=== PATIENT | female | born 1935 | race Caucasian/White ===

== ENCOUNTER → 2018-04-25 15:01 | Outpatient (CLI) | payer MEDICARE, OTHER, SELFPAY ==
[2018-04-25 16:54] LABS: Thyroid Stimulating Hormone 2.85 uIU/mL (0.47-4.68)
== END ==
PROVIDERS: Family Provider Internal Medicine; PCP Internal Medicine; Visit Provider Internal Medicine
DX: E03.9 Hypothyroidism, unspecified (principal)
CPT/HCPCS: 36415; 84443

== ENCOUNTER → 2018-10-17 08:34 | Outpatient (CLI) | payer MEDICARE, OTHER, SELFPAY ==
[2018-10-17 09:32] LABS: Add Manual Diff / Slide Review NO; Basophils Percent Auto 0.6 % (0-2); Eosinophils Percent Auto 0.9 % (2-4); Hematocrit 38.4 % (36-46); Hemoglobin 13.1 g/dL (12.0-16.0); Mean Corpuscular Volume 91.2 fL (80-100); Monocytes Percent Auto 21.1 % (3-14); Neutrophils Absolute Auto 2000 /uL (1500-7000); Neutrophils Percent Auto 44.4 % (50-75); Platelet Count 202 X10^3/uL (150-400); Red Blood Cell Count 4.21 X10^6/uL (4.0-5.2); Red Cell Distribution Width 13.9 % (11.6-14.8); White Blood Cell Count 4.6 X10^3/uL (4.5-11.0)
[2018-10-17 09:37] LABS: Alanine Aminotransferase 26 IU/L (9-52); Albumin Globulin Ratio 1.7 (1.0-2.8); Alkaline Phosphatase 43 U/L (38-126); Aspartate Aminotransferase 32 IU/L (14-36); Bilirubin Total 0.5 mg/dL (0.2-1.3); Blood Urea Nitrogen 30 mg/dL (7-17); Calcium 9.4 mg/dL (8.4-10.2); Carbon Dioxide 26 mmol/L (22-32); Chloride 103 mmol/L (98-107); Cholesterol 289 mg/dL (140-199); Estimated Glomerular Filt Rate 33.2 mL/min (>60); Globulin 2.9 g/dL (1.7-4.1); Glucose 103 mg/dL (80-110); HDL Cholesterol 76 mg/dL (40-60); HEMOLYSIS < 15 (0-50); LDL Cholesterol Calculated 188 mg/dL (<100); Potassium 4.6 mmol/L (3.4-5.1); Sodium 141 mmol/L (137-145); Total Protein 7.9 g/dL (6.3-8.2); Triglycerides 124 mg/dL (35-150)
[2018-10-17 10:46] LABS: TSH w/ Reflex to FT4 2.46 uIU/mL (0.47-4.68)
== END ==
PROVIDERS: PCP Internal Medicine; Visit Provider Internal Medicine
DX: F32.9 Major depressive disorder, single episode, unspecified (principal); N18.9 Chronic kidney disease, unspecified; E03.9 Hypothyroidism, unspecified; E78.00 Pure hypercholesterolemia, unspecified
CPT/HCPCS: 36415; 80053; 80061; 84443; 85025

== ENCOUNTER → 2019-07-02 08:33 | Outpatient (CLI) | payer MEDICARE, OTHER, SELFPAY ==
[2019-07-02 10:54] LABS: Alanine Aminotransferase 15 IU/L (9-52); Albumin 4.8 g/dL (3.5-5.0); Albumin Globulin Ratio 1.8 (1.0-2.8); Alkaline Phosphatase 35 U/L (38-126); Aspartate Aminotransferase 30 IU/L (14-36); BUN Creatinine Ratio 22.6 (6-22); Bilirubin Total 0.5 mg/dL (0.2-1.3); Blood Urea Nitrogen 43 mg/dL (7-17); Calcium 9.5 mg/dL (8.4-10.2); Carbon Dioxide 25 mmol/L (22-32); Chloride 103 mmol/L (98-107); Cholesterol 289 mg/dL (140-199); Estimated Glomerular Filt Rate 25.3 mL/min (>60); Globulin 2.6 g/dL (1.7-4.1); Glucose 98 mg/dL (80-110); HDL Cholesterol 66 mg/dL (40-60); HEMOLYSIS < 15 (0-50); LDL Cholesterol Calculated 197 mg/dL (<100); Potassium 4.4 mmol/L (3.4-5.1); Sodium 141 mmol/L (137-145); Total Protein 7.4 g/dL (6.3-8.2); Triglycerides 131 mg/dL (35-150)
[2019-07-02 11:14] LABS: TSH w/ Reflex to FT4 1.95 uIU/mL (0.47-4.68)
== END ==
PROVIDERS: PCP Internal Medicine; Visit Provider Internal Medicine
DX: I25.10 Atherosclerotic heart disease of native coronary artery without angina pectoris (principal); E03.9 Hypothyroidism, unspecified
CPT/HCPCS: 36415; 80053; 80061; 84443

== ENCOUNTER → 2019-07-04 10:52 | Outpatient (CLI) | payer MEDICARE, OTHER, SELFPAY ==
--- NOTE | 2019-07-04 | DI.US.S_ITS ---
PROCEDURE: US CAROTID DOPPLER BI INDICATIONS: TIA TECHNIQUE: Color and pulse Doppler interrogation was performed of both carotid systems, with image documentation and velocity measurements. COMPARISON: None. FINDINGS: Stenosis calculations are based on SRU (Society of Radiologists in Ultrasound) criteria. Right side: Brachial blood pressure: 160/72 mm Hg. Common carotid artery peak systolic velocity: 93 cm/sec. Internal carotid artery peak systolic velocity: 124 cm/sec. Internal carotid artery end diastolic velocity: 25 cm/sec. External carotid artery peak systolic velocity: 90 cm/sec. ICA/CCA peak systolic ratio: 1.4. Rousseau scale imaging description: Mild scattered plaque. Percent internal carotid artery stenosis: Less than 50% stenosis Vertebral artery: Flow direction is antegrade. Left side: Brachial blood pressure: 153/66 mm Hg. Common carotid artery peak systolic velocity: 77 cm/sec. Internal carotid artery peak systolic velocity: 96 cm/sec. Internal carotid artery end diastolic velocity: 24 cm/sec. External carotid artery peak systolic velocity: 112 cm/sec. ICA/CCA peak systolic ratio: 1.3. Rousseau scale imaging description: Moderate scattered plaque. Percent internal carotid artery stenosis: Less than 50% stenosis. Vertebral artery: Not visualized. IMPRESSION: Less than 50% bilateral internal carotid artery stenosis. Dictated by: Benjamin Crespo [facility] Interpreted: Bobbi Gil MD on 07/04/2019 at 11:45 Approved by: Bobbi Gil M.D. on 07/04/2019 at 16:22
== END ==
PROVIDERS: PCP Internal Medicine; Referring Provider Internal Medicine Cardiovascular Disease; Visit Provider Internal Medicine
DX: I65.23 Occlusion and stenosis of bilateral carotid arteries (principal)
CPT/HCPCS: 93880

== ENCOUNTER → 2019-07-30 15:58 | Outpatient (CLI) | payer MEDICARE, OTHER, SELFPAY ==
--- NOTE | 2019-07-30 | DI.ECHO.S_ITS ---
[facility] +---------+ : : [address] : : : : [id number] : : : : Phone: [phone]+ Echocardiogram Report + + :Name: KALE HANSON Study Date: 07/30/2019 Height: 60 in : :[facility] Exam Location: IS Weight: 120 lb : : Gender: Female BSA: 1.5 m2 : :: 1935 Age: 83 yrs BP: 140/70 mmHg: :Reason For Study: Murmur : :Ordering Physician: Dr. Kim : :Arnaud Performed By: Divina Page : + + Interpretation Summary The ejection fraction is estimated to be 60-65%. There is mild mitral regurgitation. There is mild to moderate aortic regurgitation. The right ventricular systolic pressure is estimated to be at least 32 mmHg based on an estimated right atrial pressure of 3 mm Hg. Procedure: A two-dimensional transthoracic echocardiogram with color flow and Doppler was performed. The study quality was technically adequate. There is no prior echocardiogram noted for this patient. The patient was in sinus bradycardia with heart rates between 50-54 bpm during the exam. Left Ventricle: The left ventricle is normal in size, wall thickness, and systolic function without any focal wall motion abnormalities. The ejection fraction is estimated to be 60-65%. Left ventricular wall motion is normal. Diastolic parameters suggest a pseudonormalization pattern, consistent with probable elevated filling pressures. Right Ventricle: The right ventricle is normal in size and function. Atria: The left atrium is severely dilated. Right atrial size is normal. There is no Doppler evidence for an interatrial shunt. The interatrial septum bows toward right atrium consistent with elevated left atrial pressure. Mitral Valve: The mitral valve leaflets appear mildly thickened, but open well. There is mild mitral annular calcification. There is mild mitral regurgitation. Aortic Valve: The aortic valve is trileaflet. The aortic valve opens well. There is mild to moderate aortic regurgitation. Tricuspid Valve: The tricuspid valve is normal in structure and function. There is trace tricuspid regurgitation. The right ventricular systolic pressure is estimated to be at least 32 mmHg based on an estimated right atrial pressure of 3 mm Hg. Pulmonic Valve: The pulmonic valve is not well visualized. There is trace pulmonic regurgitation. Great Vessels: The aortic root is normal size. The ascending aorta is normal in size. The pulmonary is not well visualized. The IVC is of normal diameter and collapses greater than 50% with a sniff. This suggests a low right atrial pressure of 3 mm Hg. Pericardium/ Pleura There is no pericardial effusion. There is no pleural effusion. MMode/2D Measurements & Calculations LVIDd: 4.6 cm LVOT diam: 1.9 cm LVIDs: 3.2 cm Ao root diam: 3.5 cm FS: 31.1 % asc Aorta Diam: 3.1 cm EPSS: 0.55 cm IVSd: 0.94 cm LVPWd: 0.76 cm LV bell. diameter/BSA (cm/m^2): 3.1 LV sys. diameter/BSA (cm/m^2): 2.1 LA A2 area: 23.4 cm2 RA long axis: 4.6 cm LA A4 area: 22.5 cm2 RA area: 13.5 cm2 LA length (vol): 5.2 cm RA vol: 33.5 ml LA vol: 85.9 ml RA : 22.3 ml/m2 LA vol index: 57.2 ml/m2 RVD1 (basal): 3.3 cm RVD2 (mid): 3.0 cm TAPSE: 2.6 cm Doppler Measurements & Calculations Ao V2 max: 113.0 cm/sec LVOT Max Colton: 82.8 cm/sec Ao V2 mean: 81.5 cm/sec LV V1 max P.7 mmHg Ao max P.1 mmHg LV V1 VTI: 20.7 cm Ao mean P.8 mmHg ALEJANDRO(I,D): 2.1 cm2 Ao V2 VTI: 28.0 cm ALEJANDRO(V,D): 2.0 cm2 sev ratio: 0.74 ALEJANDRO indexed to BSA (cm^2/m^2): 1.4 AI P1/2t: 582.3 msec AI dec slope: 210.6 cm/sec2 MV E max colton: 82.8 cm/sec TR max colton: 268.0 cm/sec MV A max colton: 98.1 cm/sec TR max P.7 mmHg MV E/A: 0.84 PA V2 max: 60.9 cm/sec Med Peak E' Colton: 4.4 cm/sec PA V2 mean: 46.8 cm/sec E/E' med: 18.7 PA mean P.94 mmHg Lat Peak E' Colton: 6.6 cm/sec PA Accel Time: 0.14 sec E/E' lat: 12.5 E/e' average: 15.6 MV dec time: 0.19 sec MV P1/2t: 55.0 msec MV P1/2t max colton: 83.2 cm/sec SV(LVOT): 57.8 ml MVA(2t): 4.0 cm2 Reading Physician:12:13 PM
== END ==
PROVIDERS: PCP Internal Medicine; Visit Provider Internal Medicine
DX: I08.0 Rheumatic disorders of both mitral and aortic valves (principal); R01.1 Cardiac murmur, unspecified
CPT/HCPCS: 93306

== ENCOUNTER → 2020-03-03 09:43 | Outpatient (CLI) | payer MEDICARE, OTHER, SELFPAY ==
[2020-03-03 10:43] LABS: Add Manual Diff / Slide Review NO; Basophils Absolute Auto 0 /uL (0-100); Basophils Percent Auto 0.7 % (0-2); Eosinophils Absolute Auto 0 /uL (0-450); Eosinophils Percent Auto 0.6 % (2-4); Hematocrit 34.6 % (36-46); Hemoglobin 11.7 g/dL (12.0-16.0); Lymphocytes Absolute Auto 1300 /uL (1100-4500); Lymphocytes Percent Auto 28.5 % (25-40); Mean Corpuscular HGB Conc 33.9 % (30-36); Mean Corpuscular Hemoglobin 31.4 PG (26-34); Mean Corpuscular Volume 92.7 fL (80-100); Monocytes Absolute Auto 1100 /uL (0-900); Monocytes Percent Auto 23.8 % (3-14); Neutrophils Absolute Auto 2200 /uL (1500-7000); Neutrophils Percent Auto 46.4 % (50-75); Platelet Count 168 X10^3/uL (150-400); Red Blood Cell Count 3.74 X10^6/uL (4.0-5.2); Red Cell Distribution Width 13.9 % (11.6-14.8); White Blood Cell Count 4.6 X10^3/uL (4.5-11.0)
[2020-03-03 11:06] LABS: Alanine Aminotransferase 17 IU/L (<35); Albumin 4.6 g/dL (3.5-5.0); Albumin Globulin Ratio 1.8 (1.0-2.8); Alkaline Phosphatase 38 U/L (38-126); Aspartate Aminotransferase 33 IU/L (14-36); BUN Creatinine Ratio 22.6 (6-22); Bilirubin Total 0.5 mg/dL (0.2-1.3); Blood Urea Nitrogen 38 mg/dL (7-17); Calcium 9.1 mg/dL (8.4-10.2); Carbon Dioxide 23 mmol/L (22-32); Chloride 107 mmol/L (98-107); Estimated Glomerular Filt Rate 29.1 mL/min (>60); Globulin 2.6 g/dL (1.7-4.1); Glucose 106 mg/dL (80-110); HEMOLYSIS < 15 (0-50); Potassium 5.2 mmol/L (3.4-5.1); Sodium 138 mmol/L (137-145); Total Protein 7.2 g/dL (6.3-8.2)
[2020-03-03 11:47] LABS: Vitamin B12 643 pg/mL (239-931)
== END ==
PROVIDERS: PCP Internal Medicine; Referring Provider Internal Medicine; Visit Provider Internal Medicine
DX: I10 Essential (primary) hypertension (principal); E03.9 Hypothyroidism, unspecified; G62.9 Polyneuropathy, unspecified
CPT/HCPCS: 36415; 80053; 82607; 85025

== ENCOUNTER → 2020-05-28 14:09 | Outpatient (CLI) | payer MEDICARE, OTHER, SELFPAY | PROVIDERS: PCP Internal Medicine; Referring Provider Internal Medicine; Visit Provider Internal Medicine | DX: M81.0 Age-related osteoporosis without current pathological fracture (principal); Z78.0 Asymptomatic menopausal state; E07.9 Disorder of thyroid, unspecified | CPT/HCPCS: 77080 ==

== ENCOUNTER → 2020-06-05 09:35 | Outpatient (CLI) | payer MEDICARE, OTHER, SELFPAY ==
--- NOTE | 2020-06-05 09:48 | DI.MG.S_ITS ---
Patient Name: KALE HANSON date: 1935 Sex: F Attending Physician: Arnaud Indications: Date: 06/05/2020 09:45 At the request of: LEONOR MARIE Procedure: MM screening mammo BI BILATERAL DIGITAL SCREENING MAMMOGRAM 3D/2D WITH CAD: 06/05/2020 CLINICAL: Routine screening. Comparison is made to exams dated: 01/24/2018 mammogram, 01/11/2016 mammogram, and 01/04/2015 mammogram - [facility]. There are scattered fibroglandular elements in both breasts. Current study was also evaluated with a Computer Aided Detection (CAD) system. No significant masses, calcifications, or other findings are seen in either breast. There has been no significant interval change. IMPRESSION: NEGATIVE There is no mammographic evidence of malignancy. A 1 year screening mammogram is recommended. This exam was interpreted at Station ID: [id number]. NOTE: For mammograms, a report in lay terms will be sent to the patient. Approximately 15% of breast malignancies will not be visualized mammographically. In the management of a palpable breast mass, a negative mammogram must not discourage biopsy of a clinically suspicious lesion. Electronically Signed By: Vinnie eckert/mikala:06/07/2020 08:57:51 letter sent: Normal Exam ACR BI-RADS Category 1: Negative [id number]
== END ==
PROVIDERS: PCP Internal Medicine; Referring Provider Internal Medicine; Visit Provider Internal Medicine
DX: Z12.31 Encounter for screening mammogram for malignant neoplasm of breast (principal)
CPT/HCPCS: 77063; 77067

== ENCOUNTER → 2020-06-16 08:09 | Outpatient (CLI) | payer MEDICARE, OTHER, SELFPAY ==
[2020-06-16 09:40] LABS: Cholesterol 230 mg/dL (140-199); HDL Cholesterol 72 mg/dL (40-60); LDL Cholesterol Calculated 138 mg/dL (<100); Triglycerides 98 mg/dL (35-150)
== END ==
PROVIDERS: PCP Internal Medicine; Referring Provider Internal Medicine Cardiovascular Disease; Visit Provider Internal Medicine Cardiovascular Disease
DX: I25.10 Atherosclerotic heart disease of native coronary artery without angina pectoris (principal)
CPT/HCPCS: 36415; 80061

== ENCOUNTER → 2020-12-30 14:59 | Outpatient (ROUT) | payer MEDICARE, SELFPAY ==
[2020-12-30 16:01] LABS: Add Manual Diff / Slide Review NO; Basophils Absolute Auto 0 /uL (0-100); Basophils Percent Auto 0.4 % (0-2); Eosinophils Absolute Auto 0 /uL (0-450); Eosinophils Percent Auto 0.6 % (2-4); Hematocrit 36.4 % (36-46); Hemoglobin 12.2 g/dL (12.0-16.0); Lymphocytes Absolute Auto 1300 /uL (1100-4500); Mean Corpuscular HGB Conc 33.5 % (30-36); Mean Corpuscular Hemoglobin 31.2 PG (26-34); Mean Corpuscular Volume 93.1 fL (80-100); Monocytes Absolute Auto 1100 /uL (0-900); Monocytes Percent Auto 22.5 % (3-14); Neutrophils Absolute Auto 2400 /uL (1500-7000); Neutrophils Percent Auto 49.5 % (50-75); Platelet Count 177 X10^3/uL (150-400); Red Blood Cell Count 3.92 X10^6/uL (4.0-5.2); Red Cell Distribution Width 13.7 % (11.6-14.8); White Blood Cell Count 4.8 X10^3/uL (4.5-11.0)
[2020-12-30 16:13] LABS: Alanine Aminotransferase 21 IU/L (<35); Albumin 4.3 g/dL (3.5-5.0); Alkaline Phosphatase 37 U/L (38-126); Aspartate Aminotransferase 30 IU/L (14-36); BUN Creatinine Ratio 23.3 (6-22); Bilirubin Total 0.3 mg/dL (0.2-1.3); Blood Urea Nitrogen 40 mg/dL (7-17); Calcium 9.2 mg/dL (8.4-10.2); Carbon Dioxide 24 mmol/L (22-32); Chloride 108 mmol/L (98-107); Estimated Glomerular Filt Rate 28.2 mL/min (>60); Globulin 2.1 g/dL (1.7-4.1); Glucose 101 mg/dL (80-110); HEMOLYSIS < 15 (0-50); Potassium 5.3 mmol/L (3.4-5.1); Sodium 142 mmol/L (137-145); Total Protein 6.4 g/dL (6.3-8.2)
[2020-12-30 16:43] LABS: TSH w/ Reflex to FT4 0.86 uIU/mL (0.47-4.68)
== END ==
PROVIDERS: PCP Internal Medicine; Visit Provider Internal Medicine
DX: M18.9 Osteoarthritis of first carpometacarpal joint, unspecified (principal); E03.9 Hypothyroidism, unspecified
CPT/HCPCS: 80053; 84443; 85025

== ENCOUNTER 2021-01-04 13:45 | Outpatient (RCR) | payer MEDICARE, OTHER, SELFPAY ==
--- NOTE | 2020-08-24 12:30 | PT.OIE ---
Current Diagnoses Polyneuropathy, unspecified (08/24/20) Visit Care Team Role Provider Type Julio Lares MD Attending Provider Physician Primary Care Provider Referring Provider Specialty: Internal Medicine Address: [address] [place] [address], [facility] Email: [email or web address] Physical Therapy Initial Evaluation PT-OP-A Visit Information Start: 08/24/20 12:07 Freq: Status: Active Protocol: Document 08/24/20 12:08 HH (Rec: 08/24/20 12:30 [email or web address]) Out-Patient Physical Therapy Visit Information Visit Information Visit Type Initial Evaluation Visit Start Time 09:47 Visit Stop Time 10:30 Total Visit Minutes 43 Visit Number 10/26 Number of MANAGER SHAREPOINT Visits 0 Evaluation Information Evaluation Date 08/24/20 Precautions Precautions bruise easily PT-OP-B Current Condition Start: 08/24/20 12:07 Freq: Status: Active Protocol: Document 08/24/20 12:08 HH (Rec: 08/24/20 12:30 [email or web address]) Current Condition History of Current Condition Onset Date from years ago Current Complaints decreased balance, B LE weakness R>L History of Current Condition pt is a 84yo female here for her decreased balance and B LE weakness R>L. She stated she has been a household walker because her poor endurance and poor balance. She could only sobeida walking approx half of a block but then need a rest break. She tends to use SPC for longer distance. She fell twice within the past year who tripped over a small step while carrying her groceries. 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 Treatment Goals Patient/Caregiver Goals 1. To improve her activity tolerance so she can walk more than half of a block without AD 2. to improve her overall balance so she does not limp during walking Personal Factors Other Personal Factors That May Effect see chart Therapy/Recovery PT-OP-D Balance Start: 08/24/20 12:07 Freq: Status: Active Protocol: Document 08/24/20 12:08 HH (Rec: 08/24/20 12:30 [email or web address]) Balance Tests Single Limb Standing Single Limb- Right 2 Single Limb- Left 10 Esteves Balance Assessment Evaluation Sitting to Standing Ability Independent w/out Hands Unsupported Stance Safely- 2 minutes Sitting Unsupported, Feet on Floor Safely- 2 minutes Standing to Sitting Ability Safely, Minimal Hand Use Transfer Ability Safely, Minimal Hand Use Unsupported Stance- Eyes Closed Safely, 10 seconds Unsupported Stance- Eyes Open Independent, 1 minute Reaching Forward Standing Safely, 2 inches Pick- Up Object From Floor Supervision Look Behind Shoulder - Standing Shifts Weight Well Turning 360 Degrees Turns slowly, but safely Unsupported Stance, Alternating Feet on (I)- 8 Steps in > 20 secs Stair Unsupported Tandem Stance Small Step- 30 seconds Unilateral Leg Stance Lifts Leg/Holds > 3 secs Total Score Esteves Total Score (out of 56 points) 46 PT-OP-E Functional Tests Start: 08/24/20 12:07 Freq: Status: Active Protocol: Document 08/24/20 12:08 (Rec: 08/24/20 12:30 [email or web address]) Functional Tests 6 Minute Walk Test Distance 845 Device Used no AD Comments +ve trendelenburg on RLE, breaks at 2:45 for 30 secs PT-OP-G Mobility & Gait Start: 08/24/20 12:07 Freq: Status: Active Protocol: Document 08/24/20 12:08 (Rec: 08/24/20 12:30 [email or web address]) OP Gait Assessment Factors Limiting Gait Function Factors Limiting Gait Function Decreased Activity Tolerance, Decreased Strength,Limited Range of Motion,Pain,Poor Balance Comments Gait Comments increased +ve trendelenburg on RLE noticed as distance increases. Decrease step length on R,. PT-OP-H Neuro Start: 08/24/20 12:07 Freq: Status: Active Protocol: Document 08/24/20 12:08 (Rec: 08/24/20 12:30 [email or web address]) Sensation Evaluation Gross Sensation Gross Sensation Right LE Impaired Sensation Description Numbness Comments Summary Comments decreased sensation to light touch and pressure on lateral aspect of lower legs and ankles R>L Deep Tendon Reflex & Clonus Assessment Deep Tendon Reflex Bilateral Achilles Deep Tendon Reflex 2+ Normal Bilateral Patellar Deep Tendon Reflex 2+ Normal PT-OP-M Strength Start: 08/24/20 12:07 Freq: Status: Active Protocol: Document 08/24/20 12:08 (Rec: 08/24/20 12:30 [email or web address]) Hip Strength Hip Manual Muscle Testing Left Flexion (L2) 4 Good Extension (S1) 4 Good Abduction 4 Good Adduction 4 Good Right Flexion (L2) 3+ Fair+ Extension (S1) 3+ Fair+ Abduction 3+ Fair+ Adduction 3+ Fair+ Knee Strength Knee Manual Muscle Testing Right Flexion (S2) 4 Good Extension (L3) 4 Good Left Flexion (S2) 4 Good Extension (L3) 4 Good Ankle/Foot Strength Ankle and Foot Manual Muscle Testing Right Dorsiflexion (L4) 4- Good- Plantarflexion (S1) 4- Good- Inversion 4- Good- Eversion (S1) 4- Good- Left Dorsiflexion (L4) 4+ Good+ Plantarflexion (S1) 4+ Good+ Inversion 4 Good Eversion (S1) 4 Good PT-OP-T Assessment and Plan Start: 08/24/20 12:07 Freq: Status: Active Protocol: Document 08/24/20 12:08 (Rec: 08/24/20 12:30 [email or web address]) Physical Therapy Assessment Rehab Potential Rehabilitation Potential Good Evaluation Complexity Number of Personal Factors/Comorbidities 3 or More Number of Body Systems Impaired 3 Clinical Presentation at Evaluation Stable Impairments Impairments Activity Tolerance,Balance, Functional Activities, Functional Mobility,Gait,Pain, Posture,ROM,Sensation,Soft Tissue Mobility,Strength Goals strength Impairment pt overall has decreased RLE strength Fishing Rod Marker Goal (LTG) pt will improve her R LE strength for 1MMT grade to improve her single leg stability and strength so she can climb step with alternate steps. LTG Duration 10 weeks gait Impairment pt completes 6MWT = 845 ft without AD Short Term Goal (STG) Pt will be able to complete 950 ft without AD and without rest break STG Duration 5 weeks Fishing Rod Marker Goal (LTG) pt will be able to complete 1000 ft without AD and minimal trendelenburg sign on RLE without rest break. LTG Duration 10 weeks fall recovery Impairment pt has difficulty recovery from the floor Fishing Rod Marker Goal (LTG) pt will be able to complete 3 fall recoveries with use of a chair and without asssitance. LTG Duration 8 weeks ESTEVES Impairment pt scores 46/56 on ESTEVES Jail Goal (LTG) pt will improve her ESTEVES score >50 /56 to reduce her fall risks LTG Duration 10 weeks Assessment Summary Assessment Pt is a 84 yo female here for decreased balance and decreased LE strength bilaterally. Upon assessment, pt presents weakness on LE R worse than L , especially her R hip stabilizers which causes her poor single leg balance on RLE (R=2s, L= 10s). She also demonstrates significant trendelenburg sign during stance phase on RLE. She completed 6MWT for 845ft without AD and needed a rest break at 2:45. She has relatively less activity tolerance than peers. Pt will benefit from skilled therapy to improve her oveall LE strength, balance , gait mechanics and activity tolerance. Physical Therapy Plan Frequency and Duration Frequency of Treatment 2x/Week Duration of Treatment 10 weeks Plan of Care Start Date 08/24/20 Plan of Care End Date 11/07/20 Therapeutic Interventions Therapeutic Interventions Aquatic Therapy,Balance Training,Gait Training,Home Exercise Program,Joint Mobilizations,Manual Therapy, Neuromuscular Re-education, Orthotic/Prosthetic Management ,Patient/Caregiver Education, Self-Care/Home Management,Soft Tissue Mobilization,Taping, Therapeutic Activities, Therapeutic Exercises Modalities Biofeedback,Cold Pack/Ice Massage,Electric Stimulation, Hot Packs,Infrared Therapy, Traction- Mechanical, Ultrasound Next Visit Focus/Plan Next Note Type Treatment Note Next Visit Plan DGI if possible R hip strengthening and R ankle leg press balance as sobeida
--- NOTE | 2020-08-24 12:30 | PT.OPPOC ---
Physical, Occupational & Speech Therapy At [facility] Current Diagnoses Polyneuropathy, unspecified (08/24/20) Visit Care Team Role Provider Type Julio Lares MD Attending Provider Physician Primary Care Provider Referring Provider Specialty: Internal Medicine Address: [address] [place] [address], [id number] Email: [email or web address] Plan Of Care PT-OP-T Assessment and Plan Start: 08/24/20 12:07 Freq: Status: Active Protocol: Document 08/24/20 12:08 (Rec: 08/24/20 12:30 HH [email or web address]) Physical Therapy Assessment Rehab Potential Rehabilitation Potential Good Evaluation Complexity Number of Personal Factors/Comorbidities 3 or More Number of Body Systems Impaired 3 Clinical Presentation at Evaluation Stable Impairments Impairments Activity Tolerance,Balance, Functional Activities, Functional Mobility,Gait,Pain, Posture,ROM,Sensation,Soft Tissue Mobility,Strength Goals strength Impairment pt overall has decreased RLE strength Maintenance Tech Goal (LTG) pt will improve her R LE strength for 1MMT grade to improve her single leg stability and strength so she can climb step with alternate steps. LTG Duration 10 weeks gait Impairment pt completes 6MWT = 845 ft without AD Short Term Goal (STG) Pt will be able to complete 950 ft without AD and without rest break STG Duration 5 weeks Long-Term Goal (LTG) pt will be able to complete 1000 ft without AD and minimal trendelenburg sign on RLE without rest break. LTG Duration 10 weeks fall recovery Impairment pt has difficulty recovery from the floor Maintenance Tech Goal (LTG) pt will be able to complete 3 fall recoveries with use of a chair and without asssitance. LTG Duration 8 weeks WILLIAMSON Impairment pt scores 46/56 on WILLIAMSON Maintenance Tech Goal (LTG) pt will improve her WILLIAMSON score >50 /56 to reduce her fall risks LTG Duration 10 weeks Assessment Summary Assessment Pt is a 84 yo female here for decreased balance and decreased LE strength bilaterally. Upon assessment, pt presents weakness on LE R worse than L , especially her R hip stabilizers which causes her poor single leg balance on RLE (R=2s, L= 10s). She also demonstrates significant trendelenburg sign during stance phase on RLE. She completed 6MWT for 845ft without AD and needed a rest break at 2:45. She has relatively less activity tolerance than peers. Pt will benefit from skilled therapy to improve her oveall LE strength, balance , gait mechanics and activity tolerance. Physical Therapy Plan Frequency and Duration Frequency of Treatment 2x/Week Duration of Treatment 10 weeks Plan of Care Start Date 08/24/20 Plan of Care End Date 11/07/20 Therapeutic Interventions Therapeutic Interventions Aquatic Therapy,Balance Training,Gait Training,Home Exercise Program,Joint Mobilizations,Manual Therapy, Neuromuscular Re-education, Orthotic/Prosthetic Management ,Patient/Caregiver Education, Self-Care/Home Management,Soft Tissue Mobilization,Taping, Therapeutic Activities, Therapeutic Exercises Modalities Biofeedback,Cold Pack/Ice Massage,Electric Stimulation, Hot Packs,Infrared Therapy, Traction- Mechanical, Ultrasound Next Visit Focus/Plan Next Note Type Treatment Note Next Visit Plan DGI if possible R hip strengthening and R ankle leg press balance as sobeida Plan of Care Dates Plan of Care Start Date 08/24/20 Plan of Care End Date 11/07/20 Electronically Signed by: Ciaran Sweeney, PT 08/24/20 1890 Please Sign and Return: I have reviewed this Plan of Care and certify that the skilled therapy services above are required to meet the patient?s needs. Physician Signature Date Printed Name and Credentials Clinical Instructor Signature Printed Name and Credentials
--- NOTE | 2020-08-26 16:26 | PT.OTN ---
Current Diagnoses Polyneuropathy, unspecified (08/26/20) Physical Therapy Treatment Note PT-OP-A Visit Information Start: 08/24/20 12:07 Freq: Status: Active Protocol: Document 08/26/20 15:26 HH (Rec: 08/26/20 16:26 [id number]) Out-Patient Physical Therapy Visit Information Visit Information Visit Type Treatment Note Visit Start Time 15:19 Visit Stop Time 16:00 Total Visit Minutes 41 Visit Number 11/26 Number of CLUTCH ASSEMBLER Visits 0 PT-OP-B Current Condition Start: 08/24/20 12:07 Freq: Status: Active Protocol: Document 08/24/20 12:08 HH (Rec: 08/24/20 12:30 [email or web address]) Current Condition History of Current Condition Onset Date from years ago Current Complaints decreased balance, B LE weakness R>L History of Current Condition pt is a 84yo female here for her decreased balance and B LE weakness R>L. She stated she has been a household walker because her poor endurance and poor balance. She could only sobeida walking approx half of a block but then need a rest break. She tends to use SPC for longer distance. She fell twice within the past year who tripped over a small step while carrying her groceries. 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 Treatment Goals Patient/Caregiver Goals 1. To improve her activity tolerance so she can walk more than half of a block without AD 2. to improve her overall balance so she does not limp during walking Personal Factors Other Personal Factors That May Effect see chart Therapy/Recovery PT-OP-C Subjective Start: 08/24/20 12:07 Freq: Status: Active Protocol: Document 08/26/20 15:26 HH (Rec: 08/26/20 16:26 [id number]) OP-PT Subjective Patient Comments Patient Comments I am ready for therapy! PT-OP-D Balance Start: 08/24/20 12:07 Freq: Status: Active Protocol: Document 08/24/20 12:08 HH (Rec: 08/24/20 12:30 [email or web address]) Balance Tests Single Limb Standing Single Limb- Right 2 Single Limb- Left 10 Williamson Balance Assessment Evaluation Sitting to Standing Ability Independent w/out Hands Unsupported Stance Safely- 2 minutes Sitting Unsupported, Feet on Floor Safely- 2 minutes Standing to Sitting Ability Safely, Minimal Hand Use Transfer Ability Safely, Minimal Hand Use Unsupported Stance- Eyes Closed Safely, 10 seconds Unsupported Stance- Eyes Open Independent, 1 minute Reaching Forward Standing Safely, 2 inches Pick- Up Object From Floor Supervision Look Behind Shoulder - Standing Shifts Weight Well Turning 360 Degrees Turns slowly, but safely Unsupported Stance, Alternating Feet on (I)- 8 Steps in > 20 secs Stair Unsupported Tandem Stance Small Step- 30 seconds Unilateral Leg Stance Lifts Leg/Holds > 3 secs Total Score Williamson Total Score (out of 56 points) 46 PT-OP-E Functional Tests Start: 08/24/20 12:07 Freq: Status: Active Protocol: Document 08/24/20 12:08 (Rec: 08/24/20 12:30 [email or web address]) Functional Tests 6 Minute Walk Test Distance 845 Device Used no AD Comments +ve trendelenburg on RLE, breaks at 2:45 for 30 secs PT-OP-G Mobility & Gait Start: 08/24/20 12:07 Freq: Status: Active Protocol: Document 08/24/20 12:08 (Rec: 08/24/20 12:30 [email or web address]) OP Gait Assessment Factors Limiting Gait Function Factors Limiting Gait Function Decreased Activity Tolerance, Decreased Strength,Limited Range of Motion,Pain,Poor Balance Comments Gait Comments increased +ve trendelenburg on RLE noticed as distance increases. Decrease step length on R,. PT-OP-H Neuro Start: 08/24/20 12:07 Freq: Status: Active Protocol: Document 08/24/20 12:08 (Rec: 08/24/20 12:30 [email or web address]) Sensation Evaluation Gross Sensation Gross Sensation Right LE Impaired Sensation Description Numbness Comments Summary Comments decreased sensation to light touch and pressure on lateral aspect of lower legs and ankles R>L Deep Tendon Reflex & Clonus Assessment Deep Tendon Reflex Bilateral Achilles Deep Tendon Reflex 2+ Normal Bilateral Patellar Deep Tendon Reflex 2+ Normal PT-OP-M Strength Start: 08/24/20 12:07 Freq: Status: Active Protocol: Document 08/24/20 12:08 (Rec: 08/24/20 12:30 [email or web address]) Hip Strength Hip Manual Muscle Testing Left Flexion (L2) 4 Good Extension (S1) 4 Good Abduction 4 Good Adduction 4 Good Right Flexion (L2) 3+ Fair+ Extension (S1) 3+ Fair+ Abduction 3+ Fair+ Adduction 3+ Fair+ Knee Strength Knee Manual Muscle Testing Right Flexion (S2) 4 Good Extension (L3) 4 Good Left Flexion (S2) 4 Good Extension (L3) 4 Good Ankle/Foot Strength Ankle and Foot Manual Muscle Testing Right Dorsiflexion (L4) 4- Good- Plantarflexion (S1) 4- Good- Inversion 4- Good- Eversion (S1) 4- Good- Left Dorsiflexion (L4) 4+ Good+ Plantarflexion (S1) 4+ Good+ Inversion 4 Good Eversion (S1) 4 Good PT-OP-Q Treatments Start: 08/24/20 12:07 Freq: Status: Active Protocol: Document 08/26/20 15:26 HH (Rec: 08/26/20 16:26 [id number]) Cardio Equipment Recumbent Stepper (Sci-Fit) Duration (Minutes) 5 Resistance 2 Gym Equipment Shuttle Recovery SL squat Resistance #25 Shuttle Recovery Platform Stable Reps/Time 8 x2 Therapeutic Exercises Supine Exercises ankle eversion Side bilateral Resistance yellow theraband held by therapist Reps/Minutes 6 x2 Comments R weaker than L ankle inversion Side bilateral Resistance yellow theraband held by therapist Reps/Minutes 6 x2 Comments R weaker than L ankle DF Side bilateral Resistance yellow theraband held by therapist Reps/Minutes 6 x2 Comments R weaker than L bridging Side bilateral Reps/Minutes 8 x2 Comments cues to slow down, HEP Sidelying Exercises clamshell Side bilateral Reps/Minutes 8 x2 Comments HEP Standing Exercises marching Side bilateral Reps/Minutes 2 sec holds 8 reps x1 Comments without UE support, cues to control descent, HEP calf raises Side bilateral Equipment Used grab bar Reps/Minutes 10 x2 Comments HEP Manual Therapy Treatment Soft Tissue Mobilization glute/piriformis Mobilization Type Cross-Friction,Sustained Pressure Intensity/Depth Moderate Body Position Sidelying Comments proximal insertion of R glute on R PT-OP-T Assessment and Plan Start: 08/24/20 12:07 Freq: Status: Active Protocol: Document 08/26/20 15:26 HH (Rec: 08/26/20 16:26 [id number]) Physical Therapy Assessment Goals strength Impairment pt overall has decreased RLE strength Model Engine Mechanic Goal (LTG) pt will improve her R LE strength for 1MMT grade to improve her single leg stability and strength so she can climb step with alternate steps. LTG Duration 10 weeks gait Impairment pt completes 6MWT = 845 ft without AD Short Term Goal (STG) Pt will be able to complete 950 ft without AD and without rest break STG Duration 5 weeks Model Engine Mechanic Goal (LTG) pt will be able to complete 1000 ft without AD and minimal trendelenburg sign on RLE without rest break. LTG Duration 10 weeks fall recovery Impairment pt has difficulty recovery from the floor Mcfp Goal (LTG) pt will be able to complete 3 fall recoveries with use of a chair and without asssitance. LTG Duration 8 weeks WILLIAMSON Impairment pt scores 46/56 on WILLIAMSON Model Engine Mechanic Goal (LTG) pt will improve her WILLIAMSON score >50 /56 to reduce her fall risks LTG Duration 10 weeks Assessment Summary Assessment Pt sobeida session well but there; s noticeable weakness at R LE overall. Pt also amb with a knee valgus gait with limited knee extension. Provided pt HEP with calf raises, clamshell, bridging and marching in place. Physical Therapy Plan Frequency and Duration Frequency of Treatment 2x/Week Duration of Treatment 10 weeks Plan of Care Start Date 08/24/20 Plan of Care End Date 11/07/20 Next Visit Focus/Plan Next Note Type Treatment Note Next Visit Plan DGI if possible check R knee extenison R hip strengthening and R ankle leg press balance as sobeida
--- NOTE | 2020-08-30 10:35 | PT.OTN ---
Current Diagnoses Polyneuropathy, unspecified (08/30/20) Physical Therapy Treatment Note PT-OP-A Visit Information Start: 08/24/20 12:07 Freq: Status: Active Protocol: Document 08/30/20 09:46 HH (Rec: 08/30/20 10:35 [id number]) Out-Patient Physical Therapy Visit Information Visit Information Visit Type Treatment Note Visit Start Time 09:46 Visit Stop Time 10:30 Total Visit Minutes 44 Visit Number 3/ Number of QUALITY MANAGEMENT COORDINATOR Visits 0 PT-OP-B Current Condition Start: 08/24/20 12:07 Freq: Status: Active Protocol: Document 08/24/20 12:08 HH (Rec: 08/24/20 12:30 [email or web address]) Current Condition History of Current Condition Onset Date from years ago Current Complaints decreased balance, B LE weakness R>L History of Current Condition pt is a 84yo female here for her decreased balance and B LE weakness R>L. She stated she has been a household walker because her poor endurance and poor balance. She could only sobeida walking approx half of a block but then need a rest break. She tends to use SPC for longer distance. She fell twice within the past year who tripped over a small step while carrying her groceries. 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 Treatment Goals Patient/Caregiver Goals 1. To improve her activity tolerance so she can walk more than half of a block without AD 2. to improve her overall balance so she does not limp during walking Personal Factors Other Personal Factors That May Effect see chart Therapy/Recovery PT-OP-C Subjective Start: 08/24/20 12:07 Freq: Status: Active Protocol: Document 08/30/20 09:46 HH (Rec: 08/30/20 10:35 [id number]) OP-PT Subjective Patient Comments Patient Comments I didnt get sore from last time and cristina been doing good. The marching is the hardest one since the balance is not good Patient Reported Progress Improving PT-OP-D Balance Start: 08/24/20 12:07 Freq: Status: Active Protocol: Document 08/24/20 12:08 HH (Rec: 08/24/20 12:30 [email or web address]) Balance Tests Single Limb Standing Single Limb- Right 2 Single Limb- Left 10 Williamson Balance Assessment Evaluation Sitting to Standing Ability Independent w/out Hands Unsupported Stance Safely- 2 minutes Sitting Unsupported, Feet on Floor Safely- 2 minutes Standing to Sitting Ability Safely, Minimal Hand Use Transfer Ability Safely, Minimal Hand Use Unsupported Stance- Eyes Closed Safely, 10 seconds Unsupported Stance- Eyes Open Independent, 1 minute Reaching Forward Standing Safely, 2 inches Pick- Up Object From Floor Supervision Look Behind Shoulder - Standing Shifts Weight Well Turning 360 Degrees Turns slowly, but safely Unsupported Stance, Alternating Feet on (I)- 8 Steps in > 20 secs Stair Unsupported Tandem Stance Small Step- 30 seconds Unilateral Leg Stance Lifts Leg/Holds > 3 secs Total Score Williamson Total Score (out of 56 points) 46 PT-OP-E Functional Tests Start: 08/24/20 12:07 Freq: Status: Active Protocol: Document 08/24/20 12:08 (Rec: 08/24/20 12:30 [email or web address]) Functional Tests 6 Minute Walk Test Distance 845 Device Used no AD Comments +ve trendelenburg on RLE, breaks at 2:45 for 30 secs PT-OP-G Mobility & Gait Start: 08/24/20 12:07 Freq: Status: Active Protocol: Document 08/24/20 12:08 (Rec: 08/24/20 12:30 [email or web address]) OP Gait Assessment Factors Limiting Gait Function Factors Limiting Gait Function Decreased Activity Tolerance, Decreased Strength,Limited Range of Motion,Pain,Poor Balance Comments Gait Comments increased +ve trendelenburg on RLE noticed as distance increases. Decrease step length on R,. PT-OP-H Neuro Start: 08/24/20 12:07 Freq: Status: Active Protocol: Document 08/24/20 12:08 (Rec: 08/24/20 12:30 [email or web address]) Sensation Evaluation Gross Sensation Gross Sensation Right LE Impaired Sensation Description Numbness Comments Summary Comments decreased sensation to light touch and pressure on lateral aspect of lower legs and ankles R>L Deep Tendon Reflex & Clonus Assessment Deep Tendon Reflex Bilateral Achilles Deep Tendon Reflex 2+ Normal Bilateral Patellar Deep Tendon Reflex 2+ Normal PT-OP-M Strength Start: 08/24/20 12:07 Freq: Status: Active Protocol: Document 08/24/20 12:08 (Rec: 08/24/20 12:30 [email or web address]) Hip Strength Hip Manual Muscle Testing Left Flexion (L2) 4 Good Extension (S1) 4 Good Abduction 4 Good Adduction 4 Good Right Flexion (L2) 3+ Fair+ Extension (S1) 3+ Fair+ Abduction 3+ Fair+ Adduction 3+ Fair+ Knee Strength Knee Manual Muscle Testing Right Flexion (S2) 4 Good Extension (L3) 4 Good Left Flexion (S2) 4 Good Extension (L3) 4 Good Ankle/Foot Strength Ankle and Foot Manual Muscle Testing Right Dorsiflexion (L4) 4- Good- Plantarflexion (S1) 4- Good- Inversion 4- Good- Eversion (S1) 4- Good- Left Dorsiflexion (L4) 4+ Good+ Plantarflexion (S1) 4+ Good+ Inversion 4 Good Eversion (S1) 4 Good PT-OP-Q Treatments Start: 08/24/20 12:07 Freq: Status: Active Protocol: Document 08/30/20 09:46 (Rec: 08/30/20 10:35 [id number]) Gym Equipment Shuttle Recovery SL squat Resistance #25 R, 37# L Shuttle Recovery Platform Stable Reps/Time 8 x2 Therapeutic Exercises Supine Exercises ankle eversion Side bilateral Resistance yellow theraband held by therapist Reps/Minutes 6 x2 Comments R weaker than L ankle inversion Side bilateral Resistance yellow theraband held by therapist Reps/Minutes 6 x2 Comments R weaker than L ankle DF Side bilateral Resistance yellow theraband held by therapist Reps/Minutes 6 x2 Comments R weaker than L bridging Side bilateral Reps/Minutes 10 x2 Comments cues to prevent knee valgus on R Sidelying Exercises clamshell Side bilateral Reps/Minutes 8 x2 Comments HEP Standing Exercises marching Side bilateral Reps/Minutes 2 sec holds 8 reps x1 Comments without UE support, cues to control descent, HEP calf raises Side bilateral Equipment Used grab bar Reps/Minutes 10 x2 Comments HEP Gait Training Gait Activity hurdles Level of Assistance SBA Surface ground level Distance/Duration in place Treatment Focus weight acceptance on RLE Comments lexie on L to facilitate R LE Manual Therapy Treatment Soft Tissue Mobilization glute/piriformis Mobilization Type Cross-Friction,Sustained Pressure Intensity/Depth Moderate Body Position Sidelying Comments proximal insertion of R glute on R PT-OP-T Assessment and Plan Start: 08/24/20 12:07 Freq: Status: Active Protocol: Document 08/30/20 09:46 HH (Rec: 08/30/20 10:35 HH [id number]) Physical Therapy Assessment Goals strength Impairment pt overall has decreased RLE strength Heating Operators Engineer Goal (LTG) pt will improve her R LE strength for 1MMT grade to improve her single leg stability and strength so she can climb step with alternate steps. LTG Duration 10 weeks gait Impairment pt completes 6MWT = 845 ft without AD Short Term Goal (STG) Pt will be able to complete 950 ft without AD and without rest break STG Duration 5 weeks Heating Operators Engineer Goal (LTG) pt will be able to complete 1000 ft without AD and minimal trendelenburg sign on RLE without rest break. LTG Duration 10 weeks fall recovery Impairment pt has difficulty recovery from the floor Heating Operators Engineer Goal (LTG) pt will be able to complete 3 fall recoveries with use of a chair and without asssitance. LTG Duration 8 weeks WILLIAMSON Impairment pt scores 46/56 on WILLIAMSON Heating Operators Engineer Goal (LTG) pt will improve her WILLIAMSON score >50 /56 to reduce her fall risks LTG Duration 10 weeks Assessment Summary Assessment Pt did not c/o soreness from last session and she sobeida this session very well. Focused on RLE strengthening and stability today , followed by improving weight acceptance on RLE during stance phase. Physical Therapy Plan Frequency and Duration Frequency of Treatment 2x/Week Duration of Treatment 10 weeks Plan of Care Start Date 08/24/20 Plan of Care End Date 11/07/20 Next Visit Focus/Plan Next Note Type Treatment Note Next Visit Plan DGI if possible check R knee extenison R hip strengthening and R ankle leg press balance as sobeida
--- NOTE | 2020-09-06 10:35 | PT.OTN ---
Current Diagnoses Polyneuropathy, unspecified (09/06/20) Physical Therapy Treatment Note PT-OP-A Visit Information Start: 08/24/20 12:07 Freq: Status: Active Protocol: Document 09/06/20 09:46 HH (Rec: 09/06/20 10:34 [id number]) Out-Patient Physical Therapy Visit Information Visit Information Visit Type Treatment Note Visit Start Time 09:47 Visit Stop Time 10:30 Total Visit Minutes 43 Visit Number 01/24 Number of PET FEEDER Visits 0 PT-OP-B Current Condition Start: 08/24/20 12:07 Freq: Status: Active Protocol: Document 08/24/20 12:08 HH (Rec: 08/24/20 12:30 [email or web address]) Current Condition History of Current Condition Onset Date from years ago Current Complaints decreased balance, B LE weakness R>L History of Current Condition pt is a 84yo female here for her decreased balance and B LE weakness R>L. She stated she has been a household walker because her poor endurance and poor balance. She could only sobeida walking approx half of a block but then need a rest break. She tends to use SPC for longer distance. She fell twice within the past year who tripped over a small step while carrying her groceries. 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 Treatment Goals Patient/Caregiver Goals 1. To improve her activity tolerance so she can walk more than half of a block without AD 2. to improve her overall balance so she does not limp during walking Personal Factors Other Personal Factors That May Effect see chart Therapy/Recovery PT-OP-C Subjective Start: 08/24/20 12:07 Freq: Status: Active Protocol: Document 09/06/20 09:46 HH (Rec: 09/06/20 10:34 [id number]) OP-PT Subjective Patient Comments Patient Comments I didnt get sore from last time but marching in place is discouraging because my balance is not good. Patient Reported Progress Improving PT-OP-D Balance Start: 08/24/20 12:07 Freq: Status: Active Protocol: Document 08/24/20 12:08 HH (Rec: 08/24/20 12:30 [email or web address]) Balance Tests Single Limb Standing Single Limb- Right 2 Single Limb- Left 10 Williamson Balance Assessment Evaluation Sitting to Standing Ability Independent w/out Hands Unsupported Stance Safely- 2 minutes Sitting Unsupported, Feet on Floor Safely- 2 minutes Standing to Sitting Ability Safely, Minimal Hand Use Transfer Ability Safely, Minimal Hand Use Unsupported Stance- Eyes Closed Safely, 10 seconds Unsupported Stance- Eyes Open Independent, 1 minute Reaching Forward Standing Safely, 2 inches Pick- Up Object From Floor Supervision Look Behind Shoulder - Standing Shifts Weight Well Turning 360 Degrees Turns slowly, but safely Unsupported Stance, Alternating Feet on (I)- 8 Steps in > 20 secs Stair Unsupported Tandem Stance Small Step- 30 seconds Unilateral Leg Stance Lifts Leg/Holds > 3 secs Total Score Williamson Total Score (out of 56 points) 46 PT-OP-E Functional Tests Start: 08/24/20 12:07 Freq: Status: Active Protocol: Document 08/24/20 12:08 (Rec: 08/24/20 12:30 [email or web address]) Functional Tests 6 Minute Walk Test Distance 845 Device Used no AD Comments +ve trendelenburg on RLE, breaks at 2:45 for 30 secs PT-OP-G Mobility & Gait Start: 08/24/20 12:07 Freq: Status: Active Protocol: Document 08/24/20 12:08 (Rec: 08/24/20 12:30 [email or web address]) OP Gait Assessment Factors Limiting Gait Function Factors Limiting Gait Function Decreased Activity Tolerance, Decreased Strength,Limited Range of Motion,Pain,Poor Balance Comments Gait Comments increased +ve trendelenburg on RLE noticed as distance increases. Decrease step length on R,. PT-OP-H Neuro Start: 08/24/20 12:07 Freq: Status: Active Protocol: Document 08/24/20 12:08 (Rec: 08/24/20 12:30 [email or web address]) Sensation Evaluation Gross Sensation Gross Sensation Right LE Impaired Sensation Description Numbness Comments Summary Comments decreased sensation to light touch and pressure on lateral aspect of lower legs and ankles R>L Deep Tendon Reflex & Clonus Assessment Deep Tendon Reflex Bilateral Achilles Deep Tendon Reflex 2+ Normal Bilateral Patellar Deep Tendon Reflex 2+ Normal PT-OP-M Strength Start: 08/24/20 12:07 Freq: Status: Active Protocol: Document 08/24/20 12:08 (Rec: 08/24/20 12:30 [email or web address]) Hip Strength Hip Manual Muscle Testing Left Flexion (L2) 4 Good Extension (S1) 4 Good Abduction 4 Good Adduction 4 Good Right Flexion (L2) 3+ Fair+ Extension (S1) 3+ Fair+ Abduction 3+ Fair+ Adduction 3+ Fair+ Knee Strength Knee Manual Muscle Testing Right Flexion (S2) 4 Good Extension (L3) 4 Good Left Flexion (S2) 4 Good Extension (L3) 4 Good Ankle/Foot Strength Ankle and Foot Manual Muscle Testing Right Dorsiflexion (L4) 4- Good- Plantarflexion (S1) 4- Good- Inversion 4- Good- Eversion (S1) 4- Good- Left Dorsiflexion (L4) 4+ Good+ Plantarflexion (S1) 4+ Good+ Inversion 4 Good Eversion (S1) 4 Good PT-OP-Q Treatments Start: 08/24/20 12:07 Freq: Status: Active Protocol: Document 09/06/20 09:46 (Rec: 09/06/20 10:34 [id number]) Gym Equipment Shuttle Recovery SL squat Resistance #25 R x1 #37 R x1, 37# L Shuttle Recovery Platform Stable Reps/Time 10 x3 Therapeutic Exercises Supine Exercises supine hip ER Supine Exercise Name unilateral Side bilateral Equipment Used yellow band Reps/Minutes 10 x 2 ankle eversion Side bilateral Resistance yellow theraband held by therapist Reps/Minutes 6 x2 Comments R weaker than L ankle inversion Side bilateral Resistance yellow theraband held by therapist Reps/Minutes 6 x2 Comments R weaker than L ankle DF Side bilateral Resistance yellow theraband held by therapist Reps/Minutes 6 x2 Comments R weaker than L bridging Side bilateral Equipment Used yellow band on kness for hip ER Reps/Minutes 10 x2 Comments cues to prevent knee valgus on R Prone Exercises prone hip ER Side right Reps/Minutes 10 sec hold x5 Sidelying Exercises clamshell Side bilateral Reps/Minutes 8 x2 Comments HEP Standing Exercises marching Standing Exercise Name cues on R knee extension Side bilateral Reps/Minutes 2 sec holds 8 reps x1 Comments with finger support. Manual Therapy Treatment Soft Tissue Mobilization glute/piriformis Mobilization Type Cross-Friction,Sustained Pressure Intensity/Depth Moderate Body Position Sidelying Comments proximal insertion of R glute on R and piriformis PT-OP-T Assessment and Plan Start: 08/24/20 12:07 Freq: Status: Active Protocol: Document 09/06/20 09:46 HH (Rec: 09/06/20 10:34 HH [id number]) Physical Therapy Assessment Goals strength Impairment pt overall has decreased RLE strength Financial Secretary Goal (LTG) pt will improve her R LE strength for 1MMT grade to improve her single leg stability and strength so she can climb step with alternate steps. LTG Duration 10 weeks gait Impairment pt completes 6MWT = 845 ft without AD Short Term Goal (STG) Pt will be able to complete 950 ft without AD and without rest break STG Duration 5 weeks Alf Goal (LTG) pt will be able to complete 1000 ft without AD and minimal trendelenburg sign on RLE without rest break. LTG Duration 10 weeks fall recovery Impairment pt has difficulty recovery from the floor Alf Goal (LTG) pt will be able to complete 3 fall recoveries with use of a chair and without asssitance. LTG Duration 8 weeks WILLIAMSON Impairment pt scores 46/56 on WILLIAMSON Alf Goal (LTG) pt will improve her WILLIAMSON score >50 /56 to reduce her fall risks LTG Duration 10 weeks Assessment Summary Assessment today session focusde on R hip ER and strengthening. Pt does report R medial knee pain in WB position when she kept her R hip neutral and aligned with foot. Will check on her R knee next time. Physical Therapy Plan Frequency and Duration Frequency of Treatment 2x/Week Duration of Treatment 10 weeks Plan of Care Start Date 08/24/20 Plan of Care End Date 11/07/20 Next Visit Focus/Plan Next Note Type Treatment Note Next Visit Plan DGI if possible check R knee extenison R hip strengthening and R ankle leg press balance as sobeida
--- NOTE | 2020-09-09 10:36 | PT.OTN ---
Current Diagnoses Polyneuropathy, unspecified (09/09/20) Physical Therapy Treatment Note PT-OP-A Visit Information Start: 08/24/20 12:07 Freq: Status: Active Protocol: Document 09/09/20 09:47 HH (Rec: 09/09/20 10:35 [id number]) Out-Patient Physical Therapy Visit Information Visit Information Visit Type Treatment Note Visit Start Time 09:48 Visit Stop Time 10:30 Total Visit Minutes 42 Visit Number 02/23 Number of INFORMATION TECHNOLOGY ASSOCIATE Visits 0 PT-OP-B Current Condition Start: 08/24/20 12:07 Freq: Status: Active Protocol: Document 08/24/20 12:08 HH (Rec: 08/24/20 12:30 [email or web address]) Current Condition History of Current Condition Onset Date from years ago Current Complaints decreased balance, B LE weakness R>L History of Current Condition pt is a 84yo female here for her decreased balance and B LE weakness R>L. She stated she has been a household walker because her poor endurance and poor balance. She could only sobeida walking approx half of a block but then need a rest break. She tends to use SPC for longer distance. She fell twice within the past year who tripped over a small step while carrying her groceries. 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 Treatment Goals Patient/Caregiver Goals 1. To improve her activity tolerance so she can walk more than half of a block without AD 2. to improve her overall balance so she does not limp during walking Personal Factors Other Personal Factors That May Effect see chart Therapy/Recovery PT-OP-C Subjective Start: 08/24/20 12:07 Freq: Status: Active Protocol: Document 09/09/20 09:47 HH (Rec: 09/09/20 10:35 [id number]) OP-PT Subjective Patient Comments Patient Comments Overall Im feeling pretty good but my knee did get sore for a little Patient Reported Progress Improving PT-OP-D Balance Start: 08/24/20 12:07 Freq: Status: Active Protocol: Document 08/24/20 12:08 HH (Rec: 08/24/20 12:30 [email or web address]) Balance Tests Single Limb Standing Single Limb- Right 2 Single Limb- Left 10 Williamson Balance Assessment Evaluation Sitting to Standing Ability Independent w/out Hands Unsupported Stance Safely- 2 minutes Sitting Unsupported, Feet on Floor Safely- 2 minutes Standing to Sitting Ability Safely, Minimal Hand Use Transfer Ability Safely, Minimal Hand Use Unsupported Stance- Eyes Closed Safely, 10 seconds Unsupported Stance- Eyes Open Independent, 1 minute Reaching Forward Standing Safely, 2 inches Pick- Up Object From Floor Supervision Look Behind Shoulder - Standing Shifts Weight Well Turning 360 Degrees Turns slowly, but safely Unsupported Stance, Alternating Feet on (I)- 8 Steps in > 20 secs Stair Unsupported Tandem Stance Small Step- 30 seconds Unilateral Leg Stance Lifts Leg/Holds > 3 secs Total Score Williamson Total Score (out of 56 points) 46 PT-OP-E Functional Tests Start: 08/24/20 12:07 Freq: Status: Active Protocol: Document 08/24/20 12:08 HH (Rec: 08/24/20 12:30 [email or web address]) Functional Tests 6 Minute Walk Test Distance 845 Device Used no AD Comments +ve trendelenburg on RLE, breaks at 2:45 for 30 secs PT-OP-G Mobility & Gait Start: 08/24/20 12:07 Freq: Status: Active Protocol: Document 08/24/20 12:08 HH (Rec: 08/24/20 12:30 [email or web address]) OP Gait Assessment Factors Limiting Gait Function Factors Limiting Gait Function Decreased Activity Tolerance, Decreased Strength,Limited Range of Motion,Pain,Poor Balance Comments Gait Comments increased +ve trendelenburg on RLE noticed as distance increases. Decrease step length on R,. PT-OP-H Neuro Start: 08/24/20 12:07 Freq: Status: Active Protocol: Document 08/24/20 12:08 HH (Rec: 08/24/20 12:30 HH [email or web address]) Sensation Evaluation Gross Sensation Gross Sensation Right LE Impaired Sensation Description Numbness Comments Summary Comments decreased sensation to light touch and pressure on lateral aspect of lower legs and ankles R>L Deep Tendon Reflex & Clonus Assessment Deep Tendon Reflex Bilateral Achilles Deep Tendon Reflex 2+ Normal Bilateral Patellar Deep Tendon Reflex 2+ Normal PT-OP-M Strength Start: 08/24/20 12:07 Freq: Status: Active Protocol: Document 08/24/20 12:08 HH (Rec: 08/24/20 12:30 [email or web address]) Hip Strength Hip Manual Muscle Testing Left Flexion (L2) 4 Good Extension (S1) 4 Good Abduction 4 Good Adduction 4 Good Right Flexion (L2) 3+ Fair+ Extension (S1) 3+ Fair+ Abduction 3+ Fair+ Adduction 3+ Fair+ Knee Strength Knee Manual Muscle Testing Right Flexion (S2) 4 Good Extension (L3) 4 Good Left Flexion (S2) 4 Good Extension (L3) 4 Good Ankle/Foot Strength Ankle and Foot Manual Muscle Testing Right Dorsiflexion (L4) 4- Good- Plantarflexion (S1) 4- Good- Inversion 4- Good- Eversion (S1) 4- Good- Left Dorsiflexion (L4) 4+ Good+ Plantarflexion (S1) 4+ Good+ Inversion 4 Good Eversion (S1) 4 Good PT-OP-Q Treatments Start: 08/24/20 12:07 Freq: Status: Active Protocol: Document 09/09/20 09:47 (Rec: 09/09/20 10:35 [id number]) Gym Equipment Shuttle Recovery B squat Details with yellow band on B knees to prevent knee valgus Resistance #37 Shuttle Recovery Platform Stable Reps/Time 10 x2 SL squat Resistance #25 R x1 #37 R x1, 37# L Shuttle Recovery Platform Stable Reps/Time 10 x3 Therapeutic Exercises Supine Exercises supine hip ER Supine Exercise Name unilateral Side bilateral Equipment Used yellow band Reps/Minutes 10 x 2 ankle eversion Side bilateral Resistance yellow theraband held by therapist Reps/Minutes 6 x2 Comments R weaker than L ankle inversion Side bilateral Resistance yellow theraband held by therapist Reps/Minutes 6 x2 Comments R weaker than L ankle DF Side bilateral Resistance yellow theraband held by therapist Reps/Minutes 6 x2 Comments R weaker than L Standing Exercises SLS Side bilateral Comments L= up to 8 s, R= 3-4 s marching Standing Exercise Name cues on R knee extension Side bilateral Reps/Minutes 2 sec holds 8 reps x1 Comments with finger support. PT-OP-T Assessment and Plan Start: 08/24/20 12:07 Freq: Status: Active Protocol: Document 09/09/20 09:47 (Rec: 09/09/20 10:35 [id number]) Physical Therapy Assessment Goals strength Impairment pt overall has decreased RLE strength Alf Goal (LTG) pt will improve her R LE strength for 1MMT grade to improve her single leg stability and strength so she can climb step with alternate steps. LTG Duration 10 weeks gait Impairment pt completes 6MWT = 845 ft without AD Short Term Goal (STG) Pt will be able to complete 950 ft without AD and without rest break STG Duration 5 weeks Executive Pilot Goal (LTG) pt will be able to complete 1000 ft without AD and minimal trendelenburg sign on RLE without rest break. LTG Duration 10 weeks fall recovery Impairment pt has difficulty recovery from the floor Alf Goal (LTG) pt will be able to complete 3 fall recoveries with use of a chair and without asssitance. LTG Duration 8 weeks WILLIAMSON Impairment pt scores 46/56 on WILLIAMSON Executive Pilot Goal (LTG) pt will improve her WILLIAMSON score >50 /56 to reduce her fall risks LTG Duration 10 weeks Assessment Summary Assessment Pt did very well today with improved hip ER actively and passively. Pt does have difficulty donning her socks on R side and needed UE assistance. Pt's L SLS up to 3 -4 seconds today and L SLS up to 8 s Physical Therapy Plan Frequency and Duration Frequency of Treatment 2x/Week Duration of Treatment 10 weeks Plan of Care Start Date 08/24/20 Plan of Care End Date 11/07/20 Next Visit Focus/Plan Next Note Type Treatment Note Next Visit Plan R hip ER R hip strengthening and R ankle leg press balance as sobeida
--- NOTE | 2020-09-13 13:49 | PT.OTN ---
Current Diagnoses Polyneuropathy, unspecified (09/13/20) Physical Therapy Treatment Note PT-OP-A Visit Information Start: 08/24/20 12:07 Freq: Status: Active Protocol: Document 09/13/20 13:01 SP (Rec: 09/13/20 15:59 SP [id number]) Out-Patient Physical Therapy Visit Information Visit Information Visit Type Treatment Note Visit Start Time 13:01 Visit Stop Time 13:49 Total Visit Minutes 48 Visit Number 03/26 Number of CLUB ROOM ATTENDANT Visits 1 PT-OP-B Current Condition Start: 08/24/20 12:07 Freq: Status: Active Protocol: Document 08/24/20 12:08 HH (Rec: 08/24/20 12:30 HH [email or web address]) Current Condition History of Current Condition Onset Date from years ago Current Complaints decreased balance, B LE weakness R>L History of Current Condition pt is a 84yo female here for her decreased balance and B LE weakness R>L. She stated she has been a household walker because her poor endurance and poor balance. She could only sobeida walking approx half of a block but then need a rest break. She tends to use SPC for longer distance. She fell twice within the past year who tripped over a small step while carrying her groceries. 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 Treatment Goals Patient/Caregiver Goals 1. To improve her activity tolerance so she can walk more than half of a block without AD 2. to improve her overall balance so she does not limp during walking Personal Factors Other Personal Factors That May Effect see chart Therapy/Recovery PT-OP-C Subjective Start: 08/24/20 12:07 Freq: Status: Active Protocol: Document 09/13/20 13:01 SP (Rec: 09/13/20 15:59 SP [id number]) OP-PT Subjective Patient Comments Patient Comments I am doing good today. Patient Reported Progress Improving PT-OP-D Balance Start: 08/24/20 12:07 Freq: Status: Active Protocol: Document 08/24/20 12:08 HH (Rec: 08/24/20 12:30 HH [email or web address]) Balance Tests Single Limb Standing Single Limb- Right 2 Single Limb- Left 10 Williamson Balance Assessment Evaluation Sitting to Standing Ability Independent w/out Hands Unsupported Stance Safely- 2 minutes Sitting Unsupported, Feet on Floor Safely- 2 minutes Standing to Sitting Ability Safely, Minimal Hand Use Transfer Ability Safely, Minimal Hand Use Unsupported Stance- Eyes Closed Safely, 10 seconds Unsupported Stance- Eyes Open Independent, 1 minute Reaching Forward Standing Safely, 2 inches Pick- Up Object From Floor Supervision Look Behind Shoulder - Standing Shifts Weight Well Turning 360 Degrees Turns slowly, but safely Unsupported Stance, Alternating Feet on (I)- 8 Steps in > 20 secs Stair Unsupported Tandem Stance Small Step- 30 seconds Unilateral Leg Stance Lifts Leg/Holds > 3 secs Total Score Williamson Total Score (out of 56 points) 46 PT-OP-E Functional Tests Start: 08/24/20 12:07 Freq: Status: Active Protocol: Document 08/24/20 12:08 (Rec: 08/24/20 12:30 [email or web address]) Functional Tests 6 Minute Walk Test Distance 845 Device Used no AD Comments +ve trendelenburg on RLE, breaks at 2:45 for 30 secs PT-OP-G Mobility & Gait Start: 08/24/20 12:07 Freq: Status: Active Protocol: Document 08/24/20 12:08 (Rec: 08/24/20 12:30 [email or web address]) OP Gait Assessment Factors Limiting Gait Function Factors Limiting Gait Function Decreased Activity Tolerance, Decreased Strength,Limited Range of Motion,Pain,Poor Balance Comments Gait Comments increased +ve trendelenburg on RLE noticed as distance increases. Decrease step length on R,. PT-OP-H Neuro Start: 08/24/20 12:07 Freq: Status: Active Protocol: Document 08/24/20 12:08 (Rec: 08/24/20 12:30 [email or web address]) Sensation Evaluation Gross Sensation Gross Sensation Right LE Impaired Sensation Description Numbness Comments Summary Comments decreased sensation to light touch and pressure on lateral aspect of lower legs and ankles R>L Deep Tendon Reflex & Clonus Assessment Deep Tendon Reflex Bilateral Achilles Deep Tendon Reflex 2+ Normal Bilateral Patellar Deep Tendon Reflex 2+ Normal PT-OP-M Strength Start: 08/24/20 12:07 Freq: Status: Active Protocol: Document 08/24/20 12:08 (Rec: 08/24/20 12:30 [email or web address]) Hip Strength Hip Manual Muscle Testing Left Flexion (L2) 4 Good Extension (S1) 4 Good Abduction 4 Good Adduction 4 Good Right Flexion (L2) 3+ Fair+ Extension (S1) 3+ Fair+ Abduction 3+ Fair+ Adduction 3+ Fair+ Knee Strength Knee Manual Muscle Testing Right Flexion (S2) 4 Good Extension (L3) 4 Good Left Flexion (S2) 4 Good Extension (L3) 4 Good Ankle/Foot Strength Ankle and Foot Manual Muscle Testing Right Dorsiflexion (L4) 4- Good- Plantarflexion (S1) 4- Good- Inversion 4- Good- Eversion (S1) 4- Good- Left Dorsiflexion (L4) 4+ Good+ Plantarflexion (S1) 4+ Good+ Inversion 4 Good Eversion (S1) 4 Good PT-OP-Q Treatments Start: 08/24/20 12:07 Freq: Status: Active Protocol: Document 09/13/20 13:01 SP (Rec: 09/13/20 15:59 SP [id number]) Gym Equipment Shuttle Recovery B squat Details with yellow band on B knees to prevent knee valgus Resistance #50 Shuttle Recovery Platform Stable Reps/Time 10 x2 SL squat Details cued lateral knee alignment to neutral Resistance #37 B Shuttle Recovery Platform Stable Reps/Time 10 x3 Therapeutic Exercises Supine Exercises supine hip ER Supine Exercise Name unilateral (long leg) Side bilateral Equipment Used yellow band Reps/Minutes 10 x 2 Comments cued ankle ER to neutral, knee ext, TA fac, hip ER bridging Side bilateral Equipment Used yellow band on kness for hip ER Reps/Minutes 10 x2 Comments cues to prevent knee valgus on R Standing Exercises SLS Side bilateral Equipment Used contact counter as needed Reps/Minutes L: 17, 20 ; R: 6, 7 Comments cued elevated ribcage, wt shift over stance leg, space b /t LE,glut/core fac marching Side bilateral Resistance 1 finger contact as needed Reps/Minutes 2 sec hold x 8 reps Comments cued elevated ribcage, wt shift over stance leg, space b /t LE,glut/core fac Gait Training Gait Activity gait f/b Description f/b/forward marching Device Used none Level of Assistance CGA- 5% A Surface stable Distance/Duration 20 ft x4 laps Treatment Focus increased stability and balance PT-OP-T Assessment and Plan Start: 08/24/20 12:07 Freq: Status: Active Protocol: Document 09/13/20 13:01 SP (Rec: 09/13/20 15:59 SP [id number]) Physical Therapy Assessment Goals strength Impairment pt overall has decreased RLE strength Lumber Material Handler Goal (LTG) pt will improve her R LE strength for 1MMT grade to improve her single leg stability and strength so she can climb step with alternate steps. LTG Duration 10 weeks gait Impairment pt completes 6MWT = 845 ft without AD Short Term Goal (STG) Pt will be able to complete 950 ft without AD and without rest break STG Duration 5 weeks Long-Term Goal (LTG) pt will be able to complete 1000 ft without AD and minimal trendelenburg sign on RLE without rest break. LTG Duration 10 weeks fall recovery Impairment pt has difficulty recovery from the floor Long-Term Goal (LTG) pt will be able to complete 3 fall recoveries with use of a chair and without asssitance. LTG Duration 8 weeks WILLIAMSON Impairment pt scores 46/56 on WILLIAMSON Lumber Material Handler Goal (LTG) pt will improve her WILLIAMSON score >50 /56 to reduce her fall risks LTG Duration 10 weeks Assessment Summary Assessment Pt improved in SLS time post gait corrections f/b with cuing for upright posture, glut facilitation and wt shift over stance LE with awareness of space between LEs. Intiated hip ER for home with TB loop, required cuing for TA and glut facilitation for decrease compensation strengthening with improved self corrections to send home. Physical Therapy Plan Frequency and Duration Frequency of Treatment 2x/Week Duration of Treatment 10 weeks Plan of Care Start Date 08/24/20 Plan of Care End Date 11/07/20 Therapeutic Interventions Therapeutic Interventions Aquatic Therapy,Balance Training,Gait Training,Home Exercise Program,Joint Mobilizations,Manual Therapy, Neuromuscular Re-education, Orthotic/Prosthetic Management ,Patient/Caregiver Education, Self-Care/Home Management,Soft Tissue Mobilization,Taping, Therapeutic Activities, Therapeutic Exercises Modalities Biofeedback,Cold Pack/Ice Massage,Electric Stimulation, Hot Packs,Infrared Therapy, Traction- Mechanical, Ultrasound Next Visit Focus/Plan Next Note Type Treatment Note Next Visit Plan Assess response to last tx: gait, SLS, supine hip ER TB. Continue per PT POC: R hip ER R hip strengthening and R ankle leg press balance as sobeida
--- NOTE | 2020-09-16 13:47 | PT.OTN ---
Current Diagnoses Polyneuropathy, unspecified (09/16/20) Physical Therapy Treatment Note PT-OP-A Visit Information Start: 08/24/20 12:07 Freq: Status: Active Protocol: Document 09/16/20 13:02 (Rec: 09/16/20 13:47 [id number]) Out-Patient Physical Therapy Visit Information Visit Information Visit Type Treatment Note Visit Start Time 13:02 Visit Stop Time 13:45 Total Visit Minutes 43 Visit Number 04/25 Number of VIRTUALIZATION ENGINEER Visits 0 PT-OP-B Current Condition Start: 08/24/20 12:07 Freq: Status: Active Protocol: Document 08/24/20 12:08 HH (Rec: 08/24/20 12:30 HH [email or web address]) Current Condition History of Current Condition Onset Date from years ago Current Complaints decreased balance, B LE weakness R>L History of Current Condition pt is a 84yo female here for her decreased balance and B LE weakness R>L. She stated she has been a household walker because her poor endurance and poor balance. She could only sobeida walking approx half of a block but then need a rest break. She tends to use SPC for longer distance. She fell twice within the past year who tripped over a small step while carrying her groceries. 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 Treatment Goals Patient/Caregiver Goals 1. To improve her activity tolerance so she can walk more than half of a block without AD 2. to improve her overall balance so she does not limp during walking Personal Factors Other Personal Factors That May Effect see chart Therapy/Recovery PT-OP-C Subjective Start: 08/24/20 12:07 Freq: Status: Active Protocol: Document 09/16/20 13:02 HH (Rec: 09/16/20 13:47 [id number]) OP-PT Subjective Patient Comments Patient Comments I feel pretty good so far. Patient Reported Progress Improving PT-OP-D Balance Start: 08/24/20 12:07 Freq: Status: Active Protocol: Document 08/24/20 12:08 HH (Rec: 08/24/20 12:30 HH [email or web address]) Balance Tests Single Limb Standing Single Limb- Right 2 Single Limb- Left 10 Williamson Balance Assessment Evaluation Sitting to Standing Ability Independent w/out Hands Unsupported Stance Safely- 2 minutes Sitting Unsupported, Feet on Floor Safely- 2 minutes Standing to Sitting Ability Safely, Minimal Hand Use Transfer Ability Safely, Minimal Hand Use Unsupported Stance- Eyes Closed Safely, 10 seconds Unsupported Stance- Eyes Open Independent, 1 minute Reaching Forward Standing Safely, 2 inches Pick- Up Object From Floor Supervision Look Behind Shoulder - Standing Shifts Weight Well Turning 360 Degrees Turns slowly, but safely Unsupported Stance, Alternating Feet on (I)- 8 Steps in > 20 secs Stair Unsupported Tandem Stance Small Step- 30 seconds Unilateral Leg Stance Lifts Leg/Holds > 3 secs Total Score Williamson Total Score (out of 56 points) 46 PT-OP-E Functional Tests Start: 08/24/20 12:07 Freq: Status: Active Protocol: Document 08/24/20 12:08 (Rec: 08/24/20 12:30 [email or web address]) Functional Tests 6 Minute Walk Test Distance 845 Device Used no AD Comments +ve trendelenburg on RLE, breaks at 2:45 for 30 secs PT-OP-G Mobility & Gait Start: 08/24/20 12:07 Freq: Status: Active Protocol: Document 08/24/20 12:08 HH (Rec: 08/24/20 12:30 [email or web address]) OP Gait Assessment Factors Limiting Gait Function Factors Limiting Gait Function Decreased Activity Tolerance, Decreased Strength,Limited Range of Motion,Pain,Poor Balance Comments Gait Comments increased +ve trendelenburg on RLE noticed as distance increases. Decrease step length on R,. PT-OP-H Neuro Start: 08/24/20 12:07 Freq: Status: Active Protocol: Document 08/24/20 12:08 HH (Rec: 08/24/20 12:30 [email or web address]) Sensation Evaluation Gross Sensation Gross Sensation Right LE Impaired Sensation Description Numbness Comments Summary Comments decreased sensation to light touch and pressure on lateral aspect of lower legs and ankles R>L Deep Tendon Reflex & Clonus Assessment Deep Tendon Reflex Bilateral Achilles Deep Tendon Reflex 2+ Normal Bilateral Patellar Deep Tendon Reflex 2+ Normal PT-OP-M Strength Start: 08/24/20 12:07 Freq: Status: Active Protocol: Document 08/24/20 12:08 HH (Rec: 08/24/20 12:30 [email or web address]) Hip Strength Hip Manual Muscle Testing Left Flexion (L2) 4 Good Extension (S1) 4 Good Abduction 4 Good Adduction 4 Good Right Flexion (L2) 3+ Fair+ Extension (S1) 3+ Fair+ Abduction 3+ Fair+ Adduction 3+ Fair+ Knee Strength Knee Manual Muscle Testing Right Flexion (S2) 4 Good Extension (L3) 4 Good Left Flexion (S2) 4 Good Extension (L3) 4 Good Ankle/Foot Strength Ankle and Foot Manual Muscle Testing Right Dorsiflexion (L4) 4- Good- Plantarflexion (S1) 4- Good- Inversion 4- Good- Eversion (S1) 4- Good- Left Dorsiflexion (L4) 4+ Good+ Plantarflexion (S1) 4+ Good+ Inversion 4 Good Eversion (S1) 4 Good PT-OP-Q Treatments Start: 08/24/20 12:07 Freq: Status: Active Protocol: Document 09/16/20 13:02 (Rec: 09/16/20 13:47 [id number]) Gym Equipment Shuttle Recovery B squat Details with yellow band on B knees to prevent knee valgus Resistance #50 Shuttle Recovery Platform Stable Reps/Time 10 x2 SL squat Details cued lateral knee alignment to neutral Resistance #37 B Shuttle Recovery Platform Stable Reps/Time 10 x2 Therapeutic Exercises Supine Exercises piriformis stretch Side bilateral Reps/Minutes 8 x2 Comments improved flexibility on R hip supine hip ER Supine Exercise Name unilateral (long leg) Side bilateral Equipment Used yellow band Reps/Minutes 10 x 2 Comments cued ankle ER to neutral, knee ext, TA fac, hip ER ankle DF Side bilateral Resistance yellow theraband held by therapist Reps/Minutes 6 x2 Comments R weaker than L Standing Exercises toe tap Side bilateral Equipment Used yellow band Reps/Minutes 20 x2 Comments cues on not making a sound side stepping Side bilateral Equipment Used yellow band Reps/Minutes 8x2 standing hip ER Side bilateral Equipment Used yellow band Reps/Minutes 8 x2 SLS Side bilateral Equipment Used contact counter as needed Reps/Minutes L: 17, 20 ; R: 6, 7 Comments cued elevated ribcage, wt shift over stance leg, space b /t LE,glut/core fac marching Side bilateral Resistance 1 finger contact as needed Reps/Minutes 2 sec hold x 8 reps Comments cued elevated ribcage, wt shift over stance leg, space b /t LE,glut/core fac Manual Therapy Treatment Soft Tissue Mobilization hip adductors Mobilization Type Rolling,Sustained Pressure, Trigger Point Release Intensity/Depth Moderate Body Position Supine Comments improved hip ER noted. PT-OP-T Assessment and Plan Start: 08/24/20 12:07 Freq: Status: Active Protocol: Document 09/16/20 13:02 (Rec: 09/16/20 13:47 [id number]) Physical Therapy Assessment Goals strength Impairment pt overall has decreased RLE strength [facility]dc Goal (LTG) pt will improve her R LE strength for 1MMT grade to improve her single leg stability and strength so she can climb step with alternate steps. LTG Duration 10 weeks gait Impairment pt completes 6MWT = 845 ft without AD Short Term Goal (STG) Pt will be able to complete 950 ft without AD and without rest break STG Duration 5 weeks [facility]dc Goal (LTG) pt will be able to complete 1000 ft without AD and minimal trendelenburg sign on RLE without rest break. LTG Duration 10 weeks fall recovery Impairment pt has difficulty recovery from the floor Fdc Goal (LTG) pt will be able to complete 3 fall recoveries with use of a chair and without asssitance. LTG Duration 8 weeks WILLIAMSON Impairment pt scores 46/56 on WILLIAMSON Fdc Goal (LTG) pt will improve her WILLIAMSON score >50 /56 to reduce her fall risks LTG Duration 10 weeks Assessment Summary Assessment Pt shows improved R hip IR and ER. She still has difficulty maintain SL balance with significant hip drop. Added toe tap on stairs today (4) Physical Therapy Plan Frequency and Duration Frequency of Treatment 2x/Week Duration of Treatment 10 weeks Plan of Care Start Date 08/24/20 Plan of Care End Date 11/07/20 Next Visit Focus/Plan Next Note Type Treatment Note Next Visit Plan Assess response to last tx: gait, SLS, supine hip ER TB. Continue per PT POC: R hip ER R hip strengthening and R ankle leg press balance as sobeida
--- NOTE | 2020-09-20 14:30 | PT.OTN ---
Current Diagnoses Polyneuropathy, unspecified (09/20/20) Physical Therapy Treatment Note PT-OP-A Visit Information Start: 08/24/20 12:07 Freq: Status: Active Protocol: Document 09/20/20 14:00 SP (Rec: 09/20/20 15:02 SP [id number]) Out-Patient Physical Therapy Visit Information Visit Information Visit Type Treatment Note Visit Note Decreased tx time due to patient 9 min late for appt. Visit Start Time 13:54 Visit Stop Time 14:30 Total Visit Minutes 36 Visit Number / Number of GRID CASTING MACHINE OPERATOR HELPER Visits 1 PT-OP-B Current Condition Start: 08/24/20 12:07 Freq: Status: Active Protocol: Document 08/24/20 12:08 HH (Rec: 08/24/20 12:30 HH [email or web address]) Current Condition History of Current Condition Onset Date from years ago Current Complaints decreased balance, B LE weakness R>L History of Current Condition pt is a 84yo female here for her decreased balance and B LE weakness R>L. She stated she has been a household walker because her poor endurance and poor balance. She could only sobeida walking approx half of a block but then need a rest break. She tends to use SPC for longer distance. She fell twice within the past year who tripped over a small step while carrying her groceries. 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 Treatment Goals Patient/Caregiver Goals 1. To improve her activity tolerance so she can walk more than half of a block without AD 2. to improve her overall balance so she does not limp during walking Personal Factors Other Personal Factors That May Effect see chart Therapy/Recovery PT-OP-C Subjective Start: 08/24/20 12:07 Freq: Status: Active Protocol: Document 09/20/20 14:00 SP (Rec: 09/20/20 15:02 SP [id number]) OP-PT Subjective Patient Comments Patient Comments Today is a good day, able to do what I want with not being to tired. Patient Reported Progress Improving PT-OP-D Balance Start: 08/24/20 12:07 Freq: Status: Active Protocol: Document 08/24/20 12:08 HH (Rec: 08/24/20 12:30 HH [email or web address]) Balance Tests Single Limb Standing Single Limb- Right 2 Single Limb- Left 10 Williamson Balance Assessment Evaluation Sitting to Standing Ability Independent w/out Hands Unsupported Stance Safely- 2 minutes Sitting Unsupported, Feet on Floor Safely- 2 minutes Standing to Sitting Ability Safely, Minimal Hand Use Transfer Ability Safely, Minimal Hand Use Unsupported Stance- Eyes Closed Safely, 10 seconds Unsupported Stance- Eyes Open Independent, 1 minute Reaching Forward Standing Safely, 2 inches Pick- Up Object From Floor Supervision Look Behind Shoulder - Standing Shifts Weight Well Turning 360 Degrees Turns slowly, but safely Unsupported Stance, Alternating Feet on (I)- 8 Steps in > 20 secs Stair Unsupported Tandem Stance Small Step- 30 seconds Unilateral Leg Stance Lifts Leg/Holds > 3 secs Total Score Williamson Total Score (out of 56 points) 46 PT-OP-E Functional Tests Start: 08/24/20 12:07 Freq: Status: Active Protocol: Document 08/24/20 12:08 (Rec: 08/24/20 12:30 [email or web address]) Functional Tests 6 Minute Walk Test Distance 845 Device Used no AD Comments +ve trendelenburg on RLE, breaks at 2:45 for 30 secs PT-OP-G Mobility & Gait Start: 08/24/20 12:07 Freq: Status: Active Protocol: Document 08/24/20 12:08 (Rec: 08/24/20 12:30 [email or web address]) OP Gait Assessment Factors Limiting Gait Function Factors Limiting Gait Function Decreased Activity Tolerance, Decreased Strength,Limited Range of Motion,Pain,Poor Balance Comments Gait Comments increased +ve trendelenburg on RLE noticed as distance increases. Decrease step length on R,. PT-OP-H Neuro Start: 08/24/20 12:07 Freq: Status: Active Protocol: Document 08/24/20 12:08 (Rec: 08/24/20 12:30 [email or web address]) Sensation Evaluation Gross Sensation Gross Sensation Right LE Impaired Sensation Description Numbness Comments Summary Comments decreased sensation to light touch and pressure on lateral aspect of lower legs and ankles R>L Deep Tendon Reflex & Clonus Assessment Deep Tendon Reflex Bilateral Achilles Deep Tendon Reflex 2+ Normal Bilateral Patellar Deep Tendon Reflex 2+ Normal PT-OP-M Strength Start: 08/24/20 12:07 Freq: Status: Active Protocol: Document 08/24/20 12:08 HH (Rec: 08/24/20 12:30 HH [email or web address]) Hip Strength Hip Manual Muscle Testing Left Flexion (L2) 4 Good Extension (S1) 4 Good Abduction 4 Good Adduction 4 Good Right Flexion (L2) 3+ Fair+ Extension (S1) 3+ Fair+ Abduction 3+ Fair+ Adduction 3+ Fair+ Knee Strength Knee Manual Muscle Testing Right Flexion (S2) 4 Good Extension (L3) 4 Good Left Flexion (S2) 4 Good Extension (L3) 4 Good Ankle/Foot Strength Ankle and Foot Manual Muscle Testing Right Dorsiflexion (L4) 4- Good- Plantarflexion (S1) 4- Good- Inversion 4- Good- Eversion (S1) 4- Good- Left Dorsiflexion (L4) 4+ Good+ Plantarflexion (S1) 4+ Good+ Inversion 4 Good Eversion (S1) 4 Good PT-OP-Q Treatments Start: 08/24/20 12:07 Freq: Status: Active Protocol: Document 09/20/20 14:00 SP (Rec: 09/20/20 15:02 SP [id number]) Gym Equipment Shuttle Recovery B squat Details with yellow band on B knees to prevent knee valgus Resistance #62 Shuttle Recovery Platform Stable Reps/Time 10 x2 SL squat Details cued lateral knee alignment to neutral Resistance #37 B Shuttle Recovery Platform Stable Reps/Time 10 x2 Sport Cord resisted gait f/b/side stepping Cord/Resistance green Reps/Duration 5 reps each direction Comments cued wt shift stance LE, glut facilitation and slow controlled eccentric stepping for safety balance COG over CINDY Therapeutic Exercises Supine Exercises supine hip ER Supine Exercise Name unilateral (long leg) Side bilateral Equipment Used yellow band Reps/Minutes 10 x 2 Comments cued ankle ER to neutral, knee ext, TA fac, hip ER bridging Side bilateral Equipment Used yellow band on kness for hip ER Reps/Minutes 10 x2 Comments Occasional cuing for parallel knee alignment, PPT alignment, glut facili Standing Exercises SLS Side bilateral Equipment Used contact counter as needed Reps/Minutes L: 11 x2; R: 3, 4 Comments cued elevated ribcage, wt shift over stance leg, space b /t LE,glut/core fac PT-OP-T Assessment and Plan Start: 08/24/20 12:07 Freq: Status: Active Protocol: Document 09/20/20 14:00 SP (Rec: 09/20/20 15:02 SP [id number]) Physical Therapy Assessment Goals strength Impairment pt overall has decreased RLE strength Nursing Home Goal (LTG) pt will improve her R LE strength for 1MMT grade to improve her single leg stability and strength so she can climb step with alternate steps. LTG Duration 10 weeks gait Impairment pt completes 6MWT = 845 ft without AD Short Term Goal (STG) Pt will be able to complete 950 ft without AD and without rest break STG Duration 5 weeks Nursing Home Goal (LTG) pt will be able to complete 1000 ft without AD and minimal trendelenburg sign on RLE without rest break. LTG Duration 10 weeks fall recovery Impairment pt has difficulty recovery from the floor Manager Lpn Goal (LTG) pt will be able to complete 3 fall recoveries with use of a chair and without asssitance. LTG Duration 8 weeks WILLIAMSON Impairment pt scores 46/56 on WILLIAMSON Manager Lpn Goal (LTG) pt will improve her WILLIAMSON score >50 /56 to reduce her fall risks LTG Duration 10 weeks Assessment Summary Assessment Pt had decreased B single stance time today requiring increased contact for balance. Pt responded well to resisted stepping with sport cored initiated for core and glut facilitation. Decreased cuing required for HEP hip ER and bridges today. Cuing mainly today for slow controlled pacing. Physical Therapy Plan Frequency and Duration Frequency of Treatment 2x/Week Duration of Treatment 10 weeks Plan of Care Start Date 08/24/20 Plan of Care End Date 11/07/20 Therapeutic Interventions Therapeutic Interventions Aquatic Therapy,Balance Training,Gait Training,Home Exercise Program,Joint Mobilizations,Manual Therapy, Neuromuscular Re-education, Orthotic/Prosthetic Management ,Patient/Caregiver Education, Self-Care/Home Management,Soft Tissue Mobilization,Taping, Therapeutic Activities, Therapeutic Exercises Modalities Biofeedback,Cold Pack/Ice Massage,Electric Stimulation, Hot Packs,Infrared Therapy, Traction- Mechanical, Ultrasound Next Visit Focus/Plan Next Note Type Treatment Note Next Visit Plan Assess response to last tx: resisted f/b/s stepping, SLS, supine hip ER TB. Next tx continue to glut and ankle strengthening via functional stationary and dynamic activities (sport cord, hurdles, uneven surface, shuttle rec and balance). Added corner balance if safe for HEP? Check baseline 6MWT and on/ off floor. Continue per PT POC: R hip ER R hip strengthening and R ankle leg press balance as sobeida
--- NOTE | 2020-09-23 14:44 | PT.OTN ---
Current Diagnoses Polyneuropathy, unspecified (09/23/20) Physical Therapy Treatment Note PT-OP-A Visit Information Start: 08/24/20 12:07 Freq: Status: Active Protocol: Document 09/23/20 13:43 HH (Rec: 09/23/20 14:42 [id number]) Out-Patient Physical Therapy Visit Information Visit Information Visit Type Treatment Note Visit Start Time 13:45 Visit Stop Time 14:30 Total Visit Minutes 45 Visit Number 06/26 Number of CAR ICER Visits 0 PT-OP-B Current Condition Start: 08/24/20 12:07 Freq: Status: Active Protocol: Document 08/24/20 12:08 HH (Rec: 08/24/20 12:30 [email or web address]) Current Condition History of Current Condition Onset Date from years ago Current Complaints decreased balance, B LE weakness R>L History of Current Condition pt is a 84yo female here for her decreased balance and B LE weakness R>L. She stated she has been a household walker because her poor endurance and poor balance. She could only sobeida walking approx half of a block but then need a rest break. She tends to use SPC for longer distance. She fell twice within the past year who tripped over a small step while carrying her groceries. 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 Treatment Goals Patient/Caregiver Goals 1. To improve her activity tolerance so she can walk more than half of a block without AD 2. to improve her overall balance so she does not limp during walking Personal Factors Other Personal Factors That May Effect see chart Therapy/Recovery PT-OP-C Subjective Start: 08/24/20 12:07 Freq: Status: Active Protocol: Document 09/23/20 13:43 HH (Rec: 09/23/20 14:42 [id number]) OP-PT Subjective Patient Comments Patient Comments I still have a hard time standing on my R leg. But it gives me motivation. Patient Reported Progress Improving PT-OP-D Balance Start: 08/24/20 12:07 Freq: Status: Active Protocol: Document 08/24/20 12:08 HH (Rec: 08/24/20 12:30 [email or web address]) Balance Tests Single Limb Standing Single Limb- Right 2 Single Limb- Left 10 Williamson Balance Assessment Evaluation Sitting to Standing Ability Independent w/out Hands Unsupported Stance Safely- 2 minutes Sitting Unsupported, Feet on Floor Safely- 2 minutes Standing to Sitting Ability Safely, Minimal Hand Use Transfer Ability Safely, Minimal Hand Use Unsupported Stance- Eyes Closed Safely, 10 seconds Unsupported Stance- Eyes Open Independent, 1 minute Reaching Forward Standing Safely, 2 inches Pick- Up Object From Floor Supervision Look Behind Shoulder - Standing Shifts Weight Well Turning 360 Degrees Turns slowly, but safely Unsupported Stance, Alternating Feet on (I)- 8 Steps in > 20 secs Stair Unsupported Tandem Stance Small Step- 30 seconds Unilateral Leg Stance Lifts Leg/Holds > 3 secs Total Score Williamson Total Score (out of 56 points) 46 PT-OP-E Functional Tests Start: 08/24/20 12:07 Freq: Status: Active Protocol: Document 08/24/20 12:08 HH (Rec: 08/24/20 12:30 [email or web address]) Functional Tests 6 Minute Walk Test Distance 845 Device Used no AD Comments +ve trendelenburg on RLE, breaks at 2:45 for 30 secs PT-OP-G Mobility & Gait Start: 08/24/20 12:07 Freq: Status: Active Protocol: Document 08/24/20 12:08 HH (Rec: 08/24/20 12:30 [email or web address]) OP Gait Assessment Factors Limiting Gait Function Factors Limiting Gait Function Decreased Activity Tolerance, Decreased Strength,Limited Range of Motion,Pain,Poor Balance Comments Gait Comments increased +ve trendelenburg on RLE noticed as distance increases. Decrease step length on R,. PT-OP-H Neuro Start: 08/24/20 12:07 Freq: Status: Active Protocol: Document 08/24/20 12:08 HH (Rec: 08/24/20 12:30 [email or web address]) Sensation Evaluation Gross Sensation Gross Sensation Right LE Impaired Sensation Description Numbness Comments Summary Comments decreased sensation to light touch and pressure on lateral aspect of lower legs and ankles R>L Deep Tendon Reflex & Clonus Assessment Deep Tendon Reflex Bilateral Achilles Deep Tendon Reflex 2+ Normal Bilateral Patellar Deep Tendon Reflex 2+ Normal PT-OP-M Strength Start: 08/24/20 12:07 Freq: Status: Active Protocol: Document 08/24/20 12:08 HH (Rec: 08/24/20 12:30 [email or web address]) Hip Strength Hip Manual Muscle Testing Left Flexion (L2) 4 Good Extension (S1) 4 Good Abduction 4 Good Adduction 4 Good Right Flexion (L2) 3+ Fair+ Extension (S1) 3+ Fair+ Abduction 3+ Fair+ Adduction 3+ Fair+ Knee Strength Knee Manual Muscle Testing Right Flexion (S2) 4 Good Extension (L3) 4 Good Left Flexion (S2) 4 Good Extension (L3) 4 Good Ankle/Foot Strength Ankle and Foot Manual Muscle Testing Right Dorsiflexion (L4) 4- Good- Plantarflexion (S1) 4- Good- Inversion 4- Good- Eversion (S1) 4- Good- Left Dorsiflexion (L4) 4+ Good+ Plantarflexion (S1) 4+ Good+ Inversion 4 Good Eversion (S1) 4 Good PT-OP-Q Treatments Start: 08/24/20 12:07 Freq: Status: Active Protocol: Document 09/23/20 13:43 (Rec: 09/23/20 14:42 [id number]) Therapeutic Exercises Supine Exercises supine hip ER Supine Exercise Name unilateral (long leg) Side bilateral Equipment Used green band Reps/Minutes 8x2 Comments cued ankle ER to neutral, knee ext, TA fac, hip ER bridging Side bilateral Equipment Used green band Reps/Minutes 10 x2 Comments Occasional cuing for parallel knee alignment, PPT alignment, glut facili Standing Exercises step up Side bilateral Equipment Used 4 step Reps/Minutes 10 x 2 Comments cues on full knee extension toe tap Side bilateral Equipment Used yellow band Reps/Minutes 20 x2 Comments cues on not making a sound side stepping Side bilateral Equipment Used yellow band Reps/Minutes 8x2 SLS Side bilateral Equipment Used contact counter as needed Reps/Minutes L: 15 x2; R: 5-8s Comments cues on weight shift to R during SLS on R marching Side bilateral Resistance 1 finger contact as needed Reps/Minutes 2 sec hold x 8 reps Comments cued elevated ribcage, wt shift over stance leg, space b /t LE,glut/core fac Manual Therapy Treatment Soft Tissue Mobilization hip adductors Mobilization Type Rolling,Sustained Pressure, Trigger Point Release Intensity/Depth Moderate Body Position Supine Comments improved hip ER noted. glute/piriformis Mobilization Type Sustained Pressure,Trigger Point Release Intensity/Depth Moderate Body Position Prone PT-OP-T Assessment and Plan Start: 08/24/20 12:07 Freq: Status: Active Protocol: Document 09/23/20 13:43 (Rec: 09/23/20 14:42 [id number]) Physical Therapy Assessment Goals strength Impairment pt overall has decreased RLE strength Correction Goal (LTG) pt will improve her R LE strength for 1MMT grade to improve her single leg stability and strength so she can climb step with alternate steps. LTG Duration 10 weeks gait Impairment pt completes 6MWT = 845 ft without AD Short Term Goal (STG) Pt will be able to complete 950 ft without AD and without rest break STG Duration 5 weeks Patch Worker Goal (LTG) pt will be able to complete 1000 ft without AD and minimal trendelenburg sign on RLE without rest break. LTG Duration 10 weeks fall recovery Impairment pt has difficulty recovery from the floor Correction Goal (LTG) pt will be able to complete 3 fall recoveries with use of a chair and without asssitance. LTG Duration 8 weeks WILLIAMSON Impairment pt scores 46/56 on WILLIAMSON Patch Worker Goal (LTG) pt will improve her WILLIAMSON score >50 /56 to reduce her fall risks LTG Duration 10 weeks Assessment Summary Assessment Pt did good today which focused mostly on SLS, hip strengthening. She was able to reach 5-8 s on R side. Physical Therapy Plan Frequency and Duration Frequency of Treatment 2x/Week Duration of Treatment 10 weeks Plan of Care Start Date 08/24/20 Plan of Care End Date 11/07/20 Next Visit Focus/Plan Next Note Type Treatment Note Next Visit Plan Assess response to last tx: resisted f/b/s stepping, SLS, supine hip ER TB. Next tx continue to glut and ankle strengthening via functional stationary and dynamic activities (sport cord, hurdles, uneven surface, shuttle rec and balance). Added corner balance if safe for HEP? Continue per PT POC: R hip ER R hip strengthening and R ankle leg press balance as sobeida
--- NOTE | 2020-09-28 16:34 | PT.OTN ---
Current Diagnoses Polyneuropathy, unspecified (09/28/20) Physical Therapy Treatment Note PT-OP-A Visit Information Start: 08/24/20 12:07 Freq: Status: Active Protocol: Document 09/28/20 13:45 HH (Rec: 09/28/20 16:33 [id number]) Out-Patient Physical Therapy Visit Information Visit Information Visit Type Progress Note Visit Start Time 13:49 Visit Stop Time 14:30 Total Visit Minutes 41 Visit Number 07/26 Number of REFRIGERATOR CABINETMAKER Visits 0 PT-OP-B Current Condition Start: 08/24/20 12:07 Freq: Status: Active Protocol: Document 08/24/20 12:08 HH (Rec: 08/24/20 12:30 [email or web address]) Current Condition History of Current Condition Onset Date from years ago Current Complaints decreased balance, B LE weakness R>L History of Current Condition pt is a 84yo female here for her decreased balance and B LE weakness R>L. She stated she has been a household walker because her poor endurance and poor balance. She could only sobeida walking approx half of a block but then need a rest break. She tends to use SPC for longer distance. She fell twice within the past year who tripped over a small step while carrying her groceries. 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 Treatment Goals Patient/Caregiver Goals 1. To improve her activity tolerance so she can walk more than half of a block without AD 2. to improve her overall balance so she does not limp during walking Personal Factors Other Personal Factors That May Effect see chart Therapy/Recovery PT-OP-C Subjective Start: 08/24/20 12:07 Freq: Status: Active Protocol: Document 09/28/20 13:45 HH (Rec: 09/28/20 16:33 [id number]) OP-PT Subjective Patient Comments Patient Comments My hip is totally getting stronger and I started walking around in the house during this weekend without limping for the very first time Patient Reported Progress Improving PT-OP-D Balance Start: 08/24/20 12:07 Freq: Status: Active Protocol: Document 08/24/20 12:08 HH (Rec: 08/24/20 12:30 [email or web address]) Balance Tests Single Limb Standing Single Limb- Right 2 Single Limb- Left 10 Williamson Balance Assessment Evaluation Sitting to Standing Ability Independent w/out Hands Unsupported Stance Safely- 2 minutes Sitting Unsupported, Feet on Floor Safely- 2 minutes Standing to Sitting Ability Safely, Minimal Hand Use Transfer Ability Safely, Minimal Hand Use Unsupported Stance- Eyes Closed Safely, 10 seconds Unsupported Stance- Eyes Open Independent, 1 minute Reaching Forward Standing Safely, 2 inches Pick- Up Object From Floor Supervision Look Behind Shoulder - Standing Shifts Weight Well Turning 360 Degrees Turns slowly, but safely Unsupported Stance, Alternating Feet on (I)- 8 Steps in > 20 secs Stair Unsupported Tandem Stance Small Step- 30 seconds Unilateral Leg Stance Lifts Leg/Holds > 3 secs Total Score Williamson Total Score (out of 56 points) 46 PT-OP-E Functional Tests Start: 08/24/20 12:07 Freq: Status: Active Protocol: Document 09/28/20 13:45 HH (Rec: 09/28/20 16:34 HH [id number]) Functional Tests 6 Minute Walk Test Distance 798ft Device Used no AD Comments 2 10 second standing breaks, SOB noted but improved SL stability on L PT-OP-G Mobility & Gait Start: 08/24/20 12:07 Freq: Status: Active Protocol: Document 08/24/20 12:08 HH (Rec: 08/24/20 12:30 HH [email or web address]) OP Gait Assessment Factors Limiting Gait Function Factors Limiting Gait Function Decreased Activity Tolerance, Decreased Strength,Limited Range of Motion,Pain,Poor Balance Comments Gait Comments increased +ve trendelenburg on RLE noticed as distance increases. Decrease step length on R,. PT-OP-H Neuro Start: 08/24/20 12:07 Freq: Status: Active Protocol: Document 08/24/20 12:08 HH (Rec: 08/24/20 12:30 HH [email or web address]) Sensation Evaluation Gross Sensation Gross Sensation Right LE Impaired Sensation Description Numbness Comments Summary Comments decreased sensation to light touch and pressure on lateral aspect of lower legs and ankles R>L Deep Tendon Reflex & Clonus Assessment Deep Tendon Reflex Bilateral Achilles Deep Tendon Reflex 2+ Normal Bilateral Patellar Deep Tendon Reflex 2+ Normal PT-OP-M Strength Start: 08/24/20 12:07 Freq: Status: Active Protocol: Document 08/24/20 12:08 HH (Rec: 08/24/20 12:30 [email or web address]) Hip Strength Hip Manual Muscle Testing Left Flexion (L2) 4 Good Extension (S1) 4 Good Abduction 4 Good Adduction 4 Good Right Flexion (L2) 3+ Fair+ Extension (S1) 3+ Fair+ Abduction 3+ Fair+ Adduction 3+ Fair+ Knee Strength Knee Manual Muscle Testing Right Flexion (S2) 4 Good Extension (L3) 4 Good Left Flexion (S2) 4 Good Extension (L3) 4 Good Ankle/Foot Strength Ankle and Foot Manual Muscle Testing Right Dorsiflexion (L4) 4- Good- Plantarflexion (S1) 4- Good- Inversion 4- Good- Eversion (S1) 4- Good- Left Dorsiflexion (L4) 4+ Good+ Plantarflexion (S1) 4+ Good+ Inversion 4 Good Eversion (S1) 4 Good PT-OP-Q Treatments Start: 08/24/20 12:07 Freq: Status: Active Protocol: Document 09/28/20 13:45 HH (Rec: 09/28/20 16:33 [id number]) Gym Equipment Shuttle Recovery SL squat Details cued lateral knee alignment to neutral Resistance #37 B Shuttle Recovery Platform Stable Reps/Time 10 x2 Therapeutic Exercises Supine Exercises supine hip ER Supine Exercise Name unilateral (long leg) Side bilateral Equipment Used green band Reps/Minutes 10 x2 Comments cued ankle ER to neutral, knee ext, TA fac, hip ER Sidelying Exercises hip abd Side bilateral Reps/Minutes 6 x 2 clamshell Side bilateral Reps/Minutes 10 x2 Comments pt reports L is 30% stronger Standing Exercises step up Side bilateral Equipment Used 4 step Reps/Minutes 10 x 2 Comments cues on full knee extension toe tap Side bilateral Reps/Minutes 20 x2 Comments cues on not making a sound Manual Therapy Treatment Soft Tissue Mobilization hip adductors Mobilization Type Rolling,Sustained Pressure, Trigger Point Release Intensity/Depth Moderate Body Position Supine Comments improved hip ER noted. PT-OP-T Assessment and Plan Start: 08/24/20 12:07 Freq: Status: Active Protocol: Document 09/28/20 13:45 HH (Rec: 09/28/20 16:33 [id number]) Physical Therapy Assessment Goals strength Impairment pt overall has decreased RLE strength Short Term Goal (STG) 09/28 improved hip strength noted. She is able to perform clam shell 10 x2 and SL hip abduction 6 x2 on R side. Shelter Goal (LTG) pt will improve her R LE strength for 1MMT grade to improve her single leg stability and strength so she can climb step with alternate steps. LTG Duration 10 weeks gait Impairment pt completes 6MWT = 845 ft without AD Short Term Goal (STG) 09/28 pt completed 798 ft without sitting break today and reduced antalgic sign noted. Pt will be able to complete 950 ft without AD and without rest break STG Duration 5 weeks Shelter Goal (LTG) pt will be able to complete 1000 ft without AD and minimal trendelenburg sign on RLE without rest break. LTG Duration 10 weeks fall recovery Impairment pt has difficulty recovery from the floor Shelter Goal (LTG) pt will be able to complete 3 fall recoveries with use of a chair and without asssitance. LTG Duration 8 weeks WILLIAMSON Impairment pt scores 46/56 on WILLIAMSON Disability Coordinator Goal (LTG) pt will improve her WILLIAMSON score >50 /56 to reduce her fall risks LTG Duration 10 weeks Assessment Summary Assessment Pt's figure 4 position ( lateral condyle reach 6 inches off table bilaterally). Her gait also improves with decreased lateral weight shift and improved SL stability noted. Physical Therapy Plan Frequency and Duration Frequency of Treatment 2x/Week Duration of Treatment 10 weeks Plan of Care Start Date 08/24/20 Plan of Care End Date 11/07/20 Next Visit Focus/Plan Next Note Type Treatment Note Next Visit Plan Assess response to last tx: resisted f/b/s stepping, SLS, supine hip ER TB. Next tx continue to glut and ankle strengthening via functional stationary and dynamic activities (sport cord, hurdles, uneven surface, shuttle rec and balance). Added corner balance if safe for HEP? Continue per PT POC: R hip ER R hip strengthening and R ankle leg press balance as sobeida
--- NOTE | 2020-09-28 16:36 | PT.OPPN ---
Current Diagnoses Polyneuropathy, unspecified (09/28/20) Physical Therapy Progress Note PT-OP-A Visit Information Start: 08/24/20 12:07 Freq: Status: Active Protocol: Document 09/28/20 13:45 HH (Rec: 09/28/20 16:33 [id number]) Out-Patient Physical Therapy Visit Information Visit Information Visit Type Progress Note Visit Start Time 13:49 Visit Stop Time 14:30 Total Visit Minutes 41 Visit Number 07/26 Number of CYBER ANALYST Visits 0 PT-OP-B Current Condition Start: 08/24/20 12:07 Freq: Status: Active Protocol: Document 08/24/20 12:08 HH (Rec: 08/24/20 12:30 HH [email or web address]) Current Condition History of Current Condition Onset Date from years ago Current Complaints decreased balance, B LE weakness R>L History of Current Condition pt is a 84yo female here for her decreased balance and B LE weakness R>L. She stated she has been a household walker because her poor endurance and poor balance. She could only sobeida walking approx half of a block but then need a rest break. She tends to use SPC for longer distance. She fell twice within the past year who tripped over a small step while carrying her groceries. 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 Treatment Goals Patient/Caregiver Goals 1. To improve her activity tolerance so she can walk more than half of a block without AD 2. to improve her overall balance so she does not limp during walking Personal Factors Other Personal Factors That May Effect see chart Therapy/Recovery PT-OP-C Subjective Start: 08/24/20 12:07 Freq: Status: Active Protocol: Document 09/28/20 13:45 HH (Rec: 09/28/20 16:33 [id number]) OP-PT Subjective Patient Comments Patient Comments My hip is totally getting stronger and I started walking around in the house during this weekend without limping for the very first time Patient Reported Progress Improving PT-OP-D Balance Start: 08/24/20 12:07 Freq: Status: Active Protocol: Document 08/24/20 12:08 HH (Rec: 08/24/20 12:30 [email or web address]) Balance Tests Single Limb Standing Single Limb- Right 2 Single Limb- Left 10 Williamson Balance Assessment Evaluation Sitting to Standing Ability Independent w/out Hands Unsupported Stance Safely- 2 minutes Sitting Unsupported, Feet on Floor Safely- 2 minutes Standing to Sitting Ability Safely, Minimal Hand Use Transfer Ability Safely, Minimal Hand Use Unsupported Stance- Eyes Closed Safely, 10 seconds Unsupported Stance- Eyes Open Independent, 1 minute Reaching Forward Standing Safely, 2 inches Pick- Up Object From Floor Supervision Look Behind Shoulder - Standing Shifts Weight Well Turning 360 Degrees Turns slowly, but safely Unsupported Stance, Alternating Feet on (I)- 8 Steps in > 20 secs Stair Unsupported Tandem Stance Small Step- 30 seconds Unilateral Leg Stance Lifts Leg/Holds > 3 secs Total Score Williamson Total Score (out of 56 points) 46 PT-OP-E Functional Tests Start: 08/24/20 12:07 Freq: Status: Active Protocol: Document 09/28/20 13:45 HH (Rec: 09/28/20 16:34 HH [id number]) Functional Tests 6 Minute Walk Test Distance 798ft Device Used no AD Comments 2 10 second standing breaks, SOB noted but improved SL stability on L PT-OP-G Mobility & Gait Start: 08/24/20 12:07 Freq: Status: Active Protocol: Document 08/24/20 12:08 HH (Rec: 08/24/20 12:30 HH [email or web address]) OP Gait Assessment Factors Limiting Gait Function Factors Limiting Gait Function Decreased Activity Tolerance, Decreased Strength,Limited Range of Motion,Pain,Poor Balance Comments Gait Comments increased +ve trendelenburg on RLE noticed as distance increases. Decrease step length on R,. PT-OP-H Neuro Start: 08/24/20 12:07 Freq: Status: Active Protocol: Document 08/24/20 12:08 HH (Rec: 08/24/20 12:30 HH [email or web address]) Sensation Evaluation Gross Sensation Gross Sensation Right LE Impaired Sensation Description Numbness Comments Summary Comments decreased sensation to light touch and pressure on lateral aspect of lower legs and ankles R>L Deep Tendon Reflex & Clonus Assessment Deep Tendon Reflex Bilateral Achilles Deep Tendon Reflex 2+ Normal Bilateral Patellar Deep Tendon Reflex 2+ Normal PT-OP-M Strength Start: 08/24/20 12:07 Freq: Status: Active Protocol: Document 08/24/20 12:08 HH (Rec: 08/24/20 12:30 HH [email or web address]) Hip Strength Hip Manual Muscle Testing Left Flexion (L2) 4 Good Extension (S1) 4 Good Abduction 4 Good Adduction 4 Good Right Flexion (L2) 3+ Fair+ Extension (S1) 3+ Fair+ Abduction 3+ Fair+ Adduction 3+ Fair+ Knee Strength Knee Manual Muscle Testing Right Flexion (S2) 4 Good Extension (L3) 4 Good Left Flexion (S2) 4 Good Extension (L3) 4 Good Ankle/Foot Strength Ankle and Foot Manual Muscle Testing Right Dorsiflexion (L4) 4- Good- Plantarflexion (S1) 4- Good- Inversion 4- Good- Eversion (S1) 4- Good- Left Dorsiflexion (L4) 4+ Good+ Plantarflexion (S1) 4+ Good+ Inversion 4 Good Eversion (S1) 4 Good PT-OP-T Assessment and Plan Start: 08/24/20 12:07 Freq: Status: Active Protocol: Document 09/28/20 13:45 (Rec: 09/28/20 16:33 [id number]) Physical Therapy Assessment Goals strength Impairment pt overall has decreased RLE strength Short Term Goal (STG) 09/28 improved hip strength noted. She is able to perform clam shell 10 x2 and SL hip abduction 6 x2 on R side. Retirement Goal (LTG) pt will improve her R LE strength for 1MMT grade to improve her single leg stability and strength so she can climb step with alternate steps. LTG Duration 10 weeks gait Impairment pt completes 6MWT = 845 ft without AD Short Term Goal (STG) 09/28 pt completed 798 ft without sitting break today and reduced antalgic sign noted. Pt will be able to complete 950 ft without AD and without rest break STG Duration 5 weeks Cement Mason Maintenance Goal (LTG) pt will be able to complete 1000 ft without AD and minimal trendelenburg sign on RLE without rest break. LTG Duration 10 weeks fall recovery Impairment pt has difficulty recovery from the floor Retirement Goal (LTG) pt will be able to complete 3 fall recoveries with use of a chair and without asssitance. LTG Duration 8 weeks WILLIAMSON Impairment pt scores 46/56 on WILLIAMSON Retirement Goal (LTG) pt will improve her WILLIAMSON score >50 /56 to reduce her fall risks LTG Duration 10 weeks Assessment Summary Assessment Pt's figure 4 position ( lateral condyle reach 6 inches off table bilaterally). Her gait also improves with decreased lateral weight shift and improved SL stability noted. Physical Therapy Plan Frequency and Duration Frequency of Treatment 2x/Week Duration of Treatment 10 weeks Plan of Care Start Date 08/24/20 Plan of Care End Date 11/07/20 Next Visit Focus/Plan Next Note Type Treatment Note Next Visit Plan Assess response to last tx: resisted f/b/s stepping, SLS, supine hip ER TB. Next tx continue to glut and ankle strengthening via functional stationary and dynamic activities (sport cord, hurdles, uneven surface, shuttle rec and balance). Added corner balance if safe for HEP? Continue per PT POC: R hip ER R hip strengthening and R ankle leg press balance as sobeida
--- NOTE | 2020-10-05 14:30 | PT.OTN ---
Current Diagnoses Polyneuropathy, unspecified (10/05/20) Physical Therapy Treatment Note PT-OP-A Visit Information Start: 08/24/20 12:07 Freq: Status: Active Protocol: Document 10/05/20 13:50 SP (Rec: 10/05/20 16:11 SP [id number]) Out-Patient Physical Therapy Visit Information Visit Information Visit Type Treatment Note Visit Start Time 13:50 Visit Stop Time 14:30 Total Visit Minutes 40 Visit Number 08/26 Number of IDEA MAN Visits 1 PT-OP-B Current Condition Start: 08/24/20 12:07 Freq: Status: Active Protocol: Document 08/24/20 12:08 HH (Rec: 08/24/20 12:30 HH [email or web address]) Current Condition History of Current Condition Onset Date from years ago Current Complaints decreased balance, B LE weakness R>L History of Current Condition pt is a 84yo female here for her decreased balance and B LE weakness R>L. She stated she has been a household walker because her poor endurance and poor balance. She could only sobeida walking approx half of a block but then need a rest break. She tends to use SPC for longer distance. She fell twice within the past year who tripped over a small step while carrying her groceries. 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 Treatment Goals Patient/Caregiver Goals 1. To improve her activity tolerance so she can walk more than half of a block without AD 2. to improve her overall balance so she does not limp during walking Personal Factors Other Personal Factors That May Effect see chart Therapy/Recovery PT-OP-C Subjective Start: 08/24/20 12:07 Freq: Status: Active Protocol: Document 10/05/20 13:50 SP (Rec: 10/05/20 16:11 SP [id number]) OP-PT Subjective Patient Comments Patient Comments Pt reported still seeing improvements, balance is still not great. Patient Reported Progress Improving PT-OP-D Balance Start: 08/24/20 12:07 Freq: Status: Active Protocol: Document 08/24/20 12:08 HH (Rec: 08/24/20 12:30 HH [email or web address]) Balance Tests Single Limb Standing Single Limb- Right 2 Single Limb- Left 10 Williamson Balance Assessment Evaluation Sitting to Standing Ability Independent w/out Hands Unsupported Stance Safely- 2 minutes Sitting Unsupported, Feet on Floor Safely- 2 minutes Standing to Sitting Ability Safely, Minimal Hand Use Transfer Ability Safely, Minimal Hand Use Unsupported Stance- Eyes Closed Safely, 10 seconds Unsupported Stance- Eyes Open Independent, 1 minute Reaching Forward Standing Safely, 2 inches Pick- Up Object From Floor Supervision Look Behind Shoulder - Standing Shifts Weight Well Turning 360 Degrees Turns slowly, but safely Unsupported Stance, Alternating Feet on (I)- 8 Steps in > 20 secs Stair Unsupported Tandem Stance Small Step- 30 seconds Unilateral Leg Stance Lifts Leg/Holds > 3 secs Total Score Williamson Total Score (out of 56 points) 46 PT-OP-E Functional Tests Start: 08/24/20 12:07 Freq: Status: Active Protocol: Document 09/28/20 13:45 HH (Rec: 09/28/20 16:34 HH [id number]) Functional Tests 6 Minute Walk Test Distance 798ft Device Used no AD Comments 2 10 second standing breaks, SOB noted but improved SL stability on L PT-OP-G Mobility & Gait Start: 08/24/20 12:07 Freq: Status: Active Protocol: Document 08/24/20 12:08 HH (Rec: 08/24/20 12:30 HH [email or web address]) OP Gait Assessment Factors Limiting Gait Function Factors Limiting Gait Function Decreased Activity Tolerance, Decreased Strength,Limited Range of Motion,Pain,Poor Balance Comments Gait Comments increased +ve trendelenburg on RLE noticed as distance increases. Decrease step length on R,. PT-OP-H Neuro Start: 08/24/20 12:07 Freq: Status: Active Protocol: Document 08/24/20 12:08 HH (Rec: 08/24/20 12:30 HH [email or web address]) Sensation Evaluation Gross Sensation Gross Sensation Right LE Impaired Sensation Description Numbness Comments Summary Comments decreased sensation to light touch and pressure on lateral aspect of lower legs and ankles R>L Deep Tendon Reflex & Clonus Assessment Deep Tendon Reflex Bilateral Achilles Deep Tendon Reflex 2+ Normal Bilateral Patellar Deep Tendon Reflex 2+ Normal PT-OP-M Strength Start: 08/24/20 12:07 Freq: Status: Active Protocol: Document 08/24/20 12:08 HH (Rec: 08/24/20 12:30 HH [email or web address]) Hip Strength Hip Manual Muscle Testing Left Flexion (L2) 4 Good Extension (S1) 4 Good Abduction 4 Good Adduction 4 Good Right Flexion (L2) 3+ Fair+ Extension (S1) 3+ Fair+ Abduction 3+ Fair+ Adduction 3+ Fair+ Knee Strength Knee Manual Muscle Testing Right Flexion (S2) 4 Good Extension (L3) 4 Good Left Flexion (S2) 4 Good Extension (L3) 4 Good Ankle/Foot Strength Ankle and Foot Manual Muscle Testing Right Dorsiflexion (L4) 4- Good- Plantarflexion (S1) 4- Good- Inversion 4- Good- Eversion (S1) 4- Good- Left Dorsiflexion (L4) 4+ Good+ Plantarflexion (S1) 4+ Good+ Inversion 4 Good Eversion (S1) 4 Good PT-OP-Q Treatments Start: 08/24/20 12:07 Freq: Status: Active Protocol: Document 10/05/20 13:50 SP (Rec: 10/05/20 16:11 SP [id number]) Gym Equipment Shuttle Recovery B squat Details w/ yellow band on B knees to prevent knee valgus Resistance #62 Shuttle Recovery Platform Stable Reps/Time 10 x2 SL squat Details cued lateral knee alignment to neutral Resistance #37 alternate Shuttle Recovery Platform Stable Reps/Time 10 x2 Therapeutic Exercises Standing Exercises sit to stands Equipment Used 18 chair Reps/Minutes hands at lap> progress to arms across chest Comments cued hip hinge, slow eccentric control with hip abd parallel side stepping Side bilateral Resistance add HEP #1 loop Equipment Used yellow band at thighs Reps/Minutes 20 ft x3 laps Cued glut facilitation w/ upright posture to decrease lateral trunk bend compensations. Neuro Re-Education Treatment Balance Activities lexie stepping Details SLS time, COG over CINDY Surface stable Equipment at rail PRN, Min>CG at GB Reps/Duration 20 ft x3 laps Comments f, side stepping PT-OP-T Assessment and Plan Start: 08/24/20 12:07 Freq: Status: Active Protocol: Document 10/05/20 13:50 SP (Rec: 10/05/20 16:11 SP [id number]) Physical Therapy Assessment Goals strength Impairment pt overall has decreased RLE strength Short Term Goal (STG) 09/28 improved hip strength noted. She is able to perform clam shell 10 x2 and SL hip abduction 6 x2 on R side. Price Lister Goal (LTG) pt will improve her R LE strength for 1MMT grade to improve her single leg stability and strength so she can climb step with alternate steps. LTG Duration 10 weeks gait Impairment pt completes 6MWT = 845 ft without AD Short Term Goal (STG) 09/28 pt completed 798 ft without sitting break today and reduced antalgic sign noted. Pt will be able to complete 950 ft without AD and without rest break STG Duration 5 weeks Price Lister Goal (LTG) pt will be able to complete 1000 ft without AD and minimal trendelenburg sign on RLE without rest break. LTG Duration 10 weeks fall recovery Impairment pt has difficulty recovery from the floor Price Lister Goal (LTG) pt will be able to complete 3 fall recoveries with use of a chair and without asssitance. LTG Duration 8 weeks WILLIAMSON Impairment pt scores 46/56 on WILLIAMSON Price Lister Goal (LTG) pt will improve her WILLIAMSON score >50 /56 to reduce her fall risks LTG Duration 10 weeks Assessment Summary Assessment Pt tolerated initiated lexie balance increase stance time forward and side stepping so added band walks to HEP ( stable at bar contact PRN). Cued upright posture COG over CINDY and quad/ glut facilitaiton with improvement Min A>CGA using gait belt during hurdles. Physical Therapy Plan Frequency and Duration Frequency of Treatment 2x/Week Duration of Treatment 10 weeks Plan of Care Start Date 08/24/20 Plan of Care End Date 11/07/20 Therapeutic Interventions Therapeutic Interventions Aquatic Therapy,Balance Training,Gait Training,Home Exercise Program,Joint Mobilizations,Manual Therapy, Neuromuscular Re-education, Orthotic/Prosthetic Management ,Patient/Caregiver Education, Self-Care/Home Management,Soft Tissue Mobilization,Taping, Therapeutic Activities, Therapeutic Exercises Modalities Biofeedback,Cold Pack/Ice Massage,Electric Stimulation, Hot Packs,Infrared Therapy, Traction- Mechanical, Ultrasound Next Visit Focus/Plan Next Note Type Treatment Note Next Visit Plan Assess response to last tx: resisted f/s stepping, hurdles . Continue to glut and ankle strengthening via functional stationary and dynamic activities (sport cord, hurdles, uneven surface, shuttle rec and balance). Added corner balance if safe for HEP? Continue per PT POC: R hip ER R hip strengthening and R ankle leg press balance as sobeida
--- NOTE | 2020-10-07 10:15 | PT.OTN ---
Current Diagnoses Polyneuropathy, unspecified (10/07/20) Physical Therapy Treatment Note PT-OP-A Visit Information Start: 08/24/20 12:07 Freq: Status: Active Protocol: Document 10/07/20 09:49 MA (Rec: 10/07/20 10:31 MA [id number]) Out-Patient Physical Therapy Visit Information Visit Information Visit Type Treatment Note Visit Start Time 09:45 Visit Stop Time 10:26 Total Visit Minutes 41 Visit Number 09/25 Number of [employer]ENEW[employer] SPECIALIST Visits 2 PT-OP-B Current Condition Start: 08/24/20 12:07 Freq: Status: Active Protocol: Document 08/24/20 12:08 HH (Rec: 08/24/20 12:30 HH [email or web address]) Current Condition History of Current Condition Onset Date from years ago Current Complaints decreased balance, B LE weakness R>L History of Current Condition pt is a 84yo female here for her decreased balance and B LE weakness R>L. She stated she has been a household walker because her poor endurance and poor balance. She could only sobeida walking approx half of a block but then need a rest break. She tends to use SPC for longer distance. She fell twice within the past year who tripped over a small step while carrying her groceries. 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 Treatment Goals Patient/Caregiver Goals 1. To improve her activity tolerance so she can walk more than half of a block without AD 2. to improve her overall balance so she does not limp during walking Personal Factors Other Personal Factors That May Effect see chart Therapy/Recovery PT-OP-C Subjective Start: 08/24/20 12:07 Freq: Status: Active Protocol: Document 10/07/20 09:49 MA (Rec: 10/07/20 10:31 MA [id number]) OP-PT Subjective Patient Comments Patient Comments My balance is still off. PT-OP-D Balance Start: 08/24/20 12:07 Freq: Status: Active Protocol: Document 08/24/20 12:08 HH (Rec: 08/24/20 12:30 HH [email or web address]) Balance Tests Single Limb Standing Single Limb- Right 2 Single Limb- Left 10 Williamson Balance Assessment Evaluation Sitting to Standing Ability Independent w/out Hands Unsupported Stance Safely- 2 minutes Sitting Unsupported, Feet on Floor Safely- 2 minutes Standing to Sitting Ability Safely, Minimal Hand Use Transfer Ability Safely, Minimal Hand Use Unsupported Stance- Eyes Closed Safely, 10 seconds Unsupported Stance- Eyes Open Independent, 1 minute Reaching Forward Standing Safely, 2 inches Pick- Up Object From Floor Supervision Look Behind Shoulder - Standing Shifts Weight Well Turning 360 Degrees Turns slowly, but safely Unsupported Stance, Alternating Feet on (I)- 8 Steps in > 20 secs Stair Unsupported Tandem Stance Small Step- 30 seconds Unilateral Leg Stance Lifts Leg/Holds > 3 secs Total Score Williamson Total Score (out of 56 points) 46 PT-OP-E Functional Tests Start: 08/24/20 12:07 Freq: Status: Active Protocol: Document 09/28/20 13:45 HH (Rec: 09/28/20 16:34 HH [id number]) Functional Tests 6 Minute Walk Test Distance 798ft Device Used no AD Comments 2 10 second standing breaks, SOB noted but improved SL stability on L PT-OP-G Mobility & Gait Start: 08/24/20 12:07 Freq: Status: Active Protocol: Document 08/24/20 12:08 HH (Rec: 08/24/20 12:30 [email or web address]) OP Gait Assessment Factors Limiting Gait Function Factors Limiting Gait Function Decreased Activity Tolerance, Decreased Strength,Limited Range of Motion,Pain,Poor Balance Comments Gait Comments increased +ve trendelenburg on RLE noticed as distance increases. Decrease step length on R,. PT-OP-H Neuro Start: 08/24/20 12:07 Freq: Status: Active Protocol: Document 08/24/20 12:08 HH (Rec: 08/24/20 12:30 HH [email or web address]) Sensation Evaluation Gross Sensation Gross Sensation Right LE Impaired Sensation Description Numbness Comments Summary Comments decreased sensation to light touch and pressure on lateral aspect of lower legs and ankles R>L Deep Tendon Reflex & Clonus Assessment Deep Tendon Reflex Bilateral Achilles Deep Tendon Reflex 2+ Normal Bilateral Patellar Deep Tendon Reflex 2+ Normal PT-OP-M Strength Start: 08/24/20 12:07 Freq: Status: Active Protocol: Document 08/24/20 12:08 HH (Rec: 08/24/20 12:30 [email or web address]) Hip Strength Hip Manual Muscle Testing Left Flexion (L2) 4 Good Extension (S1) 4 Good Abduction 4 Good Adduction 4 Good Right Flexion (L2) 3+ Fair+ Extension (S1) 3+ Fair+ Abduction 3+ Fair+ Adduction 3+ Fair+ Knee Strength Knee Manual Muscle Testing Right Flexion (S2) 4 Good Extension (L3) 4 Good Left Flexion (S2) 4 Good Extension (L3) 4 Good Ankle/Foot Strength Ankle and Foot Manual Muscle Testing Right Dorsiflexion (L4) 4- Good- Plantarflexion (S1) 4- Good- Inversion 4- Good- Eversion (S1) 4- Good- Left Dorsiflexion (L4) 4+ Good+ Plantarflexion (S1) 4+ Good+ Inversion 4 Good Eversion (S1) 4 Good PT-OP-Q Treatments Start: 08/24/20 12:07 Freq: Status: Active Protocol: Document 10/07/20 09:49 MA (Rec: 10/07/20 10:31 MA [id number]) Gym Equipment Shuttle Recovery B squat Details w/ green band on B knees to prevent knee valgus Resistance #62 Shuttle Recovery Platform Stable Reps/Time 10 x2 SL squat Details cued lateral knee alignment to neutral Resistance #37 B Shuttle Recovery Platform Stable Reps/Time 10 x2 Shuttle Balance blue clips Details fwd-WBOS/NBOS/modified tandem Reps/Duration 5 min Comments pt states she loves this and would like to use it again Therapeutic Exercises Standing Exercises hip hike Side bilateral Equipment Used 4 step & mirror Reps/Minutes 2x10 step up Standing Exercise Name fwd/lateral Side bilateral Equipment Used 4 step Reps/Minutes 10 x 2 Comments cues to avoid knee valgus on RLE side stepping Side bilateral Resistance add HEP #1 loop Equipment Used #1 TB Reps/Minutes 20 ft x2 laps SLS Side bilateral Equipment Used contact counter as needed Reps/Minutes L: 15 x2; R: 5-8s Gait Training Gait Activity hurdles Description fwd, lateral Level of Assistance parallel bars as needed Surface ground level Distance/Duration 6 gaits Treatment Focus weight acceptance on RLE PT-OP-T Assessment and Plan Start: 08/24/20 12:07 Freq: Status: Active Protocol: Document 10/07/20 09:49 MA (Rec: 10/07/20 10:31 MA [id number]) Physical Therapy Assessment Goals strength Impairment pt overall has decreased RLE strength Short Term Goal (STG) 09/28 improved hip strength noted. She is able to perform clam shell 10 x2 and SL hip abduction 6 x2 on R side. Senior Living Goal (LTG) pt will improve her R LE strength for 1MMT grade to improve her single leg stability and strength so she can climb step with alternate steps. LTG Duration 10 weeks gait Impairment pt completes 6MWT = 845 ft without AD Short Term Goal (STG) 09/28 pt completed 798 ft without sitting break today and reduced antalgic sign noted. Pt will be able to complete 950 ft without AD and without rest break STG Duration 5 weeks Senior Living Goal (LTG) pt will be able to complete 1000 ft without AD and minimal trendelenburg sign on RLE without rest break. LTG Duration 10 weeks fall recovery Impairment pt has difficulty recovery from the floor Senior Living Goal (LTG) pt will be able to complete 3 fall recoveries with use of a chair and without asssitance. LTG Duration 8 weeks WILLIAMSON Impairment pt scores 46/56 on WILLIAMSON Cosmetics Supervisor Goal (LTG) pt will improve her WILLIAMSON score >50 /56 to reduce her fall risks LTG Duration 10 weeks Assessment Summary Assessment Pt had some trouble with hurdles fwd and lateral during stance time on RLE. During fwd step-ups, pt needed cues to avoid R knee dropping into valgus position. Worked on balance using shuttle balance with blue clips today with the pt stating This is challenging but I like it and I think it would help to use it again. Physical Therapy Plan Frequency and Duration Frequency of Treatment 2x/Week Duration of Treatment 10 weeks Plan of Care Start Date 08/24/20 Plan of Care End Date 11/07/20 Therapeutic Interventions Therapeutic Interventions Aquatic Therapy,Balance Training,Gait Training,Home Exercise Program,Joint Mobilizations,Manual Therapy, Neuromuscular Re-education, Orthotic/Prosthetic Management ,Patient/Caregiver Education, Self-Care/Home Management,Soft Tissue Mobilization,Taping, Therapeutic Activities, Therapeutic Exercises Modalities Biofeedback,Cold Pack/Ice Massage,Electric Stimulation, Hot Packs,Infrared Therapy, Traction- Mechanical, Ultrasound Next Visit Focus/Plan Next Note Type Treatment Note Next Visit Plan Pt would like to continue using shuttle balance next session. Continue glute and ankle strengthening via functional stationary and dynamic activities (sport cord , hurdles, uneven surface, shuttle rec and balance). Added corner balance if safe for HEP? Continue per PT POC: R hip ER R hip strengthening and R ankle leg press balance as sobeida
--- NOTE | 2020-10-14 09:45 | PT.OTN ---
Current Diagnoses Polyneuropathy, unspecified (10/14/20) Physical Therapy Treatment Note PT-OP-A Visit Information Start: 08/24/20 12:07 Freq: Status: Active Protocol: Document 10/14/20 08:59 SP (Rec: 10/14/20 09:50 SP [id number]) Out-Patient Physical Therapy Visit Information Visit Information Visit Type Treatment Note Visit Start Time 09:02 Visit Stop Time 09:45 Total Visit Minutes 43 Visit Number 13/ Number of IT ARCHITECTURE CONSULTANT Visits 3 PT-OP-B Current Condition Start: 08/24/20 12:07 Freq: Status: Active Protocol: Document 08/24/20 12:08 HH (Rec: 08/24/20 12:30 HH [email or web address]) Current Condition History of Current Condition Onset Date from years ago Current Complaints decreased balance, B LE weakness R>L History of Current Condition pt is a 84yo female here for her decreased balance and B LE weakness R>L. She stated she has been a household walker because her poor endurance and poor balance. She could only sobeida walking approx half of a block but then need a rest break. She tends to use SPC for longer distance. She fell twice within the past year who tripped over a small step while carrying her groceries. 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 Treatment Goals Patient/Caregiver Goals 1. To improve her activity tolerance so she can walk more than half of a block without AD 2. to improve her overall balance so she does not limp during walking Personal Factors Other Personal Factors That May Effect see chart Therapy/Recovery PT-OP-C Subjective Start: 08/24/20 12:07 Freq: Status: Active Protocol: Document 10/14/20 08:59 SP (Rec: 10/14/20 09:50 SP [id number]) OP-PT Subjective Patient Comments Patient Comments Pt reported does have some pain in L plantar fascia and medial 1-2MTP when wakes up but goes away when walking around more. Patient Reported Progress Improving PT-OP-D Balance Start: 08/24/20 12:07 Freq: Status: Active Protocol: Document 08/24/20 12:08 HH (Rec: 08/24/20 12:30 HH [email or web address]) Balance Tests Single Limb Standing Single Limb- Right 2 Single Limb- Left 10 Williamson Balance Assessment Evaluation Sitting to Standing Ability Independent w/out Hands Unsupported Stance Safely- 2 minutes Sitting Unsupported, Feet on Floor Safely- 2 minutes Standing to Sitting Ability Safely, Minimal Hand Use Transfer Ability Safely, Minimal Hand Use Unsupported Stance- Eyes Closed Safely, 10 seconds Unsupported Stance- Eyes Open Independent, 1 minute Reaching Forward Standing Safely, 2 inches Pick- Up Object From Floor Supervision Look Behind Shoulder - Standing Shifts Weight Well Turning 360 Degrees Turns slowly, but safely Unsupported Stance, Alternating Feet on (I)- 8 Steps in > 20 secs Stair Unsupported Tandem Stance Small Step- 30 seconds Unilateral Leg Stance Lifts Leg/Holds > 3 secs Total Score Williamson Total Score (out of 56 points) 46 PT-OP-E Functional Tests Start: 08/24/20 12:07 Freq: Status: Active Protocol: Document 09/28/20 13:45 HH (Rec: 09/28/20 16:34 HH [id number]) Functional Tests 6 Minute Walk Test Distance 798ft Device Used no AD Comments 2 10 second standing breaks, SOB noted but improved SL stability on L PT-OP-G Mobility & Gait Start: 08/24/20 12:07 Freq: Status: Active Protocol: Document 08/24/20 12:08 HH (Rec: 08/24/20 12:30 [email or web address]) OP Gait Assessment Factors Limiting Gait Function Factors Limiting Gait Function Decreased Activity Tolerance, Decreased Strength,Limited Range of Motion,Pain,Poor Balance Comments Gait Comments increased +ve trendelenburg on RLE noticed as distance increases. Decrease step length on R,. PT-OP-H Neuro Start: 08/24/20 12:07 Freq: Status: Active Protocol: Document 08/24/20 12:08 HH (Rec: 08/24/20 12:30 HH [email or web address]) Sensation Evaluation Gross Sensation Gross Sensation Right LE Impaired Sensation Description Numbness Comments Summary Comments decreased sensation to light touch and pressure on lateral aspect of lower legs and ankles R>L Deep Tendon Reflex & Clonus Assessment Deep Tendon Reflex Bilateral Achilles Deep Tendon Reflex 2+ Normal Bilateral Patellar Deep Tendon Reflex 2+ Normal PT-OP-M Strength Start: 08/24/20 12:07 Freq: Status: Active Protocol: Document 08/24/20 12:08 HH (Rec: 08/24/20 12:30 HH [email or web address]) Hip Strength Hip Manual Muscle Testing Left Flexion (L2) 4 Good Extension (S1) 4 Good Abduction 4 Good Adduction 4 Good Right Flexion (L2) 3+ Fair+ Extension (S1) 3+ Fair+ Abduction 3+ Fair+ Adduction 3+ Fair+ Knee Strength Knee Manual Muscle Testing Right Flexion (S2) 4 Good Extension (L3) 4 Good Left Flexion (S2) 4 Good Extension (L3) 4 Good Ankle/Foot Strength Ankle and Foot Manual Muscle Testing Right Dorsiflexion (L4) 4- Good- Plantarflexion (S1) 4- Good- Inversion 4- Good- Eversion (S1) 4- Good- Left Dorsiflexion (L4) 4+ Good+ Plantarflexion (S1) 4+ Good+ Inversion 4 Good Eversion (S1) 4 Good PT-OP-Q Treatments Start: 08/24/20 12:07 Freq: Status: Active Protocol: Document 10/14/20 08:59 SP (Rec: 10/14/20 09:50 SP [id number]) Gym Equipment Shuttle Recovery B squat Details w/ green band on B knees to prevent knee valgus Resistance #62 Shuttle Recovery Platform Stable Reps/Time 10 x2 SL squat Details cued lateral knee alignment to neutral Resistance #37 B Shuttle Recovery Platform Stable Reps/Time 10 x2 Shuttle Balance blue clips Details WBOS, NBOS, stagger Reps/Duration 6 min Comments 1. stationary 2. head turns 3. EC (20 sec WBOS, 10 sec NBOS, 5 sec stagger each pos) Sport Cord resisted gait f/b/side stepping Cord/Resistance green Reps/Duration 3 reps each direction Comments cued wt shift stance LE, glut facilitation and slow controlled eccentric stepping for safety balance COG over CINDY Manual Therapy Treatment Soft Tissue Mobilization L plantarfascia Mobilization Type Myofascial Release,Strumming Intensity/Depth Moderate Body Position Hooklying Comments instruct self pre am mobility Joint Mobilizations 1-2nd MTP Joint PAs Grade I Body Position Hooklying Reps/Duration 30 sec Comments instruct self pre am mobility Neuro Re-Education Treatment Balance Activities lexie stepping Details SLS time, COG over CINDY Surface stable Equipment CG at GB Reps/Duration 10 ft x4 laps Comments forward step to and step over step Cued quad facilitation/knee ext w/ COG over CINDY to allow improved bal over stance LE with improvement. PT-OP-T Assessment and Plan Start: 08/24/20 12:07 Freq: Status: Active Protocol: Document 10/14/20 08:59 SP (Rec: 10/14/20 09:50 SP [id number]) Physical Therapy Assessment Goals strength Impairment pt overall has decreased RLE strength Short Term Goal (STG) 09/28 improved hip strength noted. She is able to perform clam shell 10 x2 and SL hip abduction 6 x2 on R side. Pressure Steamer Tender Goal (LTG) pt will improve her R LE strength for 1MMT grade to improve her single leg stability and strength so she can climb step with alternate steps. LTG Duration 10 weeks gait Impairment pt completes 6MWT = 845 ft without AD Short Term Goal (STG) 09/28 pt completed 798 ft without sitting break today and reduced antalgic sign noted. Pt will be able to complete 950 ft without AD and without rest break STG Duration 5 weeks Pressure Steamer Tender Goal (LTG) pt will be able to complete 1000 ft without AD and minimal trendelenburg sign on RLE without rest break. LTG Duration 10 weeks fall recovery Impairment pt has difficulty recovery from the floor Pressure Steamer Tender Goal (LTG) pt will be able to complete 3 fall recoveries with use of a chair and without asssitance. LTG Duration 8 weeks WILLIAMSON Impairment pt scores 46/56 on WILLIAMSON Pressure Steamer Tender Goal (LTG) pt will improve her WILLIAMSON score >50 /56 to reduce her fall risks LTG Duration 10 weeks Assessment Summary Assessment Pt difficulty with COG over CINDY balance today, bent/ rounded posture today, improved post sport cord upright posture cuing and Cued quad facilitation/knee ext w/ COG over CINDY to allow improved bal over stance LE with improvement. Instructed self ROM and manual STMs to L ankle/plantar fascia pre standing in am to assist pain gets in am with noted little improvement end of tx. Physical Therapy Plan Frequency and Duration Frequency of Treatment 2x/Week Duration of Treatment 10 weeks Plan of Care Start Date 08/24/20 Plan of Care End Date 11/07/20 Therapeutic Interventions Therapeutic Interventions Aquatic Therapy,Balance Training,Gait Training,Home Exercise Program,Joint Mobilizations,Manual Therapy, Neuromuscular Re-education, Orthotic/Prosthetic Management ,Patient/Caregiver Education, Self-Care/Home Management,Soft Tissue Mobilization,Taping, Therapeutic Activities, Therapeutic Exercises Modalities Biofeedback,Cold Pack/Ice Massage,Electric Stimulation, Hot Packs,Infrared Therapy, Traction- Mechanical, Ultrasound Next Visit Focus/Plan Next Note Type Treatment Note Next Visit Plan Pt would like to continue using shuttle balance next session. Continue glute and ankle strengthening via functional stationary and dynamic activities (sport cord , hurdles, uneven surface, shuttle rec and balance). Added corner balance if safe for HEP? Continue per PT POC: R hip ER R hip strengthening and R ankle leg press balance as sobeida
--- NOTE | 2020-10-21 09:47 | PT.OTN ---
Current Diagnoses Polyneuropathy, unspecified (10/21/20) Physical Therapy Treatment Note PT-OP-A Visit Information Start: 08/24/20 12:07 Freq: Status: Active Protocol: Document 10/21/20 09:06 SP (Rec: 10/21/20 10:25 SP [id number]) Out-Patient Physical Therapy Visit Information Visit Information Visit Type Treatment Note Visit Note PN by 11/07. Pt 6 min late for appt. Visit Start Time 09:06 Visit Stop Time 09:47 Total Visit Minutes 41 Visit Number Number of EMU FARM WORKER Visits 4 PT-OP-B Current Condition Start: 08/24/20 12:07 Freq: Status: Active Protocol: Document 08/24/20 12:08 HH (Rec: 08/24/20 12:30 HH [email or web address]) Current Condition History of Current Condition Onset Date from years ago Current Complaints decreased balance, B LE weakness R>L History of Current Condition pt is a 84yo female here for her decreased balance and B LE weakness R>L. She stated she has been a household walker because her poor endurance and poor balance. She could only sobeida walking approx half of a block but then need a rest break. She tends to use SPC for longer distance. She fell twice within the past year who tripped over a small step while carrying her groceries. 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 Treatment Goals Patient/Caregiver Goals 1. To improve her activity tolerance so she can walk more than half of a block without AD 2. to improve her overall balance so she does not limp during walking Personal Factors Other Personal Factors That May Effect see chart Therapy/Recovery PT-OP-C Subjective Start: 08/24/20 12:07 Freq: Status: Active Protocol: Document 10/21/20 09:06 SP (Rec: 10/21/20 10:25 SP [id number]) OP-PT Subjective Patient Comments Patient Comments Pt reported L foot pain more plantar surface of ball of foot today, slowly getting better but still there. I felt like got a good work out and started taking tylenol to help with the foot pain due to it screwing up my walking. Patient Reported Progress Improving PT-OP-D Balance Start: 08/24/20 12:07 Freq: Status: Active Protocol: Document 08/24/20 12:08 (Rec: 08/24/20 12:30 [email or web address]) Balance Tests Single Limb Standing Single Limb- Right 2 Single Limb- Left 10 Williamson Balance Assessment Evaluation Sitting to Standing Ability Independent w/out Hands Unsupported Stance Safely- 2 minutes Sitting Unsupported, Feet on Floor Safely- 2 minutes Standing to Sitting Ability Safely, Minimal Hand Use Transfer Ability Safely, Minimal Hand Use Unsupported Stance- Eyes Closed Safely, 10 seconds Unsupported Stance- Eyes Open Independent, 1 minute Reaching Forward Standing Safely, 2 inches Pick- Up Object From Floor Supervision Look Behind Shoulder - Standing Shifts Weight Well Turning 360 Degrees Turns slowly, but safely Unsupported Stance, Alternating Feet on (I)- 8 Steps in > 20 secs Stair Unsupported Tandem Stance Small Step- 30 seconds Unilateral Leg Stance Lifts Leg/Holds > 3 secs Total Score Williamson Total Score (out of 56 points) 46 PT-OP-E Functional Tests Start: 08/24/20 12:07 Freq: Status: Active Protocol: Document 09/28/20 13:45 (Rec: 09/28/20 16:34 [id number]) Functional Tests 6 Minute Walk Test Distance 798ft Device Used no AD Comments 2 10 second standing breaks, SOB noted but improved SL stability on L PT-OP-G Mobility & Gait Start: 08/24/20 12:07 Freq: Status: Active Protocol: Document 08/24/20 12:08 (Rec: 08/24/20 12:30 [email or web address]) OP Gait Assessment Factors Limiting Gait Function Factors Limiting Gait Function Decreased Activity Tolerance, Decreased Strength,Limited Range of Motion,Pain,Poor Balance Comments Gait Comments increased +ve trendelenburg on RLE noticed as distance increases. Decrease step length on R,. PT-OP-H Neuro Start: 08/24/20 12:07 Freq: Status: Active Protocol: Document 08/24/20 12:08 (Rec: 08/24/20 12:30 [email or web address]) Sensation Evaluation Gross Sensation Gross Sensation Right LE Impaired Sensation Description Numbness Comments Summary Comments decreased sensation to light touch and pressure on lateral aspect of lower legs and ankles R>L Deep Tendon Reflex & Clonus Assessment Deep Tendon Reflex Bilateral Achilles Deep Tendon Reflex 2+ Normal Bilateral Patellar Deep Tendon Reflex 2+ Normal PT-OP-M Strength Start: 08/24/20 12:07 Freq: Status: Active Protocol: Document 08/24/20 12:08 HH (Rec: 08/24/20 12:30 HH [email or web address]) Hip Strength Hip Manual Muscle Testing Left Flexion (L2) 4 Good Extension (S1) 4 Good Abduction 4 Good Adduction 4 Good Right Flexion (L2) 3+ Fair+ Extension (S1) 3+ Fair+ Abduction 3+ Fair+ Adduction 3+ Fair+ Knee Strength Knee Manual Muscle Testing Right Flexion (S2) 4 Good Extension (L3) 4 Good Left Flexion (S2) 4 Good Extension (L3) 4 Good Ankle/Foot Strength Ankle and Foot Manual Muscle Testing Right Dorsiflexion (L4) 4- Good- Plantarflexion (S1) 4- Good- Inversion 4- Good- Eversion (S1) 4- Good- Left Dorsiflexion (L4) 4+ Good+ Plantarflexion (S1) 4+ Good+ Inversion 4 Good Eversion (S1) 4 Good PT-OP-Q Treatments Start: 08/24/20 12:07 Freq: Status: Active Protocol: Document 10/21/20 09:06 SP (Rec: 10/21/20 10:25 SP [id number]) Gym Equipment Shuttle Recovery B squat Details w/ green band on B knees to prevent knee valgus Resistance #62 Shuttle Recovery Platform Stable Reps/Time 15 x2 SL squat Details cued lateral knee alignment to neutral Resistance #37 LLE, 25# RLE Shuttle Recovery Platform Stable Reps/Time 15 x2 Sport Cord resisted gait f/b/side stepping Exercise Details f/b/side stepping Cord/Resistance green Reps/Duration 5 reps each direction Comments cued tall posture more into mid foot, wt shift stance LE, glut facilitation and slow controlled eccentric stepping for safety balance COG over CINDY Therapeutic Exercises Standing Exercises toe tap Standing Exercise Name improve SLS Side bilateral Equipment Used 8 handled step (PRN contact) Reps/Minutes x20 Comments cued tall posture more into mid foot, wt shift stance LE, glut facilitation PT-OP-T Assessment and Plan Start: 08/24/20 12:07 Freq: Status: Active Protocol: Document 10/21/20 09:06 SP (Rec: 10/21/20 10:25 SP [id number]) Physical Therapy Assessment Goals strength Impairment pt overall has decreased RLE strength Short Term Goal (STG) 09/28 improved hip strength noted. She is able to perform clam shell 10 x2 and SL hip abduction 6 x2 on R side. [facility]ci Goal (LTG) pt will improve her R LE strength for 1MMT grade to improve her single leg stability and strength so she can climb step with alternate steps. LTG Duration 10 weeks gait Impairment pt completes 6MWT = 845 ft without AD Short Term Goal (STG) 09/28 pt completed 798 ft without sitting break today and reduced antalgic sign noted. Pt will be able to complete 950 ft without AD and without rest break STG Duration 5 weeks Front Office Specialist Goal (LTG) pt will be able to complete 1000 ft without AD and minimal trendelenburg sign on RLE without rest break. LTG Duration 10 weeks fall recovery Impairment pt has difficulty recovery from the floor Fci Goal (LTG) pt will be able to complete 3 fall recoveries with use of a chair and without asssitance. LTG Duration 8 weeks WILLIAMSON Impairment pt scores 46/56 on WILLIAMSON Front Office Specialist Goal (LTG) pt will improve her WILLIAMSON score >50 /56 to reduce her fall risks LTG Duration 10 weeks Assessment Summary Assessment Pt improved with glut facilitation on L and more awareness on R during neuro activities with Max cuing for tall posture, COG over mid foot and glut faciltation into end range hip ext today. Pt stated her marching at home is the hardest for her but by end of tx able to maintain better SLS during slow light step taps w/ PRN contact UE and carryover demonstration of cuing given. Physical Therapy Plan Frequency and Duration Frequency of Treatment 2x/Week Duration of Treatment 10 weeks Plan of Care Start Date 08/24/20 Plan of Care End Date 11/07/20 Therapeutic Interventions Therapeutic Interventions Aquatic Therapy,Balance Training,Gait Training,Home Exercise Program,Joint Mobilizations,Manual Therapy, Neuromuscular Re-education, Orthotic/Prosthetic Management ,Patient/Caregiver Education, Self-Care/Home Management,Soft Tissue Mobilization,Taping, Therapeutic Activities, Therapeutic Exercises Modalities Biofeedback,Cold Pack/Ice Massage,Electric Stimulation, Hot Packs,Infrared Therapy, Traction- Mechanical, Ultrasound Next Visit Focus/Plan Next Note Type Treatment Note Next Visit Plan Continue shuttle quad & glut facilitation then functional balance activitiy: sport cord, hurdles, etc. PT POC: glute and ankle strengthening via functional stationary and dynamic activities (sport cord, hurdles, uneven surface, shuttle rec and balance). Added corner balance if safe for HEP? Continue per PT POC: R hip ER R hip strengthening and R ankle leg press balance as sobeida
--- NOTE | 2020-10-28 11:25 | PT.OTN ---
Current Diagnoses Polyneuropathy, unspecified (10/28/20) Physical Therapy Treatment Note PT-OP-A Visit Information Start: 08/24/20 12:07 Freq: Status: Active Protocol: Document 10/28/20 10:31 HH (Rec: 10/28/20 11:25 [id number]) Out-Patient Physical Therapy Visit Information Visit Information Visit Type Progress Note Visit Start Time 10:34 Visit Stop Time 11:15 Total Visit Minutes 41 Visit Number 15 Number of TOUR DRIVER Visits 0 PT-OP-B Current Condition Start: 08/24/20 12:07 Freq: Status: Active Protocol: Document 08/24/20 12:08 HH (Rec: 08/24/20 12:30 [email or web address]) Current Condition History of Current Condition Onset Date from years ago Current Complaints decreased balance, B LE weakness R>L History of Current Condition pt is a 84yo female here for her decreased balance and B LE weakness R>L. She stated she has been a household walker because her poor endurance and poor balance. She could only sobeida walking approx half of a block but then need a rest break. She tends to use SPC for longer distance. She fell twice within the past year who tripped over a small step while carrying her groceries. 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 Treatment Goals Patient/Caregiver Goals 1. To improve her activity tolerance so she can walk more than half of a block without AD 2. to improve her overall balance so she does not limp during walking Personal Factors Other Personal Factors That May Effect see chart Therapy/Recovery PT-OP-C Subjective Start: 08/24/20 12:07 Freq: Status: Active Protocol: Document 10/28/20 10:31 HH (Rec: 10/28/20 11:25 [id number]) OP-PT Subjective Patient Comments Patient Comments I think my balance has gotten a little bit better. But standing on one leg is still very hard. The biggest difference i have noticed is my R hip range of motion. Patient Reported Progress Improving PT-OP-D Balance Start: 08/24/20 12:07 Freq: Status: Active Protocol: Document 08/24/20 12:08 HH (Rec: 08/24/20 12:30 [email or web address]) Balance Tests Single Limb Standing Single Limb- Right 2 Single Limb- Left 10 Williamson Balance Assessment Evaluation Sitting to Standing Ability Independent w/out Hands Unsupported Stance Safely- 2 minutes Sitting Unsupported, Feet on Floor Safely- 2 minutes Standing to Sitting Ability Safely, Minimal Hand Use Transfer Ability Safely, Minimal Hand Use Unsupported Stance- Eyes Closed Safely, 10 seconds Unsupported Stance- Eyes Open Independent, 1 minute Reaching Forward Standing Safely, 2 inches Pick- Up Object From Floor Supervision Look Behind Shoulder - Standing Shifts Weight Well Turning 360 Degrees Turns slowly, but safely Unsupported Stance, Alternating Feet on (I)- 8 Steps in > 20 secs Stair Unsupported Tandem Stance Small Step- 30 seconds Unilateral Leg Stance Lifts Leg/Holds > 3 secs Total Score Williamson Total Score (out of 56 points) 46 PT-OP-E Functional Tests Start: 08/24/20 12:07 Freq: Status: Active Protocol: Document 09/28/20 13:45 (Rec: 09/28/20 16:34 [id number]) Functional Tests 6 Minute Walk Test Distance 798ft Device Used no AD Comments 2 10 second standing breaks, SOB noted but improved SL stability on L PT-OP-G Mobility & Gait Start: 08/24/20 12:07 Freq: Status: Active Protocol: Document 08/24/20 12:08 (Rec: 08/24/20 12:30 [email or web address]) OP Gait Assessment Factors Limiting Gait Function Factors Limiting Gait Function Decreased Activity Tolerance, Decreased Strength,Limited Range of Motion,Pain,Poor Balance Comments Gait Comments increased +ve trendelenburg on RLE noticed as distance increases. Decrease step length on R,. PT-OP-H Neuro Start: 08/24/20 12:07 Freq: Status: Active Protocol: Document 08/24/20 12:08 (Rec: 08/24/20 12:30 [email or web address]) Sensation Evaluation Gross Sensation Gross Sensation Right LE Impaired Sensation Description Numbness Comments Summary Comments decreased sensation to light touch and pressure on lateral aspect of lower legs and ankles R>L Deep Tendon Reflex & Clonus Assessment Deep Tendon Reflex Bilateral Achilles Deep Tendon Reflex 2+ Normal Bilateral Patellar Deep Tendon Reflex 2+ Normal PT-OP-M Strength Start: 08/24/20 12:07 Freq: Status: Active Protocol: Document 08/24/20 12:08 HH (Rec: 08/24/20 12:30 HH [email or web address]) Hip Strength Hip Manual Muscle Testing Left Flexion (L2) 4 Good Extension (S1) 4 Good Abduction 4 Good Adduction 4 Good Right Flexion (L2) 3+ Fair+ Extension (S1) 3+ Fair+ Abduction 3+ Fair+ Adduction 3+ Fair+ Knee Strength Knee Manual Muscle Testing Right Flexion (S2) 4 Good Extension (L3) 4 Good Left Flexion (S2) 4 Good Extension (L3) 4 Good Ankle/Foot Strength Ankle and Foot Manual Muscle Testing Right Dorsiflexion (L4) 4- Good- Plantarflexion (S1) 4- Good- Inversion 4- Good- Eversion (S1) 4- Good- Left Dorsiflexion (L4) 4+ Good+ Plantarflexion (S1) 4+ Good+ Inversion 4 Good Eversion (S1) 4 Good PT-OP-Q Treatments Start: 08/24/20 12:07 Freq: Status: Active Protocol: Document 10/28/20 10:31 HH (Rec: 10/28/20 11:25 [id number]) Cardio Equipment Recumbent Stepper (Sci-Fit) Duration (Minutes) 8 Resistance 5 Gym Equipment Shuttle Recovery B squat Details w/ green band on B knees to prevent knee valgus Resistance #62 Shuttle Recovery Platform Stable Reps/Time 15 x2 SL squat Details cued lateral knee alignment to neutral Resistance #37 BLE. Shuttle Recovery Platform Stable Reps/Time 15 x2 Therapeutic Exercises Supine Exercises calf stretch Side left Comments for HEP Sidelying Exercises hip abd Side bilateral Reps/Minutes 8x2 clamshell Side bilateral Reps/Minutes 10 x2 Standing Exercises step up Standing Exercise Name 1 UE support Side bilateral Equipment Used 4 inch step Manual Therapy Treatment Soft Tissue Mobilization L plantarfascia Mobilization Type Myofascial Release,Strumming Intensity/Depth Moderate Body Position Hooklying Comments tenderness at distal plantar fascia PT-OP-T Assessment and Plan Start: 08/24/20 12:07 Freq: Status: Active Protocol: Document 10/28/20 10:31 HH (Rec: 10/28/20 11:25 [id number]) Physical Therapy Assessment Goals R hip ROM Impairment needs to use 2 UE to pull her RLE into figure 4 sitting position strength Impairment pt overall has decreased RLE strength Short Term Goal (STG) 09/28 improved hip strength noted. She is able to perform clam shell 10 x2 and SL hip abduction 6 x2 on R side. [facility] Goal (LTG) pt will improve her R LE strength for 1MMT grade to improve her single leg stability and strength so she can climb step with alternate steps. LTG Duration 10 weeks gait Impairment pt completes 6MWT = 845 ft without AD Short Term Goal (STG) 09/28 pt completed 798 ft without sitting break today and reduced antalgic sign noted. Pt will be able to complete 950 ft without AD and without rest break STG Duration 5 weeks [facility] Goal (LTG) pt will be able to complete 1000 ft without AD and minimal trendelenburg sign on RLE without rest break. LTG Duration 10 weeks fall recovery Impairment pt has difficulty recovery from the floor Appliance Repairer Goal (LTG) pt will be able to complete 3 fall recoveries with use of a chair and without asssitance. LTG Duration 8 weeks WILLIAMSON Impairment pt scores 46/56 on WILLIAMSON Appliance Repairer Goal (LTG) pt will improve her WILLIAMSON score >50 /56 to reduce her fall risks LTG Duration 10 weeks Assessment Summary Assessment Pt's L foot has been getting better. Added calf stretch for her HEP. Pt overall shows good progress with R hip ROM but still need 2 [place] [employer] to get into figure 4 position. Pt has good glute activation in open chain position but cont to have difficulty activating her R glute in standing position ( poor SL balance indicated). Will add gait training to improve her endurance. Physical Therapy Plan Frequency and Duration Frequency of Treatment 2x/Week Duration of Treatment 10 weeks Plan of Care Start Date 08/24/20 Plan of Care End Date 11/07/20 Next Visit Focus/Plan Next Note Type Treatment Note Next Visit Plan Continue shuttle quad & R glut facilitation then functional balance activitiy: sport cord, hurdles, etc. PT POC: glute and ankle strengthening via functional stationary and dynamic activities (sport cord, hurdles, uneven surface, shuttle rec and balance). Added corner balance if safe for HEP? Continue per PT POC: R hip ER R hip strengthening and R ankle leg press balance as sobeida
--- NOTE | 2020-11-04 12:12 | PT.OTN ---
Current Diagnoses Polyneuropathy, unspecified (11/04/20) Physical Therapy Treatment Note PT-OP-A Visit Information Start: 08/24/20 12:07 Freq: Status: Active Protocol: Document 11/04/20 11:18 HH (Rec: 11/04/20 12:12 [id number]) Out-Patient Physical Therapy Visit Information Visit Information Visit Type Treatment Note Visit Start Time 11:17 Visit Stop Time 12:00 Total Visit Minutes 43 Visit Number 16 Number of CARPENTER REPAIR Visits 0 PT-OP-B Current Condition Start: 08/24/20 12:07 Freq: Status: Active Protocol: Document 08/24/20 12:08 HH (Rec: 08/24/20 12:30 [email or web address]) Current Condition History of Current Condition Onset Date from years ago Current Complaints decreased balance, B LE weakness R>L History of Current Condition pt is a 84yo female here for her decreased balance and B LE weakness R>L. She stated she has been a household walker because her poor endurance and poor balance. She could only sobeida walking approx half of a block but then need a rest break. She tends to use SPC for longer distance. She fell twice within the past year who tripped over a small step while carrying her groceries. 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 Treatment Goals Patient/Caregiver Goals 1. To improve her activity tolerance so she can walk more than half of a block without AD 2. to improve her overall balance so she does not limp during walking Personal Factors Other Personal Factors That May Effect see chart Therapy/Recovery PT-OP-C Subjective Start: 08/24/20 12:07 Freq: Status: Active Protocol: Document 11/04/20 11:18 HH (Rec: 11/04/20 12:12 [id number]) OP-PT Subjective Patient Comments Patient Comments My foot is doing much better now. Brook been doing that calf stretches. I think my single leg balance is getting a little better. Patient Reported Progress Improving PT-OP-D Balance Start: 08/24/20 12:07 Freq: Status: Active Protocol: Document 08/24/20 12:08 HH (Rec: 08/24/20 12:30 [email or web address]) Balance Tests Single Limb Standing Single Limb- Right 2 Single Limb- Left 10 Williamson Balance Assessment Evaluation Sitting to Standing Ability Independent w/out Hands Unsupported Stance Safely- 2 minutes Sitting Unsupported, Feet on Floor Safely- 2 minutes Standing to Sitting Ability Safely, Minimal Hand Use Transfer Ability Safely, Minimal Hand Use Unsupported Stance- Eyes Closed Safely, 10 seconds Unsupported Stance- Eyes Open Independent, 1 minute Reaching Forward Standing Safely, 2 inches Pick- Up Object From Floor Supervision Look Behind Shoulder - Standing Shifts Weight Well Turning 360 Degrees Turns slowly, but safely Unsupported Stance, Alternating Feet on (I)- 8 Steps in > 20 secs Stair Unsupported Tandem Stance Small Step- 30 seconds Unilateral Leg Stance Lifts Leg/Holds > 3 secs Total Score Williamson Total Score (out of 56 points) 46 PT-OP-E Functional Tests Start: 08/24/20 12:07 Freq: Status: Active Protocol: Document 09/28/20 13:45 HH (Rec: 09/28/20 16:34 HH [id number]) Functional Tests 6 Minute Walk Test Distance 798ft Device Used no AD Comments 2 10 second standing breaks, SOB noted but improved SL stability on L PT-OP-G Mobility & Gait Start: 08/24/20 12:07 Freq: Status: Active Protocol: Document 08/24/20 12:08 HH (Rec: 08/24/20 12:30 [email or web address]) OP Gait Assessment Factors Limiting Gait Function Factors Limiting Gait Function Decreased Activity Tolerance, Decreased Strength,Limited Range of Motion,Pain,Poor Balance Comments Gait Comments increased +ve trendelenburg on RLE noticed as distance increases. Decrease step length on R,. PT-OP-H Neuro Start: 08/24/20 12:07 Freq: Status: Active Protocol: Document 08/24/20 12:08 HH (Rec: 08/24/20 12:30 HH [email or web address]) Sensation Evaluation Gross Sensation Gross Sensation Right LE Impaired Sensation Description Numbness Comments Summary Comments decreased sensation to light touch and pressure on lateral aspect of lower legs and ankles R>L Deep Tendon Reflex & Clonus Assessment Deep Tendon Reflex Bilateral Achilles Deep Tendon Reflex 2+ Normal Bilateral Patellar Deep Tendon Reflex 2+ Normal PT-OP-M Strength Start: 08/24/20 12:07 Freq: Status: Active Protocol: Document 08/24/20 12:08 HH (Rec: 08/24/20 12:30 [email or web address]) Hip Strength Hip Manual Muscle Testing Left Flexion (L2) 4 Good Extension (S1) 4 Good Abduction 4 Good Adduction 4 Good Right Flexion (L2) 3+ Fair+ Extension (S1) 3+ Fair+ Abduction 3+ Fair+ Adduction 3+ Fair+ Knee Strength Knee Manual Muscle Testing Right Flexion (S2) 4 Good Extension (L3) 4 Good Left Flexion (S2) 4 Good Extension (L3) 4 Good Ankle/Foot Strength Ankle and Foot Manual Muscle Testing Right Dorsiflexion (L4) 4- Good- Plantarflexion (S1) 4- Good- Inversion 4- Good- Eversion (S1) 4- Good- Left Dorsiflexion (L4) 4+ Good+ Plantarflexion (S1) 4+ Good+ Inversion 4 Good Eversion (S1) 4 Good PT-OP-Q Treatments Start: 08/24/20 12:07 Freq: Status: Active Protocol: Document 11/04/20 11:18 (Rec: 11/04/20 12:12 [id number]) Therapeutic Exercises Supine Exercises calf stretch Side left Comments for HEP Standing Exercises standing hip abd Side bilateral Reps/Minutes 8x3 Comments cues on exteneded knee on standing leg slider Standing Exercise Name laterally, hinge hinge position Side bilateral Reps/Minutes 8 x3 Comments cues on weight focused on standing leg toe tap Standing Exercise Name improve SLS Side bilateral Equipment Used 8 handled step (PRN contact) Reps/Minutes x20 Comments cued tall posture more into mid foot, wt shift stance LE, glut facilitation marching Side bilateral Reps/Minutes 8 x3 Comments finger support on chair, cues on extended knee Gait Training Gait Activity ground level Surface ground level Distance/Duration 200ft x 2 Treatment Focus stance phase Comments cues on extended R knee during stance phase PT-OP-T Assessment and Plan Start: 08/24/20 12:07 Freq: Status: Active Protocol: Document 11/04/20 11:18 (Rec: 11/04/20 12:12 [id number]) Physical Therapy Assessment Goals R hip ROM Impairment needs to use 2 UE to pull her RLE into figure 4 sitting position strength Impairment pt overall has decreased RLE strength Short Term Goal (STG) 09/28 improved hip strength noted. She is able to perform clam shell 10 x2 and SL hip abduction 6 x2 on R side. Contact Officer Goal (LTG) pt will improve her R LE strength for 1MMT grade to improve her single leg stability and strength so she can climb step with alternate steps. LTG Duration 10 weeks gait Impairment pt completes 6MWT = 845 ft without AD Short Term Goal (STG) 09/28 pt completed 798 ft without sitting break today and reduced antalgic sign noted. Pt will be able to complete 950 ft without AD and without rest break STG Duration 5 weeks [facility] Goal (LTG) pt will be able to complete 1000 ft without AD and minimal trendelenburg sign on RLE without rest break. LTG Duration 10 weeks fall recovery Impairment pt has difficulty recovery from the floor Contact Officer Goal (LTG) pt will be able to complete 3 fall recoveries with use of a chair and without asssitance. LTG Duration 8 weeks WILLIAMSON Impairment pt scores 46/56 on WILLIAMSON [facility] Goal (LTG) pt will improve her WILLIAMSON score >50 /56 to reduce her fall risks LTG Duration 10 weeks Assessment Summary Assessment pt has no c/o of L foot now. Cont to focus on her R hip stabilizer strengthening and activation in standing position. Spent time cueing keeping her R knee extended during balance training and she did better. Will reassess all goals next visit. Plan to see pt 1/wk x 2 months. Physical Therapy Plan Frequency and Duration Frequency of Treatment 2x/Week Duration of Treatment 10 weeks Plan of Care Start Date 08/24/20 Plan of Care End Date 11/07/20 Next Visit Focus/Plan Next Note Type Treatment Note Next Visit Plan Continue shuttle quad & R glut facilitation then functional balance activitiy: sport cord, hurdles, etc. PT POC: glute and ankle strengthening via functional stationary and dynamic activities (sport cord, hurdles, uneven surface, shuttle rec and balance). Added corner balance if safe for HEP? Continue per PT POC: R hip ER R hip strengthening and R ankle leg press balance as sobeida
--- NOTE | 2020-11-09 12:16 | PT.OPPOC ---
Physical, Occupational & Speech Therapy At [facility] Current Diagnoses Polyneuropathy, unspecified (11/09/20) Visit Care Team Role Provider Type Julio Lares MD Attending Provider Physician Primary Care Provider Referring Provider Specialty: Internal Medicine Address: [address] [place] [address], [id number] Email: [email or web address] Plan Of Care PT-OP-T Assessment and Plan Start: 08/24/20 12:07 Freq: Status: Active Protocol: Document 11/09/20 11:16 HH (Rec: 11/09/20 12:16 HH [id number]) Physical Therapy Assessment Goals single leg balance Impairment RLE =3-5 second, L =10 second Half-Way Goal (LTG) pt will strength R hip stability to be able to stand on RLE >5 second in order for her to amb without trendelenburg sign LTG Duration 8 weeks R hip ROM Impairment needs to use 2 UE to pull her RLE into figure 4 sitting position Half-Way Goal (LTG) 11/09/20 pt is able to bring R LE over to LLE with 1 UE assistance. strength Impairment pt overall has decreased RLE strength Short Term Goal (STG) 09/28 improved hip strength noted. She is able to perform clam shell 10 x2 and SL hip abduction 6 x2 on R side. Service Dismantler Goal (LTG) pt will improve her R LE strength for 1MMT grade to improve her single leg stability and strength so she can climb step with alternate steps. LTG Duration 10 weeks gait Impairment pt completes 6MWT = 845 ft without AD Short Term Goal (STG) 09/28 pt completed 798 ft without sitting break today and reduced antalgic sign noted. Pt will be able to complete 950 ft without AD and without rest break STG Duration 5 weeks Service Dismantler Goal (LTG) 11/09/20 Pt completed 930ft with 1 10sec standing break. pt will be able to complete 1000 ft without AD and minimal trendelenburg sign on RLE without rest break. LTG Duration 10 weeks fall recovery Impairment pt has difficulty recovery from the floor Short Term Goal (STG) 11/09/20 pt is able to use chair / table to get off from the floor 3 times (pt pushes off with R LE) Half-Way Goal (LTG) pt will be able to complete 3 fall recoveries without using chair/ table for assistance LTG Duration 8 weeks WILLIAMSON Impairment pt scores 46/56 on WILLIAMSON Half-Way Goal (LTG) 11/09/20 goal met pt scored 52/56 on WILLIAMSON balance pt will improve her WILLIAMSON score >50 /56 to reduce her fall risks LTG Duration 10 weeks Progress Towards Goals Progress Towards Goals Progressing Toward Goals Assessment Summary Assessment Reasesssment today. WILLIAMSON = 52/ 56, 6MWT = 930 ft with 1 10 sec standing break and able to bring RLE over to LLE with 1UE assistance. Pt overall progress well but still have difficulty engaging R hip stabilizers for balance and gait. Will cont therapy to improve her R hip strength and engagement to reduce her trendelenburg sign. POC 1x/wk x 10 weeks Physical Therapy Plan Frequency and Duration Frequency of Treatment 1x/Week Duration of Treatment 10 weeks Plan of Care Start Date 11/09/20 Plan of Care End Date 01/23/21 Therapeutic Interventions Therapeutic Interventions Aquatic Therapy,Balance Training,Coordination Training ,Gait Training,Home Exercise Program,Joint Mobilizations, Manual Therapy,Neuromuscular Re-education,Patient/Caregiver Education,Self-Care/Home Management,Soft Tissue Mobilization,Taping, Therapeutic Activities, Therapeutic Exercises Modalities Cold Pack/Ice Massage,Electric Stimulation,Hot Packs, Infrared Therapy Next Visit Focus/Plan Next Note Type Treatment Note Next Visit Plan cont R hip stabilizers activation and strnegthening, gait training on RLE stance phase R hip ER Plan of Care Dates Plan of Care Start Date 11/09/20 Plan of Care End Date 01/23/21 Electronically Signed by: Ciaran Sweeney, PT 11/09/20 2139 Please Sign and Return: I have reviewed this Plan of Care and certify that the skilled therapy services above are required to meet the patient?s needs. Physician Signature Date Printed Name and Credentials Clinical Instructor Signature Printed Name and Credentials
--- NOTE | 2020-11-09 12:16 | PT.OPPN ---
Current Diagnoses Polyneuropathy, unspecified (11/09/20) Physical Therapy Progress Note PT-OP-A Visit Information Start: 08/24/20 12:07 Freq: Status: Active Protocol: Document 11/09/20 11:16 HH (Rec: 11/09/20 12:16 HH [id number]) Out-Patient Physical Therapy Visit Information Visit Information Visit Type Progress Note Visit Start Time 11:16 Visit Stop Time 12:00 Total Visit Minutes 44 Visit Number 4 Number of POULTRY FARMER EGG Visits 0 PT-OP-B Current Condition Start: 08/24/20 12:07 Freq: Status: Active Protocol: Document 08/24/20 12:08 HH (Rec: 08/24/20 12:30 HH [email or web address]) Current Condition History of Current Condition Onset Date from years ago Current Complaints decreased balance, B LE weakness R>L History of Current Condition pt is a 84yo female here for her decreased balance and B LE weakness R>L. She stated she has been a household walker because her poor endurance and poor balance. She could only sobeida walking approx half of a block but then need a rest break. She tends to use SPC for longer distance. She fell twice within the past year who tripped over a small step while carrying her groceries. 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 Treatment Goals Patient/Caregiver Goals 1. To improve her activity tolerance so she can walk more than half of a block without AD 2. to improve her overall balance so she does not limp during walking Personal Factors Other Personal Factors That May Effect see chart Therapy/Recovery PT-OP-C Subjective Start: 08/24/20 12:07 Freq: Status: Active Protocol: Document 11/09/20 11:16 HH (Rec: 11/09/20 12:16 HH [id number]) OP-PT Subjective Patient Comments Patient Comments My foot is doing good now! Patient Reported Progress Improving PT-OP-D Balance Start: 08/24/20 12:07 Freq: Status: Active Protocol: Document 08/24/20 12:08 HH (Rec: 08/24/20 12:30 [email or web address]) Balance Tests Single Limb Standing Single Limb- Right 2 Single Limb- Left 10 Williamson Balance Assessment Evaluation Sitting to Standing Ability Independent w/out Hands Unsupported Stance Safely- 2 minutes Sitting Unsupported, Feet on Floor Safely- 2 minutes Standing to Sitting Ability Safely, Minimal Hand Use Transfer Ability Safely, Minimal Hand Use Unsupported Stance- Eyes Closed Safely, 10 seconds Unsupported Stance- Eyes Open Independent, 1 minute Reaching Forward Standing Safely, 2 inches Pick- Up Object From Floor Supervision Look Behind Shoulder - Standing Shifts Weight Well Turning 360 Degrees Turns slowly, but safely Unsupported Stance, Alternating Feet on (I)- 8 Steps in > 20 secs Stair Unsupported Tandem Stance Small Step- 30 seconds Unilateral Leg Stance Lifts Leg/Holds > 3 secs Total Score Williamson Total Score (out of 56 points) 46 PT-OP-E Functional Tests Start: 08/24/20 12:07 Freq: Status: Active Protocol: Document 09/28/20 13:45 HH (Rec: 09/28/20 16:34 HH [id number]) Functional Tests 6 Minute Walk Test Distance 798ft Device Used no AD Comments 2 10 second standing breaks, SOB noted but improved SL stability on L PT-OP-G Mobility & Gait Start: 08/24/20 12:07 Freq: Status: Active Protocol: Document 08/24/20 12:08 HH (Rec: 08/24/20 12:30 [email or web address]) OP Gait Assessment Factors Limiting Gait Function Factors Limiting Gait Function Decreased Activity Tolerance, Decreased Strength,Limited Range of Motion,Pain,Poor Balance Comments Gait Comments increased +ve trendelenburg on RLE noticed as distance increases. Decrease step length on R,. PT-OP-H Neuro Start: 08/24/20 12:07 Freq: Status: Active Protocol: Document 08/24/20 12:08 HH (Rec: 08/24/20 12:30 HH [email or web address]) Sensation Evaluation Gross Sensation Gross Sensation Right LE Impaired Sensation Description Numbness Comments Summary Comments decreased sensation to light touch and pressure on lateral aspect of lower legs and ankles R>L Deep Tendon Reflex & Clonus Assessment Deep Tendon Reflex Bilateral Achilles Deep Tendon Reflex 2+ Normal Bilateral Patellar Deep Tendon Reflex 2+ Normal PT-OP-M Strength Start: 08/24/20 12:07 Freq: Status: Active Protocol: Document 08/24/20 12:08 HH (Rec: 08/24/20 12:30 [email or web address]) Hip Strength Hip Manual Muscle Testing Left Flexion (L2) 4 Good Extension (S1) 4 Good Abduction 4 Good Adduction 4 Good Right Flexion (L2) 3+ Fair+ Extension (S1) 3+ Fair+ Abduction 3+ Fair+ Adduction 3+ Fair+ Knee Strength Knee Manual Muscle Testing Right Flexion (S2) 4 Good Extension (L3) 4 Good Left Flexion (S2) 4 Good Extension (L3) 4 Good Ankle/Foot Strength Ankle and Foot Manual Muscle Testing Right Dorsiflexion (L4) 4- Good- Plantarflexion (S1) 4- Good- Inversion 4- Good- Eversion (S1) 4- Good- Left Dorsiflexion (L4) 4+ Good+ Plantarflexion (S1) 4+ Good+ Inversion 4 Good Eversion (S1) 4 Good PT-OP-T Assessment and Plan Start: 08/24/20 12:07 Freq: Status: Active Protocol: Document 11/09/20 11:16 (Rec: 11/09/20 12:16 [id number]) Physical Therapy Assessment Goals single leg balance Impairment RLE =3-5 second, L =10 second Snf Goal (LTG) pt will strength R hip stability to be able to stand on RLE >5 second in order for her to amb without trendelenburg sign LTG Duration 8 weeks R hip ROM Impairment needs to use 2 UE to pull her RLE into figure 4 sitting position Edge Finisher Goal (LTG) 11/09/20 pt is able to bring R LE over to LLE with 1 UE assistance. strength Impairment pt overall has decreased RLE strength Short Term Goal (STG) 09/28 improved hip strength noted. She is able to perform clam shell 10 x2 and SL hip abduction 6 x2 on R side. Edge Finisher Goal (LTG) pt will improve her R LE strength for 1MMT grade to improve her single leg stability and strength so she can climb step with alternate steps. LTG Duration 10 weeks gait Impairment pt completes 6MWT = 845 ft without AD Short Term Goal (STG) 09/28 pt completed 798 ft without sitting break today and reduced antalgic sign noted. Pt will be able to complete 950 ft without AD and without rest break STG Duration 5 weeks Edge Finisher Goal (LTG) 11/09/20 Pt completed 930ft with 1 10sec standing break. pt will be able to complete 1000 ft without AD and minimal trendelenburg sign on RLE without rest break. LTG Duration 10 weeks fall recovery Impairment pt has difficulty recovery from the floor Short Term Goal (STG) 11/09/20 pt is able to use chair / table to get off from the floor 3 times (pt pushes off with R LE) Snf Goal (LTG) pt will be able to complete 3 fall recoveries without using chair/ table for assistance LTG Duration 8 weeks WILLIAMSON Impairment pt scores 46/56 on WILLIAMSON Snf Goal (LTG) 11/09/20 goal met pt scored 52/56 on WILLIAMSON balance pt will improve her WILLIAMSON score >50 /56 to reduce her fall risks LTG Duration 10 weeks Progress Towards Goals Progress Towards Goals Progressing Toward Goals Assessment Summary Assessment Reasesssment today. WILLIAMSON = 52/ 56, 6MWT = 930 ft with 1 10 sec standing break and able to bring RLE over to LLE with 1UE assistance. Pt overall progress well but still have difficulty engaging R hip stabilizers for balance and gait. Will cont therapy to improve her R hip strength and engagement to reduce her trendelenburg sign. POC 1x/wk x 10 weeks Physical Therapy Plan Frequency and Duration Frequency of Treatment 1x/Week Duration of Treatment 10 weeks Plan of Care Start Date 11/09/20 Plan of Care End Date 01/23/21 Therapeutic Interventions Therapeutic Interventions Aquatic Therapy,Balance Training,Coordination Training ,Gait Training,Home Exercise Program,Joint Mobilizations, Manual Therapy,Neuromuscular Re-education,Patient/Caregiver Education,Self-Care/Home Management,Soft Tissue Mobilization,Taping, Therapeutic Activities, Therapeutic Exercises Modalities Cold Pack/Ice Massage,Electric Stimulation,Hot Packs, Infrared Therapy Next Visit Focus/Plan Next Note Type Treatment Note Next Visit Plan cont R hip stabilizers activation and strnegthening, gait training on RLE stance phase R hip ER
--- NOTE | 2020-11-16 13:47 | PT.OTN ---
Current Diagnoses Polyneuropathy, unspecified (11/16/20) Physical Therapy Treatment Note PT-OP-A Visit Information Start: 08/24/20 12:07 Freq: Status: Active Protocol: Document 11/16/20 13:00 SP (Rec: 11/16/20 14:24 SP [id number]) Out-Patient Physical Therapy Visit Information Visit Information Visit Type Treatment Note Visit Start Time 13:00 Visit Stop Time 13:47 Total Visit Minutes 47 Visit Number 02/23 Number of COMPUTER TRAINING SPECIALIST Visits 1 PT-OP-B Current Condition Start: 08/24/20 12:07 Freq: Status: Active Protocol: Document 08/24/20 12:08 HH (Rec: 08/24/20 12:30 HH [email or web address]) Current Condition History of Current Condition Onset Date from years ago Current Complaints decreased balance, B LE weakness R>L History of Current Condition pt is a 84yo female here for her decreased balance and B LE weakness R>L. She stated she has been a household walker because her poor endurance and poor balance. She could only sobeida walking approx half of a block but then need a rest break. She tends to use SPC for longer distance. She fell twice within the past year who tripped over a small step while carrying her groceries. 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 Treatment Goals Patient/Caregiver Goals 1. To improve her activity tolerance so she can walk more than half of a block without AD 2. to improve her overall balance so she does not limp during walking Personal Factors Other Personal Factors That May Effect see chart Therapy/Recovery PT-OP-C Subjective Start: 08/24/20 12:07 Freq: Status: Active Protocol: Document 11/16/20 13:00 SP (Rec: 11/16/20 14:24 SP [id number]) OP-PT Subjective Patient Comments Patient Comments I am trying hard to keep my right knee out and not letting it come in, was doing really good for a while. PT-OP-D Balance Start: 08/24/20 12:07 Freq: Status: Active Protocol: Document 08/24/20 12:08 HH (Rec: 08/24/20 12:30 HH [email or web address]) Balance Tests Single Limb Standing Single Limb- Right 2 Single Limb- Left 10 Williamson Balance Assessment Evaluation Sitting to Standing Ability Independent w/out Hands Unsupported Stance Safely- 2 minutes Sitting Unsupported, Feet on Floor Safely- 2 minutes Standing to Sitting Ability Safely, Minimal Hand Use Transfer Ability Safely, Minimal Hand Use Unsupported Stance- Eyes Closed Safely, 10 seconds Unsupported Stance- Eyes Open Independent, 1 minute Reaching Forward Standing Safely, 2 inches Pick- Up Object From Floor Supervision Look Behind Shoulder - Standing Shifts Weight Well Turning 360 Degrees Turns slowly, but safely Unsupported Stance, Alternating Feet on (I)- 8 Steps in > 20 secs Stair Unsupported Tandem Stance Small Step- 30 seconds Unilateral Leg Stance Lifts Leg/Holds > 3 secs Total Score Williamson Total Score (out of 56 points) 46 PT-OP-E Functional Tests Start: 08/24/20 12:07 Freq: Status: Active Protocol: Document 09/28/20 13:45 HH (Rec: 09/28/20 16:34 HH [id number]) Functional Tests 6 Minute Walk Test Distance 798ft Device Used no AD Comments 2 10 second standing breaks, SOB noted but improved SL stability on L PT-OP-G Mobility & Gait Start: 08/24/20 12:07 Freq: Status: Active Protocol: Document 08/24/20 12:08 HH (Rec: 08/24/20 12:30 HH [email or web address]) OP Gait Assessment Factors Limiting Gait Function Factors Limiting Gait Function Decreased Activity Tolerance, Decreased Strength,Limited Range of Motion,Pain,Poor Balance Comments Gait Comments increased +ve trendelenburg on RLE noticed as distance increases. Decrease step length on R,. PT-OP-H Neuro Start: 08/24/20 12:07 Freq: Status: Active Protocol: Document 08/24/20 12:08 HH (Rec: 08/24/20 12:30 HH [email or web address]) Sensation Evaluation Gross Sensation Gross Sensation Right LE Impaired Sensation Description Numbness Comments Summary Comments decreased sensation to light touch and pressure on lateral aspect of lower legs and ankles R>L Deep Tendon Reflex & Clonus Assessment Deep Tendon Reflex Bilateral Achilles Deep Tendon Reflex 2+ Normal Bilateral Patellar Deep Tendon Reflex 2+ Normal PT-OP-M Strength Start: 08/24/20 12:07 Freq: Status: Active Protocol: Document 08/24/20 12:08 HH (Rec: 08/24/20 12:30 HH [email or web address]) Hip Strength Hip Manual Muscle Testing Left Flexion (L2) 4 Good Extension (S1) 4 Good Abduction 4 Good Adduction 4 Good Right Flexion (L2) 3+ Fair+ Extension (S1) 3+ Fair+ Abduction 3+ Fair+ Adduction 3+ Fair+ Knee Strength Knee Manual Muscle Testing Right Flexion (S2) 4 Good Extension (L3) 4 Good Left Flexion (S2) 4 Good Extension (L3) 4 Good Ankle/Foot Strength Ankle and Foot Manual Muscle Testing Right Dorsiflexion (L4) 4- Good- Plantarflexion (S1) 4- Good- Inversion 4- Good- Eversion (S1) 4- Good- Left Dorsiflexion (L4) 4+ Good+ Plantarflexion (S1) 4+ Good+ Inversion 4 Good Eversion (S1) 4 Good PT-OP-Q Treatments Start: 08/24/20 12:07 Freq: Status: Active Protocol: Document 11/16/20 13:00 SP (Rec: 11/16/20 14:24 SP [id number]) Gym Equipment Shuttle Recovery B squat Details w/ green band on B knees to prevent knee valgus Resistance #62 Shuttle Recovery Platform Stable Reps/Time x30 SL squat Details cued lateral knee alignment to neutral Resistance #37 BLE. Shuttle Recovery Platform Stable Reps/Time 20 x2 Therapeutic Exercises Standing Exercises slider Standing Exercise Name laterally, hinge hinge position Side bilateral Equipment Used cued stance LE knee ext Reps/Minutes 8 x3 Comments hip abd/glut facilitation focused on standing leg toe tap Standing Exercise Name improve SLS Side bilateral Equipment Used 8 handled step (PRN contact) Reps/Minutes x20 Comments cued tall posture more into mid foot, wt shift stance LE, glut facilitation side stepping Side bilateral Equipment Used #1 TB Reps/Minutes 20 ft x2 laps Comments cued wt shift over stance LE, hip ext & elevated trunk- good stab onL SLS Side bilateral Equipment Used contact counter as needed Reps/Minutes L: 10 x2; R: 5-8 Comments cued tall posture more into mid foot, wt shift stance LE, glut facilitation Gait Training Gait Activity ground level Surface ground level Distance/Duration 200ft Treatment Focus stance phases Comments cues on extended R knee during stance phase and hip extension w/ PF ROM during terminal stance and preswing with awareness of COG front tibia. PT-OP-T Assessment and Plan Start: 08/24/20 12:07 Freq: Status: Active Protocol: Document 11/16/20 13:00 SP (Rec: 11/16/20 14:24 SP [id number]) Physical Therapy Assessment Goals single leg balance Impairment RLE =3-5 second, L =10 second Senior Care Goal (LTG) pt will strength R hip stability to be able to stand on RLE >5 second in order for her to amb without trendelenburg sign LTG Duration 8 weeks R hip ROM Impairment needs to use 2 UE to pull her RLE into figure 4 sitting position Senior Care Goal (LTG) 11/09/20 pt is able to bring R LE over to LLE with 1 UE assistance. strength Impairment pt overall has decreased RLE strength Short Term Goal (STG) 09/28 improved hip strength noted. She is able to perform clam shell 10 x2 and SL hip abduction 6 x2 on R side. Artist Mannequin Coloring Goal (LTG) pt will improve her R LE strength for 1MMT grade to improve her single leg stability and strength so she can climb step with alternate steps. LTG Duration 10 weeks gait Impairment pt completes 6MWT = 845 ft without AD Short Term Goal (STG) 09/28 pt completed 798 ft without sitting break today and reduced antalgic sign noted. Pt will be able to complete 950 ft without AD and without rest break STG Duration 5 weeks Senior Care Goal (LTG) 11/09/20 Pt completed 930ft with 1 10sec standing break. pt will be able to complete 1000 ft without AD and minimal trendelenburg sign on RLE without rest break. LTG Duration 10 weeks fall recovery Impairment pt has difficulty recovery from the floor Short Term Goal (STG) 11/09/20 pt is able to use chair / table to get off from the floor 3 times (pt pushes off with R LE) Senior Care Goal (LTG) pt will be able to complete 3 fall recoveries without using chair/ table for assistance LTG Duration 8 weeks WILLIAMSON Impairment pt scores 46/56 on WILLIAMSON Senior Care Goal (LTG) 11/09/20 goal met pt scored 52/56 on WILLIAMSON balance pt will improve her WILLIAMSON score >50 /56 to reduce her fall risks LTG Duration 10 weeks Assessment Summary Assessment Pt improved in glut/ hip abd facilitation and elevated posture during progression of there ex today with noted able to complete step taps and SLS better balance. L glut tires quicker than R. Physical Therapy Plan Frequency and Duration Frequency of Treatment 1x/Week Duration of Treatment 10 weeks Plan of Care Start Date 11/09/20 Plan of Care End Date 01/23/21 Therapeutic Interventions Therapeutic Interventions Aquatic Therapy,Balance Training,Coordination Training ,Gait Training,Home Exercise Program,Joint Mobilizations, Manual Therapy,Neuromuscular Re-education,Patient/Caregiver Education,Self-Care/Home Management,Soft Tissue Mobilization,Taping, Therapeutic Activities, Therapeutic Exercises Modalities Cold Pack/Ice Massage,Electric Stimulation,Hot Packs, Infrared Therapy Next Visit Focus/Plan Next Note Type Treatment Note Next Visit Plan cont R hip stabilizers/abd's activation and strengthening, gait training on RLE stance phase R hip ER
--- NOTE | 2020-11-23 11:20 | PT.OTN ---
Current Diagnoses Polyneuropathy, unspecified (11/23/20) Physical Therapy Treatment Note PT-OP-A Visit Information Start: 08/24/20 12:07 Freq: Status: Active Protocol: Document 11/23/20 10:30 LD (Rec: 11/23/20 12:03 LD [id number]) Out-Patient Physical Therapy Visit Information Visit Information Visit Type Treatment Note Visit Note CAREY Johnson co-led tx w/ PROFESSOR OF BIOLOGY Clarita. Visit Start Time 10:30 Visit Stop Time 11:20 Total Visit Minutes 50 Visit Number 03/26 Number of PROFESSOR OF BIOLOGY Visits 2 PT-OP-B Current Condition Start: 08/24/20 12:07 Freq: Status: Active Protocol: Document 08/24/20 12:08 HH (Rec: 08/24/20 12:30 HH [email or web address]) Current Condition History of Current Condition Onset Date from years ago Current Complaints decreased balance, B LE weakness R>L History of Current Condition pt is a 84yo female here for her decreased balance and B LE weakness R>L. She stated she has been a household walker because her poor endurance and poor balance. She could only sobeida walking approx half of a block but then need a rest break. She tends to use SPC for longer distance. She fell twice within the past year who tripped over a small step while carrying her groceries. 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 Treatment Goals Patient/Caregiver Goals 1. To improve her activity tolerance so she can walk more than half of a block without AD 2. to improve her overall balance so she does not limp during walking Personal Factors Other Personal Factors That May Effect see chart Therapy/Recovery PT-OP-C Subjective Start: 08/24/20 12:07 Freq: Status: Active Protocol: Document 11/23/20 10:30 LD (Rec: 11/23/20 12:03 LD [id number]) OP-PT Subjective Patient Comments Patient Comments I enjoyed the snow this weekend with my , went outside on walks. PT-OP-D Balance Start: 08/24/20 12:07 Freq: Status: Active Protocol: Document 08/24/20 12:08 HH (Rec: 08/24/20 12:30 HH [email or web address]) Balance Tests Single Limb Standing Single Limb- Right 2 Single Limb- Left 10 Williamson Balance Assessment Evaluation Sitting to Standing Ability Independent w/out Hands Unsupported Stance Safely- 2 minutes Sitting Unsupported, Feet on Floor Safely- 2 minutes Standing to Sitting Ability Safely, Minimal Hand Use Transfer Ability Safely, Minimal Hand Use Unsupported Stance- Eyes Closed Safely, 10 seconds Unsupported Stance- Eyes Open Independent, 1 minute Reaching Forward Standing Safely, 2 inches Pick- Up Object From Floor Supervision Look Behind Shoulder - Standing Shifts Weight Well Turning 360 Degrees Turns slowly, but safely Unsupported Stance, Alternating Feet on (I)- 8 Steps in > 20 secs Stair Unsupported Tandem Stance Small Step- 30 seconds Unilateral Leg Stance Lifts Leg/Holds > 3 secs Total Score Williamson Total Score (out of 56 points) 46 PT-OP-E Functional Tests Start: 08/24/20 12:07 Freq: Status: Active Protocol: Document 09/28/20 13:45 HH (Rec: 09/28/20 16:34 HH [id number]) Functional Tests 6 Minute Walk Test Distance 798ft Device Used no AD Comments 2 10 second standing breaks, SOB noted but improved SL stability on L PT-OP-G Mobility & Gait Start: 08/24/20 12:07 Freq: Status: Active Protocol: Document 08/24/20 12:08 HH (Rec: 08/24/20 12:30 HH [email or web address]) OP Gait Assessment Factors Limiting Gait Function Factors Limiting Gait Function Decreased Activity Tolerance, Decreased Strength,Limited Range of Motion,Pain,Poor Balance Comments Gait Comments increased +ve trendelenburg on RLE noticed as distance increases. Decrease step length on R,. PT-OP-H Neuro Start: 08/24/20 12:07 Freq: Status: Active Protocol: Document 08/24/20 12:08 HH (Rec: 08/24/20 12:30 HH [email or web address]) Sensation Evaluation Gross Sensation Gross Sensation Right LE Impaired Sensation Description Numbness Comments Summary Comments decreased sensation to light touch and pressure on lateral aspect of lower legs and ankles R>L Deep Tendon Reflex & Clonus Assessment Deep Tendon Reflex Bilateral Achilles Deep Tendon Reflex 2+ Normal Bilateral Patellar Deep Tendon Reflex 2+ Normal PT-OP-M Strength Start: 08/24/20 12:07 Freq: Status: Active Protocol: Document 08/24/20 12:08 HH (Rec: 08/24/20 12:30 HH [email or web address]) Hip Strength Hip Manual Muscle Testing Left Flexion (L2) 4 Good Extension (S1) 4 Good Abduction 4 Good Adduction 4 Good Right Flexion (L2) 3+ Fair+ Extension (S1) 3+ Fair+ Abduction 3+ Fair+ Adduction 3+ Fair+ Knee Strength Knee Manual Muscle Testing Right Flexion (S2) 4 Good Extension (L3) 4 Good Left Flexion (S2) 4 Good Extension (L3) 4 Good Ankle/Foot Strength Ankle and Foot Manual Muscle Testing Right Dorsiflexion (L4) 4- Good- Plantarflexion (S1) 4- Good- Inversion 4- Good- Eversion (S1) 4- Good- Left Dorsiflexion (L4) 4+ Good+ Plantarflexion (S1) 4+ Good+ Inversion 4 Good Eversion (S1) 4 Good PT-OP-Q Treatments Start: 08/24/20 12:07 Freq: Status: Active Protocol: Document 11/23/20 10:30 LD (Rec: 11/23/20 12:03 LD [id number]) Gym Equipment Shuttle Recovery B squat Details w/ green band on B knees to prevent knee valgus Resistance #62 Shuttle Recovery Platform Stable Reps/Time x30 SL squat Details cued lateral knee alignment to neutral Resistance #37 BLE. Shuttle Recovery Platform Stable Reps/Time 20 x2 Sport Cord resisted step ups Exercise Details f/ side, step to, 4'' box Cord/Resistance yellow Reps/Duration 10x each Comments cued tall posture, wt shift stance LE, glute facilitation and slow eccentric step down for safety COG over CINDY. Therapeutic Exercises Standing Exercises Ankle board Standing Exercise Name PF and DF Side bilateral Equipment Used ankle board Comments ROM availability and trunk movement. side stepping Side bilateral Equipment Used #1 TB Reps/Minutes 20 ft x2 laps Comments cued wt shift over stance LE, hip ext & elevated trunk- good stab onL Gait Training Gait Activity ground level Description Poles assisting for arm swing w/ therapist initially Surface ground level Distance/Duration 40 ft x 4, mirror for self feedback. Treatment Focus stance phases Comments cues reciprocal arm swing during gait w/ upright posture and extending R knee during stance phase and hip ext w/ PF ROM during terminal stance and preswing awareness of COG over front of tibia. PT-OP-T Assessment and Plan Start: 08/24/20 12:07 Freq: Status: Active Protocol: Document 11/23/20 10:30 LD (Rec: 11/23/20 12:03 LD [id number]) Physical Therapy Assessment Goals single leg balance Impairment RLE =3-5 second, L =10 second Penitentiary Goal (LTG) pt will strength R hip stability to be able to stand on RLE >5 second in order for her to amb without trendelenburg sign LTG Duration 8 weeks R hip ROM Impairment needs to use 2 UE to pull her RLE into figure 4 sitting position Penitentiary Goal (LTG) 11/09/20 pt is able to bring R LE over to LLE with 1 UE assistance. strength Impairment pt overall has decreased RLE strength Short Term Goal (STG) 09/28 improved hip strength noted. She is able to perform clam shell 10 x2 and SL hip abduction 6 x2 on R side. Penitentiary Goal (LTG) pt will improve her R LE strength for 1MMT grade to improve her single leg stability and strength so she can climb step with alternate steps. LTG Duration 10 weeks gait Impairment pt completes 6MWT = 845 ft without AD Short Term Goal (STG) 09/28 pt completed 798 ft without sitting break today and reduced antalgic sign noted. Pt will be able to complete 950 ft without AD and without rest break STG Duration 5 weeks Penit[facility]iary Goal (LTG) 11/09/20 Pt completed 930ft with 1 10sec standing break. pt will be able to complete 1000 ft without AD and minimal trendelenburg sign on RLE without rest break. LTG Duration 10 weeks fall recovery Impairment pt has difficulty recovery from the floor Short Term Goal (STG) 11/09/20 pt is able to use chair / table to get off from the floor 3 times (pt pushes off with R LE) Senior Mechanical Design Engineer Goal (LTG) pt will be able to complete 3 fall recoveries without using chair/ table for assistance LTG Duration 8 weeks WILLIAMSON Impairment pt scores 46/56 on WILLIAMSON Senior Mechanical Design Engineer Goal (LTG) 11/09/20 goal met pt scored 52/56 on WILLIAMSON balance pt will improve her WILLIAMSON score >50 /56 to reduce her fall risks LTG Duration 10 weeks Assessment Summary Assessment Tx focus on gait today. Pt improved in glute facilitation and eccentric control during resisted step ups w/ sport cord. Pt improved reciprocal arm swing, w/ assistance of poles and therapist initially, cueing for upright posture, wide CINDY and extending R knee during stance phase. Pt still challenged by toe off during preswing phase, however improved trunk mobility and reciprocal arm swing during gait at end of tx. Physical Therapy Plan Frequency and Duration Frequency of Treatment 1x/Week Duration of Treatment 10 weeks Plan of Care Start Date 11/09/20 Plan of Care End Date 01/23/21 Therapeutic Interventions Therapeutic Interventions Aquatic Therapy,Balance Training,Coordination Training ,Gait Training,Home Exercise Program,Joint Mobilizations, Manual Therapy,Neuromuscular Re-education,Patient/Caregiver Education,Self-Care/Home Management,Soft Tissue Mobilization,Taping, Therapeutic Activities, Therapeutic Exercises Modalities Cold Pack/Ice Massage,Electric Stimulation,Hot Packs, Infrared Therapy Next Visit Focus/Plan Next Note Type Treatment Note Next Visit Plan Assess response to sport cord. Next tx: gait training with terminal stance phase and COG over CINDY. cont R hip stabilizers/abd's activation and strengthening, gait training on RLE stance phase R hip ER
--- NOTE | 2020-11-30 14:35 | PT.OTN ---
Current Diagnoses Polyneuropathy, unspecified (11/30/20) Physical Therapy Treatment Note PT-OP-A Visit Information Start: 08/24/20 12:07 Freq: Status: Active Protocol: Document 11/30/20 13:46 SP (Rec: 11/30/20 15:00 SP [id number]) Out-Patient Physical Therapy Visit Information Visit Information Visit Type Treatment Note Visit Start Time 13:46 Visit Stop Time 14:35 Total Visit Minutes 49 Visit Number 04/25 Number of SOLAR SALES REP Visits 3 PT-OP-B Current Condition Start: 08/24/20 12:07 Freq: Status: Active Protocol: Document 08/24/20 12:08 HH (Rec: 08/24/20 12:30 HH [email or web address]) Current Condition History of Current Condition Onset Date from years ago Current Complaints decreased balance, B LE weakness R>L History of Current Condition pt is a 84yo female here for her decreased balance and B LE weakness R>L. She stated she has been a household walker because her poor endurance and poor balance. She could only sobeida walking approx half of a block but then need a rest break. She tends to use SPC for longer distance. She fell twice within the past year who tripped over a small step while carrying her groceries. 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 Treatment Goals Patient/Caregiver Goals 1. To improve her activity tolerance so she can walk more than half of a block without AD 2. to improve her overall balance so she does not limp during walking Personal Factors Other Personal Factors That May Effect see chart Therapy/Recovery PT-OP-C Subjective Start: 08/24/20 12:07 Freq: Status: Active Protocol: Document 11/30/20 13:46 SP (Rec: 11/30/20 15:00 SP [id number]) OP-PT Subjective Patient Comments Patient Comments Pt PT-OP-D Balance Start: 08/24/20 12:07 Freq: Status: Active Protocol: Document 08/24/20 12:08 HH (Rec: 08/24/20 12:30 HH [email or web address]) Balance Tests Single Limb Standing Single Limb- Right 2 Single Limb- Left 10 Williamson Balance Assessment Evaluation Sitting to Standing Ability Independent w/out Hands Unsupported Stance Safely- 2 minutes Sitting Unsupported, Feet on Floor Safely- 2 minutes Standing to Sitting Ability Safely, Minimal Hand Use Transfer Ability Safely, Minimal Hand Use Unsupported Stance- Eyes Closed Safely, 10 seconds Unsupported Stance- Eyes Open Independent, 1 minute Reaching Forward Standing Safely, 2 inches Pick- Up Object From Floor Supervision Look Behind Shoulder - Standing Shifts Weight Well Turning 360 Degrees Turns slowly, but safely Unsupported Stance, Alternating Feet on (I)- 8 Steps in > 20 secs Stair Unsupported Tandem Stance Small Step- 30 seconds Unilateral Leg Stance Lifts Leg/Holds > 3 secs Total Score Williamson Total Score (out of 56 points) 46 PT-OP-E Functional Tests Start: 08/24/20 12:07 Freq: Status: Active Protocol: Document 09/28/20 13:45 HH (Rec: 09/28/20 16:34 HH [id number]) Functional Tests 6 Minute Walk Test Distance 798ft Device Used no AD Comments 2 10 second standing breaks, SOB noted but improved SL stability on L PT-OP-G Mobility & Gait Start: 08/24/20 12:07 Freq: Status: Active Protocol: Document 08/24/20 12:08 HH (Rec: 08/24/20 12:30 [email or web address]) OP Gait Assessment Factors Limiting Gait Function Factors Limiting Gait Function Decreased Activity Tolerance, Decreased Strength,Limited Range of Motion,Pain,Poor Balance Comments Gait Comments increased +ve trendelenburg on RLE noticed as distance increases. Decrease step length on R,. PT-OP-H Neuro Start: 08/24/20 12:07 Freq: Status: Active Protocol: Document 08/24/20 12:08 HH (Rec: 08/24/20 12:30 [email or web address]) Sensation Evaluation Gross Sensation Gross Sensation Right LE Impaired Sensation Description Numbness Comments Summary Comments decreased sensation to light touch and pressure on lateral aspect of lower legs and ankles R>L Deep Tendon Reflex & Clonus Assessment Deep Tendon Reflex Bilateral Achilles Deep Tendon Reflex 2+ Normal Bilateral Patellar Deep Tendon Reflex 2+ Normal PT-OP-M Strength Start: 08/24/20 12:07 Freq: Status: Active Protocol: Document 08/24/20 12:08 HH (Rec: 08/24/20 12:30 [email or web address]) Hip Strength Hip Manual Muscle Testing Left Flexion (L2) 4 Good Extension (S1) 4 Good Abduction 4 Good Adduction 4 Good Right Flexion (L2) 3+ Fair+ Extension (S1) 3+ Fair+ Abduction 3+ Fair+ Adduction 3+ Fair+ Knee Strength Knee Manual Muscle Testing Right Flexion (S2) 4 Good Extension (L3) 4 Good Left Flexion (S2) 4 Good Extension (L3) 4 Good Ankle/Foot Strength Ankle and Foot Manual Muscle Testing Right Dorsiflexion (L4) 4- Good- Plantarflexion (S1) 4- Good- Inversion 4- Good- Eversion (S1) 4- Good- Left Dorsiflexion (L4) 4+ Good+ Plantarflexion (S1) 4+ Good+ Inversion 4 Good Eversion (S1) 4 Good PT-OP-Q Treatments Start: 08/24/20 12:07 Freq: Status: Active Protocol: Document 11/30/20 13:46 SP (Rec: 11/30/20 15:00 SP [id number]) Cardio Equipment Recumbent Bicycle Duration (Minutes) 6 Resistance 8 Seat Position 1 Other 36 RMP, MET 3,1.56 miles, 13 BES Therapeutic Exercises Supine Exercises piriformis stretch Supine Exercise Name hip ER ( HEP review) Side bilateral Reps/Minutes 8 x2 Comments improved flexibility on R hip supine hip ER Supine Exercise Name adductor stretch (HEP review) Side bilateral Reps/Minutes 30 Comments cued PPT awareness bridging Supine Exercise Name HEP review Side bilateral Equipment Used green band Reps/Minutes 10 x2 Comments Cued slow pacing muscular control, core and glut facilitation Sidelying Exercises hip abd Sidelying Exercise Name HEP review Side right Reps/Minutes 2x5 Comments cued forward roll and good hip abd with ext awareness clamshell Side right Comments patient unable to stabilize trunk so stopped Standing Exercises sit to stands Standing Exercise Name eccentric squat tap w/ arms across chest (HEP review) Resistance YTB around knees Equipment Used 18 chair Reps/Minutes 10 reps in 20 sec Comments cued hip hinge, slow eccentric control and knee apart with toes side stepping Standing Exercise Name HEP review Side bilateral Equipment Used #1 TB at thighs Reps/Minutes 20 ft x2 laps Comments cued feet/ hips forward, wt shift over stance LE then hip abd facilitation SLS Standing Exercise Name perform next tx (didn't today) Side bilateral Equipment Used contact counter as needed Reps/Minutes L: 10 x2; R: 5-8 Comments cued tall posture more into mid foot, wt shift stance LE, glut facilitation marching Standing Exercise Name cone tap (HEP review) Side bilateral Reps/Minutes 8 x3 Comments finger support on chair PRN, cues on R extended knee calf raises Standing Exercise Name w/ mini squat while maintaining HR ( HEP review) Side bilateral Equipment Used grab bar Reps/Minutes x10 Comments good knees behind toes, no cues needed. PT-OP-T Assessment and Plan Start: 08/24/20 12:07 Freq: Status: Active Protocol: Document 11/30/20 13:46 SP (Rec: 11/30/20 15:00 SP [id number]) Physical Therapy Assessment Goals single leg balance Impairment RLE =3-5 second, L =10 second Tallier Goal (LTG) pt will strength R hip stability to be able to stand on RLE >5 second in order for her to amb without trendelenburg sign LTG Duration 8 weeks R hip ROM Impairment needs to use 2 UE to pull her RLE into figure 4 sitting position Halfway Goal (LTG) 11/09/20 pt is able to bring R LE over to LLE with 1 UE assistance. strength Impairment pt overall has decreased RLE strength Short Term Goal (STG) 09/28 improved hip strength noted. She is able to perform clam shell 10 x2 and SL hip abduction 6 x2 on R side. Halfway Goal (LTG) pt will improve her R LE strength for 1MMT grade to improve her single leg stability and strength so she can climb step with alternate steps. LTG Duration 10 weeks gait Impairment pt completes 6MWT = 845 ft without AD Short Term Goal (STG) 09/28 pt completed 798 ft without sitting break today and reduced antalgic sign noted. Pt will be able to complete 950 ft without AD and without rest break STG Duration 5 weeks Tallier Goal (LTG) 11/09/20 Pt completed 930ft with 1 10sec standing break. pt will be able to complete 1000 ft without AD and minimal trendelenburg sign on RLE without rest break. LTG Duration 10 weeks fall recovery Impairment pt has difficulty recovery from the floor Short Term Goal (STG) 11/09/20 pt is able to use chair / table to get off from the floor 3 times (pt pushes off with R LE) Halfway Goal (LTG) pt will be able to complete 3 fall recoveries without using chair/ table for assistance LTG Duration 8 weeks WILLIAMSON Impairment pt scores 46/56 on WILLIAMSON Tallier Goal (LTG) 11/09/20 goal met pt scored 52/56 on WILLIAMSON balance pt will improve her WILLIAMSON score >50 /56 to reduce her fall risks LTG Duration 10 weeks Assessment Summary Assessment Pt demonstrated COG retro into heels upon arrival. Tx focused on ankle ROM and hip ER awareness during cardio then HEP review w/ cuing for R >L hip and knee extension for glut/ hip abd facilitation during standing and side exercises. Initiated adductor and sylwia stretches to decreased hip flexor and adduction tightness. Provided updated hand outs of HEP performing at home to date. Pt demonstrated little more forward COG and preswing improvements. Physical Therapy Plan Frequency and Duration Frequency of Treatment 1x/Week Duration of Treatment 10 weeks Plan of Care Start Date 11/09/20 Plan of Care End Date 01/23/21 Therapeutic Interventions Therapeutic Interventions Aquatic Therapy,Balance Training,Coordination Training ,Gait Training,Home Exercise Program,Joint Mobilizations, Manual Therapy,Neuromuscular Re-education,Patient/Caregiver Education,Self-Care/Home Management,Soft Tissue Mobilization,Taping, Therapeutic Activities, Therapeutic Exercises Modalities Cold Pack/Ice Massage,Electric Stimulation,Hot Packs, Infrared Therapy Next Visit Focus/Plan Next Note Type Treatment Note Next Visit Plan Assess response to recumbent bike and HEP review. Cont per PT POC: R hip stabilizers/abd's activation and strengthening, gait training on RLE stance phase R hip ER
--- NOTE | 2020-12-07 14:33 | PT.OTN ---
Current Diagnoses Polyneuropathy, unspecified (12/07/20) Physical Therapy Treatment Note PT-OP-A Visit Information Start: 08/24/20 12:07 Freq: Status: Active Protocol: Document 12/07/20 13:49 HH (Rec: 12/07/20 14:32 [id number]) Out-Patient Physical Therapy Visit Information Visit Information Visit Type Treatment Note Visit Start Time 13:47 Visit Stop Time 14:30 Total Visit Minutes 43 Visit Number 05/26 Number of VISUAL MERCHANDISING COORDINATOR Visits 0 PT-OP-B Current Condition Start: 08/24/20 12:07 Freq: Status: Active Protocol: Document 08/24/20 12:08 HH (Rec: 08/24/20 12:30 [email or web address]) Current Condition History of Current Condition Onset Date from years ago Current Complaints decreased balance, B LE weakness R>L History of Current Condition pt is a 84yo female here for her decreased balance and B LE weakness R>L. She stated she has been a household walker because her poor endurance and poor balance. She could only sobeida walking approx half of a block but then need a rest break. She tends to use SPC for longer distance. She fell twice within the past year who tripped over a small step while carrying her groceries. 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 Treatment Goals Patient/Caregiver Goals 1. To improve her activity tolerance so she can walk more than half of a block without AD 2. to improve her overall balance so she does not limp during walking Personal Factors Other Personal Factors That May Effect see chart Therapy/Recovery PT-OP-C Subjective Start: 08/24/20 12:07 Freq: Status: Active Protocol: Document 12/07/20 13:49 HH (Rec: 12/07/20 14:32 [id number]) OP-PT Subjective Patient Comments Patient Comments Im overall getting better at balance and more confident for mobility. But i think my cardio endurance is that major limiting factor for my activity tolerance. Patient Reported Progress Improving PT-OP-D Balance Start: 08/24/20 12:07 Freq: Status: Active Protocol: Document 08/24/20 12:08 HH (Rec: 08/24/20 12:30 HH [email or web address]) Balance Tests Single Limb Standing Single Limb- Right 2 Single Limb- Left 10 Williamson Balance Assessment Evaluation Sitting to Standing Ability Independent w/out Hands Unsupported Stance Safely- 2 minutes Sitting Unsupported, Feet on Floor Safely- 2 minutes Standing to Sitting Ability Safely, Minimal Hand Use Transfer Ability Safely, Minimal Hand Use Unsupported Stance- Eyes Closed Safely, 10 seconds Unsupported Stance- Eyes Open Independent, 1 minute Reaching Forward Standing Safely, 2 inches Pick- Up Object From Floor Supervision Look Behind Shoulder - Standing Shifts Weight Well Turning 360 Degrees Turns slowly, but safely Unsupported Stance, Alternating Feet on (I)- 8 Steps in > 20 secs Stair Unsupported Tandem Stance Small Step- 30 seconds Unilateral Leg Stance Lifts Leg/Holds > 3 secs Total Score Williamson Total Score (out of 56 points) 46 PT-OP-E Functional Tests Start: 08/24/20 12:07 Freq: Status: Active Protocol: Document 09/28/20 13:45 HH (Rec: 09/28/20 16:34 HH [id number]) Functional Tests 6 Minute Walk Test Distance 798ft Device Used no AD Comments 2 10 second standing breaks, SOB noted but improved SL stability on L PT-OP-G Mobility & Gait Start: 08/24/20 12:07 Freq: Status: Active Protocol: Document 08/24/20 12:08 HH (Rec: 08/24/20 12:30 [email or web address]) OP Gait Assessment Factors Limiting Gait Function Factors Limiting Gait Function Decreased Activity Tolerance, Decreased Strength,Limited Range of Motion,Pain,Poor Balance Comments Gait Comments increased +ve trendelenburg on RLE noticed as distance increases. Decrease step length on R,. PT-OP-H Neuro Start: 08/24/20 12:07 Freq: Status: Active Protocol: Document 08/24/20 12:08 HH (Rec: 08/24/20 12:30 HH [email or web address]) Sensation Evaluation Gross Sensation Gross Sensation Right LE Impaired Sensation Description Numbness Comments Summary Comments decreased sensation to light touch and pressure on lateral aspect of lower legs and ankles R>L Deep Tendon Reflex & Clonus Assessment Deep Tendon Reflex Bilateral Achilles Deep Tendon Reflex 2+ Normal Bilateral Patellar Deep Tendon Reflex 2+ Normal PT-OP-M Strength Start: 08/24/20 12:07 Freq: Status: Active Protocol: Document 08/24/20 12:08 HH (Rec: 08/24/20 12:30 HH [email or web address]) Hip Strength Hip Manual Muscle Testing Left Flexion (L2) 4 Good Extension (S1) 4 Good Abduction 4 Good Adduction 4 Good Right Flexion (L2) 3+ Fair+ Extension (S1) 3+ Fair+ Abduction 3+ Fair+ Adduction 3+ Fair+ Knee Strength Knee Manual Muscle Testing Right Flexion (S2) 4 Good Extension (L3) 4 Good Left Flexion (S2) 4 Good Extension (L3) 4 Good Ankle/Foot Strength Ankle and Foot Manual Muscle Testing Right Dorsiflexion (L4) 4- Good- Plantarflexion (S1) 4- Good- Inversion 4- Good- Eversion (S1) 4- Good- Left Dorsiflexion (L4) 4+ Good+ Plantarflexion (S1) 4+ Good+ Inversion 4 Good Eversion (S1) 4 Good PT-OP-Q Treatments Start: 08/24/20 12:07 Freq: Status: Active Protocol: Document 12/07/20 13:49 (Rec: 12/07/20 14:32 [id number]) Cardio Equipment Recumbent Bicycle Duration (Minutes) 6 Resistance 6 Seat Position 1 Gym Equipment Shuttle Recovery SL squat Details cued lateral knee alignment to neutral Resistance #37 BLE. Shuttle Recovery Platform Stable Reps/Time 10 x2 Therapeutic Exercises Sidelying Exercises hip abd Side right Reps/Minutes 2x5 Comments cued forward roll and good hip abd with ext awareness Standing Exercises standing hip abd Standing Exercise Name abd and extension Side bilateral Reps/Minutes 8 x2 step up Side bilateral Reps/Minutes 6 step 12 x 2 each side side stepping Side bilateral Equipment Used no band x 3 laps then #1 TB at thighs Reps/Minutes 20 ft x3 laps Comments cued feet/ hips forward, wt shift over stance LE then hip abd facilitation SLS Standing Exercise Name perform next tx (didn't today) Side bilateral Equipment Used contact counter as needed Reps/Minutes L: 10 x2; R: 5-8 Comments cued tall posture more into mid foot, wt shift stance LE, glut facilitation PT-OP-T Assessment and Plan Start: 08/24/20 12:07 Freq: Status: Active Protocol: Document 12/07/20 13:49 (Rec: 12/07/20 14:32 [id number]) Physical Therapy Assessment Goals single leg balance Impairment RLE =3-5 second, L =10 second [employer] Technical Assistant Goal (LTG) pt will strength R hip stability to be able to stand on RLE >5 second in order for her to amb without trendelenburg sign LTG Duration 8 weeks R hip ROM Impairment needs to use 2 UE to pull her RLE into figure 4 sitting position Detention Goal (LTG) 11/09/20 pt is able to bring R LE over to LLE with 1 UE assistance. strength Impairment pt overall has decreased RLE strength Short Term Goal (STG) 09/28 improved hip strength noted. She is able to perform clam shell 10 x2 and SL hip abduction 6 x2 on R side. Detention Goal (LTG) pt will improve her R LE strength for 1MMT grade to improve her single leg stability and strength so she can climb step with alternate steps. LTG Duration 10 weeks gait Impairment pt completes 6MWT = 845 ft without AD Short Term Goal (STG) 09/28 pt completed 798 ft without sitting break today and reduced antalgic sign noted. Pt will be able to complete 950 ft without AD and without rest break STG Duration 5 weeks [employer] Technical Assistant Goal (LTG) 11/09/20 Pt completed 930ft with 1 10sec standing break. pt will be able to complete 1000 ft without AD and minimal trendelenburg sign on RLE without rest break. LTG Duration 10 weeks fall recovery Impairment pt has difficulty recovery from the floor Short Term Goal (STG) 11/09/20 pt is able to use chair / table to get off from the floor 3 times (pt pushes off with R LE) [employer] Technical Assistant Goal (LTG) pt will be able to complete 3 fall recoveries without using chair/ table for assistance LTG Duration 8 weeks WILLIAMSON Impairment pt scores 46/56 on WILLIAMSON Detention Goal (LTG) 11/09/20 goal met pt scored 52/56 on WILLIAMSON balance pt will improve her WILLIAMSON score >50 /56 to reduce her fall risks LTG Duration 10 weeks Assessment Summary Assessment Pt overall shows good activity tolerance and improved hip strength since last time I saw her. Pt still has difficulty maintaining knee extended and hip stability during SLS Physical Therapy Plan Frequency and Duration Frequency of Treatment 1x/Week Duration of Treatment 10 weeks Plan of Care Start Date 11/09/20 Plan of Care End Date 01/23/21 Next Visit Focus/Plan Next Note Type Treatment Note Next Visit Plan Assess response to recumbent bike and HEP review. Cont per PT POC: R hip stabilizers/abd's activation and strengthening, gait training on RLE stance phase R hip ER
--- NOTE | 2020-12-14 14:31 | PT.OTN ---
Current Diagnoses Polyneuropathy, unspecified (12/14/20) Physical Therapy Treatment Note PT-OP-A Visit Information Start: 08/24/20 12:07 Freq: Status: Active Protocol: Document 12/14/20 13:52 HH (Rec: 12/14/20 14:31 [id number]) Out-Patient Physical Therapy Visit Information Visit Information Visit Type Treatment Note Visit Start Time 13:48 Visit Stop Time 14:30 Total Visit Minutes 42 Visit Number 06/26 Number of AUTOMOTIVE WINDOW TINTER Visits 0 PT-OP-B Current Condition Start: 08/24/20 12:07 Freq: Status: Active Protocol: Document 08/24/20 12:08 HH (Rec: 08/24/20 12:30 HH [email or web address]) Current Condition History of Current Condition Onset Date from years ago Current Complaints decreased balance, B LE weakness R>L History of Current Condition pt is a 84yo female here for her decreased balance and B LE weakness R>L. She stated she has been a household walker because her poor endurance and poor balance. She could only sobeida walking approx half of a block but then need a rest break. She tends to use SPC for longer distance. She fell twice within the past year who tripped over a small step while carrying her groceries. 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 Treatment Goals Patient/Caregiver Goals 1. To improve her activity tolerance so she can walk more than half of a block without AD 2. to improve her overall balance so she does not limp during walking Personal Factors Other Personal Factors That May Effect see chart Therapy/Recovery PT-OP-C Subjective Start: 08/24/20 12:07 Freq: Status: Active Protocol: Document 12/14/20 13:52 HH (Rec: 12/14/20 14:31 [id number]) OP-PT Subjective Patient Comments Patient Comments Im doing pretty good. My food doesnt bother me PT-OP-D Balance Start: 08/24/20 12:07 Freq: Status: Active Protocol: Document 08/24/20 12:08 HH (Rec: 08/24/20 12:30 HH [email or web address]) Balance Tests Single Limb Standing Single Limb- Right 2 Single Limb- Left 10 Williamson Balance Assessment Evaluation Sitting to Standing Ability Independent w/out Hands Unsupported Stance Safely- 2 minutes Sitting Unsupported, Feet on Floor Safely- 2 minutes Standing to Sitting Ability Safely, Minimal Hand Use Transfer Ability Safely, Minimal Hand Use Unsupported Stance- Eyes Closed Safely, 10 seconds Unsupported Stance- Eyes Open Independent, 1 minute Reaching Forward Standing Safely, 2 inches Pick- Up Object From Floor Supervision Look Behind Shoulder - Standing Shifts Weight Well Turning 360 Degrees Turns slowly, but safely Unsupported Stance, Alternating Feet on (I)- 8 Steps in > 20 secs Stair Unsupported Tandem Stance Small Step- 30 seconds Unilateral Leg Stance Lifts Leg/Holds > 3 secs Total Score Williamson Total Score (out of 56 points) 46 PT-OP-E Functional Tests Start: 08/24/20 12:07 Freq: Status: Active Protocol: Document 09/28/20 13:45 HH (Rec: 09/28/20 16:34 HH [id number]) Functional Tests 6 Minute Walk Test Distance 798ft Device Used no AD Comments 2 10 second standing breaks, SOB noted but improved SL stability on L PT-OP-G Mobility & Gait Start: 08/24/20 12:07 Freq: Status: Active Protocol: Document 08/24/20 12:08 HH (Rec: 08/24/20 12:30 [email or web address]) OP Gait Assessment Factors Limiting Gait Function Factors Limiting Gait Function Decreased Activity Tolerance, Decreased Strength,Limited Range of Motion,Pain,Poor Balance Comments Gait Comments increased +ve trendelenburg on RLE noticed as distance increases. Decrease step length on R,. PT-OP-H Neuro Start: 08/24/20 12:07 Freq: Status: Active Protocol: Document 08/24/20 12:08 HH (Rec: 08/24/20 12:30 HH [email or web address]) Sensation Evaluation Gross Sensation Gross Sensation Right LE Impaired Sensation Description Numbness Comments Summary Comments decreased sensation to light touch and pressure on lateral aspect of lower legs and ankles R>L Deep Tendon Reflex & Clonus Assessment Deep Tendon Reflex Bilateral Achilles Deep Tendon Reflex 2+ Normal Bilateral Patellar Deep Tendon Reflex 2+ Normal PT-OP-M Strength Start: 08/24/20 12:07 Freq: Status: Active Protocol: Document 08/24/20 12:08 HH (Rec: 08/24/20 12:30 [email or web address]) Hip Strength Hip Manual Muscle Testing Left Flexion (L2) 4 Good Extension (S1) 4 Good Abduction 4 Good Adduction 4 Good Right Flexion (L2) 3+ Fair+ Extension (S1) 3+ Fair+ Abduction 3+ Fair+ Adduction 3+ Fair+ Knee Strength Knee Manual Muscle Testing Right Flexion (S2) 4 Good Extension (L3) 4 Good Left Flexion (S2) 4 Good Extension (L3) 4 Good Ankle/Foot Strength Ankle and Foot Manual Muscle Testing Right Dorsiflexion (L4) 4- Good- Plantarflexion (S1) 4- Good- Inversion 4- Good- Eversion (S1) 4- Good- Left Dorsiflexion (L4) 4+ Good+ Plantarflexion (S1) 4+ Good+ Inversion 4 Good Eversion (S1) 4 Good PT-OP-Q Treatments Start: 08/24/20 12:07 Freq: Status: Active Protocol: Document 12/14/20 13:52 HH (Rec: 12/14/20 14:31 HH [id number]) Cardio Equipment Recumbent Stepper (Sci-Fit) Duration (Minutes) 6 Resistance 5 Seat Position 5 Gym Equipment Shuttle Recovery SL squat Details cued lateral knee alignment to neutral Resistance #37 BLE. Shuttle Recovery Platform Stable Reps/Time 12x2 Therapeutic Exercises Standing Exercises standing TKE Side right Equipment Used level 1 Reps/Minutes 10 x 2 sit to stands Standing Exercise Name eccentric squat tap w/ arms across chest (HEP review) Resistance YTB around knees Equipment Used 18 chair Reps/Minutes 8reps x 2 Comments cued hip hinge, slow eccentric control and knee apart with toes step up Side bilateral Reps/Minutes 6 step 12 x 2 each side side stepping Side bilateral Equipment Used no band x 3 laps then #1 TB at thighs Reps/Minutes 20 ft x6 laps Comments cued feet/ hips forward, wt shift over stance LE then hip abd facilitation SLS Side bilateral Reps/Minutes L: 10 x2; R: 5-8 Comments improved SLS on R side today. less hip drop noted. PT-OP-T Assessment and Plan Start: 08/24/20 12:07 Freq: Status: Active Protocol: Document 12/14/20 13:52 HH (Rec: 12/14/20 14:31 [id number]) Physical Therapy Assessment Goals single leg balance Impairment RLE =3-5 second, L =10 second Alf Goal (LTG) pt will strength R hip stability to be able to stand on RLE >5 second in order for her to amb without trendelenburg sign LTG Duration 8 weeks R hip ROM Impairment needs to use 2 UE to pull her RLE into figure 4 sitting position Program Arranger Goal (LTG) 11/09/20 pt is able to bring R LE over to LLE with 1 UE assistance. strength Impairment pt overall has decreased RLE strength Short Term Goal (STG) 09/28 improved hip strength noted. She is able to perform clam shell 10 x2 and SL hip abduction 6 x2 on R side. Program Arranger Goal (LTG) pt will improve her R LE strength for 1MMT grade to improve her single leg stability and strength so she can climb step with alternate steps. LTG Duration 10 weeks gait Impairment pt completes 6MWT = 845 ft without AD Short Term Goal (STG) 09/28 pt completed 798 ft without sitting break today and reduced antalgic sign noted. Pt will be able to complete 950 ft without AD and without rest break STG Duration 5 weeks Program Arranger Goal (LTG) 11/09/20 Pt completed 930ft with 1 10sec standing break. pt will be able to complete 1000 ft without AD and minimal trendelenburg sign on RLE without rest break. LTG Duration 10 weeks fall recovery Impairment pt has difficulty recovery from the floor Short Term Goal (STG) 11/09/20 pt is able to use chair / table to get off from the floor 3 times (pt pushes off with R LE) Program Arranger Goal (LTG) pt will be able to complete 3 fall recoveries without using chair/ table for assistance LTG Duration 8 weeks WILLIAMSON Impairment pt scores 46/56 on WILLIAMSON Alf Goal (LTG) 11/09/20 goal met pt scored 52/56 on WILLIAMSON balance pt will improve her WILLIAMSON score >50 /56 to reduce her fall risks LTG Duration 10 weeks Assessment Summary Assessment Pt shows good progress with her single leg balance and hip stability today. Added squat with theraband and R TKE. Will assess her progress next visit. Physical Therapy Plan Frequency and Duration Frequency of Treatment 1x/Week Duration of Treatment 10 weeks Plan of Care Start Date 11/09/20 Plan of Care End Date 01/23/21 Next Visit Focus/Plan Next Note Type Treatment Note Next Visit Plan Assess response to recumbent bike and HEP review. Cont per PT POC: R hip stabilizers/abd's activation and strengthening, gait training on RLE stance phase R hip ER
--- NOTE | 2020-12-21 14:35 | PT.OTN ---
Current Diagnoses Polyneuropathy, unspecified (12/21/20) Physical Therapy Treatment Note PT-OP-A Visit Information Start: 08/24/20 12:07 Freq: Status: Active Protocol: Document 12/21/20 13:43 HH (Rec: 12/21/20 14:34 [id number]) Out-Patient Physical Therapy Visit Information Visit Information Visit Type Progress Note Visit Start Time 13:47 Visit Stop Time 14:30 Total Visit Minutes 43 Visit Number 07/26 Number of TEMPORARY DATA ENTRY CLERK Visits 0 PT-OP-B Current Condition Start: 08/24/20 12:07 Freq: Status: Active Protocol: Document 08/24/20 12:08 HH (Rec: 08/24/20 12:30 [email or web address]) Current Condition History of Current Condition Onset Date from years ago Current Complaints decreased balance, B LE weakness R>L History of Current Condition pt is a 84yo female here for her decreased balance and B LE weakness R>L. She stated she has been a household walker because her poor endurance and poor balance. She could only sobeida walking approx half of a block but then need a rest break. She tends to use SPC for longer distance. She fell twice within the past year who tripped over a small step while carrying her groceries. 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 Treatment Goals Patient/Caregiver Goals 1. To improve her activity tolerance so she can walk more than half of a block without AD 2. to improve her overall balance so she does not limp during walking Personal Factors Other Personal Factors That May Effect see chart Therapy/Recovery PT-OP-C Subjective Start: 08/24/20 12:07 Freq: Status: Active Protocol: Document 12/21/20 13:43 HH (Rec: 12/21/20 14:34 [id number]) OP-PT Subjective Patient Comments Patient Comments I went to the grocery store this morning and it was my first time without using the cane and it went very well Patient Reported Progress Improving PT-OP-D Balance Start: 08/24/20 12:07 Freq: Status: Active Protocol: Document 08/24/20 12:08 HH (Rec: 08/24/20 12:30 [email or web address]) Balance Tests Single Limb Standing Single Limb- Right 2 Single Limb- Left 10 Williamson Balance Assessment Evaluation Sitting to Standing Ability Independent w/out Hands Unsupported Stance Safely- 2 minutes Sitting Unsupported, Feet on Floor Safely- 2 minutes Standing to Sitting Ability Safely, Minimal Hand Use Transfer Ability Safely, Minimal Hand Use Unsupported Stance- Eyes Closed Safely, 10 seconds Unsupported Stance- Eyes Open Independent, 1 minute Reaching Forward Standing Safely, 2 inches Pick- Up Object From Floor Supervision Look Behind Shoulder - Standing Shifts Weight Well Turning 360 Degrees Turns slowly, but safely Unsupported Stance, Alternating Feet on (I)- 8 Steps in > 20 secs Stair Unsupported Tandem Stance Small Step- 30 seconds Unilateral Leg Stance Lifts Leg/Holds > 3 secs Total Score Williamson Total Score (out of 56 points) 46 PT-OP-E Functional Tests Start: 08/24/20 12:07 Freq: Status: Active Protocol: Document 09/28/20 13:45 HH (Rec: 09/28/20 16:34 HH [id number]) Functional Tests 6 Minute Walk Test Distance 798ft Device Used no AD Comments 2 10 second standing breaks, SOB noted but improved SL stability on L PT-OP-G Mobility & Gait Start: 08/24/20 12:07 Freq: Status: Active Protocol: Document 08/24/20 12:08 HH (Rec: 08/24/20 12:30 HH [email or web address]) OP Gait Assessment Factors Limiting Gait Function Factors Limiting Gait Function Decreased Activity Tolerance, Decreased Strength,Limited Range of Motion,Pain,Poor Balance Comments Gait Comments increased +ve trendelenburg on RLE noticed as distance increases. Decrease step length on R,. PT-OP-H Neuro Start: 08/24/20 12:07 Freq: Status: Active Protocol: Document 08/24/20 12:08 HH (Rec: 08/24/20 12:30 HH [email or web address]) Sensation Evaluation Gross Sensation Gross Sensation Right LE Impaired Sensation Description Numbness Comments Summary Comments decreased sensation to light touch and pressure on lateral aspect of lower legs and ankles R>L Deep Tendon Reflex & Clonus Assessment Deep Tendon Reflex Bilateral Achilles Deep Tendon Reflex 2+ Normal Bilateral Patellar Deep Tendon Reflex 2+ Normal PT-OP-M Strength Start: 08/24/20 12:07 Freq: Status: Active Protocol: Document 08/24/20 12:08 HH (Rec: 08/24/20 12:30 [email or web address]) Hip Strength Hip Manual Muscle Testing Left Flexion (L2) 4 Good Extension (S1) 4 Good Abduction 4 Good Adduction 4 Good Right Flexion (L2) 3+ Fair+ Extension (S1) 3+ Fair+ Abduction 3+ Fair+ Adduction 3+ Fair+ Knee Strength Knee Manual Muscle Testing Right Flexion (S2) 4 Good Extension (L3) 4 Good Left Flexion (S2) 4 Good Extension (L3) 4 Good Ankle/Foot Strength Ankle and Foot Manual Muscle Testing Right Dorsiflexion (L4) 4- Good- Plantarflexion (S1) 4- Good- Inversion 4- Good- Eversion (S1) 4- Good- Left Dorsiflexion (L4) 4+ Good+ Plantarflexion (S1) 4+ Good+ Inversion 4 Good Eversion (S1) 4 Good PT-OP-Q Treatments Start: 08/24/20 12:07 Freq: Status: Active Protocol: Document 12/21/20 13:43 HH (Rec: 12/21/20 14:34 [id number]) Cardio Equipment Recumbent Stepper (Sci-Fit) Duration (Minutes) 6 Resistance 5 Seat Position 5 Gym Equipment Shuttle Recovery SL squat Details cued lateral knee alignment to neutral Resistance #37 BLE. Shuttle Recovery Platform Stable Reps/Time 12x2 Therapeutic Exercises Standing Exercises staggered stance Standing Exercise Name 2 blue pads Side bilateral Comments 8 mins standing TKE Side right Equipment Used level 1 Reps/Minutes 10 x 2 sit to stands Standing Exercise Name eccentric squat tap w/ arms across chest (HEP review) Resistance YTB around knees Equipment Used 18 chair Reps/Minutes 8reps x 2 Comments cued hip hinge, slow eccentric control and knee apart with toes side stepping Side bilateral Equipment Used no band x 3 laps then #1 TB at thighs Reps/Minutes 20 ft x6 laps Comments cued feet/ hips forward, wt shift over stance LE then hip abd facilitation PT-OP-T Assessment and Plan Start: 08/24/20 12:07 Freq: Status: Active Protocol: Document 12/21/20 13:43 HH (Rec: 12/21/20 14:34 [id number]) Physical Therapy Assessment Goals single leg balance Impairment RLE =3-5 second, L =10 second Conveyor Belt Operator Goal (LTG) pt will strength R hip stability to be able to stand on RLE >5 second in order for her to amb without trendelenburg sign LTG Duration 8 weeks R hip ROM Impairment needs to use 2 UE to pull her RLE into figure 4 sitting position Conveyor Belt Operator Goal (LTG) 11/09/20 pt is able to bring R LE over to LLE with 1 UE assistance. strength Impairment pt overall has decreased RLE strength Short Term Goal (STG) 09/28 improved hip strength noted. She is able to perform clam shell 10 x2 and SL hip abduction 6 x2 on R side. Conveyor Belt Operator Goal (LTG) pt will improve her R LE strength for 1MMT grade to improve her single leg stability and strength so she can climb step with alternate steps. LTG Duration 10 weeks gait Impairment pt completes 6MWT = 845 ft without AD Short Term Goal (STG) 09/28 pt completed 798 ft without sitting break today and reduced antalgic sign noted. Pt will be able to complete 950 ft without AD and without rest break STG Duration 5 weeks Conveyor Belt Operator Goal (LTG) 11/09/20 Pt completed 930ft with 1 10sec standing break. pt will be able to complete 1000 ft without AD and minimal trendelenburg sign on RLE without rest break. LTG Duration 10 weeks fall recovery Impairment pt has difficulty recovery from the floor Short Term Goal (STG) 11/09/20 pt is able to use chair / table to get off from the floor 3 times (pt pushes off with R LE) Snf Goal (LTG) pt will be able to complete 3 fall recoveries without using chair/ table for assistance LTG Duration 8 weeks WILLIAMSON Impairment pt scores 46/56 on WILLIAMSON Snf Goal (LTG) 11/09/20 goal met pt scored 52/56 on WILLIAMSON balance pt will improve her WILLIAMSON score >50 /56 to reduce her fall risks LTG Duration 10 weeks Progress Towards Goals Progress Towards Goals Progressing Toward Goals Assessment Summary Assessment Pt stated she has improved balance and gait since she can walk in the grocery store without her cane for the first time. Pt is pleased with her progress. She also shows good SL balance on RLE (up to 8-10 seconds consistently) Expect to DC pt in 2 visists. Physical Therapy Plan Frequency and Duration Frequency of Treatment 1x/Week Duration of Treatment 10 weeks Plan of Care Start Date 11/09/20 Plan of Care End Date 01/23/21 Next Visit Focus/Plan Next Note Type Treatment Note Next Visit Plan Assess response to recumbent bike and HEP review. Cont per PT POC: R hip stabilizers/abd's activation and strengthening, gait training on RLE stance phase R hip ER
--- NOTE | 2020-12-28 13:51 | PT.OTN ---
Current Diagnoses Polyneuropathy, unspecified (12/28/20) Physical Therapy Treatment Note PT-OP-A Visit Information Start: 08/24/20 12:07 Freq: Status: Active Protocol: Document 12/28/20 13:00 HH (Rec: 12/28/20 13:51 [id number]) Out-Patient Physical Therapy Visit Information Visit Information Visit Type Treatment Note Visit Start Time 13:00 Visit Stop Time 13:45 Total Visit Minutes 45 Visit Number 08/26 Number of PASTORAL ASSISTANT Visits 0 PT-OP-B Current Condition Start: 08/24/20 12:07 Freq: Status: Active Protocol: Document 08/24/20 12:08 HH (Rec: 08/24/20 12:30 [email or web address]) Current Condition History of Current Condition Onset Date from years ago Current Complaints decreased balance, B LE weakness R>L History of Current Condition pt is a 84yo female here for her decreased balance and B LE weakness R>L. She stated she has been a household walker because her poor endurance and poor balance. She could only sobeida walking approx half of a block but then need a rest break. She tends to use SPC for longer distance. She fell twice within the past year who tripped over a small step while carrying her groceries. 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 Treatment Goals Patient/Caregiver Goals 1. To improve her activity tolerance so she can walk more than half of a block without AD 2. to improve her overall balance so she does not limp during walking Personal Factors Other Personal Factors That May Effect see chart Therapy/Recovery PT-OP-C Subjective Start: 08/24/20 12:07 Freq: Status: Active Protocol: Document 12/28/20 13:00 HH (Rec: 12/28/20 13:51 [id number]) OP-PT Subjective Patient Comments Patient Comments Brook been doing pretty good. I havent used the cane for the past few weeks. Patient Reported Progress Improving PT-OP-D Balance Start: 08/24/20 12:07 Freq: Status: Active Protocol: Document 08/24/20 12:08 HH (Rec: 08/24/20 12:30 [email or web address]) Balance Tests Single Limb Standing Single Limb- Right 2 Single Limb- Left 10 Williamson Balance Assessment Evaluation Sitting to Standing Ability Independent w/out Hands Unsupported Stance Safely- 2 minutes Sitting Unsupported, Feet on Floor Safely- 2 minutes Standing to Sitting Ability Safely, Minimal Hand Use Transfer Ability Safely, Minimal Hand Use Unsupported Stance- Eyes Closed Safely, 10 seconds Unsupported Stance- Eyes Open Independent, 1 minute Reaching Forward Standing Safely, 2 inches Pick- Up Object From Floor Supervision Look Behind Shoulder - Standing Shifts Weight Well Turning 360 Degrees Turns slowly, but safely Unsupported Stance, Alternating Feet on (I)- 8 Steps in > 20 secs Stair Unsupported Tandem Stance Small Step- 30 seconds Unilateral Leg Stance Lifts Leg/Holds > 3 secs Total Score Williamson Total Score (out of 56 points) 46 PT-OP-E Functional Tests Start: 08/24/20 12:07 Freq: Status: Active Protocol: Document 09/28/20 13:45 HH (Rec: 09/28/20 16:34 HH [id number]) Functional Tests 6 Minute Walk Test Distance 798ft Device Used no AD Comments 2 10 second standing breaks, SOB noted but improved SL stability on L PT-OP-G Mobility & Gait Start: 08/24/20 12:07 Freq: Status: Active Protocol: Document 08/24/20 12:08 HH (Rec: 08/24/20 12:30 HH [email or web address]) OP Gait Assessment Factors Limiting Gait Function Factors Limiting Gait Function Decreased Activity Tolerance, Decreased Strength,Limited Range of Motion,Pain,Poor Balance Comments Gait Comments increased +ve trendelenburg on RLE noticed as distance increases. Decrease step length on R,. PT-OP-H Neuro Start: 08/24/20 12:07 Freq: Status: Active Protocol: Document 08/24/20 12:08 HH (Rec: 08/24/20 12:30 HH [email or web address]) Sensation Evaluation Gross Sensation Gross Sensation Right LE Impaired Sensation Description Numbness Comments Summary Comments decreased sensation to light touch and pressure on lateral aspect of lower legs and ankles R>L Deep Tendon Reflex & Clonus Assessment Deep Tendon Reflex Bilateral Achilles Deep Tendon Reflex 2+ Normal Bilateral Patellar Deep Tendon Reflex 2+ Normal PT-OP-M Strength Start: 08/24/20 12:07 Freq: Status: Active Protocol: Document 08/24/20 12:08 HH (Rec: 08/24/20 12:30 HH [email or web address]) Hip Strength Hip Manual Muscle Testing Left Flexion (L2) 4 Good Extension (S1) 4 Good Abduction 4 Good Adduction 4 Good Right Flexion (L2) 3+ Fair+ Extension (S1) 3+ Fair+ Abduction 3+ Fair+ Adduction 3+ Fair+ Knee Strength Knee Manual Muscle Testing Right Flexion (S2) 4 Good Extension (L3) 4 Good Left Flexion (S2) 4 Good Extension (L3) 4 Good Ankle/Foot Strength Ankle and Foot Manual Muscle Testing Right Dorsiflexion (L4) 4- Good- Plantarflexion (S1) 4- Good- Inversion 4- Good- Eversion (S1) 4- Good- Left Dorsiflexion (L4) 4+ Good+ Plantarflexion (S1) 4+ Good+ Inversion 4 Good Eversion (S1) 4 Good PT-OP-Q Treatments Start: 08/24/20 12:07 Freq: Status: Active Protocol: Document 12/28/20 13:00 HH (Rec: 12/28/20 13:51 [id number]) Cardio Equipment Recumbent Bicycle Duration (Minutes) 8 Resistance 5 Seat Position 2 Gym Equipment Shuttle Recovery SL squat Details cued lateral knee alignment to neutral Resistance #37 BLE. Shuttle Recovery Platform Stable Reps/Time 12x2 Therapeutic Exercises Standing Exercises step down Equipment Used 4 inches step Reps/Minutes 5 x Comments for HEP, slight disocmfort noted at R medial knee standing TKE Side right Equipment Used level 1 Reps/Minutes 10 x 2 sit to stands Standing Exercise Name eccentric squat tap w/ arms across chest (HEP review) Resistance YTB around knees Equipment Used 18 chair Reps/Minutes 8reps x 2 Comments cued hip hinge, slow eccentric control and knee apart with toes step up Side bilateral Reps/Minutes 6 step 12 x 2 each side side stepping Side bilateral Equipment Used no band x 3 laps then #1 TB at thighs Reps/Minutes 20 ft x6 laps Comments cued feet/ hips forward, wt shift over stance LE then hip abd facilitation SLS Side bilateral Reps/Minutes L: 10 x2; R: 5-8 Comments improved SLS on R side today. less hip drop noted. Gait Training Gait Activity hurdles Device Used hurdles Level of Assistance SBA Surface ground level Distance/Duration 10 ft x 6 Comments pt was able to complete it without support. Improved SL balance on R side PT-OP-T Assessment and Plan Start: 08/24/20 12:07 Freq: Status: Active Protocol: Document 12/28/20 13:00 (Rec: 12/28/20 13:51 [id number]) Physical Therapy Assessment Goals single leg balance Impairment RLE =3-5 second, L =10 second Bootmaker Goal (LTG) pt will strength R hip stability to be able to stand on RLE >5 second in order for her to amb without trendelenburg sign LTG Duration 8 weeks R hip ROM Impairment needs to use 2 UE to pull her RLE into figure 4 sitting position Bootmaker Goal (LTG) 11/09/20 pt is able to bring R LE over to LLE with 1 UE assistance. strength Impairment pt overall has decreased RLE strength Short Term Goal (STG) 09/28 improved hip strength noted. She is able to perform clam shell 10 x2 and SL hip abduction 6 x2 on R side. Fci Goal (LTG) pt will improve her R LE strength for 1MMT grade to improve her single leg stability and strength so she can climb step with alternate steps. LTG Duration 10 weeks gait Impairment pt completes 6MWT = 845 ft without AD Short Term Goal (STG) 09/28 pt completed 798 ft without sitting break today and reduced antalgic sign noted. Pt will be able to complete 950 ft without AD and without rest break STG Duration 5 weeks Bootmaker Goal (LTG) 11/09/20 Pt completed 930ft with 1 10sec standing break. pt will be able to complete 1000 ft without AD and minimal trendelenburg sign on RLE without rest break. LTG Duration 10 weeks fall recovery Impairment pt has difficulty recovery from the floor Short Term Goal (STG) 11/09/20 pt is able to use chair / table to get off from the floor 3 times (pt pushes off with R LE) [facility]ci Goal (LTG) pt will be able to complete 3 fall recoveries without using chair/ table for assistance LTG Duration 8 weeks WILLIAMSON Impairment pt scores 46/56 on WILLIAMSON Bootmaker Goal (LTG) 11/09/20 goal met pt scored 52/56 on WILLIAMSON balance pt will improve her WILLIAMSON score >50 /56 to reduce her fall risks LTG Duration 10 weeks Assessment Summary Assessment Pt cont to improve with activity tolerance and SL balance. She was able to complete hurdles walking for the first time without use of grab bars. added step down HEP for her today. Expect to DC pt next visit. Physical Therapy Plan Frequency and Duration Frequency of Treatment 1x/Week Duration of Treatment 10 weeks Plan of Care Start Date 11/09/20 Plan of Care End Date 01/23/21 Next Visit Focus/Plan Next Note Type Treatment Note Next Visit Plan Assess response to recumbent bike and HEP review. Cont per PT POC: R hip stabilizers/abd's activation and strengthening, gait training on RLE stance phase R hip ER
--- NOTE | 2021-01-04 14:24 | PT.OTN ---
Current Diagnoses Polyneuropathy, unspecified (01/04/21) Physical Therapy Treatment Note PT-OP-A Visit Information Start: 08/24/20 12:07 Freq: Status: Active Protocol: Document 01/04/21 13:36 HH (Rec: 01/04/21 14:23 [id number]) Out-Patient Physical Therapy Visit Information Visit Information Visit Type Discharge Summary Visit Start Time 13:45 Visit Stop Time 14:19 Total Visit Minutes 39 Visit Number 09/25 Number of CRUTCHER HELPER Visits 0 PT-OP-B Current Condition Start: 08/24/20 12:07 Freq: Status: Active Protocol: Document 08/24/20 12:08 HH (Rec: 08/24/20 12:30 HH [email or web address]) Current Condition History of Current Condition Onset Date from years ago Current Complaints decreased balance, B LE weakness R>L History of Current Condition pt is a 84yo female here for her decreased balance and B LE weakness R>L. She stated she has been a household walker because her poor endurance and poor balance. She could only sobeida walking approx half of a block but then need a rest break. She tends to use SPC for longer distance. She fell twice within the past year who tripped over a small step while carrying her groceries. 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 Treatment Goals Patient/Caregiver Goals 1. To improve her activity tolerance so she can walk more than half of a block without AD 2. to improve her overall balance so she does not limp during walking Personal Factors Other Personal Factors That May Effect see chart Therapy/Recovery PT-OP-C Subjective Start: 08/24/20 12:07 Freq: Status: Active Protocol: Document 01/04/21 13:36 HH (Rec: 01/04/21 14:23 [id number]) OP-PT Subjective Patient Comments Patient Comments Brook been walking more and i think im ready to be DC. PT-OP-D Balance Start: 08/24/20 12:07 Freq: Status: Active Protocol: Document 08/24/20 12:08 HH (Rec: 08/24/20 12:30 HH [email or web address]) Balance Tests Single Limb Standing Single Limb- Right 2 Single Limb- Left 10 Esteves Balance Assessment Evaluation Sitting to Standing Ability Independent w/out Hands Unsupported Stance Safely- 2 minutes Sitting Unsupported, Feet on Floor Safely- 2 minutes Standing to Sitting Ability Safely, Minimal Hand Use Transfer Ability Safely, Minimal Hand Use Unsupported Stance- Eyes Closed Safely, 10 seconds Unsupported Stance- Eyes Open Independent, 1 minute Reaching Forward Standing Safely, 2 inches Pick- Up Object From Floor Supervision Look Behind Shoulder - Standing Shifts Weight Well Turning 360 Degrees Turns slowly, but safely Unsupported Stance, Alternating Feet on (I)- 8 Steps in > 20 secs Stair Unsupported Tandem Stance Small Step- 30 seconds Unilateral Leg Stance Lifts Leg/Holds > 3 secs Total Score Esteves Total Score (out of 56 points) 46 PT-OP-E Functional Tests Start: 08/24/20 12:07 Freq: Status: Active Protocol: Document 09/28/20 13:45 HH (Rec: 09/28/20 16:34 HH [id number]) Functional Tests 6 Minute Walk Test Distance 798ft Device Used no AD Comments 2 10 second standing breaks, SOB noted but improved SL stability on L PT-OP-G Mobility & Gait Start: 08/24/20 12:07 Freq: Status: Active Protocol: Document 08/24/20 12:08 HH (Rec: 08/24/20 12:30 [email or web address]) OP Gait Assessment Factors Limiting Gait Function Factors Limiting Gait Function Decreased Activity Tolerance, Decreased Strength,Limited Range of Motion,Pain,Poor Balance Comments Gait Comments increased +ve trendelenburg on RLE noticed as distance increases. Decrease step length on R,. PT-OP-H Neuro Start: 08/24/20 12:07 Freq: Status: Active Protocol: Document 08/24/20 12:08 HH (Rec: 08/24/20 12:30 HH [email or web address]) Sensation Evaluation Gross Sensation Gross Sensation Right LE Impaired Sensation Description Numbness Comments Summary Comments decreased sensation to light touch and pressure on lateral aspect of lower legs and ankles R>L Deep Tendon Reflex & Clonus Assessment Deep Tendon Reflex Bilateral Achilles Deep Tendon Reflex 2+ Normal Bilateral Patellar Deep Tendon Reflex 2+ Normal PT-OP-M Strength Start: 08/24/20 12:07 Freq: Status: Active Protocol: Document 08/24/20 12:08 HH (Rec: 08/24/20 12:30 HH [email or web address]) Hip Strength Hip Manual Muscle Testing Left Flexion (L2) 4 Good Extension (S1) 4 Good Abduction 4 Good Adduction 4 Good Right Flexion (L2) 3+ Fair+ Extension (S1) 3+ Fair+ Abduction 3+ Fair+ Adduction 3+ Fair+ Knee Strength Knee Manual Muscle Testing Right Flexion (S2) 4 Good Extension (L3) 4 Good Left Flexion (S2) 4 Good Extension (L3) 4 Good Ankle/Foot Strength Ankle and Foot Manual Muscle Testing Right Dorsiflexion (L4) 4- Good- Plantarflexion (S1) 4- Good- Inversion 4- Good- Eversion (S1) 4- Good- Left Dorsiflexion (L4) 4+ Good+ Plantarflexion (S1) 4+ Good+ Inversion 4 Good Eversion (S1) 4 Good PT-OP-Q Treatments Start: 08/24/20 12:07 Freq: Status: Active Protocol: Document 01/04/21 13:36 (Rec: 01/04/21 14:23 [id number]) Therapeutic Exercises Standing Exercises step down Equipment Used 4 inches step Reps/Minutes 5 x Comments for HEP, slight disocmfort noted at R medial knee step up Side bilateral Reps/Minutes 6 step 12 x 2 each side SLS Side bilateral Reps/Minutes L: 12-29 x2; R: 5-8 Comments improved SLS on R side today. less hip drop noted. Gait Training Gait Activity ground level Comments 6MWT = 1060 ft without AD. no rest break taken PT-OP-T Assessment and Plan Start: 08/24/20 12:07 Freq: Status: Active Protocol: Document 01/04/21 13:36 (Rec: 01/04/21 14:23 [id number]) Physical Therapy Assessment Goals single leg balance Impairment RLE =3-5 second, L =10 second Nursing Home Goal (LTG) 01/04 pt is able to stand on RLE >5 second in order for her to amb without trendelenburg sign LTG Duration 8 weeks R hip ROM Impairment needs to use 2 UE to pull her RLE into figure 4 sitting position Optometric Coordinator Goal (LTG) 11/09/20 pt is able to bring R LE over to LLE with 1 UE assistance. strength Impairment pt overall has decreased RLE strength Short Term Goal (STG) 09/28 improved hip strength noted. She is able to perform clam shell 10 x2 and SL hip abduction 6 x2 on R side. Nursing Home Goal (LTG) 01/04 goal met pt can climb step with alternate steps with one handrail LTG Duration 10 weeks gait Impairment pt completes 6MWT = 845 ft without AD Short Term Goal (STG) 09/28 pt completed 798 ft without sitting break today and reduced antalgic sign noted. Pt will be able to complete 950 ft without AD and without rest break STG Duration 5 weeks Optometric Coordinator Goal (LTG) 11/09/20 Pt completed 930ft with 1 10sec standing break. 01/04 goal met pt completed 1000 ft without AD and no rest break LTG Duration 10 weeks fall recovery Impairment pt has difficulty recovery from the floor Short Term Goal (STG) 11/09/20 pt is able to use chair / table to get off from the floor 3 times (pt pushes off with R LE) Optometric Coordinator Goal (LTG) pt will be able to complete 3 fall recoveries without using chair/ table for assistance LTG Duration 8 weeks Progress Towards Goals Progress Towards Goals Goals Met Assessment Summary Assessment Pt overall shows improvements with her R hip mobility, strength, SL balance and overall walking endurance. Pt has good understanding of her HEP and recommended her to participate strnegth and balance class at [facility] . Physical Therapy Plan Frequency and Duration Frequency of Treatment 1x/Week Duration of Treatment 10 weeks Plan of Care Start Date 11/09/20 Plan of Care End Date 01/23/21 Discharge Physical Therapy Discharge Reasons Goals Met
== END 2021-02-11 10:31 | disposition home or self-care (01) ==
LOC: PHYS 13:45
PROVIDERS: PCP Internal Medicine; Referring Provider Internal Medicine; Visit Provider Internal Medicine
DX: G62.9 Polyneuropathy, unspecified (principal)
CPT/HCPCS: 97110; 97112; 97116; 97140; 97161; 97530

== ENCOUNTER → 2021-01-25 14:35 | Outpatient (ROUT) | payer MEDICARE, SELFPAY ==
[2021-01-25 14:47] LABS: Blood Urea Nitrogen 31 mg/dL (7-17); Calcium 9.2 mg/dL (8.4-10.2); Carbon Dioxide 25 mmol/L (22-32); Chloride 107 mmol/L (98-107); Estimated Glomerular Filt Rate 35.5 mL/min (>60); Glucose 90 mg/dL (80-110); HEMOLYSIS < 15 (0-50); Potassium 5.1 mmol/L (3.4-5.1); Sodium 140 mmol/L (137-145)
== END ==
PROVIDERS: PCP Internal Medicine; Visit Provider Internal Medicine
DX: I10 Essential (primary) hypertension (principal); N18.9 Chronic kidney disease, unspecified
CPT/HCPCS: 80048

== ENCOUNTER → 2021-08-18 08:18 | Outpatient (CLI) | payer MEDICARE, SELFPAY ==
[2021-08-18 09:13] LABS: Add Manual Diff / Slide Review NO; Basophils Absolute Auto 0 /uL (0-100); Basophils Percent Auto 0.6 % (0-2); Eosinophils Absolute Auto 0 /uL (0-450); Eosinophils Percent Auto 0.6 % (2-4); Hematocrit 35.9 % (36-46); Lymphocytes Absolute Auto 1900 /uL (1100-4500); Lymphocytes Percent Auto 37.5 % (25-40); Mean Corpuscular HGB Conc 33.5 % (30-36); Mean Corpuscular Hemoglobin 30.2 PG (26-34); Mean Corpuscular Volume 90.1 fL (80-100); Monocytes Absolute Auto 1100 /uL (0-900); Monocytes Percent Auto 21.2 % (3-14); Neutrophils Absolute Auto 2000 /uL (1500-7000); Neutrophils Percent Auto 40.1 % (50-75); Platelet Count 167 X10^3/uL (150-400); Red Blood Cell Count 3.98 X10^6/uL (4.0-5.2); White Blood Cell Count 5.1 X10^3/uL (4.5-11.0)
[2021-08-18 10:10] LABS: Alanine Aminotransferase 22 IU/L (<35); Albumin 4.7 g/dL (3.5-5.0); Albumin Globulin Ratio 1.9 (1.0-2.8); Alkaline Phosphatase 37 U/L (38-126); Aspartate Aminotransferase 35 IU/L (14-36); Bilirubin Total 0.3 mg/dL (0.2-1.3); Blood Urea Nitrogen 33 mg/dL (7-17); Calcium 9.6 mg/dL (8.4-10.2); Carbon Dioxide 27 mmol/L (22-32); Chloride 104 mmol/L (98-107); Cholesterol 265 mg/dL (140-199); Estimated Glomerular Filt Rate 33.1 mL/min (>60); Globulin 2.5 g/dL (1.7-4.1); Glucose 105 mg/dL (80-110); HDL Cholesterol 69 mg/dL (40-60); HEMOLYSIS < 15 (0-50); LDL Cholesterol Calculated 181 mg/dL (<100); Sodium 140 mmol/L (137-145); Total Protein 7.2 g/dL (6.3-8.2); Triglycerides 75 mg/dL (35-150)
[2021-08-18 10:45] LABS: TSH w/ Reflex to FT4 3.49 uIU/mL (0.47-4.68)
[2021-08-18 10:46] LABS: Potassium 5.8 mmol/L (3.4-5.1)
== END ==
PROVIDERS: PCP Internal Medicine; Referring Provider Internal Medicine; Visit Provider Internal Medicine
DX: I10 Essential (primary) hypertension (principal); N18.9 Chronic kidney disease, unspecified; E78.2 Mixed hyperlipidemia
CPT/HCPCS: 36415; 80053; 80061; 84443; 85025

== ENCOUNTER → 2021-10-20 10:32 | Outpatient (CLI) | payer MEDICARE, SELFPAY ==
--- NOTE | 2021-10-20 10:34 | DI.US.S_ITS ---
PROCEDURE: US RENAL COMPLETE INDICATIONS: STAGE 3b CKD TECHNIQUE: Real-time scanning was performed of the kidneys and bladder, with image documentation. COMPARISON: None. FINDINGS: Kidneys: Kidneys are normal in size. Right kidney measures 6.5 cm long; left kidney measures 9.6 cm long. Right renal cortical thickness is 0.8 cm; left renal cortical thickness is 1.3 cm. Right renal echotexture is slightly increased. No hydronephrosis or nephrolithiasis. No suspicious solid mass lesions. Bladder: Pre-void bladder volume is 141 mL. Post-void residual is 0 mL. Pre-void images demonstrate no intraluminal masses or stones. On pre-void images, left ureteral jet is noted with color Doppler interrogation. (Of note, ureteral jets may not be detectable in up to 25% of cases due to insufficient differences in specific gravity between ureteral and bladder urine). Miscellaneous: No free pelvic fluid. IMPRESSION: 1. No hydronephrosis. 2. Mild right renal atrophy with cortical thinning and increased echogenicity compatible with medical renal disease. Dictated by: Caitlyn Duffy MD, PhD on 10/20/2021 at 15:50 Approved by: Caitlyn Duffy MD, PhD on 10/20/2021 at 15:52
--- NOTE | 2021-10-20 10:34 | DI.MG.S_ITS ---
BILATERAL DIGITAL SCREENING MAMMOGRAM 3D/2D WITH CAD: 10/20/2021 CLINICAL: Routine screening. Comparison is made to exams dated: 06/05/2020 mammogram, 01/24/2018 mammogram, and 01/11/2016 mammogram - [facility]. There are scattered fibroglandular elements in both breasts. Current study was also evaluated with a Computer Aided Detection (CAD) system. No significant masses, calcifications, or other findings are seen in either breast. There has been no significant interval change. IMPRESSION: NEGATIVE There is no mammographic evidence of malignancy. A 1 year screening mammogram is recommended. This exam was interpreted at Station ID: [id number]. NOTE: For mammograms, a report in lay terms will be sent to the patient. Approximately 15% of breast malignancies will not be visualized mammographically. In the management of a palpable breast mass, a negative mammogram must not discourage biopsy of a clinically suspicious lesion. Electronically Signed By: Vinnie eckert/mikala:10/20/2021 15:56:06 letter sent: Normal Exam ACR BI-RADS Category 1: Negative [id number]
== END ==
PROVIDERS: PCP Internal Medicine; Referring Provider Internal Medicine; Visit Provider Internal Medicine
DX: N18.32 Chronic kidney disease, stage 3b (principal); Z12.31 Encounter for screening mammogram for malignant neoplasm of breast
CPT/HCPCS: 76770; 77063; 77067

== ENCOUNTER → 2021-11-04 10:08 | Outpatient (CLI) | payer MEDICARE, SELFPAY ==
[2021-11-04 11:00] LABS: Hematocrit 32.9 % (36-46); Hemoglobin 11.2 g/dL (12.0-16.0)
[2021-11-04 11:25] LABS: Creatinine Urine Random 124.3 mg/dL; Protein (Total) Urine Random 22 mg/dL (0-12); Protein Creatinine Ratio Urine 0.17 GRAM/24H
[2021-11-04 11:56] LABS: NT-proBNP (BNP-Adult 18+) 1530 pg/mL (<450)
== END ==
PROVIDERS: PCP Internal Medicine; Referring Provider Student in an Organized Health Care Education/Training Program; Visit Provider Student in an Organized Health Care Education/Training Program
DX: R80.9 Proteinuria, unspecified (principal); N05.9 Unspecified nephritic syndrome with unspecified morphologic changes; D64.9 Anemia, unspecified
CPT/HCPCS: 36415; 82570; 83880; 84156; 85014; 85018

== ENCOUNTER → 2021-11-17 14:21 | Outpatient (CLI) | payer MEDICARE, SELFPAY ==
--- NOTE | 2021-11-17 14:21 | DI.US.S_ITS ---
PROCEDURE: US PELVIC COMPLETE INDICATIONS: POSTMENOPAUSAL BLEEDING TECHNIQUE: Real-time scanning was performed of the pelvic organs, with image documentation. Additional endovaginal scanning was necessary due to incomplete visualization of the adnexal and endometrial structures by transabdominal scanning. COMPARISON: None. FINDINGS: Uterus: Uterus is anteverted and atrophic in size at 3.7 x 3.1 x 2.2 cm. The myometrium is heterogeneous with areas of calcification. The endometrium is not well visualized. Nabothian cyst is present. Ovaries: Ovaries are not visualized. Adnexal regions are grossly unremarkable. Other: No pathologic free abdominal or pelvic fluid. IMPRESSION: Endometrium is poorly visualized in part secondary to artifact from uterine calcifications. Given lack of visualization, enlargement is felt to be less likely, however cannot be definitively excluded. If concern persists, MRI is recommended We strive to produce accurate, complete, and clear reports of imaging services. To assist us in improving patient care, this report was composed using standard report templates and voice recognition software. Therefore, it may contain abnormal punctuation, insertions and/or omissions. Occasional wrong-word or sound-alike substitutions may occur. Though we review the report and make efforts to correct it, we do recommend that the report be read carefully in proper context to recognize any text inaccuracies. Dictated by: Bobbi Gil M.D. on 11/17/2021 at 17:15 Approved by: Bobbi Gil M.D. on 11/17/2021 at 17:17
== END ==
PROVIDERS: PCP Internal Medicine; Referring Provider Obstetrics & Gynecology; Visit Provider Obstetrics & Gynecology
DX: N95.0 Postmenopausal bleeding (principal)
CPT/HCPCS: 76830; 76856

== ENCOUNTER → 2021-12-17 12:18 | Outpatient (CLI) | payer MEDICARE, SELFPAY ==
[2021-12-17 13:28] LABS: Hematocrit 38.5 % (36-46); Hemoglobin 13.1 g/dL (12.0-16.0)
[2021-12-17 14:08] LABS: Appearance Urine UA CLEAR; Bilirubin Urine UA NEGATIVE (NEGATIVE); Color Urine UA YELLOW; Glucose Urine UA NEGATIVE (Negative); Ketones Urine UA NEGATIVE (NEGATIVE); Leukocyte Esterase Urine UA TRACE (NEGATIVE); Nitrite Urine UA NEGATIVE (Negative); Occult Blood Urine UA NEGATIVE (Negative); Protein Urine UA 1+ (Negative); Urobilinogen Urine UA 0.2 E.U./dL (0.2); pH Urine UA 5.5 (4.5-8.0)
[2021-12-17 14:12] LABS: Bacteria Urine Many (>30); Culture Indicated Urine Specimen Cultured; RBC Urine None Seen (0-5/HPF); WBC Urine 5-10/HPF (0-5/HPF)
[2021-12-17 14:14] LABS: Blood Urea Nitrogen 29 mg/dL (7-17); Calcium 9.6 mg/dL (8.4-10.2); Carbon Dioxide 28 mmol/L (22-32); Chloride 105 mmol/L (98-107); Estimated Glomerular Filt Rate 34.3 mL/min (>60); Glucose 96 mg/dL (80-110); HEMOLYSIS < 15 (0-50); Phosphorous 4.7 mg/dL (2.8-4.1); Sodium 140 mmol/L (137-145)
[2021-12-17 14:42] LABS: Potassium 5.4 mmol/L (3.4-5.1)
[2021-12-19 19:46] LABS: Creatinine Urine Random 130.6 mg/dL; Protein (Total) Urine Random 23 mg/dL (0-12); Protein Creatinine Ratio Urine 0.17 GRAM/24H
[2021-12-20 07:33] LABS: Parathyroid Hormone Int 68 pg/mL (15-65)
== END ==
PROVIDERS: PCP Internal Medicine; Referring Provider Student in an Organized Health Care Education/Training Program; Visit Provider Student in an Organized Health Care Education/Training Program
DX: N05.9 Unspecified nephritic syndrome with unspecified morphologic changes (principal); D64.9 Anemia, unspecified; E83.30 Disorder of phosphorus metabolism, unspecified; N25.81 Secondary hyperparathyroidism of renal origin; N30.00 Acute cystitis without hematuria; R80.9 Proteinuria, unspecified
CPT/HCPCS: 36415; 80048; 81001; 82570; 83970; 84100; 84156; 85014; 85018; 87077; 87086; 87186

== ENCOUNTER → 2021-12-30 08:36 | Outpatient (CLI) | payer MEDICARE, SELFPAY ==
[2021-12-30 10:23] LABS: BUN Creatinine Ratio 22.9 (6-22); Blood Urea Nitrogen 30 mg/dL (7-17); Calcium 8.6 mg/dL (8.4-10.2); Carbon Dioxide 22 mmol/L (22-32); Chloride 104 mmol/L (98-107); Estimated Glomerular Filt Rate 38.6 mL/min (>60); Glucose 85 mg/dL (80-110); HEMOLYSIS < 15 (0-50); Potassium 5.3 mmol/L (3.4-5.1); Sodium 137 mmol/L (137-145)
== END ==
PROVIDERS: PCP Internal Medicine; Referring Provider Student in an Organized Health Care Education/Training Program; Visit Provider Student in an Organized Health Care Education/Training Program
DX: N05.9 Unspecified nephritic syndrome with unspecified morphologic changes (principal)
CPT/HCPCS: 36415; 80048

== ENCOUNTER → 2022-03-03 10:11 | Outpatient (CLI) | payer MEDICARE, SELFPAY ==
[2022-03-03 11:40] LABS: BUN Creatinine Ratio 19.9 (6-22); Blood Urea Nitrogen 28 mg/dL (7-17); Calcium 9.2 mg/dL (8.4-10.2); Carbon Dioxide 25 mmol/L (22-32); Chloride 104 mmol/L (98-107); Estimated Glomerular Filt Rate 37 mL/min (>60); Glucose 96 mg/dL (80-110); HEMOLYSIS < 15 (0-50); Potassium 5.5 mmol/L (3.4-5.1); Sodium 138 mmol/L (137-145)
== END ==
PROVIDERS: PCP Internal Medicine; Referring Provider Student in an Organized Health Care Education/Training Program; Visit Provider Student in an Organized Health Care Education/Training Program
DX: N05.9 Unspecified nephritic syndrome with unspecified morphologic changes (principal)
CPT/HCPCS: 36415; 80048

== ENCOUNTER → 2022-03-10 15:22 | Outpatient (CLI) | payer MEDICARE, SELFPAY ==
[2022-03-10 16:41] LABS: HEMOLYSIS < 15 (0-50); Potassium 3.8 mmol/L (3.4-5.1)
== END ==
PROVIDERS: PCP Internal Medicine; Referring Provider Student in an Organized Health Care Education/Training Program; Visit Provider Student in an Organized Health Care Education/Training Program
DX: E87.5 Hyperkalemia (principal)
CPT/HCPCS: 36415; 84132

== ENCOUNTER 2022-03-12 15:12 | Emergency (ER) | payer MEDICARE, SELFPAY ==
[2022-03-12 15:27] VITALS: BP 151/100; PULSE 81; RESP 14; TEMP 36.1; O2SAT 96; BMI 21.1
--- NOTE | 2022-03-12 15:34 | PC.NURSE ---
Pt states she is unable to supply a urine sample at this time, educated on indications for test.
--- NOTE | 2022-03-12 15:42 | DI.CT.S_ITS ---
PROCEDURE: CT KIDNEY URETER BLADDER (KUB) INDICATIONS: left flank pain onset last pm, hx ckd 3b TECHNIQUE: Axial sections were acquired from the lung bases to the pubic symphysis. Coronal and sagittal reformats were performed. For radiation dose reduction, the following was used: automated exposure control, adjustment of mA and/or kV according to patient size. COMPARISON: None. FINDINGS: Image quality: Excellent. Lung bases: Mild interstitial prominence which is nonspecific. There is a 7 x 6 millimeter nodule in the left lung base (6; 9). No focal consolidation or pneumothorax. Small hiatal hernia.. Heart: Heart size is normal. Multi-vessel coronary vascular calcifications. URINARY: Right Kidney: Findings favoring vascular calcifications. No definite urinary tract calcifications. No hydronephrosis. Right Ureter: Normal in caliber. The distal aspects are difficult to the follow given adjacent artifact from hip prosthesis. There is adjacent vascular calcifications. No definite obstructing stone. Left Kidney: Findings favoring vascular calcifications. No definite urinary tract calcifications. No hydronephrosis. Left Ureter: Normal in course and caliber. Bladder: Limited evaluation given hardware artifact. Calcifications within the pelvis are likely vascular/gynecologic. No definite urinary tract calcifications. ABDOMEN: Liver: Unremarkable. Gallbladder: Multiple layering gallstones. No wall thickening or surrounding inflammation. Biliary ducts: Unremarkable. Pancreas: Unremarkable. Spleen: Unremarkable. Adrenal Glands: 1.1 centimeter left adrenal nodule measuring 22 Hounsfield units. Stomach and Bowel: Stomach, small bowel loops, and colon are unremarkable. Moderate stool burden noted throughout the colon. No wall thickening or evidence of inflammation. Distal sigmoid colon/rectum is limited in evaluation given hardware artifact from right hip prosthesis. Peritoneum: No abnormal intraperitoneal fluid. No free air. Ventral Wall: No hernia. Abdominal Nodes: No enlarged retroperitoneal or mesenteric lymph nodes. Vessels: Aorta and inferior vena cava are normal in size. Diffuse vascular calcifications. PELVIS: Pelvic Organs: No suspicious abnormality. Pelvic Nodes: Unremarkable. Miscellaneous: No inguinal hernias are seen. Bones: Marked degenerative changes noted throughout the lumbar spine. Right hip prosthesis incompletely evaluated. Moderate left hip osteoarthritis. Postsurgical changes of posterior fusion of L4-L5. No acute osseous abnormality or aggressive appearing osseous lesion. IMPRESSION: No urinary tract calcifications or obstructive uropathy. Cholelithiasis. Indeterminate left adrenal nodule measuring 1.1 centimeters. Consider further evaluation with dedicated adrenal protocol CT versus MRI. 7 millimeter left lower lobe solid nodule. Recommend chest CT in approximately 6-12 months. Coronary vascular calcifications. Moderate stool burden. Dictated by: Angel Levy D.O. on 03/12/2022 at 15:26 Approved by: Angel Levy D.O. on 03/12/2022 at 15:37
--- NOTE | 2022-03-12 15:46 | ED.FEMALEGU ---
HPI - Female Genitourinary <Tara Romero [facility] - Last Filed: 03/12/22 20:04> General Chief complaint: Urogenital-Female Stated complaint: pain left lower back X 20 hours Time Seen by Provider: 03/12/22 15:35 Source: patient Mode of arrival: Ambulatory History of Present Illness HPI Narrative: This is a pleasant 86-year-old female with history of CKD 3B, with recent hyperkalemia but most recently within normal range two days ago who presents to the emergency department with slightly gradual onset of left-sided flank pain 20 hours ago. She states that over the course of 2 hours her pain became severe in her left flank area, she denies any dysuria, chills, nausea, vomiting, or diarrhea. She states the medication that she was started on for hyperkalemia is a suspension, and it causes flatulence, she states that this is her only side effect. She denies any changes to her urine or bowels. She sees Dr. Gold from nephrology, and two days ago her labs were drawn to check her potassium level and it was, down from 5.5 on 03/03/2022. Patient's creatinine baseline is approximately 1.4. Patient denies any abdominal pain, she endorses a history of back pain but states that this is different, denies any pelvic pain, vaginal bleeding, shortness of breath, or chest pain. Patient states that she tried Aspercreme on her left flank area and it did not improve much pain, initially she thought it was a muscle strain, she does endorse having flatulence from her hyperkalemia medication. Related Data Home Medications Medication Instructions Recorded Confirmed ACETAMINOPHEN (#TYLENOL) 500 mg PO PRN #0 10/30/11 01/17/22 amlodipine 10 mg tablet 10 mg PO DAILY 12/21/21 01/17/22 aspirin 81 mg tablet,delayed 81 mg PO DAILY 12/21/21 01/17/22 release (Adult Aspirin Regimen) evolocumab 140 mg/mL subcutaneous 140 mg SUBCUT Q2W 12/21/21 01/17/22 pen injector (Og Ricardo) levothyroxine 88 mcg tablet 88 mcg PO DAILY 12/21/21 01/17/22 (Synthroid) metoprolol succinate 50 mg 50 mg PO DAILY 12/21/21 01/17/22 tablet,extended release 24 hr sertraline 50 mg tablet (Zoloft) 50 mg PO DAILY 12/21/21 01/17/22 Previous Rx's Medication Instructions Recorded lidocaine 5 % topical patch 1 patch TOPICAL DAILY PRN #15 ea 03/12/22 (Lidoderm) polyethylene glycol 3350 17 17 g PO DAILY PRN #119 g 03/12/22 gram/dose oral powder (Miralax) simethicone 250 mg capsule 250 mg PO DAILY PRN #14 cap 03/12/22 Allergies Allergy/AdvReac Type Severity Reaction Status Date / Time simvastatin [SIMVASTATIN] Allergy Severe WEAKNESS, Verified 03/12/22 15:29 HAIR LOSS, RASH atorvastatin [ATORVASTATIN] AdvReac Mild MUSCLE Verified 03/12/22 15:29 WEAKNESS Review of Systems <GINA Hernandez - Last Filed: 03/12/22 20:04> Review of Systems Narrative: General: denies fever, chills, fatigue Head/Neck: denies headache, neck pain Eyes: denies visual changes, eye pain Cardio: denies chest pain, palpitations Respiratory: denies shortness of breath, cough GI: denies abdominal pain, nausea, vomiting, or diarrhea, endorses left flank pain which caused her to not sleep well : denies dysuria, hematuria or flank pain MSK: denies new joint pain, muscle weakness or swelling Skin: denies rash, itching or wound Neuro: denies numbness, tingling, dizziness Patient History <GINA Hernandez - Last Filed: 03/12/22 20:04> Substance Use Type: does not use Exam <GINA Hernandez Last Filed: 03/12/22 20:04> Narrative Exam Narrative: Independently reviewed vitals signs and nursing notes. General: cooperative, uncomfortable, in mild acute distress related to left flank pain well groomed Head: atraumatic, symmetrical facial expressions Neck: supple Eyes: equal round and reactive, EOMI, conjunctiva normal Nose: nares patent, no rhinorrhea Mouth/Throat: moist mucus membranes Cardiovascular: regular rate and rhythm, no peripheral edema, warm extremities Respiratory: normal effort, able to speak in complete sentences, no audible wheezing, stridor, or rales. No retractions or tachypnea. GI: abdomen soft, nontender to palpation, nondistended, no masses, no exquisite tenderness with exam, without guarding or rebound. Left CVA tenderness to palpation MSK: moves all extremities, neurovascularly intact, no weakness, normal tone Skin: brisk capillary refill, no rash, no erythema, no pallor or diaphoresis Neuro: normal speech and cognition, A&O x3 Psych: mental status is grossly normal, congruent mood, normal affect, pleasant and cooperative Initial Vital Signs Initial Vital Signs: Vital Signs Temperature 97.0 F L 03/12/22 15:27 Pulse Rate 81 03/12/22 15:27 Respiratory Rate 14 03/12/22 15:27 Blood Pressure 151/100 H 03/12/22 15:27 Pulse Oximetry 96 03/12/22 15:27 <Felipe Lopez DO - Last Filed: 03/14/22 00:18> Initial Vital Signs Initial Vital Signs: Vital Signs Temperature 97.0 F L 03/12/22 15:27 Pulse Rate 81 03/12/22 15:27 Respiratory Rate 14 03/12/22 15:27 Blood Pressure 151/100 H 03/12/22 15:27 Pulse Oximetry 96 03/12/22 15:27 Course <GINA Hernandez - Last Filed: 03/12/22 20:04> Orders Ordered: Discontinued Medications Acetaminophen (Acetaminophen 325 Mg Tablet) 650 mg PO NOW ONE Stop: 03/12/22 15:43 Last Admin: 03/12/22 16:15 Dose: 650 mg Documented by: AMOR Bisacodyl (Bisacodyl 5 Mg Tablet) 10 mg PO NOW ONE Stop: 03/12/22 18:00 Last Admin: 03/12/22 18:19 Dose: 10 mg Documented by: AMOR Ketorolac Tromethamine (Ketorolac 30 Mg/Ml Vial) 10 mg IV NOW ONE Stop: 03/12/22 15:43 Last Admin: 03/12/22 17:03 Dose: Not Given Documented by: AMOR Lidocaine (Lidocaine Patch 1 Each Adh..Patch) 1 each TOP NOW ONE Stop: 03/12/22 18:00 Last Admin: 03/12/22 18:18 Dose: 1 each Documented by: AMOR Metoprolol Tartrate (Metoprolol Ir 25 Mg Tablet) 25 mg PO NOW ONE Stop: 03/12/22 17:03 Last Admin: 03/12/22 17:16 Dose: Not Given Documented by: AMOR Ondansetron HCl (Ondansetron 4 Mg/2 Ml Inj) 4 mg IV NOW ONE Stop: 03/12/22 16:57 Last Admin: 03/12/22 17:35 Dose: 4 mg Documented by: SANDRA Simethicone (Simethicone 80 Mg Tablet) 80 mg PO QID PRN PRN Reason: Flatulence Tamsulosin HCl (Tamsulosin 0.4 Mg Capsule) 0.4 mg PO NOW ONE Stop: 03/12/22 15:43 Last Admin: 03/12/22 17:03 Dose: Not Given Documented by: AMOR Vital Signs Vital signs: Vital Signs - 8 hr 03/12/22 15:27 03/12/22 16:55 03/12/22 17:05 Temperature 97.0 F L Pulse Rate 81 66 73 Respiratory Rate 14 18 16 Blood Pressure 151/100 H 200/86 H 182/81 H Pulse Oximetry 96 98 99 <Felipe Lopez DO - Last Filed: 03/14/22 00:18> Orders Ordered: Discontinued Medications Acetaminophen (Acetaminophen 325 Mg Tablet) 650 mg PO NOW ONE Stop: 03/12/22 15:43 Last Admin: 03/12/22 16:15 Dose: 650 mg Documented by: AMOR Bisacodyl (Bisacodyl 5 Mg Tablet) 10 mg PO NOW ONE Stop: 03/12/22 18:00 Last Admin: 03/12/22 18:19 Dose: 10 mg Documented by: AMOR Ketorolac Tromethamine (Ketorolac 30 Mg/Ml Vial) 10 mg IV NOW ONE Stop: 03/12/22 15:43 Last Admin: 03/12/22 17:03 Dose: Not Given Documented by: AMOR Lidocaine (Lidocaine Patch 1 Each Adh..Patch) 1 each TOP NOW ONE Stop: 03/12/22 18:00 Last Admin: 03/12/22 18:18 Dose: 1 each Documented by: AMOR Metoprolol Tartrate (Metoprolol Ir 25 Mg Tablet) 25 mg PO NOW ONE Stop: 03/12/22 17:03 Last Admin: 03/12/22 17:16 Dose: Not Given Documented by: AMOR Ondansetron HCl (Ondansetron 4 Mg/2 Ml Inj) 4 mg IV NOW ONE Stop: 03/12/22 16:57 Last Admin: 03/12/22 17:35 Dose: 4 mg Documented by: SANDRA Simethicone (Simethicone 80 Mg Tablet) 80 mg PO QID PRN PRN Reason: Flatulence Tamsulosin HCl (Tamsulosin 0.4 Mg Capsule) 0.4 mg PO NOW ONE Stop: 03/12/22 15:43 Last Admin: 03/12/22 17:03 Dose: Not Given Documented by: AMOR Vital Signs Vital signs: Vital Signs - 8 hr 03/12/22 15:27 03/12/22 16:55 03/12/22 17:05 Temperature 97.0 F L Pulse Rate 81 66 73 Respiratory Rate 14 18 16 Blood Pressure 151/100 H 200/86 H 182/81 H Pulse Oximetry 96 98 99 MDM - Female Genitourinary <GINA Hernandez - Last Filed: 03/12/22 20:04> Lab Data Result diagrams: 03/12/22 15:55 03/12/22 15:55 Labs: Lab Results 03/12/22 03/12/22 03/12/22 Range/Units 15:55 15:55 15:55 WBC 9.0 (4.5-11.0) X10^3/uL RBC 3.90 L (4.0-5.2) X10^6/uL Hgb 12.1 (12.0-16.0) g/dL Hct 34.6 L (36-46) % MCV 88.8 (80-100) fL MCH 31.0 (26-34) PG MCHC 34.9 (30-36) % RDW 14.8 (11.6-14.8) % Plt Count 155 (150-400) X10^3/uL Neut % (Auto) 58.5 (50-75) % Lymph % (Auto) 15.3 L (25-40) % [place] % (Auto) 25.1 H (3-14) % Eos % (Auto) 0.3 L (2-4) % Baso % (Auto) 0.8 (0-2) % Neut # (Auto) 5300 (9314-3736) /uL Lymph # (Auto) 1400 (1460-9554) /uL [place] # (Auto) 2300 H (0-900) /uL Eos # (Auto) 0 (0-450) /uL Baso # (Auto) 100 (0-100) /uL D-Dimer < 200 (<230) ng/mL Sodium 137 (137-145) mmol/L Potassium 3.8 (3.4-5.1) mmol/L Chloride 104 (98-107) mmol/L Carbon Dioxide 20 L (22-32) mmol/L BUN 18 H (7-17) mg/dL Creatinine 1.11 H (0.52-1.04) mg/dL Estimated GFR 49 L (>60) mL/min BUN/Creatinine Ratio 16.2 (6-22) Glucose 115 H (80-110) mg/dL Calcium 8.7 (8.4-10.2) mg/dL Phosphorus 3.4 (2.8-4.1) mg/dL Magnesium 1.6 (1.6-2.3) mg/dL Total Bilirubin 0.6 (0.2-1.3) mg/dL AST 31 (14-36) IU/L ALT 18 (<35) IU/L Alkaline Phosphatase 34 L (38-126) U/L C-Reactive Protein (<1.0) mg/dL Total Protein 7.7 (6.3-8.2) g/dL Albumin 4.8 (3.5-5.0) g/dL Globulin 2.9 (1.7-4.1) g/dL Albumin/Globulin Ratio 1.7 (1.0-2.8) Procalcitonin (<0.5) ng/mL Urine Color Urine Appearance Urine pH (4.5-8.0) Ur Specific [place] (1.000-1.035) Urine Protein (Negative) Urine Glucose (UA) (Negative) g/dL Urine Ketones (NEGATIVE) Urine Occult Blood (Negative) Urine Nitrate (Negative) Urine Bilirubin (NEGATIVE) Urine Urobilinogen (0.2) E.U./dL Ur Leukocyte Esterase (NEGATIVE) Urine RBC (0-5/HPF) Urine WBC (0-5/HPF) Urine Bacteria (None) Ur Culture Indicated? Monoscreen (Negative) 03/12/22 03/12/22 03/12/22 Range/Units 15:55 15:55 15:55 WBC (4.5-11.0) X10^3/uL RBC (4.0-5.2) X10^6/uL Hgb (12.0-16.0) g/dL Hct (36-46) % MCV (80-100) fL MCH (26-34) PG MCHC (30-36) % RDW (11.6-14.8) % Plt Count (150-400) X10^3/uL Neut % (Auto) (50-75) % Lymph % (Auto) (25-40) % [place] % (Auto) (3-14) % Eos % (Auto) (2-4) % Baso % (Auto) (0-2) % Neut # (Auto) (0214-7161) /uL Lymph # (Auto) (4213-0498) /uL [place] # (Auto) (0-900) /uL Eos # (Auto) (0-450) /uL Baso # (Auto) (0-100) /uL D-Dimer (<230) ng/mL Sodium (137-145) mmol/L Potassium (3.4-5.1) mmol/L Chloride (98-107) mmol/L Carbon Dioxide (22-32) mmol/L BUN (7-17) mg/dL Creatinine (0.52-1.04) mg/dL Estimated GFR (>60) mL/min BUN/Creatinine Ratio (6-22) Glucose (80-110) mg/dL Calcium (8.4-10.2) mg/dL Phosphorus (2.8-4.1) mg/dL Magnesium (1.6-2.3) mg/dL Total Bilirubin (0.2-1.3) mg/dL AST (14-36) IU/L ALT (<35) IU/L Alkaline Phosphatase (38-126) U/L C-Reactive Protein 1.8 H (<1.0) mg/dL Total Protein (6.3-8.2) g/dL Albumin (3.5-5.0) g/dL Globulin (1.7-4.1) g/dL Albumin/Globulin Ratio (1.0-2.8) Procalcitonin 0.05 (<0.5) ng/mL Urine Color Urine Appearance Urine pH (4.5-8.0) Ur Specific [place] (1.000-1.035) Urine Protein (Negative) Urine Glucose (UA) (Negative) g/dL Urine Ketones (NEGATIVE) Urine Occult Blood (Negative) Urine Nitrate (Negative) Urine Bilirubin (NEGATIVE) Urine Urobilinogen (0.2) E.U./dL Ur Leukocyte Esterase (NEGATIVE) Urine RBC (0-5/HPF) Urine WBC (0-5/HPF) Urine Bacteria (None) Ur Culture Indicated? Monoscreen Negative (Negative) 03/12/22 Range/Units 16:45 WBC (4.5-11.0) X10^3/uL RBC (4.0-5.2) X10^6/uL Hgb (12.0-16.0) g/dL Hct (36-46) % MCV (80-100) fL MCH (26-34) PG MCHC (30-36) % RDW (11.6-14.8) % Plt Count (150-400) X10^3/uL Neut % (Auto) (50-75) % Lymph % (Auto) (25-40) % [place] % (Auto) (3-14) % Eos % (Auto) (2-4) % Baso % (Auto) (0-2) % Neut # (Auto) (7716-3286) /uL Lymph # (Auto) (0384-8623) /uL [place] # (Auto) (0-900) /uL Eos # (Auto) (0-450) /uL Baso # (Auto) (0-100) /uL D-Dimer (<230) ng/mL Sodium (137-145) mmol/L Potassium (3.4-5.1) mmol/L Chloride (98-107) mmol/L Carbon Dioxide (22-32) mmol/L BUN (7-17) mg/dL Creatinine (0.52-1.04) mg/dL Estimated GFR (>60) mL/min BUN/Creatinine Ratio (6-22) Glucose (80-110) mg/dL Calcium (8.4-10.2) mg/dL Phosphorus (2.8-4.1) mg/dL Magnesium (1.6-2.3) mg/dL Total Bilirubin (0.2-1.3) mg/dL AST (14-36) IU/L ALT (<35) IU/L Alkaline Phosphatase (38-126) U/L C-Reactive Protein (<1.0) mg/dL Total Protein (6.3-8.2) g/dL Albumin (3.5-5.0) g/dL Globulin (1.7-4.1) g/dL Albumin/Globulin Ratio (1.0-2.8) Procalcitonin (<0.5) ng/mL Urine Color Yellow Urine Appearance Clear Urine pH 6.5 (4.5-8.0) Ur Specific [place] 1.015 (1.000-1.035) Urine Protein 3+ H (Negative) Urine Glucose (UA) Negative (Negative) g/dL Urine Ketones Negative (NEGATIVE) Urine Occult Blood 1+ H (Negative) Urine Nitrate Negative (Negative) Urine Bilirubin Negative (NEGATIVE) Urine Urobilinogen 0.2 (0.2) E.U./dL Ur Leukocyte Esterase Negative (NEGATIVE) Urine RBC 1-5/hpf (0-5/HPF) Urine WBC None seen (0-5/HPF) Urine Bacteria None seen (None) Ur Culture Indicated? Cult not indicated Monoscreen (Negative) Imaging Data CT scan - abdomen/pelvis: Radiologist's Impression: PROCEDURE:? CT KIDNEY URETER BLADDER (KUB) ? INDICATIONS:? left flank pain onset last pm, hx ckd 3b ? TECHNIQUE:? Axial sections were acquired from the lung bases to the pubic symphysis.? Coronal and sagittal reformats were performed.? For radiation dose reduction, the following was used: ?automated exposure control, adjustment of mA and/or kV according to patient size.? ? COMPARISON:? None. ? FINDINGS:? Image quality:? Excellent.? ? Lung bases:? Mild interstitial prominence which is nonspecific.? There is a 7 x 6 millimeter nodule in the left lung base (6; 9).? No focal consolidation or pneumothorax.? Small hiatal hernia..? ? Heart:? Heart size is normal.? Multi-vessel coronary vascular calcifications. ? URINARY: Right Kidney:? Findings favoring vascular calcifications.? No definite urinary tract calcifications.? No hydronephrosis.? Right Ureter:? Normal in caliber.? The distal aspects are difficult to the follow given adjacent artifact from hip prosthesis.? There is adjacent vascular calcifications.? No definite obstructing stone. ? Left Kidney:? Findings favoring vascular calcifications.? No definite urinary tract calcifications.? No hydronephrosis.? Left Ureter:? Normal in course and caliber. ? Bladder:? Limited evaluation given hardware artifact.? Calcifications within the pelvis are likely vascular/gynecologic.? No definite urinary tract calcifications. ? ABDOMEN: Liver:? Unremarkable.? ? Gallbladder:? Multiple layering gallstones.? No wall thickening or surrounding inflammation.? Biliary ducts:? Unremarkable.? ? Pancreas:? Unremarkable.? ? Spleen:? Unremarkable.? ? Adrenal Glands:? 1.1 centimeter left adrenal nodule measuring 22 Hounsfield units.? ? ? Stomach and Bowel:? Stomach, small bowel loops, and colon are unremarkable.? Moderate stool burden noted throughout the colon.? No wall thickening or evidence of inflammation. ?Distal sigmoid colon/rectum is limited in evaluation given hardware artifact from right hip prosthesis. Peritoneum:? No abnormal intraperitoneal fluid.? No free air.? ? Ventral Wall: ? No hernia.? Abdominal Nodes:? No enlarged retroperitoneal or mesenteric lymph nodes.? Vessels:? Aorta and inferior vena cava are normal in size.? Diffuse vascular calcifications. ? PELVIS: Pelvic Organs:? No suspicious abnormality.? Pelvic Nodes: Unremarkable. Miscellaneous: No inguinal hernias are seen. ? ? ? Bones:? Marked degenerative changes noted throughout the lumbar spine.? Right hip prosthesis incompletely evaluated.? Moderate left hip osteoarthritis.? Postsurgical changes of posterior fusion of L4-L5.? No acute osseous abnormality or aggressive appearing osseous lesion. ? IMPRESSION:? ? No urinary tract calcifications or obstructive uropathy. ? Cholelithiasis. ? Indeterminate left adrenal nodule measuring 1.1 centimeters.? Consider further evaluation with dedicated adrenal protocol CT versus MRI. ? 7 millimeter left lower lobe solid nodule.? Recommend chest CT in approximately 6-12 months. ? Coronary vascular calcifications. ? Moderate stool burden.? ? ? Dictated by: Angel Levy D.O. on 03/12/2022 at 15:26 ? ? Approved by: Angel Levy D.O. on 03/12/2022 at 15:37 ? ECG Data Interpretation: EKG independently reviewed by myself and reveals normal sinus rhythm at [] bpm with regular axis and intervals. No STEMI, ST segment changes, arrhythmia, or acute ischemic changes. MDM Narrative Medical decision making narrative: This is an 86-year-old female with history of hypertension with CKD stage 3b and currently under the care of Dr. Gresham for recent hyperkalemia and has been taking medication to bring her potassium down to therapeutic level which it has been since 03/10/2022. Patient takes amlodipine and 50 mg extended release metoprolol for her blood pressure, she was hypertensive today and came into the emergency department for left-sided flank pain which she says started 20 hours prior to her arrival and has not improved or gone away. She reports that the medication for hyperkalemia usually causes her to have have a bowel movement but she has not had a bowel movement today, she endorses having flatulence related to the medication and this has caused some discomfort. She denies any fever, nausea vomiting, chills, any other abdominal symptom. Lab work was fairly unremarkable, patient does not have any leukocytosis or a left shift, no gross electrolyte abnormality, her potassium is stable at 3.8 since 03/10/2022 when it was the same, prior to this on 03/03/2022 it was 5.5 and she had a creatinine and then of 1.41, today her creatinine is 1.11, her GS our is improved from 37-49, no elevation in any liver enzymes, CRP is slightly elevated at 1.8, procalcitonin is 0.05, urine shows protein and microscopy does not show any RBCs, WBCs, bacteria, mono screen was negative. That was checked because on CT scan, her spleen looked enlarged on my view and this is right where her pain was and she is tender to palpation in the left posterior flank region. Abdomen pelvis KUB CT was obtained for concern about nephrolith, no urinary tract calcifications or obstructive uropathy was notable, she does have cholelithiasis without cholecystitis, indeterminate left adrenal nodule measuring 1.1 cm as well as a 7 mm left lower lobe solid nodule, there were coronary vascular calcifications and a moderate stool burden with air in bowel loops no wall thickening or evidence of inflammation. Patient has a right hip arthrosis and this limited the view on CT of the distal sigmoid colon rectum. These findings were discussed with the patient. No significant cause of her pain was identified today, discussed that this may be a muscle strain as she is tender over the left flank area and along the musculature without abdominal tenderness, or any other symptom. She states that she thought it felt like a pulled muscle initially as well but denies any recent trauma or increased exertion. Discussed patient's findings with patient and her hypertension today. She was ordered metoprolol to help bring her blood pressure down but she declined and states it will go down when her pain is a little more improved. She was given simethicone, Tylenol, lidocaine patch which he states helped a bit but she still has pain. This may also be gas pains and constipation, prescribe patient some MiraLax, she was given Dulcolax and encouraged to increase her hydration to help hydrate her stool. Patient states she has stool softeners at home and will return if she has any worsening of her pain, nausea vomiting. Patient states understanding to her discharge instructions, she understands to follow-up with her primary care provider about the incidental findings, and if her pain has any worsening to return to the emergency department for another evaluation. No peritoneal signs on abdominal exam. Patient remains p.o. tolerant. Serial abdominal exam without increase in abdominal pain. Given history and exam, low suspicion for acute abdominal process, such as acute cholecystitis, pancreatitis, perforated viscus, atypical appendicitis, colitis, diverticulitis or torsion. Extensive conversation about ER return precautions and need for close follow-up. Patient is appropriate and amenable to discharge home. Vital signs are stable on repeat examination is unremarkable. Patient has been informed of results. Patient has been given strict return to ER precautions for any new or worsening symptoms. Patient understands to follow up closely with outpatient providers as instructed. Patient understands plan and agrees to discharge home. All questions and concerns answered at this time. <Felipe Lopez, - Last Filed: 03/14/22 00:18> Lab Data Labs: Lab Results 03/12/22 03/12/22 03/12/22 Range/Units 15:55 15:55 15:55 WBC 9.0 (4.5-11.0) X10^3/uL RBC 3.90 L (4.0-5.2) X10^6/uL Hgb 12.1 (12.0-16.0) g/dL Hct 34.6 L (36-46) % MCV 88.8 (80-100) fL MCH 31.0 (26-34) PG MCHC 34.9 (30-36) % RDW 14.8 (11.6-14.8) % Plt Count 155 (150-400) X10^3/uL Neut % (Auto) 58.5 (50-75) % Lymph % (Auto) 15.3 L (25-40) % [place] % (Auto) 25.1 H (3-14) % Eos % (Auto) 0.3 L (2-4) % Baso % (Auto) 0.8 (0-2) % Neut # (Auto) 5300 (8145-7938) /uL Lymph # (Auto) 1400 (2871-6095) /uL [place] # (Auto) 2300 H (0-900) /uL Eos # (Auto) 0 (0-450) /uL Baso # (Auto) 100 (0-100) /uL D-Dimer < 200 (<230) ng/mL Sodium 137 (137-145) mmol/L Potassium 3.8 (3.4-5.1) mmol/L Chloride 104 (98-107) mmol/L Carbon Dioxide 20 L (22-32) mmol/L BUN 18 H (7-17) mg/dL Creatinine 1.11 H (0.52-1.04) mg/dL Estimated GFR 49 L (>60) mL/min BUN/Creatinine Ratio 16.2 (6-22) Glucose 115 H (80-110) mg/dL Calcium 8.7 (8.4-10.2) mg/dL Phosphorus 3.4 (2.8-4.1) mg/dL Magnesium 1.6 (1.6-2.3) mg/dL Total Bilirubin 0.6 (0.2-1.3) mg/dL AST 31 (14-36) IU/L ALT 18 (<35) IU/L Alkaline Phosphatase 34 L (38-126) U/L C-Reactive Protein (<1.0) mg/dL Total Protein 7.7 (6.3-8.2) g/dL Albumin 4.8 (3.5-5.0) g/dL Globulin 2.9 (1.7-4.1) g/dL Albumin/Globulin Ratio 1.7 (1.0-2.8) Procalcitonin (<0.5) ng/mL Urine Color Urine Appearance Urine pH (4.5-8.0) Ur Specific [place] (1.000-1.035) Urine Protein (Negative) Urine Glucose (UA) (Negative) g/dL Urine Ketones (NEGATIVE) Urine Occult Blood (Negative) Urine Nitrate (Negative) Urine Bilirubin (NEGATIVE) Urine Urobilinogen (0.2) E.U./dL Ur Leukocyte Esterase (NEGATIVE) Urine RBC (0-5/HPF) Urine WBC (0-5/HPF) Urine Bacteria (None) Ur Culture Indicated? Monoscreen (Negative) 03/12/22 03/12/22 03/12/22 Range/Units 15:55 15:55 15:55 WBC (4.5-11.0) X10^3/uL RBC (4.0-5.2) X10^6/uL Hgb (12.0-16.0) g/dL Hct (36-46) % MCV (80-100) fL MCH (26-34) PG MCHC (30-36) % RDW (11.6-14.8) % Plt Count (150-400) X10^3/uL Neut % (Auto) (50-75) % Lymph % (Auto) (25-40) % [place] % (Auto) (3-14) % Eos % (Auto) (2-4) % Baso % (Auto) (0-2) % Neut # (Auto) (5006-9551) /uL Lymph # (Auto) (6752-4366) /uL [place] # (Auto) (0-900) /uL Eos # (Auto) (0-450) /uL Baso # (Auto) (0-100) /uL D-Dimer (<230) ng/mL Sodium (137-145) mmol/L Potassium (3.4-5.1) mmol/L Chloride (98-107) mmol/L Carbon Dioxide (22-32) mmol/L BUN (7-17) mg/dL Creatinine (0.52-1.04) mg/dL Estimated GFR (>60) mL/min BUN/Creatinine Ratio (6-22) Glucose (80-110) mg/dL Calcium (8.4-10.2) mg/dL Phosphorus (2.8-4.1) mg/dL Magnesium (1.6-2.3) mg/dL Total Bilirubin (0.2-1.3) mg/dL AST (14-36) IU/L ALT (<35) IU/L Alkaline Phosphatase (38-126) U/L C-Reactive Protein 1.8 H (<1.0) mg/dL Total Protein (6.3-8.2) g/dL Albumin (3.5-5.0) g/dL Globulin (1.7-4.1) g/dL Albumin/Globulin Ratio (1.0-2.8) Procalcitonin 0.05 (<0.5) ng/mL Urine Color Urine Appearance Urine pH (4.5-8.0) Ur Specific [place] (1.000-1.035) Urine Protein (Negative) Urine Glucose (UA) (Negative) g/dL Urine Ketones (NEGATIVE) Urine Occult Blood (Negative) Urine Nitrate (Negative) Urine Bilirubin (NEGATIVE) Urine Urobilinogen (0.2) E.U./dL Ur Leukocyte Esterase (NEGATIVE) Urine RBC (0-5/HPF) Urine WBC (0-5/HPF) Urine Bacteria (None) Ur Culture Indicated? Monoscreen Negative (Negative) 03/12/22 Range/Units 16:45 WBC (4.5-11.0) X10^3/uL RBC (4.0-5.2) X10^6/uL Hgb (12.0-16.0) g/dL Hct (36-46) % MCV (80-100) fL MCH (26-34) PG MCHC (30-36) % RDW (11.6-14.8) % Plt Count (150-400) X10^3/uL Neut % (Auto) (50-75) % Lymph % (Auto) (25-40) % [place] % (Auto) (3-14) % Eos % (Auto) (2-4) % Baso % (Auto) (0-2) % Neut # (Auto) (6437-2377) /uL Lymph # (Auto) (9675-8911) /uL [place] # (Auto) (0-900) /uL Eos # (Auto) (0-450) /uL Baso # (Auto) (0-100) /uL D-Dimer (<230) ng/mL Sodium (137-145) mmol/L Potassium (3.4-5.1) mmol/L Chloride (98-107) mmol/L Carbon Dioxide (22-32) mmol/L BUN (7-17) mg/dL Creatinine (0.52-1.04) mg/dL Estimated GFR (>60) mL/min BUN/Creatinine Ratio (6-22) Glucose (80-110) mg/dL Calcium (8.4-10.2) mg/dL Phosphorus (2.8-4.1) mg/dL Magnesium (1.6-2.3) mg/dL Total Bilirubin (0.2-1.3) mg/dL AST (14-36) IU/L ALT (<35) IU/L Alkaline Phosphatase (38-126) U/L C-Reactive Protein (<1.0) mg/dL Total Protein (6.3-8.2) g/dL Albumin (3.5-5.0) g/dL Globulin (1.7-4.1) g/dL Albumin/Globulin Ratio (1.0-2.8) Procalcitonin (<0.5) ng/mL Urine Color Yellow Urine Appearance Clear Urine pH 6.5 (4.5-8.0) Ur Specific [place] 1.015 (1.000-1.035) Urine Protein 3+ H (Negative) Urine Glucose (UA) Negative (Negative) g/dL Urine Ketones Negative (NEGATIVE) Urine Occult Blood 1+ H (Negative) Urine Nitrate Negative (Negative) Urine Bilirubin Negative (NEGATIVE) Urine Urobilinogen 0.2 (0.2) E.U./dL Ur Leukocyte Esterase Negative (NEGATIVE) Urine RBC 1-5/hpf (0-5/HPF) Urine WBC None seen (0-5/HPF) Urine Bacteria None seen (None) Ur Culture Indicated? Cult not indicated Monoscreen (Negative) Discharge Plan Departure Patient Disposition: Home Clinical Impression: Adrenal nodule, Incidental lung nodule Cholelithiasis Qualifiers: Cholelithiasis location: gallbladder Cholecystitis presence: without cholecystitis Biliary obstruction: without biliary obstruction Qualified Code(s): K80.20 - Calculus of gallbladder without cholecystitis without obstruction Instructions: Gallstones, DI for Muscle Strain, DI for Adrenal Incidentaloma Activity Restrictions/Additional Instructions: *You have been diagnosed with left-sided flank pain which could be a muscle strain, gas pain, constipation, or you may have had a kidney stone that you have passed. Your workup today does not show any infectious process, your blood cell counts were within normal ranges, you do not have any evidence of a blood clot, your potassium is 3.8 today which is the same as it was two days ago. Your creatinine/kidney function is improved with a creatinine level of 1.1, this is down from 1.4 your previous visit. No elevation in your liver enzymes. Your CT abdomen does not show any kidney stone or bladder stones, it does show that you have gallstones without any evidence of gallbladder infection, obstruction or cholecystitis. Incidentally there is a left adrenal nodule which measures 1.1 cm and a 7 mm left lower lung lobe nodule. These may be chronic for you, and may not have any significance but I would like you to follow-up with your primary care provider about this. You do have a moderate amount of stool in her colon, and since you have not had a bowel movement today, I recommend that you focus on hydration, take a stool softener until you have a soft bowel movement. Please use Tylenol, lidocaine patches, simethicone for gas pain, and Voltaren gel and see if this helps improve your pain. You may also try heat packs, and gentle activity to help determine whether this is musculoskeletal or a deeper pain. Care, sorry we cannot find a clear answer to the cause of your pain however this may sort itself out over the next 1-2 days when you start moving her bowels, and trying topical medications with an oral medication for your pain. This may improve by tonight or if ongoing, it might be more considerable to be a muscle strain. I hope you start feeling better soon. Please return for any new or worsening conditions, shortness of breath, chest pain, worse pain, we would be happy to reconsider and evaluate everything. Your labs are reassuring that this is not a major or dangerous cause of your symptom however if this does get worse please return to the ER. *What to do: *Please continue to take your regular medications as directed. [ x] New medication prescriptions sent to your pharmacy: [ [facility]] [ ] New medication written as a paper prescription [ ] No new medications given *Please follow up with your primary care provider in 2-3 days, call for an appointment. Let them know you were seen in the Emergency Department and that we asked that you be seen for follow-up. We will electronically transmit a record of today's note if your PCP is in our system *If you do not have a primary care provider please contact [phone] to establish care with one of the [facility] primary care providers. *Return to Emergency Department if you should have any new, worsening or concerning symptoms, such as [fever greater than 101F, chills, worsening pain, persistent vomiting or other bothersome symptoms] Prescriptions: New simethicone 250 mg capsule 250 mg PO DAILY PRN (Reason: abdominal distention/gas) Qty: 14 0RF polyethylene glycol 3350 [Miralax] 17 gram/dose powder 17 g PO DAILY PRN (Reason: constipation) Qty: 119 0RF lidocaine [Lidoderm] 5 % adhesive patch,medicated 1 patch topical DAILY PRN (Reason: pain) Qty: 15 0RF Rx Instructions: leave on most painful area for up to 12 hrs No Action ACETAMINOPHEN (#TYLENOL) 500 mg PO PRN Qty: 0 0RF levothyroxine [Synthroid] 88 mcg tablet 88 mcg PO DAILY 0RF sertraline [Zoloft] 50 mg tablet 50 mg PO DAILY 0RF metoprolol succinate 50 mg tablet extended release 24 hr 50 mg PO DAILY 0RF amlodipine 10 mg tablet 10 mg PO DAILY 0RF aspirin [Adult Aspirin Regimen] 81 mg tablet,delayed release (DR/EC) 81 mg PO DAILY 0RF Repatha SureClick 140 mg/mL pen injector 140 mg SUBCUT Q2W 0RF Referrals: Dao Ordaz MD [Primary Care Provider] - Visit Report Forms: Patient Portal/API <Felipe Lopez DO - Last Filed: 03/14/22 00:18> [facility]: I was immediately available in the department for consultation. This documentation has been reviewed and I agree with assessment and plan. Supervised by Felipe Lopez DO
[2022-03-12 16:05] LABS: Add Manual Diff / Slide Review NO; Basophils Absolute Auto 100 /uL (0-100); Basophils Percent Auto 0.8 % (0-2); Eosinophils Absolute Auto 0 /uL (0-450); Eosinophils Percent Auto 0.3 % (2-4); Hematocrit 34.6 % (36-46); Hemoglobin 12.1 g/dL (12.0-16.0); Lymphocytes Absolute Auto 1400 /uL (1100-4500); Lymphocytes Percent Auto 15.3 % (25-40); Mean Corpuscular HGB Conc 34.9 % (30-36); Mean Corpuscular Volume 88.8 fL (80-100); Monocytes Absolute Auto 2300 /uL (0-900); Monocytes Percent Auto 25.1 % (3-14); Neutrophils Absolute Auto 5300 /uL (1500-7000); Neutrophils Percent Auto 58.5 % (50-75); Platelet Count 155 X10^3/uL (150-400); Red Cell Distribution Width 14.8 % (11.6-14.8)
[2022-03-12] MEDS: ACETAMINOPHEN 325 MG TABLET 650 MG PO (16:15)
[2022-03-12 16:18] LABS: Alanine Aminotransferase 18 IU/L (<35); Albumin 4.8 g/dL (3.5-5.0); Albumin Globulin Ratio 1.7 (1.0-2.8); Alkaline Phosphatase 34 U/L (38-126); Aspartate Aminotransferase 31 IU/L (14-36); BUN Creatinine Ratio 16.2 (6-22); Bilirubin Total 0.6 mg/dL (0.2-1.3); Blood Urea Nitrogen 18 mg/dL (7-17); Calcium 8.7 mg/dL (8.4-10.2); Carbon Dioxide 20 mmol/L (22-32); Chloride 104 mmol/L (98-107); Estimated Glomerular Filt Rate 49 mL/min (>60); Globulin 2.9 g/dL (1.7-4.1); Glucose 115 mg/dL (80-110); HEMOLYSIS < 15 (0-50); Magnesium 1.6 mg/dL (1.6-2.3); Phosphorous 3.4 mg/dL (2.8-4.1); Potassium 3.8 mmol/L (3.4-5.1); Sodium 137 mmol/L (137-145); Total Protein 7.7 g/dL (6.3-8.2)
--- NOTE | 2022-03-12 16:42 | PC.NURSE ---
Rounded on pt, she reports shortly after taking medication she vomited, states it has passed and does not feel nauseas, this is the first time she has vomited. Educated pt on importance of notifying staff is she feels nauseas or vomits.
[2022-03-12 16:55] VITALS: BP 200/86; PULSE 66; RESP 18; O2SAT 98
[2022-03-12 16:56] LABS: Appearance Urine UA CLEAR; Bilirubin Urine UA NEGATIVE (NEGATIVE); Color Urine UA YELLOW; Glucose Urine UA NEGATIVE (Negative); Ketones Urine UA NEGATIVE (NEGATIVE); Leukocyte Esterase Urine UA NEGATIVE (NEGATIVE); Nitrite Urine UA NEGATIVE (Negative); Occult Blood Urine UA 1+ (Negative); Protein Urine UA 3+ (Negative); Specific Gravity Urine UA 1.015 (1.000-1.035); Urobilinogen Urine UA 0.2 E.U./dL (0.2)
[2022-03-12 17:05] VITALS: BP 182/81; PULSE 73; RESP 16; O2SAT 99
[2022-03-12 17:05] LABS: pH Urine UA 6.5 (4.5-8.0)
[2022-03-12 17:06] LABS: Bacteria Urine None Seen; Culture Indicated Urine Cult Not Indicated; RBC Urine 1-5/HPF (0-5/HPF); WBC Urine None Seen (0-5/HPF)
[2022-03-12] MEDS: ONDANSETRON 4 MG/2 ML INJ IV (17:35)
[2022-03-12 17:52] LABS: Monotest Negative (Negative)
[2022-03-12 17:54] LABS: C-Reactive Protein Quant 1.8 mg/dL (<1.0)
[2022-03-12 17:57] LABS: D Dimer < 200 ng/mL (<230)
[2022-03-12 18:11] LABS: Procalcitonin 0.05 ng/mL (<0.5)
[2022-03-12] MEDS: LIDOCAINE PATCH 1 EACH ADH..PATCH TOP (18:18)
[2022-03-12] MEDS: BISACODYL 5 MG TABLET 10 MG PO (18:19)
== END 2022-03-12 18:30 | disposition home or self-care (01) ==
PROVIDERS: Emergency Provider Nurse Practitioner Critical Care Medicine; PCP Internal Medicine
DX: K80.20 Calculus of gallbladder without cholecystitis without obstruction (principal); E27.8 Other specified disorders of adrenal gland; R91.1 Solitary pulmonary nodule; I10 Essential (primary) hypertension
CPT/HCPCS: 36415; 74176; 80053; 81001; 83735; 84100; 84145; 85025; 85379; 86140; 86318; 87086; 96374; 99284; J2405

== ENCOUNTER → 2022-04-06 15:00 | Outpatient (CLI) | payer MEDICARE, SELFPAY ==
--- NOTE | 2022-04-06 15:03 | DIET.CONS ---
Dietary Consultation Note Assessment: 86y F attending RD visit for help with hyperkalemia related to her CKD3. Pt c CKD3 multifactoral including NSAID use, CAD, and hypertension. Pt doing well overall with renal diet but having difficulty keeping K+ levels WNL even taking kionex. side effects of kionex for pt: extreme diarrhea and gas Pts last August. She states he didn't eat vegetables, now that he is gone, she enjoys fixing vegetables for herself. Pt especially loves spinach and avocado but not eating either due to potassium levels, loves dark chocolate but avoiding. Pt feeling confused because research she has found on potassium content of foods is conflicting. Some lists state a food is high, and some low. She doesn't know how much to consume in a day. Pt states she is also having difficulty drinking fluids and staying hydrated. Nutrition Diagnosis: nutrition related knowledge deficit r/t diet to support healthy potassium levels aeb pt c CKD3 and chronically high K+ >5 despite pt avoiding potatoes and someother high potassium foods, pt is avoiding several low potassium foods in err. Interventions: 1. Provided National Kidney Diet placemat highlighting high and low potassium fruits and vegetables. 2. Provided [employer]END handout on potassium content of foods with serving size and mg amounts for a wide variety of foods organized form high to low potassium. 3. Collaborated c pt on how to track K+ until she becomes more familiar in balancing K+ intake. 4. Encouraged pt to find a stevia sweetened drink she can consume once daily to support her HTN as katie A steviosides support low BP when in system. Pt will drink 1c Simply Lemonade Light daily. EER: 2g K+ daily max Monitoring/Evaluations: f/u prn Electronically Signed by: Carolina Carvajal 04/06/22 15:03 Clinical Dietitian [id number] [place] [address]
== END ==
PROVIDERS: PCP Internal Medicine; Referring Provider Student in an Organized Health Care Education/Training Program; Visit Provider Student in an Organized Health Care Education/Training Program
DX: E87.5 Hyperkalemia (principal); I12.9 Hypertensive chronic kidney disease with stage 1 through stage 4 chronic kidney disease, or unspecified chronic kidney disease; N18.30 Chronic kidney disease, stage 3 unspecified; Z71.3 Dietary counseling and surveillance
CPT/HCPCS: 97802

== ENCOUNTER → 2022-04-18 13:37 | Outpatient (CLI) | payer MEDICARE, SELFPAY ==
[2022-04-18 14:57] LABS: Blood Urea Nitrogen 30 mg/dL (7-17); Carbon Dioxide 26 mmol/L (22-32); Chloride 103 mmol/L (98-107); Estimated Glomerular Filt Rate 42 mL/min (>60); Glucose 95 mg/dL (80-110); HEMOLYSIS < 15 (0-50); Potassium 4.4 mmol/L (3.4-5.1); Sodium 138 mmol/L (137-145)
== END ==
PROVIDERS: PCP Internal Medicine; Referring Provider Student in an Organized Health Care Education/Training Program; Visit Provider Student in an Organized Health Care Education/Training Program
DX: N05.9 Unspecified nephritic syndrome with unspecified morphologic changes (principal)
CPT/HCPCS: 36415; 80048

== ENCOUNTER → 2022-08-21 13:11 | Outpatient (CLI) | payer MEDICARE, SELFPAY ==
[2022-08-21 14:08] LABS: Hematocrit 34.8 % (36-46); Hemoglobin 11.8 g/dL (12.0-16.0)
[2022-08-21 14:28] LABS: BUN Creatinine Ratio 18.9 (6-22); Blood Urea Nitrogen 23 mg/dL (7-17); Calcium 9.1 mg/dL (8.4-10.2); Carbon Dioxide 26 mmol/L (22-32); Chloride 102 mmol/L (98-107); Estimated Glomerular Filt Rate 43 mL/min (>60); Glucose 90 mg/dL (80-110); HEMOLYSIS < 15 (0-50); Potassium 4.1 mmol/L (3.4-5.1); Sodium 137 mmol/L (137-145)
[2022-08-21 14:54] LABS: Creatinine Urine Random 63.4 mg/dL; Protein (Total) Urine Random 40 mg/dL (0-12); Protein Creatinine Ratio Urine 0.63 GRAM/24H
[2022-08-23 09:08] LABS: Parathyroid Hormone Int 46 pg/mL (15-65)
== END ==
PROVIDERS: PCP Internal Medicine; Referring Provider Student in an Organized Health Care Education/Training Program; Visit Provider Student in an Organized Health Care Education/Training Program
DX: N05.9 Unspecified nephritic syndrome with unspecified morphologic changes (principal); D64.9 Anemia, unspecified; N25.81 Secondary hyperparathyroidism of renal origin; R80.9 Proteinuria, unspecified
CPT/HCPCS: 80048; 82570; 83970; 84156; 85014; 85018

== ENCOUNTER → 2022-11-01 07:53 | Outpatient (CLI) | payer MEDICARE, SELFPAY ==
--- NOTE | 2022-11-01 | DI.US.S_ITS ---
PROCEDURE: US ARTERIAL DUPLEX LE BI INDICATIONS: PERIPHERAL VASCULAR DISEASE TECHNIQUE: Color and pulse Doppler interrogation was performed of both lower extremity arterial systems, with image documentation. COMPARISON: None. FINDINGS: Right lower extremity: Common femoral artery: 128 cm/sec, with triphasic flow. Deep femoral artery: 62 cm/sec, with biphasic flow. Proximal superficial femoral artery: 72 cm/sec, with biphasic flow. Mid superficial femoral artery: 285 cm/sec, with monophasic flow. Distal superficial femoral artery: 292 cm/sec, with monophasic flow. Popliteal artery: 93 cm/sec, with monophasic flow. Posterior tibial artery: 17 cm/sec, with monophasic flow. Anterior tibial artery/dorsalis pedis: 12 cm/sec, with monophasic flow. Rousseau-scale imaging description: Bilateral moderate to heavy plaque is identified. Left lower extremity: Common femoral artery: 187 cm/sec, with biphasic flow. Deep femoral artery: 73 cm/sec, with triphasic flow. Proximal superficial femoral artery: 128 cm/sec, with biphasic flow. Mid superficial femoral artery: 558 cm/sec, with biphasic flow. Distal superficial femoral artery: 90 cm/sec, with biphasic flow. Popliteal artery: 68 cm/sec, with biphasic flow. Posterior tibial artery: Not well seen. Anterior tibial artery/dorsalis pedis: 30 cm/sec, with biphasic flow. Rousseau-scale imaging description: Bilateral moderate to heavy plaque is identified. IMPRESSION: 1. Bilateral moderate to heavy plaque. 2. Greater than 50 percent stenosis in the mid right SFA. 3. Greater than 50 percent stenosis in the mid left SFA. Dictated by: Jim Carcamo M.D. on 11/01/2022 at 11:52 Approved by: Jim Carcamo M.D. on 11/01/2022 at 11:55
== END ==
PROVIDERS: PCP Internal Medicine; Referring Provider Internal Medicine Cardiovascular Disease; Visit Provider Internal Medicine Cardiovascular Disease
DX: I70.203 Unspecified atherosclerosis of native arteries of extremities, bilateral legs (principal); I25.10 Atherosclerotic heart disease of native coronary artery without angina pectoris
CPT/HCPCS: 93925

== ENCOUNTER 2022-12-11 10:25 | Emergency (ER) | payer MEDICARE, SELFPAY ==
[2022-12-11] VITALS (29 sets, daily range): BP systolic 146–240; BP diastolic 63–105; PULSE 50–80; RESP 13–35; TEMP 36.4; O2SAT 95–100; BMI 20.5
--- NOTE | 2022-12-11 10:35 | DI.RAD.S_ITS ---
PROCEDURE: XR CHEST 1V INDICATIONS: chest pain TECHNIQUE: One view of the chest was acquired. COMPARISON: None. FINDINGS: Surgical changes and devices: Cervical fixation plate. Lungs and pleura: Lungs are clear. No pleural effusions or pneumothorax. Mediastinum: Mediastinal contours appear normal. Heart size is normal. Bones and chest wall: No suspicious bony lesions. Overlying soft tissues appear unremarkable. IMPRESSION: No acute pulmonary process. Dictated by: Bobbi Gil M.D. on 12/11/2022 at 11:18 Approved by: Bobbi Gil M.D. on 12/11/2022 at 11:19
[2022-12-11 10:49] LABS: Add Manual Diff / Slide Review NO; Basophils Absolute Auto 0 /uL (0-100); Basophils Percent Auto 0.5 % (0-2); Eosinophils Absolute Auto 0 /uL (0-450); Eosinophils Percent Auto 0.2 % (2-4); Hemoglobin 12.7 g/dL (12.0-16.0); Lymphocytes Absolute Auto 1400 /uL (1100-4500); Lymphocytes Percent Auto 18.7 % (25-40); Mean Corpuscular HGB Conc 34.4 % (30-36); Mean Corpuscular Hemoglobin 30.3 PG (26-34); Mean Corpuscular Volume 88.3 fL (80-100); Monocytes Absolute Auto 400 /uL (0-900); Monocytes Percent Auto 4.9 % (3-14); Neutrophils Absolute Auto 5700 /uL (1500-7000); Neutrophils Percent Auto 75.7 % (50-75); Platelet Count 162 X10^3/uL (150-400); Red Blood Cell Count 4.19 X10^6/uL (4.0-5.2); Red Cell Distribution Width 16.2 % (11.6-14.8); White Blood Cell Count 7.5 X10^3/uL (4.5-11.0)
[2022-12-11 10:57] LABS: Prothrombin Time 10.9 SECONDS (10.1-12.7)
[2022-12-11 10:59] LABS: PTT Partial Thromboplastin Tim 27 SECONDS (26-36)
[2022-12-11] MEDS: ASPIRIN 81 MG CHEW TAB 324 MG PO (11:02)
[2022-12-11 11:03] LABS: Alanine Aminotransferase 30 IU/L (<35); Albumin Globulin Ratio 1.7 (1.0-2.8); Alkaline Phosphatase 40 U/L (38-126); Aspartate Aminotransferase 35 IU/L (14-36); BUN Creatinine Ratio 33.3 (6-22); Bilirubin Total 0.5 mg/dL (0.2-1.3); Blood Urea Nitrogen 38 mg/dL (7-17); Calcium 9.4 mg/dL (8.4-10.2); Carbon Dioxide 23 mmol/L (22-32); Chloride 103 mmol/L (98-107); Creatine Kinase 107 U/L (30-135); Estimated Glomerular Filt Rate 47 mL/min (>60); Glucose 118 mg/dL (80-110); Lipase 383 U/L (23-300); Magnesium 1.8 mg/dL (1.6-2.3); Potassium 4.5 mmol/L (3.4-5.1); Sodium 137 mmol/L (137-145)
--- NOTE | 2022-12-11 11:10 | ED_ITS ---
HPI - Chest Pain General Chief Complaint: Chest Pain Stated Complaint: chest pain/pain down LT arm/ BP 204 something Time Seen by Provider: 12/11/22 11:09 Source: patient and RN notes reviewed Mode of arrival: Family Vehicle Limitations: no limitations History of Present Illness HPI narrative: 87-year-old female with history of hypertension, dyslipidemia, cardiac stents placed VIII years ago, CKD stage 3, hypothyroidism with complaint of left arm pain that has been radiating from her neck down left arm but also sometimes to her left chest and back. Patient states she does get neuropathy, this has been longstanding in that left arm. She states she has not had any diaphoresis. Denies any shortness of breath, nausea or vomiting. Patient states she took her morning blood pressure medication she is noted to have a systolic in the 200s here. She was prescribed prednisone several days ago at the walk-in clinic who saw her and was treating her for potential cervical radiculopathy. Patient states the chest pain at that time was a little bit up into the clavicle area but not as much centralized. She states it is present currently. Nothing seems to make it better or worse. She does take medication for hypertension, injectable cholesterol medication every 2 weeks, no known diabetes she states cardiac stents [address] Souza at [facility] and she does carry her own EKG which she provided and is similar to today's EKG. She takes an aspirin 81 mg daily, chronic kidney disease stage 3. She is had hip, knee, back surgery multiple times as well as a cervical surgery for C2 through 4. She states she is allergic to statins had a reaction. No tobacco, wine twice weekly, no illicit. Her primary care was Dr. Ordaz and he has recently left she is at the [facility] here in [facility]. Related Data Home Medications Medication Instructions Recorded Confirmed ACETAMINOPHEN (#TYLENOL) 500 mg PO PRN ##0 10/30/11 01/17/22 amlodipine 10 mg tablet 10 mg PO DAILY 12/21/21 01/17/22 aspirin 81 mg tablet,delayed 81 mg PO DAILY 12/21/21 01/17/22 release (Adult Aspirin Regimen) evolocumab 140 mg/mL subcutaneous 140 mg SUBCUT Q2W 12/21/21 01/17/22 pen injector (Og Ricardo) levothyroxine 88 mcg tablet 88 mcg PO DAILY 12/21/21 01/17/22 (Synthroid) metoprolol succinate 50 mg 50 mg PO DAILY 12/21/21 01/17/22 tablet,extended release 24 hr sertraline 50 mg tablet (Zoloft) 50 mg PO DAILY 12/21/21 01/17/22 Previous Rx's Medication Instructions Recorded lidocaine 5 % topical patch 1 patch topical DAILY PRN pain #15 03/12/22 (Lidoderm) ea polyethylene glycol 3350 17 17 g PO DAILY PRN constipation 03/12/22 gram/dose oral powder (Miralax) #119 grams simethicone 250 mg capsule 250 mg PO DAILY PRN abdominal 03/12/22 distention/gas #14 caps prednisone 20 mg tablet 20 mg PO DAILY 4 days #4 tabs 12/08/22 gabapentin 300 mg capsule 300 mg PO TID #30 caps 12/11/22 oxycodone 5 mg tablet 5 mg PO QID PRN pain #14 tabs 12/11/22 Allergies Allergy/AdvReac Type Severity Reaction Status Date / Time simvastatin [SIMVASTATIN] Allergy Severe WEAKNESS, Verified 12/11/22 10:38 HAIR LOSS, RASH atorvastatin [ATORVASTATIN] AdvReac Mild MUSCLE Verified 12/11/22 10:38 WEAKNESS Review of Systems Review of Systems ROS Unobtainable: All systems reviewed & are unremarkable except as noted in HPI and below Patient History Social History Smoking Status: Never smoker Smoking Status: Never smoker alcohol intake frequency: a few times a week Alcohol type: wine Substance Use Type: does not use Exam Narrative Exam Narrative: GEN: well nourished, well appearing female, alert and oriented x 3, patient appears to be in mild distress. HEENT: Atraumatic, pupils are equal round reactive to light, extraocular movements are intact, nares are clear, TMs are clear with no fluid, there is no conjunctival pallor. Throat is clear without any exudates, erythema, tonsillar enlargement or uvular deviation, positive for pain with Spurling's with rotation to the left and extension. HEART: Regular rate and rhythm without murmur, clicks, rubs. Pulses are equal in upper and lower extremities LUNGS:Lungs clear to auscultation, no wheezes, rales, crackles, chest moves symmetrically ABD:bowel sounds normal, soft, non-tender, no guarding, rebound, rigidity, no masses noted, no hepatosplenomegaly :No CVA tenderness MSCL: Non-tender, no swelling, bilateral upper extremities. No muscle atrophy, muscles strength 5/5 upper and lower extremities, full range of motion NEURO:CN 2-12 intact, sensation normal, clinical technologist equal bilaterally. SKIN: Rash, erythema or other skin changes noted. Initial Vital Signs Initial Vital Signs: Vital Signs Temperature 97.6 F 12/11/22 10:35 Pulse Rate 80 12/11/22 10:35 Respiratory Rate 20 12/11/22 10:35 Blood Pressure 240/105 H 12/11/22 10:35 Pulse Oximetry 98 12/11/22 10:35 Oxygen Delivery Method Room Air 12/11/22 10:35 Course Orders Ordered: ED Orders 12/11/22 10:35 XR chest 1V Stat 12/11/22 10:39 Complete Blood Count AUTO DIFF Stat Comprehensive Metabolic Panel Stat Lipase Stat Magnesium Stat PTT Partial Thromboplastin Rocco Stat Prothrombin Time INR Stat Troponin & CK Cardiac Panel Stat 12/11/22 10:52 EKG-12 Lead Stat 12/11/22 10:58 COVID19 -Nasal RAPID Stat 12/11/22 11:25 D Dimer Stat 12/11/22 12:30 Trop I [Troponin I] Stat Discontinued Medications Aspirin (Aspirin 81 Mg Chew Tab) 324 mg PO NOW ONE Stop: 12/11/22 10:36 Last Admin: 12/11/22 11:02 Dose: 324 mg Documented By: RB Morphine Sulfate (Morphine 4 Mg/Ml Inj) 4 mg IV NOW ONE Stop: 12/11/22 13:52 Last Admin: 12/11/22 14:23 Dose: 4 mg Documented By: SB Nitroglycerin (Nitroglycerin 0.4 Mg Sl Tab) 0.4 mg SL [id number] PRN PRN Reason: Chest Pain Last Admin: 12/11/22 11:33 Dose: 0.4 mg Documented By: BS Ondansetron HCl (Ondansetron 4 Mg/2 Ml Inj) 4 mg IV Q6HR PRN PRN Reason: Nausea And Vomiting Last Admin: 12/11/22 14:10 Dose: 4 mg Documented By: SB Vital Signs Vital signs: Vital Signs - 8 hr 12/11/22 10:35 12/11/22 11:01 12/11/22 11:02 Temperature 97.6 F Pulse Rate 80 65 65 Respiratory Rate 20 23 13 Blood Pressure 240/105 H Pulse Oximetry 98 99 99 Oxygen Delivery Method Room Air 12/11/22 11:02 12/11/22 11:33 12/11/22 11:20 Temperature Pulse Rate 65 74 Respiratory Rate 34 H Blood Pressure 218/95 H 208/84 H Pulse Oximetry 98 Oxygen Delivery Method 12/11/22 11:20 12/11/22 11:30 12/11/22 11:30 Temperature Pulse Rate 64 Respiratory Rate 20 Blood Pressure 209/99 H 202/81 H Pulse Oximetry 98 Oxygen Delivery Method 12/11/22 11:34 12/11/22 11:34 12/11/22 11:38 Temperature Pulse Rate 63 65 Respiratory Rate 35 H 21 Blood Pressure 208/84 H Pulse Oximetry 98 97 Oxygen Delivery Method 12/11/22 11:38 12/11/22 11:40 12/11/22 11:40 Temperature Pulse Rate 63 Respiratory Rate 17 Blood Pressure 167/63 H 146/70 H Pulse Oximetry 96 Oxygen Delivery Method Room Air 12/11/22 11:50 12/11/22 11:50 12/11/22 12:00 Temperature Pulse Rate 57 L Respiratory Rate 17 Blood Pressure 183/83 H 181/83 H Pulse Oximetry 95 Oxygen Delivery Method 12/11/22 12:00 12/11/22 12:10 12/11/22 12:10 Temperature Pulse Rate 55 L 54 L Respiratory Rate 27 H 30 H Blood Pressure 183/84 H Pulse Oximetry 98 97 Oxygen Delivery Method 12/11/22 12:20 12/11/22 12:20 12/11/22 12:30 Temperature Pulse Rate 50 L Respiratory Rate 20 Blood Pressure 183/74 H 182/86 H Pulse Oximetry 97 Oxygen Delivery Method 12/11/22 12:30 12/11/22 12:40 12/11/22 12:40 Temperature Pulse Rate 56 L 59 L Respiratory Rate 15 18 Blood Pressure 173/78 H Pulse Oximetry 97 98 Oxygen Delivery Method 12/11/22 12:50 12/11/22 12:50 12/11/22 13:00 Temperature Pulse Rate 57 L Respiratory Rate 29 H Blood Pressure 209/87 H 189/84 H Pulse Oximetry 98 Oxygen Delivery Method 12/11/22 13:00 12/11/22 13:10 12/11/22 13:10 Temperature Pulse Rate 58 L 54 L Respiratory Rate 18 15 Blood Pressure 185/72 H Pulse Oximetry 98 98 Oxygen Delivery Method 12/11/22 13:20 12/11/22 13:20 12/11/22 13:30 Temperature Pulse Rate 54 L Respiratory Rate 13 Blood Pressure 186/80 H 196/83 H Pulse Oximetry 98 Oxygen Delivery Method 12/11/22 13:30 12/11/22 13:40 12/11/22 13:40 Temperature Pulse Rate 55 L 54 L Respiratory Rate 16 Blood Pressure 183/80 H Pulse Oximetry 98 98 Oxygen Delivery Method 12/11/22 13:50 12/11/22 13:50 12/11/22 14:00 Temperature Pulse Rate 61 Respiratory Rate 16 Blood Pressure 202/88 H 205/93 H Pulse Oximetry 99 Oxygen Delivery Method 12/11/22 14:00 12/11/22 14:10 12/11/22 14:10 Temperature Pulse Rate 72 68 Respiratory Rate 23 23 Blood Pressure 203/98 H Pulse Oximetry 100 99 Oxygen Delivery Method 12/11/22 14:20 12/11/22 14:20 12/11/22 14:30 Temperature Pulse Rate 62 Respiratory Rate 19 Blood Pressure 203/97 H 171/70 H Pulse Oximetry 98 Oxygen Delivery Method 12/11/22 14:30 12/11/22 14:40 12/11/22 14:40 Temperature Pulse Rate 69 54 L Respiratory Rate 24 18 Blood Pressure 165/77 H Pulse Oximetry 97 96 Oxygen Delivery Method 12/11/22 14:50 12/11/22 14:50 12/11/22 15:00 Temperature Pulse Rate 56 L Respiratory Rate 14 Blood Pressure 186/83 H 171/69 H Pulse Oximetry 96 Oxygen Delivery Method 12/11/22 15:00 Temperature Pulse Rate 55 L Respiratory Rate 17 Blood Pressure Pulse Oximetry 95 Oxygen Delivery Method MDM - Chest Pain Lab Data 12/11/22 10:39 12/11/22 10:39 Labs: Lab Results 12/11/22 12/11/22 12/11/22 Range/Units 10:39 10:39 10:39 WBC 7.5 (4.5-11.0) X10^3/uL RBC 4.19 (4.0-5.2) X10^6/uL Hgb 12.7 (12.0-16.0) g/dL Hct 37.0 (36-46) % MCV 88.3 (80-100) fL MCH 30.3 (26-34) PG MCHC 34.4 (30-36) % RDW 16.2 H (11.6-14.8) % Plt Count 162 (150-400) X10^3/uL Neut % (Auto) 75.7 H (50-75) % Lymph % (Auto) 18.7 L (25-40) % [place] % (Auto) 4.9 (3-14) % Eos % (Auto) 0.2 L (2-4) % Baso % (Auto) 0.5 (0-2) % Neut # (Auto) 5700 (6776-5817) /uL Lymph # (Auto) 1400 (0966-5969) /uL [place] # (Auto) 400 (0-900) /uL Eos # (Auto) 0 (0-450) /uL Baso # (Auto) 0 (0-100) /uL PT 10.9 (10.1-12.7) SECONDS INR 1.0 (0.9-1.3) APTT 27 (26-36) SECONDS D-Dimer (<500) ng/ml Sodium 137 (137-145) mmol/L Potassium 4.5 (3.4-5.1) mmol/L Chloride 103 (98-107) mmol/L Carbon Dioxide 23 (22-32) mmol/L BUN 38 H (7-17) mg/dL Creatinine 1.14 H (0.52-1.04) mg/dL Estimated GFR 47 L (>60) mL/min BUN/Creatinine Ratio 33.3 H (6-22) Glucose 118 H (80-110) mg/dL Calcium 9.4 (8.4-10.2) mg/dL Magnesium 1.8 (1.6-2.3) mg/dL Total Bilirubin 0.5 (0.2-1.3) mg/dL AST 35 (14-36) IU/L ALT 30 (<35) IU/L Alkaline Phosphatase 40 (38-126) U/L Total Creatine Kinase 107 (30-135) U/L CK-MB (CK-2) 3.18 H (<2.37) ng/mL CK-MB (CK-2) Rel Index 3.0 (1.5-5.0) % Troponin I < 0.012 (0.01-0.034) ng/mL Total Protein 8.0 (6.3-8.2) g/dL Albumin 5.0 (3.5-5.0) g/dL Globulin 3.0 (1.7-4.1) g/dL Albumin/Globulin Ratio 1.7 (1.0-2.8) Lipase 383 H (23-300) U/L SARS-CoV-2 (PCR) (Negative) 12/11/22 12/11/22 12/11/22 Range/Units 10:58 11:25 12:30 WBC (4.5-11.0) X10^3/uL RBC (4.0-5.2) X10^6/uL Hgb (12.0-16.0) g/dL Hct (36-46) % MCV (80-100) fL MCH (26-34) PG MCHC (30-36) % RDW (11.6-14.8) % Plt Count (150-400) X10^3/uL Neut % (Auto) (50-75) % Lymph % (Auto) (25-40) % [place] % (Auto) (3-14) % Eos % (Auto) (2-4) % Baso % (Auto) (0-2) % Neut # (Auto) (0721-1353) /uL Lymph # (Auto) (2738-5169) /uL [place] # (Auto) (0-900) /uL Eos # (Auto) (0-450) /uL Baso # (Auto) (0-100) /uL PT (10.1-12.7) SECONDS INR (0.9-1.3) APTT (26-36) SECONDS D-Dimer 394 (<500) ng/ml Sodium (137-145) mmol/L Potassium (3.4-5.1) mmol/L Chloride (98-107) mmol/L Carbon Dioxide (22-32) mmol/L BUN (7-17) mg/dL Creatinine (0.52-1.04) mg/dL Estimated GFR (>60) mL/min BUN/Creatinine Ratio (6-22) Glucose (80-110) mg/dL Calcium (8.4-10.2) mg/dL Magnesium (1.6-2.3) mg/dL Total Bilirubin (0.2-1.3) mg/dL AST (14-36) IU/L ALT (<35) IU/L Alkaline Phosphatase (38-126) U/L Total Creatine Kinase (30-135) U/L CK-MB (CK-2) (<2.37) ng/mL CK-MB (CK-2) Rel Index (1.5-5.0) % Troponin I < 0.012 (0.01-0.034) ng/mL Total Protein (6.3-8.2) g/dL Albumin (3.5-5.0) g/dL Globulin (1.7-4.1) g/dL Albumin/Globulin Ratio (1.0-2.8) Lipase (23-300) U/L SARS-CoV-2 (PCR) Negative (Negative) Imaging Data Chest x-ray: Radiologist's Impression: [address] [address] XRay Report Signed Patient: Alla Reed MR#: [id number] : 1935 Acct:[id number] Age/Sex: 87 / F Date of Service: 12/11/22 Loc: ED Accession Number: [id number] ?? Procedure: XR chest 1V Ordering Provider: Zunilda Baker D.O. PROCEDURE:? XR CHEST 1V ? INDICATIONS:? chest pain ? TECHNIQUE:? One view of the chest was acquired.? ? COMPARISON:? None. ? FINDINGS:? ? Surgical changes and devices:? Cervical fixation plate. ? Lungs and pleura:? Lungs are clear.? No pleural effusions or pneumothorax.? ? Mediastinum:? Mediastinal contours appear normal.? Heart size is normal.? ? Bones and chest wall:? No suspicious bony lesions.? Overlying soft tissues appear unremarkable.? ? IMPRESSION:? No acute pulmonary process. ? ? Dictated by: Bobbi Gil M.D. on 12/11/2022 at 11:18 ? ? Approved by: Bobbi Gli M.D. on 12/11/2022 at 11:19?? ECG Data Prior ECG tracings: available for review Interpretation: Sinus rhythm rate of of 63 MN 162 QRS 86 QTC 427. Patient has a ST depression 1 aVL and lead 2, as well as depression in V4 5 6. No elevation, LVH changes. Patient has prior prior from 10/30/2011 which she brought herself from [facility]. EKG does identify who the patient is. Patient has slightly inverted wave in [address] segment was baseline, lead 2, lead 4 5 and 6 appear similar. No new elevation appreciated. MDM Narrative Medical decision making narrative: This is an 87-year-old female who presents with complaint of left arm pain and chest that radiates to her back that has been present for several days, patient states she is had chronic neck pain she has had prior cervical surgery. 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 She also noted some radiation her chest, it has been persisting and she is quite hypertensive today. She states she did take her pain medications. She got a prescription of prednisone that she is taken for the last several days and is in discomfort at this time. Patient's EKG actually appears fairly similar to prior from 10/30/2011 patient had her own copy available from Dr. Laughlin at [facility] in [place]. Patient's initial lab workup shows a CK-MB elevated at 3.18, index is 3% negative troponin, chronic kidney disease appears stable, electrolytes are normal, lipase is 383, CBC shows elevated neutrophils but otherwise normal white count, hemoglobin and platelets. Plan for dose of nitro to see if this helps patient's symptoms she is quite hypertensive here in the department today, aspirin 324 mg and re-evaluation repeat troponin planned for 12:30. Nitro sublingual improved blood pressure but did not change patient's pain. She decreased to the 140 she did have some dizziness. Patient's repeat troponin is negative and EKG does not show any dynamic changes. Discussed findings with patient we did give her a dose of pain medication here. Patient does not have any acute neurologic changes necessitating MRI today. Discussed all this with patient she has never tried gabapentin plan for Tylenol as needed gabapentin and a short course of oral narcotic pain medication. She has seen Dr. Sol for cervical spine surgery in [place] in the past but states she would probably need to be seen locally and then referred which is what happened last time. We did discuss if her symptoms or changing are not improving she does need to return for Re evaluation. Discharge Plan Departure Patient Disposition: Home Clinical Impression: Atypical chest pain, Radiculopathy affecting upper extremity Activity Restrictions/Additional Instructions: Follow-up for recheck I suspect your pain is more from your cervical spine today but if things are changing please return for recheck. Referral included below for orthopedic surgery. You can take Tylenol up to a 1000 mg every 6 hours as needed for pain You may take gabapentin 1 tablet every 6 hours as needed. This medication can be titrated up and increased by your physician if helpful. You may take 1-2 tablets of tramadol every 6 hours as needed for breakthrough pain. This medication can make you sleepy do not drive, perform hazardous activities or make any major decisions while taking it. This medication will make you constipated please take a stool softener once to twice daily until stools are soft and regular. Prescription sent to [facility] in [place]. Prescriptions: New gabapentin 300 mg capsule 300 mg PO TID Qty: 30 0RF oxycodone 5 mg tablet 5 mg PO QID PRN (Reason: pain) Qty: 14 0RF No Action prednisone 20 mg tablet 20 mg PO DAILY 4 Days Qty: 4 0RF ACETAMINOPHEN (#TYLENOL) 500 mg PO PRN Qty: 0 levothyroxine [Synthroid] 88 mcg tablet 88 mcg PO DAILY sertraline [Zoloft] 50 mg tablet 50 mg PO DAILY metoprolol succinate 50 mg tablet extended release 24 hr 50 mg PO DAILY amlodipine 10 mg tablet 10 mg PO DAILY aspirin [Adult Aspirin Regimen] 81 mg tablet,delayed release (DR/EC) 81 mg PO DAILY Repatha SureClick 140 mg/mL pen injector 140 mg SUBCUT Q2W simethicone 250 mg capsule 250 mg PO DAILY PRN (Reason: abdominal distention/gas) Qty: 14 0RF polyethylene glycol 3350 [Miralax] 17 gram/dose powder 17 g PO DAILY PRN (Reason: constipation) Qty: 119 0RF lidocaine [Lidoderm] 5 % adhesive patch,medicated 1 patch topical DAILY PRN (Reason: pain) Qty: 15 0RF Rx Instructions: leave on most painful area for up to 12 hrs Referrals: Dao Ordaz MD [Primary Care Provider] - Angie Tatum MD [Physician] - Stand Alone Forms: Patient Portal/API
[2022-12-11 11:13] LABS: Troponin I < 0.012 ng/mL (0.01-0.034)
[2022-12-11 11:18] LABS: Creatine Kinase MB 3.18 ng/mL (<2.37); HEMOLYSIS 16 (0-50)
[2022-12-11 11:28] LABS: COVID19 -Nasal RAPID Negative (Negative)
[2022-12-11] MEDS: NITROGLYCERIN 0.4 MG SL TAB SL (11:33)
[2022-12-11 11:41] LABS: D Dimer 394 ng/ml (<500)
[2022-12-11 13:08] LABS: Troponin I < 0.012 ng/mL (0.01-0.034)
[2022-12-11] MEDS: ONDANSETRON 4 MG/2 ML INJ IV (14:10)
[2022-12-11] MEDS: MORPHINE 4 MG/ML INJ IV (14:23)
--- NOTE | 2022-12-11 14:24 | PC.NURSE ---
Pt confirmed she has a ride home. Medicated per MAR.
== END 2022-12-11 15:19 | disposition home or self-care (01) ==
PROVIDERS: Emergency Provider Emergency Medicine; PCP Internal Medicine
DX: R07.89 Other chest pain (principal); M54.12 Radiculopathy, cervical region; I10 Essential (primary) hypertension; R79.89 Other specified abnormal findings of blood chemistry; Z20.822 Contact with and (suspected) exposure to COVID-19
CPT/HCPCS: 36415; 71045; 80053; 82550; 82553; 83690; 83735; 84484; 85025; 85379; 85610; 85730; 87635; 93005; 96374; 96375; 99284; C9803; J2270; J2405

== ENCOUNTER → 2022-12-15 17:06 | Outpatient (CLI) | payer MEDICARE, SELFPAY ==
--- NOTE | 2022-12-15 17:09 | DI.MRI.S_ITS ---
PROCEDURE: MR CERVICAL SPINE WO CON INDICATIONS: Radiculopathy, cervical region TECHNIQUE: Noncontrast sagittal T1 spin echo and T2 fast spin echo, sagittal STIR, foraminal oblique sagittal T2 fast spin echo, and axial gradient echo or T2 fast spin echo through the cervical spine. COMPARISON: None. FINDINGS: Image quality: Excellent. Alignment and Curvature: Effusion with straightening is present from what appears to be C3 through C6. There is 3 mm anterolisthesis of C6 on C7 as well as 2 mm retrolisthesis of C2 on C3. Bone Marrow: Marrow demonstrates normal overall signal. Spinal Cord: Visualized spinal cord has normal size and signal. No cerebellar tonsillar herniation. Paraspinous Soft Tissues: No paravertebral masses. Prevertebral soft tissues are normal in thickness. There is prominent right mastoid air cell fluid, mild on the left. C2-C3: Mild disc bulge with mild spinal stenosis. Moderate to severe left and moderate right foraminal narrowing with uncovertebral hypertrophy. C3-C4: Minimal disc bulge without spinal stenosis. [id number] bilateral foraminal narrowing, left greater than right with uncovertebral hypertrophy. C4-C5: Postsurgical changes are present without spinal stenosis. Severe left and moderate to severe right foraminal narrowing with uncovertebral hypertrophy. C5-C6: Postsurgical changes are present. Minimal disc bulges well as minimal to mild spinal stenosis. Severe left and moderate right foraminal narrowing with uncovertebral hypertrophy. C6-C7: Postsurgical changes are present. Moderate to severe spinal stenosis with disc bulges present. Severe bilateral foraminal narrowing, left greater than right with uncovertebral hypertrophy. C7-T1: Mild disc bulge with minimal to mild spinal stenosis. Moderate to severe bilateral foraminal narrowing. IMPRESSION: Multilevel anterior fusion as above. Multilevel moderate to severe foraminal narrowing is present. Spinal stenosis is present most severe at C6-7. Dictated by: Bobbi Gil M.D. on 12/18/2022 at 13:11 Approved by: Bobbi Gil M.D. on 12/18/2022 at 13:20
== END ==
PROVIDERS: PCP Internal Medicine; Referring Provider Internal Medicine; Visit Provider Internal Medicine
DX: M54.12 Radiculopathy, cervical region (principal); Z98.1 Arthrodesis status; M48.02 Spinal stenosis, cervical region
CPT/HCPCS: 72141

== ENCOUNTER → 2022-12-20 16:02 | Outpatient (CLI) | payer MEDICARE, SELFPAY ==
[2022-12-20 16:39] LABS: Hematocrit 37.4 % (36-46); Hemoglobin 12.6 g/dL (12.0-16.0)
[2022-12-20 16:56] LABS: BUN Creatinine Ratio 28.8 (6-22); Blood Urea Nitrogen 40 mg/dL (7-17); Calcium 9.1 mg/dL (8.4-10.2); Carbon Dioxide 27 mmol/L (22-32); Chloride 99 mmol/L (98-107); Estimated Glomerular Filt Rate 37 mL/min (>60); Glucose 135 mg/dL (80-110); HEMOLYSIS < 15 (0-50); Potassium 4.5 mmol/L (3.4-5.1); Sodium 137 mmol/L (137-145)
[2022-12-20 17:59] LABS: Creatinine Urine Random 70.5 mg/dL; Protein (Total) Urine Random 173 mg/dL (0-12); Protein Creatinine Ratio Urine 2.45 GRAM/24H
[2022-12-23 09:36] LABS: Parathyroid Hormone Int 58 pg/mL (15-65)
== END ==
PROVIDERS: PCP Internal Medicine; Referring Provider Student in an Organized Health Care Education/Training Program; Visit Provider Student in an Organized Health Care Education/Training Program
DX: N05.9 Unspecified nephritic syndrome with unspecified morphologic changes (principal); D64.9 Anemia, unspecified; N25.81 Secondary hyperparathyroidism of renal origin; R80.9 Proteinuria, unspecified
CPT/HCPCS: 36415; 80048; 82570; 83970; 84156; 85014; 85018

== ENCOUNTER → 2023-01-29 10:08 | Outpatient (CLI) | payer MEDICARE, SELFPAY ==
[2023-01-29 11:25] LABS: HEMOLYSIS < 15 (0-50); Potassium 5.3 mmol/L (3.4-5.1)
== END ==
PROVIDERS: PCP Internal Medicine; Referring Provider Student in an Organized Health Care Education/Training Program; Visit Provider Student in an Organized Health Care Education/Training Program
DX: E87.5 Hyperkalemia (principal)
CPT/HCPCS: 36415; 84132

== ENCOUNTER → 2023-01-30 15:02 | Outpatient (CLI) | payer MEDICARE, SELFPAY ==
[2023-01-30 16:17] LABS: BUN Creatinine Ratio 27.7 (6-22); Blood Urea Nitrogen 44 mg/dL (7-17); Calcium 9.1 mg/dL (8.4-10.2); Carbon Dioxide 22 mmol/L (22-32); Chloride 101 mmol/L (98-107); Estimated Glomerular Filt Rate 31 mL/min (>60); Glucose 106 mg/dL (80-110); HEMOLYSIS < 15 (0-50); Potassium 5.2 mmol/L (3.4-5.1); Sodium 133 mmol/L (137-145)
[2023-01-30 18:36] LABS: Creatinine Urine Random 174.2 mg/dL; Protein (Total) Urine Random 12 mg/dL (0-12); Protein Creatinine Ratio Urine 0.06 GRAM/24H
== END ==
PROVIDERS: PCP Internal Medicine; Referring Provider Student in an Organized Health Care Education/Training Program; Visit Provider Student in an Organized Health Care Education/Training Program
DX: N05.9 Unspecified nephritic syndrome with unspecified morphologic changes (principal); R80.9 Proteinuria, unspecified
CPT/HCPCS: 36415; 80048; 82570; 84156

== ENCOUNTER → 2023-02-06 11:49 | Outpatient (CLI) | payer MEDICARE, SELFPAY ==
[2023-02-06 13:18] LABS: HEMOLYSIS < 15 (0-50); Potassium 3.9 mmol/L (3.4-5.1)
== END ==
PROVIDERS: PCP Internal Medicine; Referring Provider Student in an Organized Health Care Education/Training Program; Visit Provider Student in an Organized Health Care Education/Training Program
DX: E87.5 Hyperkalemia (principal)
CPT/HCPCS: 36415; 84132

== ENCOUNTER 2023-02-25 10:00 | Emergency (ER) | payer MEDICARE, SELFPAY ==
--- NOTE | 2023-02-25 10:09 | DI.US.S_ITS ---
PROCEDURE: US PERIPH VENOUS LOW EXTREM RT INDICATIONS: pain, redness, swelling no injury TECHNIQUE: Real-time imaging, as well as color and pulse Doppler interrogation, were performed of the lower extremity deep veins from the inguinal ligament to the popliteal fossa. COMPARISON: None. FINDINGS: The common femoral, femoral and popliteal veins are normally compressible, and free of intraluminal thrombus. Color and pulse Doppler demonstrate normal phasic intraluminal flow. There is normal augmentation response to distal compression maneuver. Hurst's cyst measuring 37 mm. IMPRESSION: No evidence of right lower extremity DVT. Dictated by: Jaja Mahan M.D. on 02/25/2023 at 10:54 Approved by: Jaja Mahan M.D. on 02/25/2023 at 10:54
[2023-02-25 10:13] VITALS: BP 210/100; PULSE 85; RESP 16; TEMP 37.1; O2SAT 99; BMI 20.5
--- NOTE | 2023-02-25 10:19 | ED_ITS ---
HPI - Skin/Abscess/Foreign Bdy General Chief complaint: Skin/Abscess/Foreign Body Stated complaint: cellulitis, sent by hospital for special care Time Seen by Provider: 02/25/23 10:07 History of Present Illness HPI narrative: 87-year-old female nonsmoker with history of hypertension presents from the walk-in clinic for evaluation of redness and pain to her right lower extremity. She states that her symptoms started over the past 2 days. She denies fever or chills. She's had no injury but does report a small break in the skin that she noted just prior. She denies systemic complaints such as dizziness, weakness or lightheadedness. She has no chest pain or shortness of breath. She denies fever or chills. She denies nausea, vomiting or diarrhea. She denies recent travel, history of clot, known cancer. Related Data Home Medications Medication Instructions Recorded Confirmed ACETAMINOPHEN (#TYLENOL) 500 mg PO PRN ##0 10/30/11 01/17/22 amlodipine 10 mg tablet 10 mg PO DAILY 12/21/21 01/17/22 aspirin 81 mg tablet,delayed 81 mg PO DAILY 12/21/21 01/17/22 release (Adult Aspirin Regimen) evolocumab 140 mg/mL subcutaneous 140 mg SUBCUT Q2W 12/21/21 01/17/22 pen injector (Og Yepezick) levothyroxine 88 mcg tablet 88 mcg PO DAILY 12/21/21 01/17/22 (Synthroid) metoprolol succinate 50 mg 50 mg PO DAILY 12/21/21 01/17/22 tablet,extended release 24 hr sertraline 50 mg tablet (Zoloft) 50 mg PO DAILY 12/21/21 01/17/22 Previous Rx's Medication Instructions Recorded lidocaine 5 % topical patch 1 patch topical DAILY PRN pain #15 03/12/22 (Lidoderm) ea polyethylene glycol 3350 17 17 g PO DAILY PRN constipation 03/12/22 gram/dose oral powder (Miralax) #119 grams simethicone 250 mg capsule 250 mg PO DAILY PRN abdominal 03/12/22 distention/gas #14 caps gabapentin 300 mg capsule 300 mg PO TID #30 caps 12/11/22 oxycodone 5 mg tablet 5 mg PO QID PRN pain #14 tabs 12/11/22 cephalexin 500 mg capsule 500 mg PO Q6H 7 days #28 caps 02/25/23 Allergies Allergy/AdvReac Type Severity Reaction Status Date / Time simvastatin [SIMVASTATIN] Allergy Severe WEAKNESS, Verified 02/25/23 09:35 HAIR LOSS, RASH atorvastatin [ATORVASTATIN] AdvReac Mild MUSCLE Verified 02/25/23 09:35 WEAKNESS Review of Systems Review of Systems Narrative: GENERAL: Denies chills, fatigue, malaise, fever, sweats. HEENT: Denies sinus pain, ear pain, sore throat, difficulty swallowing, dizziness. RESPIRATORY: Denies dyspnea, cough, wheezing, hemoptysis, sputum. CARDIOVASCULAR: Denies chest pain, palpitations, orthopnea, edema, GASTROINTESTINAL: Denies nausea, vomiting, abdominal pain, diarrhea, constipation, melena. : Denies dysuria, frequency, incontinence, hematuria, urinary retention. MUSCULOSKELETAL: denies weakness, joint pain, or bony pain SKIN: See HPI NEUROLOGIC: Denies weakness, headache, numbness, change in speech, confusion, seizures, incoordination. PSYCHIATRIC: No concerning psychosocial issues. 12 point review of systems is negative except for those stated above Patient History Social History Smoking Status: Never smoker Smoking Status: Never smoker alcohol intake frequency: a few times a week Alcohol type: wine Substance Use Type: does not use Exam Narrative Exam Narrative: GEN: AOx3 and in mild distress EYES: Pupils are equal, round, and reactive to light and accommodation. Extraoccular muscles are intact bilaterally. There is no subconjunctival hemorrhage or exudate. CHEST: Lungs are clear to auscultation bilaterally and free of wheezes, rales, or rhonchi. Heart rate is regular rhythm, there are no murmurs, clicks, rubs, or gallops. There is no chest wall tenderness. ABD: Abdomen is soft and nontender. There is no guarding or rebound. Bowel sounds are normal in all 4 quadrants. There is no mass or organomegaly. EXT: Full painless ROM of all extremities with no loss of sensation or strength. SKIN: Warmth and tenderness to skin largely in the posterior calf but with some patchy erythema on the anterior right lower extremity as well. Compartments are soft, no obvious breaks in the skin, no fluctuance, induration or drainage, distal CMS intact Initial Vital Signs Initial Vital Signs: Vital Signs Temperature 98.7 F 02/25/23 10:13 Pulse Rate 85 02/25/23 10:13 Respiratory Rate 16 02/25/23 10:13 Blood Pressure 210/100 H 02/25/23 10:13 Pulse Oximetry 99 02/25/23 10:13 Oxygen Delivery Method Room Air 02/25/23 10:13 Course Orders Ordered: ED Orders 02/25/23 10:09 US periph venous low extrem rt Stat Vital Signs Vital signs: Vital Signs - 8 hr 02/25/23 10:13 Temperature 98.7 F Pulse Rate 85 Respiratory Rate 16 Blood Pressure 210/100 H Pulse Oximetry 99 Oxygen Delivery Method Room Air MDM - Skin/Abscess/Foreign Bdy MDM Narrative Medical decision making narrative: [87] year old patient presents with pain, redness and minimal swelling to right lower extremity in the absence of injury or systemic complaints Multiple etiologies for patient's symptoms considered including, but not limited to: [DVT versus cellulitis versus other] Prior Charts reviewed in our EMR Primary Historian: patient Imaging reviewed: DVT study notes Consultations: discussed with [facility] Provider Patient's symptoms improved over duration of stay with above-stated therapies. Findings and discharge diagnosis discussed with patient/family followed by verbalization of understanding Return precautions discussed with patient/family whom verbalize understanding of diagnosis and plan Discharge Plan Departure Patient Disposition: Home Clinical Impression: Cellulitis, Hurst's cyst Instructions: DI for Cellulitis -- Adult, Hurst Cyst Activity Restrictions/Additional Instructions: *You have been diagnosed with [Right leg cellulitis. As we discussed your history and physical exam are reassuring. The ultrasound doesn't see any evidence of DVT, but there is note of a Bakers Cyst ] *What to do: *Please continue to take your regular medications as directed. [x ] New medication prescriptions sent to your pharmacy: [ [facility]] [ ] New medication written as a paper prescription [ ] No new medications given *Please follow up with your primary care provider in 2-3 days, call for an appointment. Let them know you were seen in the Emergency Department and that we ask that you be seen in follow up. We will electronically transmit a record of today's note if your PCP is in our system *Return to Emergency Department if you should have any new, worsening or concerning symptoms, such as [fever greater than 101 F, shaking chills, worsening pain, persistent vomiting or other bothersome symptoms] Prescriptions: New cephalexin 500 mg capsule 500 mg PO Q6H 7 Days Qty: 28 0RF No Action ACETAMINOPHEN (#TYLENOL) 500 mg PO PRN Qty: 0 levothyroxine [Synthroid] 88 mcg tablet 88 mcg PO DAILY sertraline [Zoloft] 50 mg tablet 50 mg PO DAILY metoprolol succinate 50 mg tablet extended release 24 hr 50 mg PO DAILY amlodipine 10 mg tablet 10 mg PO DAILY aspirin [Adult Aspirin Regimen] 81 mg tablet,delayed release (DR/EC) 81 mg PO DAILY Repatha SureClick 140 mg/mL pen injector 140 mg SUBCUT Q2W simethicone 250 mg capsule 250 mg PO DAILY PRN (Reason: abdominal distention/gas) Qty: 14 0RF polyethylene glycol 3350 [Miralax] 17 gram/dose powder 17 g PO DAILY PRN (Reason: constipation) Qty: 119 0RF lidocaine [Lidoderm] 5 % adhesive patch,medicated 1 patch topical DAILY PRN (Reason: pain) Qty: 15 0RF Rx Instructions: leave on most painful area for up to 12 hrs gabapentin 300 mg capsule 300 mg PO TID Qty: 30 0RF oxycodone 5 mg tablet 5 mg PO QID PRN (Reason: pain) Qty: 14 0RF Referrals: Dao Ordaz MD [Primary Care Provider] - Stand Alone Forms: Patient Portal/API
--- NOTE | 2023-02-25 10:24 | PC.NURSE ---
pt states she had a wound but it has healed. but she started having swelling in her lower leg and redness yesterday. denies new decreased sensation, good pedal pulse palpated. cap refill WNL. able to move toes appropriately. pt does endorse some pain in her calf that started this morning, describes it as a soreness
[2023-02-25 11:39] VITALS: BP 185/81; PULSE 73; RESP 16; O2SAT 99
== END 2023-02-25 11:40 | disposition home or self-care (01) ==
PROVIDERS: Emergency Provider Emergency Medicine; PCP Internal Medicine
DX: L03.115 Cellulitis of right lower limb (principal); M71.21 Synovial cyst of popliteal space [Baker], right knee
CPT/HCPCS: 93971; 99281; 99283

== ENCOUNTER → 2023-03-06 09:46 | Outpatient (CLI) | payer MEDICARE, SELFPAY ==
[2023-03-06 11:06] LABS: Hematocrit 32.1 % (36-46); Hemoglobin 11.1 g/dL (12.0-16.0)
[2023-03-06 11:08] LABS: Creatinine Urine Random 118.3 mg/dL; Protein (Total) Urine Random 25 mg/dL (0-12); Protein Creatinine Ratio Urine 0.21 GRAM/24H
[2023-03-06 11:22] LABS: BUN Creatinine Ratio 24.8 (6-22); Blood Urea Nitrogen 34 mg/dL (7-17); Carbon Dioxide 27 mmol/L (22-32); Chloride 101 mmol/L (98-107); Estimated Glomerular Filt Rate 38 mL/min (>60); Glucose 106 mg/dL (80-110); HEMOLYSIS < 15 (0-50); Potassium 4.5 mmol/L (3.4-5.1); Sodium 137 mmol/L (137-145)
[2023-03-08 08:13] LABS: Parathyroid Hormone Int 41 pg/mL (15-65)
== END ==
PROVIDERS: PCP Internal Medicine; Referring Provider Student in an Organized Health Care Education/Training Program; Visit Provider Student in an Organized Health Care Education/Training Program
DX: R80.9 Proteinuria, unspecified (principal); D64.9 Anemia, unspecified; N25.81 Secondary hyperparathyroidism of renal origin
CPT/HCPCS: 36415; 80048; 82570; 83970; 84156; 85014; 85018

== ENCOUNTER → 2023-04-11 08:11 | Outpatient (CLI) | payer MEDICARE, SELFPAY ==
[2023-04-11 10:09] LABS: Blood Urea Nitrogen 29 mg/dL (7-17); Calcium 9.2 mg/dL (8.4-10.2); Carbon Dioxide 28 mmol/L (22-32); Chloride 102 mmol/L (98-107); Estimated Glomerular Filt Rate 39 mL/min (>60); Glucose 90 mg/dL (80-110); HEMOLYSIS < 15 (0-50); Potassium 4.5 mmol/L (3.4-5.1); Sodium 139 mmol/L (137-145)
[2023-04-11 10:34] LABS: Add Manual Diff / Slide Review NO; Basophils Absolute Auto 0 /uL (0-100); Basophils Percent Auto 0.6 % (0-2); Eosinophils Absolute Auto 0 /uL (0-450); Eosinophils Percent Auto 0.7 % (2-4); Hematocrit 32.2 % (36-46); Hemoglobin 11.1 g/dL (12.0-16.0); Lymphocytes Absolute Auto 1400 /uL (1100-4500); Mean Corpuscular HGB Conc 34.4 % (30-36); Mean Corpuscular Hemoglobin 31.3 PG (26-34); Mean Corpuscular Volume 91.2 fL (80-100); Monocytes Absolute Auto 1400 /uL (0-900); Monocytes Percent Auto 25.3 % (3-14); Neutrophils Absolute Auto 2800 /uL (1500-7000); Neutrophils Percent Auto 49.4 % (50-75); Platelet Count 162 X10^3/uL (150-400); Red Blood Cell Count 3.53 X10^6/uL (4.0-5.2); Red Cell Distribution Width 15.1 % (11.6-14.8); White Blood Cell Count 5.7 X10^3/uL (4.5-11.0)
[2023-04-12 04:38] LABS: x Labcorp Estim. Avg Glu (eAG) 108 mg/dL (.); x Labcorp Hemoglobin A1c 5.4 % (4.8-5.6)
== END ==
PROVIDERS: PCP Family Medicine; Referring Provider Orthopaedic Surgery Orthopaedic Surgery of the Spine; Visit Provider Orthopaedic Surgery Orthopaedic Surgery of the Spine
DX: R73.9 Hyperglycemia, unspecified (principal); Z01.812 Encounter for preprocedural laboratory examination
CPT/HCPCS: 36415; 80048; 83036; 85025

== ENCOUNTER → 2023-04-12 11:14 | Outpatient (CLI) | payer MEDICARE, SELFPAY ==
--- NOTE | 2023-04-12 | DI.CT.S_ITS ---
PROCEDURE: CT CERVICAL SPINE WO CON INDICATIONS: Spinal stenosis, cervical region TECHNIQUE: Noncontrast 3 mm thick sections acquired from the skull base to the T4 level. Sagittal and coronal reformats were then constructed. For radiation dose reduction, the following was used: automated exposure control, adjustment of mA and/or kV according to patient size. COMPARISON: [facility], MR, MR CERVICAL SPINE WO CON, 12/15/2022, 17:51. FINDINGS: Image quality: Excellent. 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 Degenerative at C1-2 pannus results in [id number] central stenosis. At C3-4, there is grade 1 retrolisthesis with posterior disc osteophyte complex and hypertrophic facet joint results in moderate central stenosis. Severe left foraminal stenosis. Anterior cervical discectomy and fusion from C4 through C7 is noted with interbody fusion and facet ankylosis. There is excellent graft incorporation. Anterior plate and screw hardware noted. Grade 2 anterior degenerative subluxation of C7 over T1 moderate central stenosis. Moderate bilateral foraminal stenosis greater on the left Soft tissues: Prevertebral soft tissues are normal in thickness. No paravertebral hematomas. No apical pneumothoraces. IMPRESSION: 1. 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 Multilevel degenerative changes associated with varying degrees of central and foraminal stenosis including moderate central stenosis C3-4 and C7-T1. 3. C4 through C7 anterior and posterolateral instrumented fusion Approved by: Baljit Jacobo M.D. on 04/12/2023 at 17:49
== END ==
PROVIDERS: PCP Family Medicine; Referring Provider Orthopaedic Surgery Orthopaedic Surgery of the Spine; Visit Provider Orthopaedic Surgery Orthopaedic Surgery of the Spine
DX: M47.812 Spondylosis without myelopathy or radiculopathy, cervical region (principal); M48.02 Spinal stenosis, cervical region; M48.03 Spinal stenosis, cervicothoracic region; Z98.1 Arthrodesis status
CPT/HCPCS: 72125

== ENCOUNTER → 2023-04-16 11:59 | Outpatient (CLI) | payer MEDICARE, SELFPAY ==
[2023-04-16 13:43] LABS: BUN Creatinine Ratio 23.3 (6-22); Blood Urea Nitrogen 30 mg/dL (7-17); Carbon Dioxide 27 mmol/L (22-32); Chloride 101 mmol/L (98-107); Estimated Glomerular Filt Rate 40 mL/min (>60); Glucose 108 mg/dL (80-110); HEMOLYSIS < 15 (0-50); Potassium 4.3 mmol/L (3.4-5.1); Sodium 137 mmol/L (137-145)
[2023-04-16 15:09] LABS: Protein (Total) Urine Random 27 mg/dL (0-12); Protein Creatinine Ratio Urine 0.17 GRAM/24H
== END ==
PROVIDERS: PCP Family Medicine; Referring Provider Student in an Organized Health Care Education/Training Program; Visit Provider Student in an Organized Health Care Education/Training Program
DX: N05.9 Unspecified nephritic syndrome with unspecified morphologic changes (principal); R80.9 Proteinuria, unspecified
CPT/HCPCS: 36415; 80048; 82570; 84156

== ENCOUNTER → 2023-04-18 08:23 | Outpatient (CLI) | payer MEDICARE, SELFPAY ==
[2023-04-18 09:39] LABS: Cholesterol 289 mg/dL (140-199); HDL Cholesterol 80 mg/dL (40-60); LDL Cholesterol Calculated 190 mg/dL (<100); Triglycerides 96 mg/dL (35-150)
== END ==
PROVIDERS: PCP Family Medicine; Referring Provider Nurse Practitioner; Visit Provider Nurse Practitioner
DX: E78.5 Hyperlipidemia, unspecified (principal)
CPT/HCPCS: 36415; 80061

== ENCOUNTER → 2023-04-27 | Outpatient (CLI) | payer MEDICARE, SELFPAY ==
--- NOTE | 2023-04-28 02:35 | DI.NM.S_ITS ---
DATE OF SERVICE: 04/27/2023 STUDY: Pharmacological perfusion study. INDICATIONS: Known history of obtuse marginal branch stent in 2010, peripheral vascular disease, hypertension, hyperlipidemia, chest pain. RADIOPHARMACEUTICAL: 26.8 millicurie technetium-99m Myoview IV was injected at stress and 11.9 millicurie technetium-99m Myoview IV was injected at rest. CARDIAC STRESS: The patient underwent IV Lexiscan perfusion study under the supervision of an attending staff as per standard protocol. She remained hemodynamically stable. Blood pressure 135/60. Baseline rhythm was sinus and up to [address] depression in inferior leads, as well as lateral leads with asymmetrical T-wave inversion and slight ST elevation in aVL. During stress, more pronounced ST changes in inferolateral leads. No significant arrhythmias. No chest pain. Minimal dyspnea. RAW DATA: There is a breast shadow seen. GATED STUDY: Resting LV ejection fraction 65 and stress LV ejection fraction 75% without any obvious wall motion abnormalities. Resting end- diastolic volume 78 mL which is within normal limits. TID ratio 1.20. This is a pharmacological perfusion stress test. Lung/heart ratio normal which is 0.29. MYOCARDIAL PERFUSION SCAN: Stress supine, resting supine images were compared to each other. Please note there are no stress prone images. This is a normal myocardial perfusion. Summed rest score and summed stress score zero with difference zero. CONCLUSION: This is a normal myocardial perfusion study with summed rest score and summed stress score zero without any reversible ischemia or infarction pattern. The patient had a perfusion study in 2009. At that time she had significant reversible ischemia in the lateral wall. In this study, I do not see any perfusion defect. Preserved LV function. No significant arrhythmias. Baseline ST-segment changes on EKG. Overall, low-risk myocardial perfusion scan. Alla Reed - [employer]UNDR[employer] W[employer]ER/aneesh/melina doc#: [id number]/job#: [id number] dd: 04/27/2023 17:16:00 dt: 04/28/2023 02:27:00 DICTATING MD/COPIES TO: Reyes Fernando MD COPIES MNE: AUTUMN;
== END ==
LOC: NUCM 07:32
PROVIDERS: PCP Family Medicine; Referring Provider Nurse Practitioner; Visit Provider Nurse Practitioner
DX: I25.10 Atherosclerotic heart disease of native coronary artery without angina pectoris (principal); R94.31 Abnormal electrocardiogram [ECG] [EKG]; R07.9 Chest pain, unspecified; I10 Essential (primary) hypertension; E78.5 Hyperlipidemia, unspecified; I73.9 Peripheral vascular disease, unspecified; Z95.5 Presence of coronary angioplasty implant and graft
CPT/HCPCS: 78452; 93017; A9502; J2785

== ENCOUNTER → 2023-04-30 07:02 | Outpatient (CLI) | payer MEDICARE, SELFPAY ==
--- NOTE | 2023-04-30 | DI.ECHO.S_ITS ---
[facility] +---------+ : : [address] : : : : [id number] : : : : Phone: [phone]---------+ Echocardiogram Report + + :Name: KALE HANSON Study Date: 04/30/2023 Height: 59 in : :[facility] ReadingLocation: Weight: 105 lb : : Gender: Female BSA: 1.4 m2 : :: 1935 Age: 87 yrs BP: 131/69 mmHg: :Reason For Study: ATHEROSCLEROTIC HEART DISEASE : :Ordering Physician: BROOKLYN FORDPerformed By: Jo Saldaña : :Referring: BROOKLYN FORD : + + Interpretation Summary The left ventricle is normal in size. Left ventricular systolic function is normal. The ejection fraction is estimated to be 55-60%. Diastolic parameters suggest a pseudonormalization pattern, consistent with probable elevated filling pressures. This is unchanged compared to the previous study. The right ventricle is normal in size and function. There is mild to moderate mitral regurgitation. Compared to the prior echo study, there has been an increase in the severity of mitral regurgitation. Moderate aortic regurgitation. Previously mild to moderate. There is mild to moderate tricuspid regurgitation. Compared to the prior echo exam, there has been an increase in TR severity. The right ventricular systolic pressure is estimated to be at least 38 mmHg based on an estimated right atrial pressure of 3 mm Hg. Previously 32 mmHg. Mild atherosclerotic plaque(s) in the aortic arch. There is mild luminal irregularity and echogenicity in the abdominal aorta, suggestive of aortic atherosclerotic disease. Procedure: A two-dimensional transthoracic echocardiogram with color flow and Doppler was performed. The study quality was technically adequate. Comparison is made with the echocardiogram of 07/30/2019. The patient was in sinus bradycardia with heart rates between 53-61 bpm during the exam. Left Ventricle: The left ventricle is normal in size. Proximal septal thickening is noted. There is no thrombus. The ejection fraction is estimated to be 55-60%. Left ventricular systolic function is normal. There are no focal wall motion abnormalities. Diastolic parameters suggest a pseudonormalization pattern, consistent with probable elevated filling pressures. This is unchanged compared to the previous study. Right Ventricle: The right ventricle is normal in size and function. The right ventricular systolic function is normal. Atria: The left atrium is severely dilated. The left atrium has remained unchanged in size since the prior echo exam. Right atrial size is normal. There is no Doppler evidence for an interatrial shunt. The interatrial septum bows toward right atrium consistent with elevated left atrial pressure. Mitral Valve: The mitral valve leaflets appear mildly thickened, but open well. The mitral valve leaflets are mildly calcified. There is mild mitral annular calcification. No significant mitral valve stenosis. There is mild to moderate mitral regurgitation. Compared to the prior echo study, there has been an increase in the severity of mitral regurgitation. Aortic Valve: The aortic valve is trileaflet. The aortic valve opens well. The aortic valve is mildly calcified. There is discrete nodular thickening of the right coronary cusp. There is no aortic valve stenosis. There is moderate aortic regurgitation. Compared to the prior echo study, there has been an increase in the severity of aortic regurgitation. Tricuspid Valve: Tricuspid leaflets are thickened. There is mild to moderate tricuspid regurgitation. The right ventricular systolic pressure is estimated to be at least 38 mmHg based on an estimated right atrial pressure of 3 mm Hg. Compared to the prior echo exam, there has been an increase in TR severity. Pulmonic Valve: The pulmonic valve leaflets are thin and pliable; valve motion is normal. There is trace pulmonic regurgitation. Great Vessels: The aortic root is normal size. The dimensions of the ascending aorta are normal. There is mild luminal irregularity and echogenicity in the abdominal aorta, suggestive of aortic atherosclerotic disease. Mild atherosclerotic plaque(s) in the aortic arch. The IVC is of normal diameter and collapses greater than 50% with a sniff. This suggests a low right atrial pressure of 3 mm Hg. Pericardium/ Pleura There is no pericardial effusion. There is no pleural effusion. MMode/2D Measurements & Calculations LVIDd: 5.1 cm LVOT diam: 2.0 cm LVIDs: 3.8 cm Ao root diam: 2.9 cm FS: 25.6 % asc Aorta Diam: 3.1 cm EPSS: 0.81 cm Ao Arch Diam (Prox Trans): 2.3 cm IVSd: 0.79 cm LVPWd: 0.74 cm LV bell. diameter/BSA (cm/m^2): 3.7 LV sys. diameter/BSA (cm/m^2): 2.7 LA A2 area: 22.0 cm2 RA long axis: 4.2 cm LA A4 area: 18.5 cm2 RA area: 11.7 cm2 LA length (vol): 5.0 cm RA vol: 27.7 ml LA vol: 69.6 ml RA : 19.8 ml/m2 LA vol index: 49.7 ml/m2 IVC diam: 1.2 cm RVD1 (basal): 3.3 cm RVD2 (mid): 2.7 cm TAPSE: 1.9 cm Doppler Measurements & Calculations Ao V2 max: 112.4 cm/sec LVOT Max Colton: 73.1 cm/sec Ao V2 mean: 80.8 cm/sec LV V1 max P.1 mmHg Ao max P.1 mmHg LV V1 VTI: 18.6 cm Ao mean P.8 mmHg ALEJANDRO(I,D): 2.0 cm2 Ao V2 VTI: 29.8 cm ALEJANDRO(V,D): 2.1 cm2 sev ratio: 0.62 ALEJANDRO indexed to BSA (cm^2/m^2): 1.4 AI P1/2t: 542.3 msec AI dec slope: 219.1 cm/sec2 MV E max colton: 101.3 cm/sec TR max colton: 295.9 cm/sec MV A max colton: 82.9 cm/sec TR max P.0 mmHg MV E/A: 1.2 PA V2 max: 82.0 cm/sec Med Peak E' Colton: 4.6 cm/sec PA V2 mean: 60.1 cm/sec E/E' med: 21.9 PA mean P.6 mmHg Lat Peak E' Colton: 5.3 cm/sec PA pr(Accel): 32.8 mmHg E/E' lat: 19.2 E/e' average: 20.5 MV dec time: 0.21 sec SV(LVOT): 59.0 ml Reading Physician:04:22 PM
== END ==
PROVIDERS: PCP Family Medicine; Referring Provider Nurse Practitioner; Visit Provider Nurse Practitioner
DX: I70.0 Atherosclerosis of aorta (principal); I25.10 Atherosclerotic heart disease of native coronary artery without angina pectoris; I08.3 Combined rheumatic disorders of mitral, aortic and tricuspid valves; R94.31 Abnormal electrocardiogram [ECG] [EKG]
CPT/HCPCS: 93306

== ENCOUNTER 2023-05-02 13:18 | Inpatient (IN) | payer MEDICARE, SELFPAY ==
[2023-04-26 07:26] VITALS: BMI 20.5
[2023-05-02] VITALS (12 sets, daily range): BP systolic 126–173; BP diastolic 48–71; PULSE 66–85; RESP 12–16; TEMP 35.3–36.4; O2SAT 93–99; BMI 20.5
--- NOTE | 2023-05-02 13:59 | PM.PREOP ---
Pre-operative Note COVID-19 Criteria for continued procedure: Expected advancement of disease process, Possibility delay results in more complex future surgery or treatment, Increased loss of function, Continuing or worsening of significant or severe pain, Deterioration of the patient's condition or overall health and Delay expected to result in less-positive ultimate med/surg outcome Interval Note History & Physical reviewed/Exam performed by Physician: Yes Changes to H&P: No
[2023-05-02] MEDS: LACTATED RINGERS 1,000 ML 100 ML IV (14:21)
--- NOTE | 2023-05-02 14:42 | PC.NURSE ---
Day shift: Pt not in room 206 at this time.
[2023-05-02] MEDS: CEFAZOLIN 2 GM/100 ML PREMIX 100 ML IV ×2 (15:00→23:24)
--- NOTE | 2023-05-02 15:21 | SUR.OPER ---
Supine, head on gel donut. Arms padded with gel pads, tucked at sides, towel roll under shoulders. Safety belt at thigh. Legs uncrossed.
[2023-05-02] MEDS: BUPIVACAINE 0.25% W/ EPI (PF) 10 ML VIAL INJ (16:10)
--- NOTE | 2023-05-02 16:18 | SUR.OPER ---
2 screws placed from a previous surgery were removed from cervical spine. Unable to identify information regarding type of screws.
--- NOTE | 2023-05-02 16:44 | DI.RAD.S_ITS ---
PROCEDURE: XR CERVICAL SPINE 2V OR 3V INDICATIONS: C6-7 ACDF TECHNIQUE: 3 view(s) of the cervical spine were acquired. COMPARISON: None. FINDINGS: Bones: Limited views of the cervical spine status post ACDF which appears to span from C4 through C7, correlate with surgical history. Soft tissues: No prevertebral soft tissue swelling. IMPRESSION: Limited views of the cervical spine status post ACDF. No acute fractures. The hardware appears intact. Dictated by: Rell Stern M.D. on 05/02/2023 at 16:53 Approved by: Rell Stern M.D. on 05/02/2023 at 17:00
--- NOTE | 2023-05-02 16:46 | PM.OP.1 ---
Operative Date/Time/Diagnoses Date of procedure: 05/02/23 Time of procedure: 14:00 Pre-op diagnosis: 1. C6-7 spondylolisthesis 2. 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 History of C3-6 ACDF with retained hardware Post-op diagnosis: same Procedure & Clinicians Procedure: 1. C6-7 anterior cervical diskectomy and fusion 2. C6-7 anterior interbody cage placement 3. C6-7 anterior instrumentation with plate and screw placement in C6 and C7 vertebrae 4. C6 anterior instrumentation removal 5. Utilization of microsurgical technique and operating microscope Same procedure as scheduled: Yes Indications: Patient has been having chronic neck pain and worsening cervical radiculopathy. Patient had prior cervical fusion surgery almost 20 years ago with retained hardware. Patient failed multiple conservative management with worsening pain weakness and numbness in her upper extremity. Patient has been having difficulty performing activity of daily living. After discussing risks benefits of treatment options, patient elected proceed with surgery. Surgeon: Angie Tatum Boiler/Chiller Operator: Petty Mar Click Yes if Unassisted: No Anesthesia Type: General Operative Notes Closure Type: primary Specimen(s): none sent Prosthetic devices, grafts, tissues, transplants, or devices: Globus Hedron IC interbody cage and plate system Estimated Blood Loss (mL): 10 Procedure in detail: Patient was seen in the preoperative area. Risks and benefits of the surgery was discussed with the patient. Informed consent was obtained from the patient and placed in the chart. Surgical site was marked. Patient was taken to the operative room. General anesthesia was administered. Prophylactic antibiotic was given to the patient less than 30 min before the incision was made. Patient was placed into a supine position on a radiolucent table. Patient's shoulders were taped down to allow proper C-arm imaging. Anterior cervical area was prepped and draped in a sterile fashion. Time-out was performed at this time. Using lateral C-arm imaging, the level between C6 and C7 was identified and marked on patient's neck. A oblique incision from midline towards medial border of sternocleidomastoid muscle was made. The platysma muscle was incised in line with skin incision. Metzenbaum scissor was used to develop the plane between the medial border of sternocleidomastoid d and the strap muscles medially. The carotid sheath and its contents were identified and protected behind the hand-held retractor during the entire case. The plane between the carotid sheath and strap muscles was developed with Metzenbaum scissors. Dissection was made down to the level of the anterior cervical fascia. Longus colli muscle was incised on the anterior aspect of vertebral bodies bilaterally from C6-C7. Spinal needle was placed into the C6-7 disc space and confirmed with lateral C-arm imaging. During the dissection that was identified patient had significant scar tissue in the fascial plane near the longus colli muscle due to prior hardware placement at C3-C6 level. Careful dissection was made to free up the plane in front of the longus colli muscle at C6-7 interval. The inferior edge of the previous plate metal plate was identified and the interbody space at C6-7 was identified just inferior to the edge of the plate. Using microsurgical technique and operative microscope, anterior cervical diskectomy was performed at C6-7 level. This was done by removing the disc material, removing the anterior and posterior osteophytes posterior longitudinal ligaments along with performing bilateral foraminotomies at the C6-7 levels. Patient was found to have severe foraminal stenosis. Patient's stenosis was fully decompressed after decompression was completed. After the diskectomy was completed, an anterior interbody cage was obtained. The cage was packed with DBM bone grafting material. One cage each along with the bone grafting material was then packed into the interbody space at C6-7 along with an anterior cervical plate. The cervical plate was stabilized to the C6-C7 vertebrae using 2 screws. After confirming placement of the hardware with AP and lateral C-arm imaging, the screws were locked into the plate using the locking mechanism and torque limiting screwdriver. During the placement of the C6 screw, it was identified there was previously placed hardware impeding the advancing of the C6 screw from the prior fusion surgery. At this time the C6 screws in the previous placed plate from the C3-C6 fusion was removed using a Carvajal head screwdriver. The hardware was removed without any difficulty. The screw holes were filled with bone wax to prevent bleeding. After the removal of the C6 screws, then new interbody cage and plate combination was able to be secured using the C6 screw without any difficulty. Good purchase was obtained using the C6 and C7 screw as well as the plate and cage combination. A MINE drain was placed deep to the platysma muscle superficial to the hardware placed. And the drain was sewn to the skin using a 3-0 nylon suture. After the hardware was placed and confirmed with AP and lateral C-arm imaging, the wound was irrigated with sterile normal saline. The platysma muscle and the subcutaneous tissue was closed with 2-0 Vicryl. The skin was closed with 4-0 Monocryl and Steri-Strips. Patient tolerated the procedure well. Patient was transferred recovery room in stable condition. There were no complications. Complications: none Post-operative Condition: stable Disposition: PACU Plan for aftercare: Admit to inpatient hospital
--- NOTE | 2023-05-02 17:42 | PC.NURSE ---
Day shift: Pt in room from PACU at approx 1740. VS WNL. 2L NC 97%. Tolerating SCD's. A&Ox4. Denies any pain or nausea. Oriented to room and call light. Family member in room for support. MINE drain patent and to suction with scant serosang output. CMS intact. Dressing CDI.
[2023-05-02] MEDS: LACTATED RINGERS 1,000 ML 75 ML IV (18:27)
[2023-05-02] MEDS: LEVOTHYROXINE 88 MCG TABLET PO (20:11)
[2023-05-02] MEDS: hydrOXYzine pamoate 25 MG CAPSULE PO (20:11)
[2023-05-02] MEDS: SENNOSIDES 8.6 MG TABLET 17.2 MG PO (20:11)
[2023-05-02] MEDS: METOPROLOL ER 50 MG TABLET PO (20:11)
[2023-05-02] MEDS: DOCUSATE 100 MG CAPSULE PO (20:11)
[2023-05-03 00:35] VITALS: BP 134/55; PULSE 77; RESP 16; TEMP 36.3; O2SAT 95
[2023-05-03] MEDS: CEFAZOLIN 2 GM/100 ML PREMIX 100 ML IV (06:40)
[2023-05-03 08:21] VITALS: BP 135/59; PULSE 76; RESP 17; TEMP 36.1; O2SAT 96
[2023-05-03] MEDS: AMLODIPINE 5 MG TABLET 10 MG PO (08:48)
[2023-05-03] MEDS: DOCUSATE 100 MG CAPSULE PO (08:48)
[2023-05-03] MEDS: SERTRALINE 50 MG TABLET PO (08:48)
--- NOTE | 2023-05-03 09:28 | P.DS_ITS ---
History of Present Illness History of Present Illness Date Patient Seen: 05/03/23 Time Patient Seen: 09:28 Chief complaint: Neck pain Narrative: Patient's pain is mild. Denies fever or chills. No nausea or vomiting. No shortness of breath or chest pain. No difficulty swallowing. Discharge Providers Provider Date of admission: 05/02/23 13:18 Discharge Date: 05/03/23 Primary care physician: Homer Laureano DO Consults: 05/02/23 17:35 Consult to Occupational Therapy Evaluate & Treat Comment: Physician Instructions: Evaluate and treat Consult to Physical Therapy Evaluate & Treat Comment: Physician Instructions: Evaluate and Treat Discharge provider: Manish Schmitt PA-C Summary Hospital Course Discharge Diagnosis: 1. C6-7 spondylolisthesis 2. 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 History of C3-6 ACDF with retained hardware Hospital Course: 1.? C6-7 anterior cervical diskectomy and fusion 2. C6-7 anterior interbody cage placement 3.? C6-7 anterior instrumentation with plate and screw placement in C6 and C7 vertebrae 4. C6 anterior instrumentation removal 5.? Utilization of microsurgical technique and operating microscope Same procedure as scheduled: Yes Indications: Patient has been having chronic neck pain and worsening cervical radiculopathy.? Patient had prior cervical fusion surgery almost 20 years ago with retained hardware. Patient failed multiple conservative management with worsening pain weakness and numbness in her upper extremity.? Patient has been having difficulty performing activity of daily living.? After discussing risks benefits of treatment options, patient elected proceed with surgery. Surgeon: Angie Tatum Family Preservation Officer: Petty Mar Click Yes if Unassisted: No Anesthesia Type: General Operative Notes Closure Type: primary Specimen(s): none sent Prosthetic devices, grafts, tissues, transplants, or devices: Globus Hedron IC interbody cage and plate system Estimated Blood Loss (mL): 10 Patient admitted to the hospital for the above-mentioned procedure. Patient consented to the same. Patient underwent cervical fusion May 02, 2023. Patient back in her room recovering well as in stable condition. Patient does have a drain in place. 35 mL reported last shift. Drain output needs to be under 20 mL per shift prior to discharging drain and DC home. Patient will mobilize with physical therapy. Multimodal pain management. Soft collar for comfort. Discharge likely home today pending drain output inability to work with physical therapy. Exam Vital Signs (past 8 hours): - 05/03/23 08:21 Temperature 97.0 F L Pulse Rate 76 Respiratory Rate 17 Blood Pressure 135/59 L Pulse Oximetry 96 Oxygen Flow Rate 0 Oxygen Delivery Method Nasal Cannula Oxygen Flow Rate 0 Narrative Exam Narrative: 87-year-old female resting comfortably in bed in no apparent distress. Soft collar in place. Dressing Clean, dry, intact.. Drain in place with approximately 10 mL of serosanguineous fluid. Motor functions intact bilateral upper extremities. She has 5/5 strength bilateral upper extremities. Sensation grossly intact to light touch bilateral upper extremities. Const General: cooperative and comfortable Nutritional Appearance: average body habitus Orientation: alert Resp Effort & Inspection: normal respiratory effort and able to speak in complete sentences [facility] Medical History Cataracts, bilateral Cervical spine disease Chicken pox (~1949) CKD (chronic kidney disease) Coronary artery disease (~2009) Coronary atherosclerosis Decreased mobility Depression Fibroids (~1993) Hearing loss (~1999) History of claudication History of COVID-19 (12/2022) History of TIA (transient ischemic attack) Hyperkalemia Hyperlipidemia (~1989) Hypertension Hypothyroidism (~1997) Kidney disorder (~2021) Lumbar disc disease (~2002) Measles (~1959) Melanoma (~10/2022) Neuropathy Nonrheumatic aortic (valve) insufficiency Osteoarthritis (~1989) Peripheral neuropathy Polymyalgia rheumatica (~2004) PVD (peripheral vascular disease) Ruptured tympanic membrane Skin cancer (~2021) Statin not tolerated Tinnitus Wears glasses Surgical History Anesthesia History of cataract removal with insertion of prosthetic lens History of dilatation and curettage (~12/2002) History of ear surgery (~2011) History of eye surgery (~2012) History of laminectomy (~07/2015) History of laminectomy (~02/26/04) History of laminectomy (~03/08/03) History of left knee replacement (~03/2015) History of right hip replacement (~11/09/03) S/P coronary artery stent placement (~2009) Family History Father No problems noted. Mother Cancer Grandfather Diabetes mellitus Grandfather Parkinson's disease Social History household members: none Smoking Status: Never smoker alcohol intake: current Discharge Assessment & Plan Assessment and Plan Assessment: Patient progressing as expected status post C6-C7 anterior cervical diskectomy and fusion Plan of Treatment: Multimodal pain management Discontinue drain after output less than 20 mL Mobilize with physical therapy, limit lifting, twisting, twisting Soft collar for comfort Discharge home today likely but pending drain output. Discharge Plan Discharge Plan Patient Disposition: Home Discharge orders & Medications Prescriptions: New acetaminophen 325 mg Tablet 650 mg PO Q6H PRN (Reason: Fever/Mild Pain (1-3)) Qty: 60 0RF polyethylene glycol 3350 17 gram Powder In Packet 17 g PO DAILY PRN (Reason: Constipation) Qty: 30 0RF oxycodone 5 mg tablet 5 mg PO Q4H PRN (Reason: pain) Qty: 40 0RF Continued levothyroxine [Synthroid] 88 mcg tablet 88 mcg PO BEDTIME sertraline [Zoloft] 50 mg tablet 50 mg PO DAILY metoprolol succinate 50 mg tablet extended release 24 hr 50 mg PO BEDTIME amlodipine 10 mg tablet 10 mg PO DAILY aspirin [Adult Aspirin Regimen] 81 mg tablet,delayed release (DR/EC) 81 mg PO BEDTIME Repatha SureClick 140 mg/mL pen injector 140 mg SUBCUT Q2W sodium polystyrene sulf-sorbtl 15-20 gram/60 mL Suspension 60 ml PO Q OTHER DAY Discontinued acetaminophen 650 mg Tablet Extended Release 650 mg PO BID Qty: 0 Follow up/Referrals: Angie Tatum MD [Physician] - As previously scheduled (Follow up with Petty Mar PA-C, on 05/16/2023 @ 4:00 pm at [facility] office in [place].) Homer Laureano DO [Primary Care Provider] - Diet/Activity/Treatments Diet: Diet as Tolerated Diet comment: It is normal to have a sore throat and some discomfort with swallowing. Activity: Soft collar for comfort; recommend wearing when you are sitting for long periods of time or up walking around. May take off to eat, shower, and sleep, although some people feel more comfortable wearing it while sleeping. No lifting more than 10 pounds. Cold/Heat Therapy: Heating pad to back of neck and between shoulder blades as needed for pain. Skin/Wound/Dressing Care Report to your healthcare provider any signs of infection, such as:: chills, fever, night sweats, unusual drainage and unusual redness Dressing: May shower. If dressing becomes wet inside, may remove but leave steri-strips in place until follow up in office. Visit Report/Discharge Packet Instructions: DI for Prescription Opioid Use, DI for Anterior Cervical Discectomy and Fusion Stand Alone Forms: Patient Portal/API, Stroke Signs & Symptoms, Surgery Disch arge Discharge Data Primary Care Provider: Homer Laureano
--- NOTE | 2023-05-03 10:38 | CM.DANOTE ---
DCP Assessment Note: Patient is a 87yo F here following a planned neck surgery with Dr. Tatum on 05/02. PCP: Dr. Laureano Payer: [facility] and self pay BOOM CONVEYOR OPERATOR reviewed EMR. Per nursing staff, patient seems to be doing well. BOOM CONVEYOR OPERATOR entered room and introduced self and role. Patient was sitting up in bed and appeared A/Ox4. Patient reports she lives alone and is independent at baseline. She drives and occasionally uses a cane. Patient has one step with a rail to get into her house and has grab bars/shower equipment at home. Patient's daughter/DPOA Tara ([phone]) and her AIME are coming to stay with her for a bit following her surgery. Daughter is an OT and patient feels supported with her to care for her at home. PT/OT evals are pending. Plan: Pending clearance from OT/PT, patient will d/c home today with her daughter/AIME in POV. CM team will continue to follow as needed. PAO Goldman Discharge Planning/Care Management CM Discharge Assessment Start: 05/03/23 10:35 Freq: Status: Active Protocol: Document 05/03/23 10:36 SL (Rec: 05/03/23 10:38 [id number]) Discharge Planning Assessment Assigned Rn Neonatal Icu PAO Lanza/Assigned Designee Name Tara Brasher (daughter) Contact Information [phone] Advance Directives? Yes Advance Directives on File No History Provided By Patient,Medical Record Prior Living Arrangements House Household Members none Comment daughter and AIME coming to stay with her for the next week or so Type of transporation used prior to Drives own vehicle admit Independent with ADL's Yes Is patient alert and oriented? Yes DME Already Rented / Owned Bath Bench,Cane Comment grab bars in shower seat, rail on one step into house Barriers to Discharge No Discharge Plan Home Transportation Arrangement daughter in POV Whiteboard Updated in Patient Room with Yes name and ext. # of Rn Neonatal Icu Review Status In Process Next Review Type Continued Stay Review Pre-Anesthesia Assessment Start: 04/25/23 13:58 Freq: Status: Complete Protocol: Document 04/26/23 07:26 CAB (Rec: 04/25/23 14:37 CAB [id number]) Pre-Anesthesia Assessment Patient Information Reviewed Via Phone Assessment Assessment Completed With Patient Primary Care Provider Derrek Dunaway Seen Specialist in Last 12 Months Yes Specialist Seen Precinct Commanding Officer,Pattern Chart Writer, Colorectal Surgeon Comment Nephrology visit 04/18/23 scanned Primary Language Czech Pattern Chart Writer Required No Height 152.4 cm Weight 47.627 kg Body Mass Index (BMI) 20.5 Hearing Ability Hearing Impaired,Use of Hearing Aid Visual Assist Glasses Barriers to Learning Auditory Hx Anesthesia Reactions No Hx Family Anesthesia Reaction No Hx Malignant Hyperthermia No Hx Blood Transfusions Yes: s/p hip surgery Hx Blood Transfusion Reaction No Anesthesia Review Requested No Operations Supervisor Chemical Cleaning No alcohol intake current alcohol intake frequency a few times a week Smoking Status Never smoker Substance Use Type does not use Pain Present Pain Reported Musculoskeletal Symptoms Abnormal Gait,Difficulty Walking,Limited Range of Motion,Neck Pain History of Falling (Recent or History of No ) Patient is completely paralyzed or No completely immobile Prosthesis or Orthotic Device Cane Mental Status Oriented to own ability Is patient on oxygen? No Does patient have IVERSON/SOB No Hx Sleep Apnea No Currently Taking a Beta Elijah Yes: Metoprolol Can You Climb a Flight of Stairs Without No SOB Hx Chest Pain No Hx SOB No Hx Syncope or Dizziness No Has a Precinct Commanding Officer Yes: Visit 04/11/23 scanned Precinct Commanding Officer name Dr. Souza Cardiac Testing Yes Hx Pacemaker/ICD No Pacemaker Rep Required? No Cardiac Clearance Received Yes Comment Cardiac records scanned Diet Type At Home Regular Dysphagia Yes: Big pills Gastrointestinal Symptoms Constipation Chronic UTI No Urinary Catheter Present No Hx Urinary Self Catheterization No Diabetes No Patient No Lactating No Presence of External or Internal Medical Yes: Right hip, left knee, Devices cardiac stent Received a COVID vaccine? Yes Received all doses? Yes Marital Status / Lives With none Current Living Arrangements House Number of Floors (Floors) One Floor Number of Stairs To Enter/Railing? 1 Support System Child/Children Comment Daughter will stay w/pt at DC to assist with care Does the Patient Have Assistance After Yes Surgery Patient Discharge Plan Description Return Home Comment Pt not advised on length of stay per surgeon Feels Safe in Current Environment Yes Been Physically Hurt or Threatened By a No Person in Current Environment Do you have thoughts of harming yourself None or others? Are you currently considering suicide? No Do you have a plan to hurt yourself or No Plan others? Do You Have Any Spiritual Beliefs That No May Affect Your HC Choices? Do You Have Any Cultural Practices That No May Affect Your HC Choices? Comment Jehovah'S Witness Who Can We Speak to About Patient's Care Family, friends Identifying Code for Release of Patient Declines to issue Information Health Care Proxy/Next of Kin Tara Brasher (daughter) Health Care Proxy Emergency Contact Name Tara Brasher (daughter) Emergency Contact Advance Directives? Yes Advance Directives on File No Requested Patient Bring Advanced Yes Directives DOS Power of Moving Worker Yes Power of Moving Worker Name Tara Brasher (chai) Power of Moving Worker PAC Instructions Medications to take/avoid, Nasal antibiotic,No ETOH/ petroleum product on skin DOS, NPO,Pre-surgical wash,Sensory aids,Sturdy shoes/comfortable clothes,Do not bring valuables and remove jewelry
--- NOTE | 2023-05-03 10:41 | PT.IIE ---
Current Diagnoses Spondylolisthesis, cervical region (05/02/23) Spinal stenosis, cervical region (05/02/23) Surgery Performed Operation Date: 05/02/23 15:15 Actual Procedures p C6-7 ACDF w. anterior instrumentation - Angie Tatum MD Surgical History (Last Reviewed 05/03/23 @ 09:31 by Manish Schmitt PA-C) Anesthesia History of cataract removal with insertion of prosthetic lens History of dilatation and curettage (~12/2002) History of ear surgery (~2011) History of eye surgery (~2012) History of laminectomy (~07/2015) History of laminectomy (~02/26/04) History of laminectomy (~03/08/03) History of left knee replacement (~03/2015) History of right hip replacement (~11/09/03) S/P coronary artery stent placement (~2009) Medical History (Last Reviewed 05/03/23 @ 09:31 by Manish Schmitt PA-C) Cataracts, bilateral Cervical spine disease Chicken pox (~1949) CKD (chronic kidney disease) Coronary artery disease (~2009) Coronary atherosclerosis Decreased mobility Depression Fibroids (~1993) Hearing loss (~1999) History of claudication History of COVID-19 (12/2022) History of TIA (transient ischemic attack) Hyperkalemia Hyperlipidemia (~1989) Hypertension Hypothyroidism (~1997) Kidney disorder (~2021) Lumbar disc disease (~2002) Measles (~1959) Melanoma (~10/2022) Neuropathy Nonrheumatic aortic (valve) insufficiency Osteoarthritis (~1989) Peripheral neuropathy Polymyalgia rheumatica (~2004) PVD (peripheral vascular disease) Ruptured tympanic membrane Skin cancer (~2021) Statin not tolerated Tinnitus Wears glasses Physical Therapy Inpatient Evaluation/Re-Eval M1 PT/OT-IP Prior Functional Status Start: 05/03/23 13:53 Freq: NEEDED Status: Active Protocol: Document 05/03/23 10:41 AB (Rec: 05/03/23 14:08 AB [id number]) Medical Review Prior Functional Status Medical History Reviewed Yes Communication agreeable to do PT Mobility and Gait pt stated that she is independent iwht all mobilities and ambulation without AD indoors, uses a SPC for outdoor mobility. pt still able to drive Social History Household Members none Living Arrangements House Number of Floors (Floors) One Floor Number of Stairs To Enter/Railing? 1 step L rail ascending Home Environment Standard Height Toilet,Walk in Shower Home Equipment Front Wheel Walker,Straight Cane,Grab Bars In Shower Additional Social History Comment daugther will be staying with pt to assist as long as pt needs M2 PT-IP Current Condition Start: 05/03/23 13:53 Freq: NEEDED Status: Active Protocol: Document 05/03/23 10:41 AB (Rec: 05/03/23 14:08 AB [email or web address]) Physical Therapy Current Condition Current Condition Evaluation Date 05/03/23 Treatment Diagnosis s/p C6-7 ACDF; difficulty in walking Onset Date 05/02/23 M3 PT-IP Subjective Start: 05/03/23 13:53 Freq: NEEDED Status: Active Protocol: Document 05/03/23 10:41 AB (Rec: 05/03/23 14:08 AB [email or web address]) Subjective Physical Therapy Visit Type Type Initial Evaluation Visit Start Time 10:41 Visit Stop Time 11:18 Total Visit Minutes 37 Number of HOUSING ASSISTANT 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 MANAGER Visits 0 Physical Therapy Visit Comments Patient Comments agreeable to do PT Therapy Pain Assessment Pain Present Pain Present Denied Pain M4 PT-IP Mobility and Gait Start: 05/03/23 13:53 Freq: NEEDED Status: Active Protocol: Document 05/03/23 10:41 AB (Rec: 05/03/23 14:08 AB [email or web address]) PT-Bed Mobility Assessment Rolling Type of Rolling Log Rolling Level of Assist Standby Assistance Supine to Sit Supine to Sit Standby Assistance PT-Transfer Assessment Sit to and From Stand Sit to and from Stand Standby Assistance,Contact Guard Assistance,1 Person Assistance,Use of Upper Extremities Equipment Transfer Assistive Device Gait Belt,Straight Cane Orthotic/Prosthetic Devices or Brace: No Transfers Transfer Destination Chair Transfer Technique ambulated Transfer Ability Level of Assist Contact Guard Assistance,1 Person Assistance,Use of Upper Extremities Comments Mobility Comments pt supine in bed and daughter in room with pt. educated pt and daughter regarding pt's cervical precautions and log roll bed mobility. completed log roll supine to sit SBA with cues. able to sit on EOB SBA. educated pt and daughter regarding cervical collar management. completed sit to stand CGA and ambulated using SPC ~ 30 ft CGA. presents with unsteady antalgic gait. pt sat on chair. assess ambulation using FWW and completed ~ 30 ft SBA. pt stated that she feels steadier with FWW. pt completed up/down step using FWW CGA. pt sat back on the chair. OT took over pt's care. Gait Assessment Gait Gait Assistance Required: Standby Assistance,Contact Guard Assist Distance (Feet) 30 Able to Maintain Weight Bearing Status Yes During Gait Assistive Devices Assistive Device Gait Belt,Straight Cane,Front Wheeled Walker Gait Deviations General Gait Pattern Antalgic,Decreased Stride Length,Decreased Feet Clearance Factors Limiting Gait Function Factors Limiting Gait Function Decreased Activity Tolerance, Decreased Strength,Limited Range of Motion,Poor Balance Stair Climbing Assessment Evaluation Level of Assist On Stairs Contact Guard Assistance Devices Stair Climbing Assistive Devices Front Wheel Walker Technique/Endurance Stair Climbing Direction Ascend and Descend Stair Climbing Technique Step to Step Number of Steps Climbed 1 Query Text: Stair Climbing Set # Repetitions (reps) 1 PT-Balance Assessment Sitting Balance and Reactions Static Sitting Balance Ability Normal Dynamic Sitting Balance Ability Good Standing Balance and Reactions Static Standing Balance Ability Good Dynamic Standing Balance Ability Fair Device Used FWW M5 PT-IP Objective Assessments Start: 05/03/23 13:53 Freq: NEEDED Status: Active Protocol: Document 05/03/23 10:41 AB (Rec: 05/03/23 14:08 AB [email or web address]) Orientation Orientation/Cognition Level of Alertness Alert Orientation Name,Place,Situation Safety Awareness Decreased Safety Awareness Gross Range of Motion Lower Extremity ROM Assessment Within Functional Limits Strength Lower Extremity Strength Assessment Within Functional Limits Muscle Tone Muscle Tone WNL Yes M6 PT-IP Treatment Start: 05/03/23 13:53 Freq: NEEDED Status: Active Protocol: Document 05/03/23 10:41 AB (Rec: 05/03/23 14:08 AB [email or web address]) Physical Therapy Treatment Education Education Provided Precautions,Weight Bearing Status,Post-Op Packet,Safety M7 PT-IP Assessment and Plan Start: 05/03/23 13:53 Freq: NEEDED Status: Active Protocol: Document 05/03/23 10:41 AB (Rec: 05/03/23 14:08 AB [email or web address]) PT Summary Assessment and Plan Potential Rehabilitation Potential Good Status of Condition at Evaluation Stable Summary Impairments Pain,ROM,Strength,Balance, Coordination,Sensation,Tone, Cognition,Bed Mobility, Transfers,Gait,Activity Tolerance Assessment Summary pt s/p C6-7 ACDF POD1. pt requiring CGA with ambulation using SPC but requires SBA using FWW. recommending use of FWW at this time. pt will have her daughter assist her at home and will stay as long as needed. pt may go home when medically stable. Goals Bed Mobility Goal Independent Transfer Goal Independent,Front Wheeled Walker Gait Goal Independent,Front Wheel Walker Gait Distance 250 Other Goals improve transfers and ambulation using SPC/ without AD 200 ft mod I Days to Meet Goals 5 Frequency of Treatment Frequency Of Treatment Twice a Day Treatment Plan Physical Therapy Treatment Plan Bed Mobility Training,Transfer Training,Gait Training, Therapeutic Exercise,Balance Retraining,Post Op Education, Discharge Planning,Hot or Cold Pack,Neuromuscular Re-ed, Coordination Retraining,Manual Therapy Precautions Cervical Spine Precautions Soft Collar for Comfort,No Heavy Lifting,Log Roll Recommendations To Nursing Amount of Assist Needed 1 Person Assist Discharge Recommendations PT Discharge Recommendations Home with Assistance Transportation Needs at Discharge Private Vehicle
--- NOTE | 2023-05-03 11:40 | OT.IP.EVAL ---
Current Diagnoses Spondylolisthesis, cervical region (05/02/23) Spinal stenosis, cervical region (05/02/23) Surgery Performed Operation Date: 05/02/23 15:15 Actual Procedures p C6-7 ACDF w. anterior instrumentation - Angie Tatum MD Past Medical History (Last Reviewed 05/03/23 @ 09:31 by Manish Schmitt PA-C) Cataracts, bilateral Cervical spine disease Chicken pox (~1949) CKD (chronic kidney disease) Coronary artery disease (~2009) Coronary atherosclerosis Decreased mobility Depression Fibroids (~1993) Hearing loss (~1999) History of claudication History of COVID-19 (12/2022) History of TIA (transient ischemic attack) Hyperkalemia Hyperlipidemia (~1989) Hypertension Hypothyroidism (~1997) Kidney disorder (~2021) Lumbar disc disease (~2002) Measles (~1959) Melanoma (~10/2022) Neuropathy Nonrheumatic aortic (valve) insufficiency Osteoarthritis (~1989) Peripheral neuropathy Polymyalgia rheumatica (~2004) PVD (peripheral vascular disease) Ruptured tympanic membrane Skin cancer (~2021) Statin not tolerated Tinnitus Wears glasses Surgical History (Last Reviewed 05/03/23 @ 09:31 by DANIEL Arita-C) Anesthesia History of cataract removal with insertion of prosthetic lens History of dilatation and curettage (~12/2002) History of ear surgery (~2011) History of eye surgery (~2012) History of laminectomy (~07/2015) History of laminectomy (~02/26/04) History of laminectomy (~03/08/03) History of left knee replacement (~03/2015) History of right hip replacement (~11/09/03) S/P coronary artery stent placement (~2009) Occupational Therapy Inpatient Evaluation/Re-Eval M1 PT/OT-IP Prior Functional Status Start: 05/03/23 13:53 Freq: NEEDED Status: Active Protocol: Document 05/03/23 20:23 CGR (Rec: 05/03/23 20:32 CGR [id number]) Medical Review Prior Functional Status Medical History Reviewed Yes Communication Pt is an effective verbal communicator. She is [place] Mobility and Gait pt stated that she is independent iwht all mobilities and ambulation without AD indoors, uses a SPC for outdoor mobility. 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 Social History Household Members none Living Arrangements House Number of Floors (Floors) One Floor Number of Stairs To Enter/Railing? 1 step L rail ascending Home Environment Standard Height Toilet,Walk in Shower Home Equipment Front Wheel Walker,Straight Cane,Grab Bars In Shower Employment Status Retired Additional Social History Comment melanie, a retired OT, will be staying with pt to assist as long as pt needs M2 OT-IP Current Condition Start: 05/03/23 20:23 Freq: Status: Active Protocol: Document 05/03/23 20:23 CGR (Rec: 05/03/23 20:32 CGR [id number]) Occupational Therapy Current Condition Current Condition Evaluation Date 05/03/23 Treatment Diagnosis C6-C7 ACDF Diagnosis Onset Date 05/02/23 Post Operative Precautions Cervical Spine Precautions Soft Collar for Comfort,No Heavy Lifting,Log Roll M3 OT- IP Subjective and Pain Start: 05/03/23 20:23 Freq: Status: Active Protocol: Document 05/03/23 20:23 CGR (Rec: 05/03/23 20:32 CGR [id number]) OT- Subjective Occupational Therapy Visit Type Type Initial Evaluation Visit Start Time 11:13 Visit Stop Time 11:40 Total Visit Minutes 27 Notes Pt's daughter present throughout OT Pain Assessment Pain When Pain Assessed At Rest Pain Present Pain Present Denied Pain M4 OT- IP ADL's Start: 05/03/23 20:23 Freq: Status: Active Protocol: Document 05/03/23 20:23 CGR (Rec: 05/03/23 20:32 CGR [id number]) OT [id number] Comments OT Self-Feeding Comments Not meal time OT ADL-Grooming General Evaluation Grooming Ability Independent Areas Needing Assistance Face Washing Comments OT Grooming Comments standing at sink OT ADL-Oral Care General Eval Oral Care Ability Independent Areas of Assistance Brushing Teeth Comments Oral Care Comments standing at sink OT ADL-Dressing General Eval Lower Body Dressing Ability Independent Areas Needing Assistance Socks Comments OT Dressing Comments seated in chair OT ADL-Toileting General Evaluation Toileting Ability Independent Comments OT Toileting Comments Pt urinated seated on toielt OT ADL-Bathing Comments OT Bathing Comments Not performed M5 OT- IP IADL's Start: 05/03/23 20:23 Freq: Status: Active Protocol: Document 05/03/23 20:23 CGR (Rec: 05/03/23 20:32 CGR [id number]) OT-Instrumental Activities of Daily Living Deficits IADL Deficits Identified No Deficits Home Safety Awareness Awareness of Need for Assistance at Home Good Awareness Ability to Problem Solve Emergency Able to Problem Solve Situations Medication Management Medication Management No Deficits Identified Money Management Money Management No Deficits Identified Meal Preparation Meal Preparation No Deficits Identified 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 M6 OT- IP Functional Cognition Start: 05/03/23 20:23 Freq: Status: Active Protocol: Document 05/03/23 20:23 CGR (Rec: 05/03/23 20:32 CGR [id number]) Cognitive Factors Limiting Selfcare Function Cognitive Ability Level of Alertness Alert Patient Orientation Name,Age,Birthday,Month,Date, Year,Day of Week,Place, Situation Attention Span Ability Capable of Focused Attention, Capable of Sustained Attention OT- Vision and Hearing OT- Hearing Assessment OT- Hearing Assessment Hearing Impaired,Use of Hearing Aids OT- Vision Assessment Visual Acuity Glasses For Reading Visual Attentiveness WFL Occular Pursuits WFL Visual Convergence WFL M7 OT- IP Mobility and Balance Start: 05/03/23 20:23 Freq: Status: Active Protocol: Document 05/03/23 20:23 CGR (Rec: 05/03/23 20:32 CGR [id number]) OT-Transfer Assessment Sit to and From Stand Sit to and from Stand Standby Assistance Transfers Transfer Ability Standby Assistance Technique Transfer Destination Chair,Toilet Transfer Technique Stand Step Pivot Devices Transfer Assistive Devices Gait Belt,Front Wheeled Walker Comments Mobility Comments Mobility around the room OT- Balance Assessment Sitting Balance and Reactions Static Sitting Balance Ability Normal Dynamic Sitting Balance Ability Good M8 OT- IP Objective Assessments Start: 05/03/23 20:23 Freq: Status: Active Protocol: Document 05/03/23 20:23 CGR (Rec: 05/03/23 20:32 CGR [id number]) OT Gross Range of Motion Upper Extremity Range of Motion Assessment Within Functional Limits OT Strength Upper Extremity Strength Assessment Within Functional Limits Comments Strength Comments Shlds and arms 4-/5, hands 3+/ 5 with arthritic changes OT- Coordination Assessment Upper Extremity Finger to Nose Test Within Functional Limits Finger Tapping Test Within Functional Limits OT-Muscle Tone Assessment Muscle Tone WNL Yes OT Sensation Assessment Comments Summary Comments Pt states she gets tingling to her finger tips on both hands intermitently usually in the evenings. Edema Edema Absent M9 OT- IP Assessment and Plan Start: 05/03/23 20:23 Freq: Status: Active Protocol: Document 05/03/23 20:23 CGR (Rec: 05/03/23 20:32 CGR [id number]) OT Summary Assessment and Plan Potential Rehabilitation Potential Excellent Analytic Complexity at Evaluation Low Summary Progress Towards Goals Goals Met Assessment Summary Pt presents as a low complexity evaluation s/p admit for C6-C7 ACDF. Pt is doing well and performing at or close to her baseline. Pt is safe for discharge home with her daughter. No further OT needs. Frequency of Treatment Frequency Of Treatment Discharge Discharge Recommendations OT Discharge Recommendations Home with Assistance Transportation Needs at Discharge Private Vehicle
--- NOTE | 2023-05-03 12:53 | PC.NURSE ---
Day shift: Updated Dr Ornelas on MINE drain output for 6 hours. Output 10mls (6 hours) and Per Dr Ornelas OK to d/c MINE drain now. Pt to d/c home at this time.
--- NOTE | 2023-05-03 14:03 | PC.NURSE ---
Day shift: Paperwork signed and all questions answered. Has all personal belongings and MD scripts. Left unit via WC at approx [phone]. Steady on feet and Daughter is driving Pt home. MINE removed per MD and neck dressing changed as well. CDI at discharge and was CDI prior to removal. Tolerated MINE drain removal well. Encouraged to use I.S. as directed.
== END 2023-05-03 14:09 | disposition home or self-care (01) | DRG 473 ==
PROVIDERS: Admitting Provider Orthopaedic Surgery Orthopaedic Surgery of the Spine; PCP Family Medicine; Referring Provider Orthopaedic Surgery Orthopaedic Surgery of the Spine; Visit Provider Orthopaedic Surgery Orthopaedic Surgery of the Spine
PROC: 0RG10A0 Fusion of Cervical Vertebral Joint with Interbody Fusion Device, Anterior Approach, Anterior Column, Open Approach (ICD-10-PCS; principal; 2023-05-02 15:15)
DX: M43.12 Spondylolisthesis, cervical region (principal); M48.02 Spinal stenosis, cervical region; M54.12 Radiculopathy, cervical region; F32.A Depression, unspecified; I10 Essential (primary) hypertension; E03.9 Hypothyroidism, unspecified; E78.5 Hyperlipidemia, unspecified; Z98.1 Arthrodesis status; I08.3 Combined rheumatic disorders of mitral, aortic and tricuspid valves; I25.10 Atherosclerotic heart disease of native coronary artery without angina pectoris; R94.31 Abnormal electrocardiogram [ECG] [EKG]; I70.0 Atherosclerosis of aorta
CPT/HCPCS: 72040; 76000; 93306; 97161; 97165; 97530; 97535; C1776; J0330; J0690; J1100; J2405; J2704; J3010

== ENCOUNTER → 2023-07-23 09:15 | Outpatient (CLI) | payer MEDICARE, SELFPAY ==
[2023-05-02 18:06] VITALS: BMI 20.5
--- NOTE | 2023-07-23 09:16 | DI.MG.S_ITS ---
BILATERAL DIGITAL SCREENING MAMMOGRAM 3D/2D WITH CAD: 07/23/2023 CLINICAL: Routine screening. Comparison is made to exams dated: 10/20/2021 mammogram, 06/05/2020 mammogram, and 01/24/2018 mammogram - [facility]. There are scattered areas of fibroglandular density in both breasts (category b / 25%-50% glandular tissue). Current study was also evaluated with a Computer Aided Detection (CAD) system. There is suboptimal positioning in the MLO projections due to patient factors; the best possible images were obtained. No significant masses, calcifications, or other findings are seen in either breast. IMPRESSION: NEGATIVE There is no mammographic evidence of malignancy. A 1 year screening mammogram is recommended. This exam was interpreted at Station ID: [id number]. NOTE: For mammograms, a report in lay terms will be sent to the patient. Approximately 15% of breast malignancies will not be visualized mammographically. In the management of a palpable breast mass, a negative mammogram must not discourage biopsy of a clinically suspicious lesion. Electronically Signed By: Nohemi thomas/:07/23/2023 10:01:15 letter sent: Normal Exam ACR BI-RADS Category 1: Negative [id number]
== END ==
PROVIDERS: PCP Family Medicine; Referring Provider Family Medicine; Visit Provider Family Medicine
DX: Z12.31 Encounter for screening mammogram for malignant neoplasm of breast (principal)
CPT/HCPCS: 77063; 77067

== ENCOUNTER → 2023-08-17 10:20 | Outpatient (CLI) | payer MEDICARE, SELFPAY ==
[2023-05-02 18:06] VITALS: BMI 20.5
[2023-08-17 10:46] LABS: Hematocrit 34.2 % (36-46); Hemoglobin 11.3 g/dL (12.0-16.0)
[2023-08-17 11:21] LABS: BUN Creatinine Ratio 19.9 (6-22); Blood Urea Nitrogen 28 mg/dL (7-17); Calcium 9.4 mg/dL (8.4-10.2); Carbon Dioxide 27 mmol/L (22-32); Chloride 100 mmol/L (98-107); Estimated Glomerular Filt Rate 36 mL/min (>60); Glucose 92 mg/dL (80-110); HEMOLYSIS < 15 (0-50); Potassium 4.3 mmol/L (3.4-5.1); Sodium 137 mmol/L (137-145)
[2023-08-17 11:58] LABS: Creatinine Urine Random 209.2 mg/dL; Protein (Total) Urine Random 63 mg/dL (0-12)
[2023-08-21 10:02] LABS: Parathyroid Hormone Int 52 pg/mL (15-65)
== END ==
PROVIDERS: PCP Family Medicine; Referring Provider Student in an Organized Health Care Education/Training Program; Visit Provider Student in an Organized Health Care Education/Training Program
DX: N05.9 Unspecified nephritic syndrome with unspecified morphologic changes (principal); D64.9 Anemia, unspecified; N25.81 Secondary hyperparathyroidism of renal origin; R80.9 Proteinuria, unspecified
CPT/HCPCS: 36415; 80048; 82570; 83970; 84156; 85014; 85018

== ENCOUNTER → 2023-11-16 09:15 | Outpatient (CLI) | payer MEDICARE, SELFPAY ==
[2023-05-02 18:06] VITALS: BMI 20.5
[2023-11-16 11:04] LABS: Hematocrit 33.8 % (36-46); Hemoglobin 11.4 g/dL (12.0-16.0); Mean Corpuscular HGB Conc 33.8 % (30-36); Mean Corpuscular Hemoglobin 28.9 PG (26-34); Mean Corpuscular Volume 85.7 fL (80-100); Platelet Count 126 X10^3/uL (150-400); Red Blood Cell Count 3.95 X10^6/uL (4.0-5.2); Red Cell Distribution Width 15.4 % (11.6-14.8); White Blood Cell Count 5.2 X10^3/uL (4.5-11.0)
[2023-11-16 11:07] LABS: Add Manual Diff / Slide Review YES
[2023-11-16 11:18] LABS: HEMOLYSIS < 15 (0-50); Iron 83 ug/dL (37-170)
[2023-11-16 11:20] LABS: Alanine Aminotransferase 18 IU/L (<35); Albumin 4.5 g/dL (3.5-5.0); Albumin Globulin Ratio 1.9 (1.0-2.8); Alkaline Phosphatase 45 U/L (38-126); Aspartate Aminotransferase 29 IU/L (14-36); BUN Creatinine Ratio 25.8 (6-22); Bilirubin Total 0.6 mg/dL (0.2-1.3); Blood Urea Nitrogen 32 mg/dL (7-17); Calcium 9.1 mg/dL (8.4-10.2); Carbon Dioxide 25 mmol/L (22-32); Chloride 105 mmol/L (98-107); Cholesterol 307 mg/dL (140-199); Estimated Glomerular Filt Rate 42 mL/min (>60); Globulin 2.4 g/dL (1.7-4.1); Glucose 95 mg/dL (80-110); HDL Cholesterol 97 mg/dL (40-60); HEMOLYSIS < 15 (0-50); LDL Cholesterol Calculated 193 mg/dL (<100); Potassium 4.7 mmol/L (3.4-5.1); Sodium 139 mmol/L (137-145); Total Protein 6.9 g/dL (6.3-8.2); Triglycerides 86 mg/dL (35-150)
[2023-11-16 11:29] LABS: Percent Iron Saturation 18 % (15-50); Total Iron Binding Capacity 459 ug/dL (265-497); Transferrin 408 mg/dL (206-381)
[2023-11-16 11:32] LABS: Free T4, Direct Thyroxine 1.26 ng/dL (0.78-2.19)
[2023-11-16 11:38] LABS: Neutrophils Absolute Manual 2808 /uL (3000-5900); Poikilocytosis 1+; Total Cells Counted 100
[2023-11-16 11:46] LABS: Thyroid Stimulating Hormone 3.74 uIU/mL (0.47-4.68)
[2023-11-16 12:05] LABS: Vitamin B12 > 1000 pg/mL (239-931)
== END ==
LOC: LAB 09:16
PROVIDERS: PCP Family Medicine; Referring Provider Family Medicine; Visit Provider Family Medicine
DX: Z00.00 Encounter for general adult medical examination without abnormal findings (principal); E03.9 Hypothyroidism, unspecified; E78.5 Hyperlipidemia, unspecified; I10 Essential (primary) hypertension
CPT/HCPCS: 36415; 80053; 80061; 82607; 83540; 83550; 84439; 84443; 85007; 85025

== ENCOUNTER → 2023-12-20 10:56 | Outpatient (CLI) | payer MEDICARE, SELFPAY ==
[2023-05-02 18:06] VITALS: BMI 20.5
[2023-12-20 11:38] LABS: Hematocrit 32.5 % (36-46)
[2023-12-20 11:58] LABS: BUN Creatinine Ratio 26.6 (6-22); Blood Urea Nitrogen 37 mg/dL (7-17); Calcium 9.1 mg/dL (8.4-10.2); Carbon Dioxide 24 mmol/L (22-32); Chloride 108 mmol/L (98-107); Estimated Glomerular Filt Rate 37 mL/min (>60); Glucose 87 mg/dL (80-110); HEMOLYSIS < 15 (0-50); Potassium 4.6 mmol/L (3.4-5.1); Sodium 139 mmol/L (137-145)
[2023-12-20 12:05] LABS: Creatinine Urine Random 100.7 mg/dL; Protein (Total) Urine Random 30 mg/dL (0-12); Protein Creatinine Ratio Urine 0.29 GRAM/24H
[2023-12-22 12:09] LABS: Parathyroid Hormone Int 50 pg/mL (15-65)
== END ==
LOC: LAB 10:58
PROVIDERS: PCP Family Medicine; Referring Provider Student in an Organized Health Care Education/Training Program; Visit Provider Student in an Organized Health Care Education/Training Program
DX: N05.9 Unspecified nephritic syndrome with unspecified morphologic changes (principal); D70.9 Neutropenia, unspecified; D63.1 Anemia in chronic kidney disease; N25.81 Secondary hyperparathyroidism of renal origin; R80.9 Proteinuria, unspecified
CPT/HCPCS: 36415; 80048; 82570; 83970; 84156; 85014; 85018

== ENCOUNTER → 2024-04-03 09:36 | Outpatient (CLI) | payer MEDICARE, SELFPAY ==
[2023-05-02 18:06] VITALS: BMI 20.5
== END ==
PROVIDERS: PCP Family Medicine; Visit Provider Nurse Practitioner Family
DX: L03.90 Cellulitis, unspecified (principal)
CPT/HCPCS: 87070; 87075; 87205

== ENCOUNTER → 2024-06-03 12:19 | Outpatient (CLI) | payer MEDICARE, SELFPAY ==
[2023-05-02 18:06] VITALS: BMI 20.5
[2024-06-03 14:20] LABS: Hemoglobin 10.9 g/dL (12.0-16.0)
[2024-06-03 14:48] LABS: BUN Creatinine Ratio 22.6 (6-22); Blood Urea Nitrogen 28 mg/dL (7-17); Calcium 9.2 mg/dL (8.4-10.2); Carbon Dioxide 25 mmol/L (22-32); Chloride 101 mmol/L (98-107); Estimated Glomerular Filt Rate 42 mL/min (>60); Glucose 89 mg/dL (80-110); HEMOLYSIS < 15 (0-50); Potassium 4.2 mmol/L (3.4-5.1); Sodium 135 mmol/L (137-145)
[2024-06-03 14:51] LABS: Creatinine Urine Random 43.76 mg/dL; Protein (Total) Urine Random 101 mg/dL (0-12)
== END ==
LOC: LAB 12:20
PROVIDERS: PCP Family Medicine; Referring Provider Student in an Organized Health Care Education/Training Program; Visit Provider Student in an Organized Health Care Education/Training Program
DX: N05.9 Unspecified nephritic syndrome with unspecified morphologic changes (principal); D70.9 Neutropenia, unspecified; D63.1 Anemia in chronic kidney disease; N25.81 Secondary hyperparathyroidism of renal origin; R80.9 Proteinuria, unspecified
CPT/HCPCS: 36415; 80048; 82570; 83970; 84156; 85014; 85018

== ENCOUNTER → 2024-08-11 17:05 | Outpatient (CLI) | payer MEDICARE, SELFPAY ==
[2023-05-02 18:06] VITALS: BMI 20.5
[2024-08-11 18:03] LABS: Hematocrit 33.6 % (36-46); Hemoglobin 10.9 g/dL (12.0-16.0)
[2024-08-11 18:36] LABS: BUN Creatinine Ratio 20.7 (6-22); Blood Urea Nitrogen 36 mg/dL (7-17); Carbon Dioxide 23 mmol/L (22-32); Chloride 101 mmol/L (98-107); Estimated Glomerular Filt Rate 28 mL/min (>60); Glucose 98 mg/dL (80-110); HEMOLYSIS < 15 (0-50); Potassium 4.6 mmol/L (3.4-5.1); Sodium 134 mmol/L (137-145)
[2024-08-11 19:15] LABS: Creatinine Urine Random 121.76 mg/dL; Protein (Total) Urine Random 84 mg/dL (0-12); Protein Creatinine Ratio Urine 0.68 GRAM/24H
[2024-08-13 09:39] LABS: Parathyroid Hormone Int 64 pg/mL (15-65)
== END ==
LOC: LAB 17:07
PROVIDERS: PCP Family Medicine; Referring Provider Student in an Organized Health Care Education/Training Program; Visit Provider Student in an Organized Health Care Education/Training Program
DX: N05.9 Unspecified nephritic syndrome with unspecified morphologic changes (principal); R80.0 Isolated proteinuria; D70.9 Neutropenia, unspecified; N25.81 Secondary hyperparathyroidism of renal origin; D63.1 Anemia in chronic kidney disease
CPT/HCPCS: 36415; 80048; 82570; 83970; 84156; 85014; 85018

== ENCOUNTER → 2024-08-19 12:47 | Outpatient (CLI) | payer MEDICARE, SELFPAY ==
[2023-05-02 18:06] VITALS: BMI 20.5
--- NOTE | 2024-08-19 12:48 | DI.MG.S_ITS ---
BILATERAL DIGITAL SCREENING MAMMOGRAM 3D/2D WITH CAD: 08/19/2024 CLINICAL: Routine screening. Comparison is made to exams dated: 07/23/2023 mammogram, 10/20/2021 mammogram, and 06/05/2020 mammogram - [facility]. The breasts are heterogeneously dense, which may obscure small masses (category c / 51-75% glandular tissue). Current study was also evaluated with a Computer Aided Detection (CAD) system. No significant masses, calcifications, or other findings are seen in either breast. There has been no significant interval change. IMPRESSION: NEGATIVE There is no mammographic evidence of malignancy. A 1 year screening mammogram is recommended. This exam was interpreted at Station ID: [id number]. NOTE: For mammograms, a report in lay terms will be sent to the patient. Approximately 15% of breast malignancies will not be visualized mammographically. In the management of a palpable breast mass, a negative mammogram must not discourage biopsy of a clinically suspicious lesion. Electronically Signed By: Lani farias/mikala:08/19/2024 15:53:32 letter sent: Normal Exam ACR BI-RADS Category 1: Negative
== END ==
PROVIDERS: PCP Family Medicine; Referring Provider Family Medicine; Visit Provider Family Medicine
DX: Z12.31 Encounter for screening mammogram for malignant neoplasm of breast (principal); R92.333 Mammographic heterogeneous density, bilateral breasts
CPT/HCPCS: 77063; 77067

== ENCOUNTER → 2024-11-24 09:19 | Outpatient (CLI) | payer MEDICARE, SELFPAY ==
[2023-05-02 18:06] VITALS: BMI 20.5
[2024-11-24 09:57] LABS: Hematocrit 30.2 % (36-46); Hemoglobin 9.8 g/dL (12.0-16.0); Mean Corpuscular HGB Conc 32.5 % (30-36); Mean Corpuscular Hemoglobin 26.9 PG (26-34); Mean Corpuscular Volume 82.8 fL (80-100); Platelet Count 119 X10^3/uL (150-400); Red Blood Cell Count 3.64 X10^6/uL (4.0-5.2); White Blood Cell Count 8.5 X10^3/uL (4.5-11.0)
[2024-11-24 09:58] LABS: Add Manual Diff / Slide Review YES
[2024-11-24 10:08] LABS: Neutrophils Absolute Manual 4675 /uL (3000-5900); Total Cells Counted 100
[2024-11-24 10:09] LABS: Poikilocytosis 1+
[2024-11-24 10:39] LABS: HEMOLYSIS < 15 (0-50); Iron 43 ug/dL (37-170)
[2024-11-24 10:46] LABS: Alanine Aminotransferase 26 IU/L (<35); Albumin 4.5 g/dL (3.5-5.0); Albumin Globulin Ratio 2.1 (1.0-2.8); Alkaline Phosphatase 50 U/L (38-126); Aspartate Aminotransferase 34 IU/L (14-36); BUN Creatinine Ratio 20.9 (6-22); Bilirubin Total 0.4 mg/dL (0.2-1.3); Blood Urea Nitrogen 29 mg/dL (7-17); Calcium 9.1 mg/dL (8.4-10.2); Carbon Dioxide 22 mmol/L (22-32); Chloride 105 mmol/L (98-107); Estimated Glomerular Filt Rate 36 mL/min (>60); Globulin 2.1 g/dL (1.7-4.1); Glucose 96 mg/dL (80-110); HEMOLYSIS < 15 (0-50); Potassium 4.6 mmol/L (3.4-5.1); Sodium 139 mmol/L (137-145); Total Protein 6.6 g/dL (6.3-8.2)
[2024-11-24 10:50] LABS: Percent Iron Saturation 10 % (15-50); Total Iron Binding Capacity 416 ug/dL (265-497); Transferrin 396 mg/dL (206-381)
[2024-11-24 10:56] LABS: Free T4, Direct Thyroxine 1.32 ng/dL (0.78-2.19)
[2024-11-24 11:10] LABS: Thyroid Stimulating Hormone 3.02 uIU/mL (0.47-4.68)
[2024-11-24 11:29] LABS: Vitamin B12 > 1000 pg/mL (239-931)
[2024-11-26 18:39] LABS: Erythropoietin 39.9 mIU/mL (2.6-18.5)
== END ==
PROVIDERS: PCP Family Medicine; Referring Provider Family Medicine; Visit Provider Family Medicine
DX: E03.9 Hypothyroidism, unspecified (principal); M19.90 Unspecified osteoarthritis, unspecified site; I10 Essential (primary) hypertension; E78.5 Hyperlipidemia, unspecified; D64.9 Anemia, unspecified; R53.83 Other fatigue
CPT/HCPCS: 36415; 80053; 82607; 82668; 83540; 83550; 84439; 84443; 85007; 85025

== ENCOUNTER → 2025-01-28 13:08 | Outpatient (CLI) | payer MEDICARE, SELFPAY ==
[2023-05-02 18:06] VITALS: BMI 20.5
[2025-01-28 14:37] LABS: Hematocrit 35.6 % (36-46); Hemoglobin 11.6 g/dL (12.0-16.0)
[2025-01-28 14:56] LABS: BUN Creatinine Ratio 25.6 (6-22); Blood Urea Nitrogen 40 mg/dL (7-17); Calcium 9.2 mg/dL (8.4-10.2); Carbon Dioxide 21 mmol/L (22-32); Chloride 104 mmol/L (98-107); Estimated Glomerular Filt Rate 32 mL/min (>60); Glucose 83 mg/dL (70-99); HEMOLYSIS < 15 (0-50); Potassium 4.8 mmol/L (3.4-5.1); Sodium 137 mmol/L (137-145)
[2025-01-28 15:43] LABS: Creatinine Urine Random 61.39 mg/dL; Protein (Total) Urine Random 82 mg/dL (0-12); Protein Creatinine Ratio Urine 1.33 GRAM/24H
== END ==
PROVIDERS: PCP Family Medicine; Referring Provider Student in an Organized Health Care Education/Training Program; Visit Provider Student in an Organized Health Care Education/Training Program
DX: D70.9 Neutropenia, unspecified (principal); N05.9 Unspecified nephritic syndrome with unspecified morphologic changes; D63.1 Anemia in chronic kidney disease; N25.81 Secondary hyperparathyroidism of renal origin; R80.9 Proteinuria, unspecified
CPT/HCPCS: 36415; 80048; 82570; 83970; 84156; 85014; 85018

== ENCOUNTER 2025-01-28 13:49 | Emergency (ER) | payer MEDICARE, SELFPAY ==
[2023-05-02 18:06] VITALS: BMI 20.5
[2025-01-28 13:53] VITALS: BP 172/78; PULSE 64; RESP 16; TEMP 36.6; O2SAT 99; BMI 20.5
--- NOTE | 2025-01-28 14:33 | ED.SKABFB ---
HPI - Skin/Abscess/Foreign Bdy <Litzy Yepez PA-C - Last Filed: 01/28/25 14:45> General Chief complaint: Skin/Abscess/Foreign Body Stated complaint: Red and swollen Left pinky finger Time Seen by Provider: 01/28/25 13:58 Source: patient Mode of arrival: Ambulatory Limitations: no limitations History of Present Illness HPI narrative: Ms. Reed is a very pleasant 89-year-old female, hard of hearing, with a past medical history of hypertension, hyperlipidemia, CAD, hypothyroidism, osteoarthritis, polymyalgia rheumatica who presents to the emergency department for left 5th digit redness and swelling x2 weeks. Patient 1st noticed that her left pinky finger was becoming red and swollen while she was on vacation in [place]. She went to the walk-in clinic on 01/20/2025 and was diagnosed with cellulitis and was prescribed Keflex q.i.d. x7 days. She completed the full course of antibiotic and states that the redness and swelling for finger has improved but it has not gone away. She denies any other symptoms such as numbness, tingling, fevers, chills, flu-like symptoms. She is requesting to leave the emergency department within the next 15 minutes. Related Data Home Medications Medication Instructions Recorded Confirmed aspirin 81 mg tablet,delayed 81 mg PO BEDTIME 12/21/21 01/20/25 release (Adult Aspirin Regimen) sodium polystyrene sulfonate 15 60 ml PO Q OTHER DAY 04/25/23 01/20/25 gram-sorbitol 20 gram/60 mL oral susp cholecalciferol (vitamin D3) PO 12/08/24 01/20/25 mecobalamin (vitamin B12) PO 12/08/24 01/20/25 sodium polystyrene sulfonate PO 01/20/25 01/20/25 Previous Rx's Medication Instructions Recorded Disabled Parking Permint #1 ea 04/04/24 levothyroxine 88 mcg tablet 88 mcg PO BEDTIME #90 tabs 07/01/24 (Synthroid) amlodipine 5 mg tablet 5 mg PO BID #180 tabs 12/08/24 metoprolol succinate 25 mg 25 mg PO BEDTIME #90 tabs 12/08/24 tablet,extended release 24 hr evolocumab 140 mg/mL subcutaneous 140 mg SUBCUT Q2W #6 mL 12/25/24 syringe doxycycline hyclate 100 mg capsule 100 mg PO BID 7 days #14 caps 01/28/25 Allergies Allergy/AdvReac Type Severity Reaction Status Date / Time simvastatin [SIMVASTATIN] Allergy Severe WEAKNESS, Verified 01/20/25 13:53 HAIR LOSS, RASH atorvastatin [ATORVASTATIN] AdvReac Mild MUSCLE Verified 01/20/25 13:53 WEAKNESS Review of Systems <Litzy Yepez PA-C - Last Filed: 01/28/25 14:45> Review of Systems ROS Unobtainable: All systems reviewed & are unremarkable except as noted in HPI and below Patient History <Litzy Yepez PA-C - Last Filed: 01/28/25 14:45> Medical History Leg edema Anemia Fatigue Medicare annual wellness visit, subsequent [facility] adult health check Preventative health care Statin not tolerated PVD (peripheral vascular disease) Coronary atherosclerosis History of claudication History of TIA (transient ischemic attack) Nonrheumatic aortic (valve) insufficiency Hyperkalemia Depression History of COVID-19 (12/2022) Neuropathy CKD (chronic kidney disease) Decreased mobility Wears glasses Melanoma (~10/2022) Polymyalgia rheumatica (~2004) Osteoarthritis (~1989) Peripheral neuropathy Lumbar disc disease (~2002) Cervical spine disease Measles (~1959) Chicken pox (~1949) Tinnitus Ruptured tympanic membrane Hearing loss (~1999) Cataracts, bilateral Fibroids (~1993) Kidney disorder (~2021) Hypothyroidism (~1997) Hypertension Hyperlipidemia (~1989) Coronary artery disease (~2009) Skin cancer (~2021) Surgical History History of total left knee replacement (TKR) Anesthesia History of dilatation and curettage (~12/2002) History of laminectomy (~03/08/03) History of right hip replacement (~11/09/03) History of laminectomy (~02/26/04) History of cataract removal with insertion of prosthetic lens History of ear surgery (~2011) History of eye surgery (~2012) History of left knee replacement (~03/2015) History of laminectomy (~07/2015) S/P coronary artery stent placement (~2009) Family History Father No problems noted. Mother Cancer Grandfather Diabetes mellitus Grandfather Parkinson's disease Social History household members: none Smoking Status: Never smoker alcohol intake: current Smoking Status: Never smoker alcohol intake frequency: a few times a week Alcohol type: wine Exam <Litzy Yepez PA-C - Last Filed: 01/28/25 14:45> Narrative Exam Narrative: GENERAL: 89 year old patient appears stated age. Well-developed patient, in no acute distress. HEAD: Atraumatic. Normocephalic. ENT: Hard of hearing, hearing aids in place. CARDIOVASCULAR: Regular rate RESPIRATORY: ?Nonlabored respirations. ?Speaking in clear, full sentences EXTREMITIES: Arthritic changes of both hands. Patient has erythema on the radial aspect of the left 5th PIP joint. There is overlying edema of this region and some minor sloughing of the overlying skin. Erythema extends somewhat on the palmar aspect of the finger on the space between the DIP and PIP joint folds. No erythema overlying the distal or proximal phalanx, erythema is localized over the dorsal/radial PIP joint line area. No tenderness to palpation of the flexor tendon sheath, no streaking erythema, no drainage or open wounds. No pain with passive range of motion, finger is sitting in a normal fully extended position at rest. NEURO: AOx3. ?Clear speech. ?SITLT on distal fifth digit. SKIN: Erythema of left 5th digit PIP joint line region described above. No other rashes or wounds. Initial Vital Signs Initial Vital Signs: Vital Signs Temperature 98 F 01/28/25 13:53 Pulse Rate 64 01/28/25 13:53 Respiratory Rate 16 01/28/25 13:53 Blood Pressure 172/78 H 01/28/25 13:53 Pulse Oximetry 99 01/28/25 13:53 Oxygen Delivery Method Room Air 01/28/25 13:53 <Nakul Peralta MD - Last Filed: 01/28/25 17:54> Initial Vital Signs Initial Vital Signs: Vital Signs Temperature 98 F 01/28/25 13:53 Pulse Rate 64 01/28/25 13:53 Respiratory Rate 16 01/28/25 13:53 Blood Pressure 172/78 H 01/28/25 13:53 Pulse Oximetry 99 01/28/25 13:53 Oxygen Delivery Method Room Air 01/28/25 13:53 Course <Litzy Yepez PA-C - Last Filed: 01/28/25 14:45> Vital Signs Vital signs: Vital Signs - 8 hr 01/28/25 13:53 Temperature 98 F Pulse Rate 64 Respiratory Rate 16 Blood Pressure 172/78 H Pulse Oximetry 99 Oxygen Delivery Method Room Air <Nakul Peralta MD - Last Filed: 01/28/25 17:54> Vital Signs Vital signs: Vital Signs - 8 hr 01/28/25 13:53 Temperature 98 F Pulse Rate 64 Respiratory Rate 16 Blood Pressure 172/78 H Pulse Oximetry 99 Oxygen Delivery Method Room Air MDM - Skin/Abscess/Foreign Bdy <Litzy Yepez PA-C - Last Filed: 01/28/25 14:45> Medical Records Attestation: I reviewed the patient's medical records. Medical records narrative: [facility] note 01/20/2025 for cellulitis MDM Narrative Medical decision making narrative: 89-year-old female, hard of hearing, with a past medical history of hypertension, hyperlipidemia, CAD, hypothyroidism, osteoarthritis, polymyalgia rheumatica who presents to the emergency department for left 5th digit redness and swelling x2 weeks. Differential diagnosis includes but is not limited to cellulitis, abscess, flexor tenosynovitis, gout, arthritis, etc. On exam patient is in no acute distress, nontoxic-appearing, all vital signs within normal limits except for mildly elevated blood pressure. Patient has swelling and erythema of the left 5th PIP joint region on the radial aspect of the finger. The finger still neurovascularly intact, she has no tenderness to palpation of the flexor tendon sheath. Patient reports symptoms improved after completion of cephalexin however they have not resolved. She denies any systemic symptoms. I do have some concern for possible flexor tenosynovitis so I did recommend lab work, x-ray, ortho consult however patient reports that she does not want a workup and she actually needs to be discharged within the next 15 minutes. Because of this we will treat patient with doxycycline and recommended prompt outpatient follow up with ortho however we discussed strict ED return precautions and that if the swelling or redness gets any worse she needs to come back to the ED immediately for workup. Patient verbalized understanding of all information and is agreeable to this plan, she is stable for discharge home, antibiotics sent to pharmacy of choice, proper wound care and rice therapy discussed. <Nakul Peralta MD - Last Filed: 01/28/25 17:54> [facility] Narrative Medical decision making narrative: 89-year-old female, hard of hearing, with a past medical history of hypertension, hyperlipidemia, CAD, hypothyroidism, osteoarthritis, polymyalgia rheumatica who presents to the emergency department for left 5th digit redness and swelling x2 weeks. Differential diagnosis includes but is not limited to cellulitis, abscess, flexor tenosynovitis, gout, arthritis, etc. On exam patient is in no acute distress, nontoxic-appearing, all vital signs within normal limits except for mildly elevated blood pressure. Patient has swelling and erythema of the left 5th PIP joint region on the radial aspect of the finger. The finger still neurovascularly intact, she has no tenderness to palpation of the flexor tendon sheath. Patient reports symptoms improved after completion of cephalexin however they have not resolved. She denies any systemic symptoms. I do have some concern for possible flexor tenosynovitis so I did recommend lab work, x-ray, ortho consult however patient reports that she does not want a workup and she actually needs to be discharged within the next 15 minutes. Because of this we will treat patient with doxycycline and recommended prompt outpatient follow up with ortho however we discussed strict ED return precautions and that if the swelling or redness gets any worse she needs to come back to the ED immediately for workup. Patient verbalized understanding of all information and is agreeable to this plan, she is stable for discharge home, antibiotics sent to pharmacy of choice, proper wound care and rice therapy discussed. Patient was seen by DNAIEL Yepez in absence of my medical evaluation or judgment, I was available for consultation but was not contacted during this patient's emergency department stay Discharge Plan Departure Patient Disposition: Home Clinical Impression: Localized swelling of finger of left hand Instructions: DI for Cellulitis -- Child Activity Restrictions/Additional Instructions: Dear Ms. Reed, Thank you for coming to the emergency department. Today you were evaluated for redness and swelling of your left pinky finger. I did want to do lab work and an x-ray today however as we discussed I am discharging home on antibiotics since you can not stay longer. Please return to the emergency department immediately if you develop any new or worsening redness or swelling of the finger. Please call to schedule an appointment with [facility] as soon as possible for further evaluation of your finger. Please use RICE therapy for your pain in addition to ibuprofen/acetaminophen. Rest the painful area. Ice the area of pain/swelling for at least 15 minutes, 4x a day. Compress the area of swelling using a brace, wrap, or splint if applied. Elevate the painful or swollen extremity by supporting it above the level of the heart with pillows when sitting or laying. Please follow up with your primary care doctor within the next 2-3 days for ER follow-up. (If you do not have a PCP you can call [phone]. ?to schedule an appointment with an [facility] Primary Care Provider) IF YOU DEVELOP ANY NEW OR WORSENING SYMPTOMS, RETURN TO THE ER! Please read the attached instructions, they highlight more specific treatments and interventions for you at home. Thank you for letting me participate in your care, Litzy Yepez PA-C Prescriptions: New doxycycline hyclate 100 mg capsule 100 mg PO BID 7 Days Qty: 14 0RF No Action sodium polystyrene sulfonate Powder PO (DME) Disabled Parking Permint See Rx Instructions .ROUTE .MEDSUPPLY Qty: 1 0RF Rx Instructions: I find this patient to be medically disabled and qualified for Disabled Parking as indicated and signed on the Accompanying Disabled Parking Application for individuals. levothyroxine [Synthroid] 88 mcg tablet 88 mcg PO BEDTIME Qty: 90 3RF evolocumab 140 mg/mL syringe 140 mg SUBCUT Q2W Qty: 6 1RF Rx Instructions: new rx for pre-filled syringe aspirin [Adult Aspirin Regimen] 81 mg tablet,delayed release (DR/EC) 81 mg PO BEDTIME mecobalamin (vitamin B12) PO cholecalciferol (vitamin D3) PO amlodipine 5 mg tablet 5 mg PO BID Qty: 180 3RF Rx Instructions: change to 5 mg BID 12/08/ metoprolol succinate 25 mg tablet extended release 24 hr 25 mg PO BEDTIME Qty: 90 3RF Rx Instructions: decrease to 25 mg sodium polystyrene sulf-sorbtl 15-20 gram/60 mL Suspension 60 ml PO Q OTHER DAY Referrals: Homer Laureano DO [Primary Care Provider] - Abhinav Johns MD [Physician] - (left 5th digit infection ) Stand Alone Forms: Patient Portal/API/Survey
== END 2025-01-28 14:37 | disposition home or self-care (01) ==
PROVIDERS: Emergency Provider Physician Assistant; PCP Family Medicine
DX: R22.32 Localized swelling, mass and lump, left upper limb (principal); D70.9 Neutropenia, unspecified; N05.9 Unspecified nephritic syndrome with unspecified morphologic changes; D63.1 Anemia in chronic kidney disease; N25.81 Secondary hyperparathyroidism of renal origin; R80.9 Proteinuria, unspecified
CPT/HCPCS: 36415; 80048; 82570; 83970; 84156; 85014; 85018; 99281

== ENCOUNTER → 2025-04-02 14:09 | Outpatient (CLI) | payer MEDICARE, SELFPAY ==
[2023-05-02 18:06] VITALS: BMI 20.5
[2025-04-02 15:08] LABS: Creatinine Urine Random 35.51 mg/dL; Protein (Total) Urine Random 71 mg/dL (0-12); Protein Creatinine Ratio Urine 1.99 GRAM/24H
[2025-04-02 15:09] LABS: Hematocrit 34.4 % (36-46); Hemoglobin 11.5 g/dL (12.0-16.0); Mean Corpuscular HGB Conc 33.4 % (30-36); Mean Corpuscular Hemoglobin 28.1 PG (26-34); Mean Corpuscular Volume 84.1 fL (80-100); Red Blood Cell Count 4.09 X10^6/uL (4.0-5.2); Red Cell Distribution Width 16.9 % (11.6-14.8); White Blood Cell Count 4.9 X10^3/uL (4.5-11.0)
[2025-04-02 15:11] LABS: Add Manual Diff / Slide Review YES; Platelet Count 42 X10^3/uL (150-400)
[2025-04-02 15:25] LABS: HEMOLYSIS < 15 (0-50); Iron 42 ug/dL (37-170)
[2025-04-02 15:28] LABS: BUN Creatinine Ratio 23.6 (6-22); Blood Urea Nitrogen 34 mg/dL (7-17); Calcium 8.6 mg/dL (8.4-10.2); Carbon Dioxide 24 mmol/L (22-32); Chloride 103 mmol/L (98-107); Estimated Glomerular Filt Rate 35 mL/min (>60); Glucose 88 mg/dL (70-99); HEMOLYSIS < 15 (0-50); Sodium 137 mmol/L (137-145)
[2025-04-02 15:37] LABS: Percent Iron Saturation 12 % (15-50); Total Iron Binding Capacity 352 ug/dL (265-497); Transferrin 300 mg/dL (206-381)
[2025-04-02 15:56] LABS: Neutrophils Absolute Manual 637 /uL (3000-5900); Total Cells Counted 100
[2025-04-02 15:57] LABS: Poikilocytosis 1+
== END ==
PROVIDERS: PCP Family Medicine; Referring Provider Student in an Organized Health Care Education/Training Program; Visit Provider Student in an Organized Health Care Education/Training Program
DX: N05.9 Unspecified nephritic syndrome with unspecified morphologic changes (principal); N25.81 Secondary hyperparathyroidism of renal origin; R80.9 Proteinuria, unspecified; D50.9 Iron deficiency anemia, unspecified; D64.9 Anemia, unspecified
CPT/HCPCS: 36415; 80048; 82570; 83540; 83550; 83970; 84156; 85007; 85025

== ENCOUNTER 2025-05-07 15:15 | Emergency (ER) | payer MEDICARE, SELFPAY ==
[2023-05-02 18:06] VITALS: BMI 20.5
[2025-05-07 15:19] VITALS: BP 170/111; PULSE 74; RESP 20; TEMP 36.6; O2SAT 99; BMI 20.5
--- NOTE | 2025-05-07 15:25 | DI.RAD.S_ITS ---
PROCEDURE: XR HIP W PEL IF DONE LT 2V INDICATIONS: pain TECHNIQUE: AP pelvis with lateral view(s) of the left hip(s). COMPARISON: None. FINDINGS: Bones: Post fusion changes are noted in lower lumbar spine. There is prior right total hip arthroplasty. Severe left hip joint osteoarthritic changes are seen. No fractures or dislocations. No evidence of avascular necrosis of femoral head. Pelvic ring appears intact. No suspicious bony lesions. Soft tissues: The visualized bowel gas pattern is normal. No suspicious soft tissue calcifications. IMPRESSION: No acute pelvic or hip fracture. Severe left hip joint osteoarthritis. No evidence of avascular necrosis. Dictated by: Gold Acosta M.D. on 05/07/2025 at 16:19 Approved by: Gold Acosta M.D. on 05/07/2025 at 16:19
--- NOTE | 2025-05-07 16:12 | PC.NURSE ---
Left hip pain; hx of arthritis. Pt states she had a right hip replacement in 2013. Pt states she has been taking Tylenol which has helped her pain but states today it has not. Pt able to walk but states walking aggravates her pain. Pt states she is not immuno compromised. Pt reports she was not due to have the left hip operated on.
--- NOTE | 2025-05-07 16:15 | ED.EXTPRO ---
HPI - Extremity Problem <Litzy Yepez PA-C - Last Filed: 05/07/25 17:43> General Chief complaint: Extremity Problem,Nontraumatic Stated complaint: Worsening hip pain, barely able to walk Time Seen by Provider: 05/07/25 16:10 Mode of arrival: Ambulatory History of Present Illness HPI Narrative: Ms. Reed is a very pleasant 89-year-old female with a past medical history of hypertension, hyperlipidemia, CAD, osteoarthritis, hypothyroidism, CKD who presents to the emergency department for worsening left hip pain x1 week. Patient denies any trauma causing her hip pain. She did have her right hip replaced in 2003 but was told her left hip looked very good at that time. She ambulates with a cane at baseline but did recently purchase a walker but is not yet started using it. This past week she is noticed her left hip has been hurting her more but it is got significantly worse in the last 1-2 days causing her to have difficulty walking and walk much shorter distances and she is used to. The pain does not radiate elsewhere, there is no numbness tingling or weakness down the leg. She uses Tylenol for the pain which was helping at but is no longer helping. No falls. Related Data Home Medications ?Medication ?Instructions ?Recorded ?Confirmed aspirin 81 mg tablet,delayed 81 mg PO BEDTIME 12/21/21 04/13/25 release (Adult Aspirin Regimen) sodium polystyrene sulfonate 15 60 ml PO Q OTHER DAY 04/25/23 04/13/25 gram-sorbitol 20 gram/60 mL oral susp cholecalciferol (vitamin D3) PO 12/08/24 04/13/25 mecobalamin (vitamin B12) PO 12/08/24 04/13/25 sodium polystyrene sulfonate PO 01/20/25 04/13/25 lisinopril 5 mg tablet 5 mg PO DAILY 04/13/25 04/13/25 Previous Rx's ?Medication ?Instructions ?Recorded Disabled Parking Permint #1 ea 04/04/24 amlodipine 5 mg tablet 5 mg PO BID #180 tabs 12/08/24 metoprolol succinate 25 mg 25 mg PO BEDTIME #90 tabs 12/08/24 tablet,extended release 24 hr evolocumab 140 mg/mL subcutaneous 140 mg SUBCUT Q2W #6 mL 12/25/24 syringe levothyroxine 88 mcg tablet 88 mcg PO ONCE PM #90 tabs 05/05/25 Allergies Allergy/AdvReac Type Severity Reaction Status Date / Time simvastatin (SIMVASTATIN) Allergy Severe WEAKNESS, Verified 05/07/25 15:20 HAIR LOSS, RASH atorvastatin (ATORVASTATIN) AdvReac Mild MUSCLE Verified 05/07/25 15:20 WEAKNESS Review of Systems <Litzy Yepez PA-C - Last Filed: 05/07/25 17:43> Review of Systems ROS Unobtainable: All systems reviewed & are unremarkable except as noted in HPI and below Patient History <Litzy Yepez PA-C - Last Filed: 05/07/25 17:43> Medical History Iron deficiency anemia Thrombocytopenia Leg edema Anemia Fatigue Medicare annual wellness visit, subsequent [facility] adult health check Preventative health care Statin not tolerated PVD (peripheral vascular disease) Coronary atherosclerosis History of claudication History of TIA (transient ischemic attack) Nonrheumatic aortic (valve) insufficiency Hyperkalemia Depression History of COVID-19 (12/2022) Neuropathy CKD (chronic kidney disease) Decreased mobility Wears glasses Melanoma (~10/2022) Polymyalgia rheumatica (~2004) Osteoarthritis (~1989) Peripheral neuropathy Lumbar disc disease (~2002) Cervical spine disease Measles (~1959) Chicken pox (~1949) Tinnitus Ruptured tympanic membrane Hearing loss (~1999) Cataracts, bilateral Fibroids (~1993) Kidney disorder (~2021) Hypothyroidism (~1997) Hypertension Hyperlipidemia (~1989) Coronary artery disease (~2009) Skin cancer (~2021) Surgical History History of total left knee replacement (TKR) Anesthesia History of dilatation and curettage (~12/2002) History of laminectomy (~03/08/03) History of right hip replacement (~11/09/03) History of laminectomy (~02/26/04) History of cataract removal with insertion of prosthetic lens History of ear surgery (~2011) History of eye surgery (~2012) History of left knee replacement (~03/2015) History of laminectomy (~07/2015) S/P coronary artery stent placement (~2009) Family History Father No problems noted. Mother Cancer Grandfather Diabetes mellitus Grandfather Parkinson's disease Social History household members: none Smoking Status: Never smoker alcohol intake: current Smoking Status: Never smoker alcohol intake frequency: a few times a week Alcohol type: wine Exam <Litzy Yepez PA-C - Last Filed: 05/07/25 17:43> Narrative Exam Narrative: GENERAL: 89 year old patient appears stated age. Looks well for her age, is petite and active appearing. Well-developed patient, in no acute distress. HEAD: Atraumatic. Normocephalic. EYES: No scleral icterus. No injection or drainage. NECK: Trachea midline. Cervical ROM intact. CARDIOVASCULAR: Regular rate RESPIRATORY: ?Nonlabored respirations. ?Speaking in clear, full sentences. GASTROINTESTINAL: Abdomen soft, non-tender, nondistended. Normal BS. EXTREMITIES: Patient has tenderness to palpation of left SI joint region and anterior left hip joint. There are no overlying skin changes or soft tissue changes in either of these areas. She is able to stand independently flex and extend the hip and ambulate but with discomfort. There is no tenderness or skin changes in the bilateral lower extremities and her lower extremities are warm and well perfused. BACK: No midline spinal tenderness. No paraspinal lumbar tenderness. NEURO: AOx3. ?Clear speech. ?Moves all 4 extremities appropriately. SKIN: No rash or erythema of visible areas. Initial Vital Signs Initial Vital Signs: Vital Signs Temperature 98 F 05/07/25 15:19 Pulse Rate 74 05/07/25 15:19 Respiratory Rate 20 05/07/25 15:19 Blood Pressure 170/111 H 05/07/25 15:19 Pulse Oximetry 99 05/07/25 15:19 Oxygen Delivery Method Room Air 05/07/25 15:19 <Cecil Schofield MD - Last Filed: 05/07/25 19:23> Initial Vital Signs Initial Vital Signs: Vital Signs Temperature 98 F 05/07/25 15:19 Pulse Rate 74 05/07/25 15:19 Respiratory Rate 20 05/07/25 15:19 Blood Pressure 170/111 H 05/07/25 15:19 Pulse Oximetry 99 05/07/25 15:19 Oxygen Delivery Method Room Air 05/07/25 15:19 Course <Litzy Yepez PA-C - Last Filed: 05/07/25 17:43> Orders Ordered: ED Orders 05/07/25 15:25 XR hip w pel LT 2V Stat Discontinued Medications Acetaminophen (Acetaminophen 325 Mg Tablet) 975 mg PO NOW ONE Stop: 05/07/25 16:32 Last Admin: 05/07/25 16:52 Dose: 975 mg Documented By: RIANNA Vital Signs Vital signs: Vital Signs - 8 hr 05/07/25 15:19 05/07/25 17:02 Temperature 98 F Pulse Rate 74 73 Respiratory Rate 20 18 Blood Pressure 170/111 H 198/80 H Pulse Oximetry 99 98 Oxygen Delivery Method Room Air Room Air <Cecil Schofiedl MD - Last Filed: 05/07/25 19:23> Orders Ordered: ED Orders 05/07/25 15:25 XR hip w pel LT 2V Stat Discontinued Medications Acetaminophen (Acetaminophen 325 Mg Tablet) 975 mg PO NOW ONE Stop: 05/07/25 16:32 Last Admin: 05/07/25 16:52 Dose: 975 mg Documented By: KW Vital Signs Vital signs: Vital Signs - 8 hr 05/07/25 15:19 05/07/25 17:02 Temperature 98 F Pulse Rate 74 73 Respiratory Rate 20 18 Blood Pressure 170/111 H 198/80 H Pulse Oximetry 99 98 Oxygen Delivery Method Room Air Room Air MDM - Extremity (Nontraumatic) <Litzy Yepez PA-C - Last Filed: 05/07/25 17:43> Medical Records Attestation: I reviewed the patient's medical records. Imaging Data Left Hip X-Ray: Radiologist's Impression: PROCEDURE: XR HIP W PEL IF DONE LT 2V INDICATIONS: pain TECHNIQUE: AP pelvis with lateral view(s) of the left hip(s). COMPARISON: None. FINDINGS: Bones: Post fusion changes are noted in lower lumbar spine. There is prior right total hip arthroplasty. Severe left hip joint osteoarthritic changes are seen. No fractures or dislocations. No evidence of avascular necrosis of femoral head. Pelvic ring appears intact. No suspicious bony lesions. Soft tissues: The visualized bowel gas pattern is normal. No suspicious soft tissue calcifications. IMPRESSION: No acute pelvic or hip fracture. Severe left hip joint osteoarthritis. No evidence of avascular necrosis. Dictated by: Gold Acosta M.D. on 05/07/2025 at 16:19 Approved by: Gold Acosta M.D. on 05/07/2025 at 16:19 [facility] Narrative Medical decision making narrative: 89-year-old female with a past medical history of hypertension, hyperlipidemia, CAD, osteoarthritis, hypothyroidism, CKD who presents to the emergency department for worsening left hip pain x1 week. Differential diagnosis includes but isn't limited to left hip osteoarthritis, fracture, sprain, strain, etc. On exam patient is in no acute distress, nontoxic-appearing, blood pressure is elevated in triage otherwise vital signs are within normal limits. She is ambulatory with a cane but with discomfort. She has no deformities of the left hip or lower leg. No trauma. Lower extremities are neurovascularly intact. She does still have range of motion of the hip with distal comfort. X-ray hip/pelvis obtained in triage. She declines opiate pain medication, she is unable to take NSAIDs, we will treat with Tylenol. Discussed patient's elevated blood pressure, states that her and her PCP or currently trying to figure it out, no chest pain, shortness of breath, dizziness lightheadedness or other concerns. X-ray reveals severe left hip joint osteoarthritis, there is no acute pelvic or hip fractures or evidence of avascular necrosis. Discussed with the patient the importance of following up with Orthopedic surgery for further management including but not limited to surgery or conservative management. In the meantime recommended ambulating with a walker for steadiness or using a wheelchair as well which she is agreeable to. She would only like to proceed with Tylenol for pain control. Discussed strict ED return precautions and follow up with PCP/ortho. She verbalized understanding of all information and is agreeable to this plan. She is stable for discharge home. Discharge Plan Departure Patient Disposition: Home Clinical Impression: Osteoarthritis of left hip Qualifiers: Osteoarthritis type: unspecified Qualified Code(s): M16.12 - Unilateral primary osteoarthritis, left hip Instructions: DI for Hip Pain Activity Restrictions/Additional Instructions: Dear Derek, Thank you for coming to the emergency department. Today you were evaluated for left hip pain. Your x-ray unfortunately did reveal severe osteoarthritis. This will need to be managed by an orthopedic surgeon and you will likely need physical therapy as well. At this time please rest, use a walker or wheelchair, Tylenol for pain, and follow up with your primary care doctor as well. Please call to schedule an appointment with [facility] listed below for further management of your hip osteoarthritis. Please follow up with your primary care doctor within the next 2-3 days for ER follow-up. (If you do not have a PCP you can call [phone]. ?to schedule an appointment with an [facility] Primary Care Provider) IF YOU DEVELOP ANY NEW OR WORSENING SYMPTOMS, RETURN TO THE ER! Please read the attached instructions, they highlight more specific treatments and interventions for you at home. Thank you for letting me participate in your care, Litzy Yepez PA-C Prescriptions: No Action sodium polystyrene sulfonate Powder PO (DME) Disabled Parking Permint See Rx Instructions .ROUTE .MEDSUPPLY Qty: 1 0RF Rx Instructions: I find this patient to be medically disabled and qualified for Disabled Parking as indicated and signed on the Accompanying Disabled Parking Application for individuals. evolocumab 140 mg/mL syringe 140 mg SUBCUT Q2W Qty: 6 1RF Rx Instructions: new rx for pre-filled syringe levothyroxine 88 mcg tablet 88 mcg PO ONCE PM Qty: 90 3RF aspirin [Adult Aspirin Regimen] 81 mg tablet,delayed release (DR/EC) 81 mg PO BEDTIME mecobalamin (vitamin B12) PO cholecalciferol (vitamin D3) PO amlodipine 5 mg tablet 5 mg PO BID Qty: 180 3RF Rx Instructions: change to 5 mg BID 12/08/24 metoprolol succinate 25 mg tablet extended release 24 hr 25 mg PO BEDTIME Qty: 90 3RF Rx Instructions: decrease to 25 mg lisinopril 5 mg tablet 5 mg PO DAILY sodium polystyrene sulf-sorbtl 15-20 gram/60 mL Suspension 60 ml PO Q OTHER DAY Referrals: Homer Laureano DO [Primary Care Provider, Family Practice] Tara Michelle DO [Physician, Orthopedic Surgery] Referral Note: severe left hip OA Stand Alone Forms: Patient Portal/API ED Sign-out <Cecil Schofield MD - Last Filed: 05/07/25 19:23> Cosign ED Attending Oneydaature Attestation: I was immediately available in the department for consultation. ?This documentation has been reviewed and I agree with assessment and plan. Supervised by Cecil Schofield MD
[2025-05-07] MEDS: ACETAMINOPHEN 325 MG TABLET 975 MG PO (16:52)
[2025-05-07 17:02] VITALS: BP 198/80; PULSE 73; RESP 18; O2SAT 98
== END 2025-05-07 17:03 | disposition home or self-care (01) ==
PROVIDERS: Emergency Provider Physician Assistant; PCP Family Medicine
DX: M16.12 Unilateral primary osteoarthritis, left hip (principal); Z96.641 Presence of right artificial hip joint
CPT/HCPCS: 73502; 99283

== ENCOUNTER 2025-08-20 11:20 | Outpatient (CLI) | payer MEDICARE, SELFPAY ==
[2025-06-25 15:28] VITALS: BMI 20.5
[2025-08-20 11:44] VITALS: BP 161/72; PULSE 71; RESP 16; O2SAT 97
[2025-08-20 11:50] VITALS: BP 155/66; PULSE 67; RESP 16; O2SAT 96
[2025-08-20] MEDS: LIDOCAINE 1% 20 ML 10 ML INJ (11:51)
[2025-08-20] MEDS: TRIAMCINOLONE 40 MG/ML VIAL INJ (11:51)
[2025-08-20 11:53] VITALS: BP 143/66; PULSE 69; RESP 16; O2SAT 96
[2025-08-20 12:03] VITALS: BP 175/92; PULSE 66; RESP 18; O2SAT 96
--- NOTE | 2025-08-20 12:37 | PM.PROC.IR.1 ---
Date/Time/Diagnoses Date of procedure: 08/20/25 Time of procedure: 11:45 Pre-procedure diagnosis: Left hip osteoarthritis/pain, greater trochanter pain syndrome Post-procedure diagnosis: same Procedure Notes Procedure: Left hip joint injection with fluoroscopic guidance Indications: Left hip osteoarthritis/pain, greater trochanter pain syndrome Physician: Narayan Johnson Total sedation minutes: 0 Complications: none Procedure in detail & Post-procedure care: Patient is here for the planned procedure today as noted. No significant change since the last office visit. For additional clinical scenario please see those office notes. Focused exam: Vital signs reviewed as charted on intake. Gen: Well developed. No acute distress. CV: RRR, no M/R/G Chest: Non-labored breathing, CTAB. Psych: Alert and well-oriented. Mood/Affect: normal. Patient suitable for the planned procedure today: Yes === The following procedure was performed today: Hip joint injection under fluoroscopic guidance (lateral approach) And bzzb-zjwlqfh-zyts-right counter/bursa injection ([id number], [id number]) Approach: Lateral Laterality: Left Soft tissue: [1% lidocaine 2 mL] Injectate: 1) At the left greater trochanter/bursa: [Triamcinolone 0.25 mL (40 mg/mL) in 1 mL of 1% lidocaine]; 2) At the left hip joint: [Triamcinolone 0.75 mL (40 mg/mL) in 7 mL of 1% lidocaine] Fluoroscopy Agent: Isovue 300-M 1.5 mL Notes: The left greater trochanter/bursa was targeted 1st, then the left hip joint. We reviewed history of advanced left hip osteoarthritis, potential limitations of injection therapy for her. She would like to proceed. Preprocedure pain 5/10, postprocedure pain 0/10. Procedure: The patient was prepped and draped in a sterile fashion after being placed in the side-lying position. A lateral fluoroscopic view of the left greater trochanter and hip was obtained. After skin preparation, a 25 gauge needle was used to anesthetize the skin with the anesthetic noted above, then advanced to the uiwr-hzvwkzj-gtovejnhry confirmed with multiplanar imaging and contrast placement, and the injectate noted above was injected at this target. Then, the area over the left hip was anesthetized with a 25 gauge needle, then a 22 gauge spinal needle was inserted with fluoroscopic guidance to contact periosteum at the femoral head-neck junction, confirmed with multiplanar views. Then, the contrast noted above was injected and a partial hip arthrogram was obtained. The anesthetic/steroid solution noted above was slowly injected into the hip joint. The needle was withdrawn. Appropriate radiographs were obtained. The patient tolerated the procedure well and was discharged after an appropriate period of observation. If there are any complications, the patient was instructed to call us. The patient is to follow-up with the referring provider in 2-3 weeks/as planned. This note was compiled using voice recognition software and therefore may contain typos. Please contact the author with any questions or concerns.
== END 2025-08-20 12:17 | disposition home or self-care (01) ==
LOC: RAD 11:21
PROVIDERS: PCP Family Medicine; Referring Provider Physical Medicine & Rehabilitation; Visit Provider Physical Medicine & Rehabilitation
DX: M16.12 Unilateral primary osteoarthritis, left hip (principal); M25.552 Pain in left hip
CPT/HCPCS: 20610; 77002

== ENCOUNTER 2025-08-25 15:15 | Outpatient (RCR) | payer MEDICARE, SELFPAY ==
[2025-05-12 14:36] VITALS: BMI 20.5
--- NOTE | 2025-05-20 15:56 | PT.OIE ---
Current Diagnoses Unspecified disorder of synovium and tendon, left thigh (05/20/25) Past Medical History (Last Reviewed 05/11/25 @ 09:04 by Homer Laureano DO) Anemia Cataracts, bilateral Cervical spine disease Chicken pox (~1949) CKD (chronic kidney disease) Coronary artery disease (~2009) Coronary atherosclerosis Decreased mobility Depression Fatigue Fibroids (~1993) Hearing loss (~1999) History of claudication History of COVID-19 (12/2022) History of TIA (transient ischemic attack) Hyperkalemia Hyperlipidemia (~1989) Hypertension Hypothyroidism (~1997) Iron deficiency anemia Kidney disorder (~2021) Leg edema Lumbar disc disease (~2002) Measles (~1959) Medicare annual wellness visit, subsequent Melanoma (~10/2022) Neuropathy Nonrheumatic aortic (valve) insufficiency Osteoarthritis (~1989) Peripheral neuropathy Polymyalgia rheumatica (~2004) Preventative health care PVD (peripheral vascular disease) Ruptured tympanic membrane Skin cancer (~2021) Statin not tolerated Thrombocytopenia Tinnitus Wears glasses Well adult health check Past Surgical History (Last Reviewed 05/11/25 @ 09:04 by Homer Laureano DO) Anesthesia History of cataract removal with insertion of prosthetic lens History of dilatation and curettage (~12/2002) History of ear surgery (~2011) History of eye surgery (~2012) History of laminectomy (~07/2015) History of laminectomy (~02/26/04) History of laminectomy (~03/08/03) History of left knee replacement (~03/2015) History of right hip replacement (~11/09/03) History of total left knee replacement (TKR) S/P coronary artery stent placement (~2009) Visit Care Team Role Provider Type Homer Laureano DO Family Provider Physician Primary Care Provider Specialty: Family Practice Address: [address] [place] [address], [address] Email: [email or web address] Attending Provider [employer] Referring Provider Specialty: Orthopedics Orthopedic Surgery Address: [address] [place] [address], [address] Email: [email or web address] Physical Therapy Initial Evaluation PT OP: Lower Back/Lower Extremity Start: 05/20/25 13:46 Freq: Status: Active Protocol: Document 05/20/25 13:47 BL (Rec: 05/20/25 15:56 BL Laptop) Out-Patient Physical Therapy Visit Information Visit Information Visit Type Initial Evaluation Visit Start Time 14:30 Visit Stop Time 15:10 Visit Number (1) 1/10 Number of MOTORCYCLE FABRICATOR Visits 0 Progress Note Due 06/19/25 Evaluation Information Evaluation Date 05/20/25 OP-PT Subjective Patient Comments Patient Comments Pt presents to the clinic this date with L posterior/ lateral hip pain that has been bothering her for about a month. Pt reports the R hip was replaced 20 yrs ago and has been doing well along with L knee replacement which is also doing well. Pt states she is limited in her walking, usually able to walk a block or so at a time btu has been to painful recently. Pt reports difficulty with getting in/out of the car. Pt reports she is sleeping ok, states some difficulty with turning over in bed. Reports she uses a SPC in the community prior but now will use it around the home too. Pt reports stepping down she feels unsecure. States her pain is more of deep ache in her hip and states standing walking worsen her symptoms. Rates her pain as 7/10 this date. Reports she has tried lidocaine cream with minimal success. States her goals are to be able to return to gardening without discomfort. Pt denies changes in her coordination or sensation this date. Patient Reported Same Progress Patient Questionnaires Lower Extremity Functional Scale LEFS Score 31 function Balance Tests Single Limb Standing Single Limb- Right 1 Single Limb- Left 0 Posture Evaluation Comments Posture Comments Pt stand with rounded shoulder and decreased lumbar lordosis, also demos slight knee flexion contractor. Pt ambulates with decreased foot clearance and use of SPC in R UE. Palpation Assessment Location L hip Palpation Details Pt point tender with deep palpation to piriformis area as well as ischial tuberosity. Hip Goniometric Range of Motion Hip right Flexion w/Knee 125 Flexed Abduction 45 Internal Rotation 40 External Rotation 50 left Flexion w/Knee 115 Flexed Abduction 45 Internal Rotation 40 External Rotation 20 Knee Goniometric Range of Motion Knee Right Knee ROM WFL Yes Left Knee ROM WFL Yes Special Tests Lumbar Spine Special Tests Straight Leg Raise Test Results negative Slump Test Results negative Hip Special Tests Posterior Labral Test Test Results negative MICHOACANO Test Results negative Edgardo Test Results negative Hip Strength Hip Manual Muscle Testing Right Flexion (L2) 4+ Good+ Extension (S1) 4- Good- Abduction 4+ Good+ Adduction 5 Normal External Rotation 4+ Good+ Internal Rotation 4 Good Left Flexion (L2) 4+ Good+ Extension (S1) 4- Good- Abduction 4+ Good+ Adduction 5 Normal External Rotation 4+ Good+ Internal Rotation 4 Good Knee Strength Knee Manual Muscle Testing Right Flexion (S2) 4 Good Extension (L3) 5 Normal Left Flexion (S2) 4 Good Extension (L3) 4+ Good+ Therapeutic Exercises Supine Exercises strength Supine Exercise Name clamshells, reverse clamshells Side left Comments 10x ea stretch Supine Exercise Name figure 4 st, piriformis st Comments 3x 30 sec Physical Therapy Assessment Rehab Potential Rehabilitation Good Potential Evaluation Complexity Number of Personal 1-2 Factors/ Comorbidities Number of Body 3 Systems Impaired Clinical Evolving Presentation at Evaluation Impairments Impairments Activity Tolerance,Balance,Functional Activities, Functional Mobility,Gait,Pain,Posture,ROM,Soft Tissue Mobility,Strength,Transfers Goals Three Land Acquisition Manager Goal (LTG) pt will demo improved IR strength to L hip to 4/5 by DC for improved stability to complete gardening tasks. Two Land Acquisition Manager Goal (LTG) pt will report being able to ambulate 500' without increase in symptoms by DC for improved functional mobility. One Short Term Goal (STG pt will be ind with HEP within 2 visits in order to ) progress toward termite renewal inspector therapy goals outside of therapy visits. Long-Term Goal (LTG) Pt will demo improved LEFs score to 44 function or better by DC for improved quality of life. Assessment Summary Assessment pt presents with limitations in strength and A/PROM to L hip. Pt reports increased pain with functional activities and demos tenderness with palpation to posterior hip along with decreased functional balance this date. The above are limiting pts ability to complete ADLs and recreational hobbies. Pt will benefit from skilled Physical Therapy intervention for strength and endurance training in order to improve functional mobility and allow for pt to return to OF. Physical Therapy Plan Frequency and Duration Frequency of 2x/Week Treatment Duration of 12 treatment (weeks) Plan of Care Start 05/20/25 Date Plan of Care End 08/12/25 Date Therapeutic Interventions Therapeutic Balance Training,Coordination Training,Gait Training, Interventions Home Exercise Program,Joint Mobilizations,Manual Therapy,Neuromuscular Re-education,Orthotic/Prosthetic Management,Patient/Caregiver Education,Self-Care/Home Management,Sensory Integration,Soft Tissue Mobilization ,Taping,Therapeutic Activities,Therapeutic Exercises Modalities Cold Pack/Ice Massage,Electric Stimulation,Hot Packs, Infrared Therapy,Iontophoresis,Ultrasound Next Visit Focus/Plan Next Note Type Treatment Note Next Visit Plan Manual work to L posterior hip, AROM for hip flexion and IR, Strength and stability training, Dynamic balance.
--- NOTE | 2025-05-28 10:28 | PT.OTN ---
Current Diagnoses Unspecified disorder of synovium and tendon, left thigh (05/28/25) Physical Therapy Treatment Note PT OP: Lower Back/Lower Extremity Start: 05/20/25 13:46 Freq: Status: Active Protocol: Document 05/28/25 09:53 BL (Rec: 05/28/25 10:28 BL Laptop) Out-Patient Physical Therapy Visit Information Visit Information Visit Type Treatment Note Visit Start Time 09:45 Visit Stop Time 10:25 Visit Number (2) 2/10 Number of OFFICE RUNNER Visits 0 Progress Note Due 06/19/25 OP-PT Subjective Patient Comments Patient Comments Pt presents to the clinic this date and reports the posterior hip pain is slightly better however her pain has now moved closer to her groin. Pt reports symptoms continue to improve when she is not weight barring. Therapeutic Exercises Supine Exercises strength Supine Exercise Name clamshells, reverse clamshells, banded bridges Side left Resistance lvl 1 Comments 10x ea, cues for hip abduction stretch Supine Exercise Name figure 4 st, piriformis st, modified [place] st Comments 3x 30 sec Manual Therapy Treatment Soft Tissue Mobilization L hip Comments DTM w/ TPR to L posterior hip musculature and hip flexor. Trial contract relax to L hip flexor with improved symptoms following. Pt instructed to drink plenty of water. Physical Therapy Assessment Goals Three Leg Man Goal (LTG) pt will demo improved IR strength to L hip to 4/5 by DC for improved stability to complete gardening tasks. Two Leg Man Goal (LTG) pt will report being able to ambulate 500' without increase in symptoms by DC for improved functional mobility. One Short Term Goal (STG pt will be ind with HEP within 2 visits in order to ) progress toward fdc therapy goals outside of therapy visits. Leg Man Goal (LTG) Pt will demo improved LEFs score to 44 function or better by DC for improved quality of life. Assessment Summary Assessment Pt tolerates session well with improved L posterior hip pain following, Pt advanced in HEP for L hip anterior stretching and mobility this date. Advanced strength for hip abductor this session as well. Physical Therapy Plan Frequency and Duration Frequency of 2x/Week Treatment Duration of 12 treatment (weeks) Plan of Care Start 05/20/25 Date Plan of Care End 08/12/25 Date Next Visit Focus/Plan Next Note Type Treatment Note Next Visit Plan Manual work to L posterior hip, AROM for hip flexion and IR, Strength and stability training, Dynamic balance.
--- NOTE | 2025-06-02 10:40 | PT.OTN ---
Current Diagnoses Unspecified disorder of synovium and tendon, left thigh (06/02/25) Physical Therapy Treatment Note PT OP: Lower Back/Lower Extremity Start: 05/20/25 13:46 Freq: Status: Active Protocol: Document 06/02/25 09:47 BL (Rec: 06/02/25 10:40 BL Laptop) Out-Patient Physical Therapy Visit Information Visit Information Visit Type Treatment Note Visit Start Time 09:45 Visit Stop Time 10:25 Visit Number (3) 3/10 Number of THEATRE DIRECTOR Visits 0 Progress Note Due 06/19/25 OP-PT Subjective Patient Comments Patient Comments Pt presents to the clinic this date and reports the posterior hip pain is slightly better however her pain has now moved closer to her groin. Pt reports symptoms continue to improve when she is not weight barring. Therapeutic Exercises Supine Exercises strength Supine Exercise Name clamshells, reverse clamshells, banded bridges ( reviewed) Side left Resistance lvl 1 Comments 10x ea, cues for hip abduction stretch Supine Exercise Name figure 4 st, piriformis st, modified syl[place]ia st ( reviewed) Comments 3x 30 sec Manual Therapy Treatment Soft Tissue Mobilization L hip Comments DTM w/ TPR to L posterior hip musculature and hip flexor. L IT band area with improved tissue mobility following with less discomfort. Joint Mobilizations L hip Comments L hip distraction in flexed position with mobilization strap. Worked through PROM. Pt demos improved sense of mobility following. Physical Therapy Assessment Goals Three Intermediate Goal (LTG) pt will demo improved IR strength to L hip to 4/5 by DC for improved stability to complete gardening tasks. Two Intermediate Goal (LTG) pt will report being able to ambulate 500' without increase in symptoms by DC for improved functional mobility. One Short Term Goal (STG pt will be ind with HEP within 2 visits in order to ) progress toward fdc therapy goals outside of therapy visits. Intermediate Goal (LTG) Pt will demo improved LEFs score to 44 function or better by DC for improved quality of life. Assessment Summary Assessment Pt continues to have increased discomfort with anterior and lateral hip discomfort. Pt demos increased tissue tightness that is improved at end of session. Pt continues to have positive stitchfield test this session. Physical Therapy Plan Frequency and Duration Frequency of 2x/Week Treatment Duration of 12 treatment (weeks) Plan of Care Start 05/20/25 Date Plan of Care End 08/12/25 Date Next Visit Focus/Plan Next Note Type Treatment Note Next Visit Plan Manual work to L posterior hip, AROM for hip flexion and IR, Strength and stability training, Dynamic balance.
--- NOTE | 2025-06-04 10:28 | PT.OTN ---
Current Diagnoses Unspecified disorder of synovium and tendon, left thigh (06/04/25) Physical Therapy Treatment Note PT OP: Lower Back/Lower Extremity Start: 05/20/25 13:46 Freq: Status: Active Protocol: Document 06/04/25 09:47 BL (Rec: 06/04/25 10:28 BL Laptop) Out-Patient Physical Therapy Visit Information Visit Information Visit Type Treatment Note Visit Start Time 09:45 Visit Stop Time 10:25 Visit Number (4) 4/10 Number of DIRECTOR OF MARKETING [employer]CE ADS Visits 0 Progress Note Due 06/19/25 OP-PT Subjective Patient Comments Patient Comments Pt presents to the clinic this date and reports she is doing well, states following last session her groin pain is much better, states the pain in her L posterior hip is also a bit better. Therapeutic Exercises Supine Exercises strength Supine Exercise Name clamshells, reverse clamshells, banded bridges ( reviewed) Side left Resistance lvl 4 Comments 10x ea, cues for hip abduction stretch Supine Exercise Name figure 4 st, piriformis st, modified syl[place]ia st ( reviewed) Comments 3x 30 sec Standing Exercises strength Standing Exercise frwd step ups Name Resistance 6 in step Comments 10x Other Exercises shuttle Other Exercise Name 75 grace, 50 single Comments 10x 2x5 Mobility Other Exercise Name SciFit Resistance lvl 3 Comments 3 minutes for hip mobility Manual Therapy Treatment Soft Tissue Mobilization L hip Comments DTM w/ TPR to L posterior hip musculature and hip flexor. L IT band area with improved tissue mobility following with less discomfort. Physical Therapy Assessment Goals Three Senior Care Goal (LTG) pt will demo improved IR strength to L hip to 4/5 by DC for improved stability to complete gardening tasks. Two Senior Care Goal (LTG) pt will report being able to ambulate 500' without increase in symptoms by DC for improved functional mobility. One Short Term Goal (STG pt will be ind with HEP within 2 visits in order to ) progress toward halfway therapy goals outside of therapy visits. Senior Care Goal (LTG) Pt will demo improved LEFs score to 44 function or better by DC for improved quality of life. Assessment Summary Assessment Pt tolerates session well this date, demos improved tissue mobility following. pt surprised at how weak her R hip is this date. Continues to have positive stitchfield test this session. Physical Therapy Plan Frequency and Duration Frequency of 2x/Week Treatment Duration of 12 treatment (weeks) Plan of Care Start 05/20/25 Date Plan of Care End 08/12/25 Date Next Visit Focus/Plan Next Note Type Treatment Note Next Visit Plan Manual work to L posterior hip, AROM for hip flexion and IR, Strength and stability training, Dynamic balance.
--- NOTE | 2025-06-09 10:30 | PT.OTN ---
Current Diagnoses Unspecified disorder of synovium and tendon, left thigh (06/09/25) Physical Therapy Treatment Note PT OP: Lower Back/Lower Extremity Start: 05/20/25 13:46 Freq: Status: Active Protocol: Document 06/09/25 09:50 BL (Rec: 06/09/25 10:30 BL Laptop) Out-Patient Physical Therapy Visit Information Visit Information Visit Type Treatment Note Visit Start Time 09:45 Visit Stop Time 10:25 Visit Number (5) 5/10 Number of GROUT MACHINE OPERATOR Visits 0 Progress Note Due 06/19/25 OP-PT Subjective Patient Comments Patient Comments Pt presents to the clinic this date and reports she continues to notice improvements in her mobility and less discomfort, states her hip feels looser. Reports mornings are still tough. Therapeutic Exercises Supine Exercises strength Supine Exercise Name clamshells, reverse clamshells, banded bridges ( reviewed) Side left Resistance lvl 4 Comments 10x ea, cues for hip abduction stretch Supine Exercise Name figure 4 st, piriformis st, modified sylwia st ( reviewed) Comments 3x 30 sec Standing Exercises strength Standing Exercise frwd step ups Name Resistance 6 in step Comments 10x Other Exercises shuttle Other Exercise Name 75 grace, 50 single Comments 10x 2x5 Mobility Other Exercise Name NuStep Resistance lvl 5 Comments 3 minutes for hip mobility Manual Therapy Treatment Soft Tissue Mobilization L hip Comments DTM w/ TPR to L posterior hip musculature and hip flexor. L IT band area with improved tissue mobility following with less discomfort. Physical Therapy Assessment Goals Three Billiard Table Mechanic Goal (LTG) pt will demo improved IR strength to L hip to 4/5 by DC for improved stability to complete gardening tasks. Two Usp Goal (LTG) pt will report being able to ambulate 500' without increase in symptoms by DC for improved functional mobility. One Short Term Goal (STG pt will be ind with HEP within 2 visits in order to ) progress toward terminal superintendent therapy goals outside of therapy visits. Usp Goal (LTG) Pt will demo improved LEFs score to 44 function or better by DC for improved quality of life. Assessment Summary Assessment Pt tolerates session well with improved symptoms following. Improved posterior hip musculature tightness noted this date. Pt is able to ambulate with improved pattern this date. Continue to focus on hip strengthening per pt tolerance. Physical Therapy Plan Frequency and Duration Frequency of 2x/Week Treatment Duration of 12 treatment (weeks) Plan of Care Start 05/20/25 Date Plan of Care End 08/12/25 Date Next Visit Focus/Plan Next Note Type Treatment Note Next Visit Plan Manual work to L posterior hip, AROM for hip flexion and IR, Strength and stability training, Dynamic balance.
--- NOTE | 2025-06-12 09:44 | PT.OPPN ---
Current Diagnoses Unspecified disorder of synovium and tendon, left thigh (06/12/25) Physical Therapy Progress Note PT OP: Lower Back/Lower Extremity Start: 05/20/25 13:46 Freq: Status: Active Protocol: Document 06/12/25 08:59 BL (Rec: 06/12/25 09:44 BL Laptop) Out-Patient Physical Therapy Visit Information Visit Information Visit Type Progress Note Visit Start Time 09:00 Visit Stop Time 09:40 Visit Number (6) 03/17 Number of STOCK REPAIRER Visits 0 Progress Note Due 07/12/25 OP-PT Subjective Patient Comments Patient Comments Pt presents to the clinic this date and reports she felt really good following last session, pt reports she is pretty sore this morning. Therapeutic Exercises Supine Exercises strength Supine Exercise Name clamshells, SLR Side left Resistance lvl 3 Comments 4x L hip with 10 sec hold, 10x R ea, cues for hip abduction stretch Supine Exercise Name figure 4 st, piriformis st, modified sylwia st ( reviewed) Comments 3x 30 sec Sidelying Exercises hip strength Sidelying Exercise reverse clamshell Name Resistance 0# Comments 10x Other Exercises Mobility Other Exercise Name NuStep Resistance lvl 5 Comments 3 minutes for hip mobility Manual Therapy Treatment Soft Tissue Mobilization L hip Comments DTM w/ TPR to L posterior hip musculature and hip flexor. L IT band area with improved tissue mobility following with less discomfort. Physical Therapy Assessment Goals Three Mcc Goal (LTG) pt will demo improved IR strength to L hip to 4/5 by DC for improved stability to complete gardening tasks. ( progressing) 06/12/25: Two Neurology Physician Goal (LTG) pt will report being able to ambulate 500' without increase in symptoms by DC for improved functional mobility. (progressing) 06/12/25: Pt reports she can walk upto 250' without increase in pain on certain days now. One Short Term Goal (STG pt will be ind with HEP within 2 visits in order to ) progress toward prison therapy goals outside of therapy visits. (Goal Met) Neurology Physician Goal (LTG) Pt will demo improved LEFs score to 44 function or better by DC for improved quality of life. (progressing ) 06/12/25: pt reports improvement in symptoms day to day. Assessment Summary Assessment Pt continues to make good progress toward therapy goals . Pt demos improved hip mobility this date however continues to have pain with ambulation over L lateral thigh. Pt demos improved L abduction strength. Will continue to benefit from skilled PT intervention for strength and endurance training to improve functional stability with gait. Physical Therapy Plan Frequency and Duration Frequency of 2x/Week Treatment Duration of 12 treatment (weeks) Plan of Care Start 05/20/25 Date Plan of Care End 08/12/25 Date Next Visit Focus/Plan Next Note Type Treatment Note Next Visit Plan Manual work to L posterior hip, AROM for hip flexion and IR, Strength and stability training, Dynamic balance.
--- NOTE | 2025-06-17 10:30 | PT.OTN ---
Current Diagnoses Unspecified disorder of synovium and tendon, left thigh (06/17/25) Physical Therapy Treatment Note PT OP: Lower Back/Lower Extremity Start: 05/20/25 13:46 Freq: Status: Active Protocol: Document 06/17/25 09:46 BL (Rec: 06/17/25 10:29 BL Laptop) Out-Patient Physical Therapy Visit Information Visit Information Visit Type Treatment Note Visit Start Time 09:45 Visit Stop Time 10:25 Visit Number (7) 2 Number of PIPE BOWLS PAINT TRIMMER Visits 0 Progress Note Due 07/12/25 OP-PT Subjective Patient Comments Patient Comments Pt presents to the clinic this date and reports she is doing well, states following each session she feels pretty good but doesn't feel like her progress is sticking. Therapeutic Exercises Supine Exercises strength Supine Exercise Name SLR, Bridges Side left Resistance lvl 3 band Comments 4x L hip with 10 sec hold, 10x R ea, cues for hip abduction stretch Supine Exercise Name figure 4 st, piriformis st, modified sylwia st ( reviewed) Comments 3x 30 sec Sidelying Exercises hip strength Sidelying Exercise reverse clamshell, clamshells Name Resistance 0#, 3# Comments 10x Other Exercises Mobility Other Exercise Name SciFit Resistance lvl 4 Comments 4 minutes for hip mobility Manual Therapy Treatment Soft Tissue Mobilization L hip Comments DTM w/ TPR to L posterior hip musculature and hip flexor. L IT band area with improved tissue mobility following with less discomfort. Physical Therapy Assessment Goals Three Jail Goal (LTG) pt will demo improved IR strength to L hip to 4/5 by DC for improved stability to complete gardening tasks. ( progressing) 06/12/25: Two Special Certificate Dictator Goal (LTG) pt will report being able to ambulate 500' without increase in symptoms by DC for improved functional mobility. (progressing) 06/12/25: Pt reports she can walk upto 250' without increase in pain on certain days now. One Short Term Goal (STG pt will be ind with HEP within 2 visits in order to ) progress toward fdc therapy goals outside of therapy visits. (Goal Met) Special Certificate Dictator Goal (LTG) Pt will demo improved LEFs score to 44 function or better by DC for improved quality of life. (progressing ) 06/12/25: pt reports improvement in symptoms day to day. Assessment Summary Assessment Pt tolerates session well, pt reports she continue to demo improved symptoms. Tissue mobility improved this session however continues to have significant hip flexor tightness bilateral. Physical Therapy Plan Frequency and Duration Frequency of 2x/Week Treatment Duration of 12 treatment (weeks) Plan of Care Start 05/20/25 Date Plan of Care End 08/12/25 Date Next Visit Focus/Plan Next Note Type Treatment Note Next Visit Plan Manual work to L posterior hip, AROM for hip flexion and IR, Strength and stability training, Dynamic balance.
--- NOTE | 2025-06-26 12:42 | PT.OTN ---
Current Diagnoses Unspecified disorder of synovium and tendon, left thigh (06/26/25) Physical Therapy Treatment Note PT OP: Lower Back/Lower Extremity Start: 05/20/25 13:46 Freq: Status: Active Protocol: Document 06/26/25 11:45 NBM (Rec: 06/26/25 12:31 NBM Laptop) Out-Patient Physical Therapy Visit Information Visit Information Visit Type Treatment Note Visit Start Time 11:41 Visit Stop Time 12:31 Visit Number (8) 4/10 Number of PORTFOLIO LEAD Visits 2 Progress Note Due 07/12/25 Evaluation Information Evaluation Date 05/20/25 OP-PT Subjective Patient Comments Patient Comments Alla reports yesterday was the best she's felt and she thinks it's because of a good PT session last time. She went to [email or web address] yesterday without issue, but woke up feeling not as well as yesterday. She has left hip pain front and back 02/14. She did ex's yesterday but not yet today. Therapeutic Exercises Supine Exercises strength Supine Exercise Name SLR, Bridges Side bilateral Resistance lvl 3 band Equipment Used SLR: PORTFOLIO LEAD fist inside stance knee to avoid hip adduction Reps/Minutes x10 Comments cues for LE alignment w/ both, quad set and maintain knee ext w/ SLR stretch Supine Exercise Name HEP review 1. modified sylwia st 2. Fig 4 mod to Knee to opp serge Side left Equipment Used hi lo table w/ foot stool for gentle, painfree pull Reps/Minutes 8 breath cycles each Comments cues for L painfree range. Manual Therapy Treatment Consent Patient gave verbal Yes consent for manual treatment Soft Tissue Mobilization L hip Body Position Supine Comments B Iliopsoas release 2x90 sec ea w/ breathwork Self-Care/Home Management Treatment Education Patient Education Body Mechanics,Home Exercise Program,Pain Management Other Education Edu to pt w/ visual aids re: Iliopsoas m. anatomy for consent to manual release. Pt i/s in self-massage w/ tennis ball at wall and rolling pin to L lower extremity - positive feedback response. Physical Therapy Assessment Goals Three Hospital Insurance Representative Goal (LTG) pt will demo improved IR strength to L hip to 4/5 by DC for improved stability to complete gardening tasks. ( progressing) 06/12/25: Two Hospital Insurance Representative Goal (LTG) pt will report being able to ambulate 500' without increase in symptoms by DC for improved functional mobility. (progressing) 06/12/25: Pt reports she can walk upto 250' without increase in pain on certain days now. One Short Term Goal (STG pt will be ind with HEP within 2 visits in order to ) progress toward termination clerk therapy goals outside of therapy visits. (Goal Met) Hospital Insurance Representative Goal (LTG) Pt will demo improved LEFs score to 44 function or better by DC for improved quality of life. (progressing ) 06/12/25: pt reports improvement in symptoms day to day. Assessment Summary Assessment Alla presents with 5/10 L hip pain which improves by end of sesion (scale not rated). Treatment focus on improving hip extension and pain management with manual therapy and education. She is reminded to modify hip flexor stretch onto couch to allow for foot support for painfree range, and encouraged to perform stretches and bridges in morning for pain management. She is instructed in self-STM w/ rolling pin to L lower extremity and w/ tennis ball at wall to L posterior hip with positive feedback response. She requires cues for LE alignment and eccentric control with bridging, and for knee extension w/ SLR. Pt ambulates out of clinic with improved hip extension using SPC in R UE. Physical Therapy Plan Frequency and Duration Frequency of 2x/Week Treatment Duration of 12 treatment (weeks) Plan of Care Start 05/20/25 Date Plan of Care End 08/12/25 Date Next Visit Focus/Plan Next Note Type Treatment Note Next Visit Plan Manual work to L posterior hip, AROM for hip flexion and IR, Strength and stability training, Dynamic balance.
--- NOTE | 2025-06-29 16:17 | PT.OTN ---
Current Diagnoses Unspecified disorder of synovium and tendon, left thigh (06/29/25) Physical Therapy Treatment Note PT OP: Lower Back/Lower Extremity Start: 05/20/25 13:46 Freq: Status: Active Protocol: Document 06/29/25 15:16 SAK (Rec: 06/29/25 16:16 SAK Laptop) Out-Patient Physical Therapy Visit Information Visit Information Visit Type Treatment Note Visit Start Time 15:17 Visit Stop Time 16:02 Visit Number (9) 5/10 Number of POLICY SPECIALIST Visits 3 Progress Note Due 07/12/25 OP-PT Subjective Patient Comments Patient Comments Last week I felt like i was on the mend but past 2 days have been really bad, cause uncertain. Since Sunday has been bad. Doing HEP Cardio Equipment Recumbent Stepper (Sci-Fit) Duration (Minutes) 8 Resistance 5 Seat Position 5 Other cues for LE aliingment, push through heels Gym Equipment Shuttle Recovery B squat Details w/ green band on B knees to prevent knee valgus Resistance #62 Shuttle Recovery Stable Platform Reps/Time x30 SL squat Details cued lateral knee alignment to neutral Resistance #37R , 25#L Shuttle Recovery Stable Platform Reps/Time 12x2 Therapeutic Exercises Supine Exercises strength Supine Exercise Name HEP stretch Supine Exercise Name HEP Sidelying Exercises hip strength Sidelying Exercise hip ab (wall), clam and reverse clam Name Equipment Used L2 TB clam/reverse clam Reps/Minutes 10x Comments verbal and tactile cues for alignment and technique Sitting Exercises ball squeeze Comments NEXT SESSION hip ab Equipment Used L2 TB Reps/Minutes 1 min Standing Exercises strength Standing Exercise glut set Name Reps/Minutes 5x Manual Therapy Treatment Soft Tissue Mobilization L hip Body Position Sidelying Comments Pillow support between LEs for sidelying. DTM w/ TPR to L posterior hip musculature L IT band area L piriformis Self-Care/Home Management Treatment Education Other Education encouraged patient to get tennis ball for self massage against wall Physical Therapy Assessment Goals Three Usp Goal (LTG) pt will demo improved IR strength to L hip to 4/5 by DC for improved stability to complete gardening tasks. ( progressing) 06/12/25: Two Business Strategy Manager Goal (LTG) pt will report being able to ambulate 500' without increase in symptoms by DC for improved functional mobility. (progressing) 06/12/25: Pt reports she can walk upto 250' without increase in pain on certain days now. One Short Term Goal (STG pt will be ind with HEP within 2 visits in order to ) progress toward intermediate school teacher therapy goals outside of therapy visits. (Goal Met) Usp Goal (LTG) Pt will demo improved LEFs score to 44 function or better by DC for improved quality of life. (progressing ) 06/12/25: pt reports improvement in symptoms day to day. Assessment Summary Assessment More pain today, cause uncertain. Needed to dec shuttle leg press left to 25#. Added sidelying hip abduction at wall, seated hip ab with TB. Encouraged patient to obtain ball for self massage against wall. Physical Therapy Plan Frequency and Duration Frequency of 2x/Week Treatment Duration of 12 treatment (weeks) Plan of Care Start 05/20/25 Date Plan of Care End 08/12/25 Date Therapeutic Interventions Therapeutic Balance Training,Coordination Training,Gait Training, Interventions Home Exercise Program,Joint Mobilizations,Manual Therapy,Neuromuscular Re-education,Orthotic/Prosthetic Management,Patient/Caregiver Education,Self-Care/Home Management,Sensory Integration,Soft Tissue Mobilization ,Taping,Therapeutic Activities,Therapeutic Exercises Modalities Cold Pack/Ice Massage,Electric Stimulation,Hot Packs, Infrared Therapy,Iontophoresis,Ultrasound Next Visit Focus/Plan Next Note Type Progress Note Next Visit Plan Progression of ther ex as tolerated for strengthening and ROM left hip, stability and balance training as tolerated. Manual therapy for soft tissue mobilization and release, encourage self massage.
--- NOTE | 2025-07-01 11:41 | PT.OTN ---
Current Diagnoses Unspecified disorder of synovium and tendon, left thigh (07/01/25) Physical Therapy Treatment Note PT OP: Lower Back/Lower Extremity Start: 05/20/25 13:46 Freq: Status: Active Protocol: Document 07/01/25 10:56 NBM (Rec: 07/01/25 11:41 NBM Laptop) Out-Patient Physical Therapy Visit Information Visit Information Visit Type Treatment Note Visit Start Time 10:50 Visit Stop Time 11:39 Visit Number [phone] Number of LOAD DISPATCHER LOCAL Visits 1 Progress Note Due 07/12/25 Evaluation Information Evaluation Date 05/20/25 OP-PT Subjective Patient Comments Patient Comments Alla reports she woke up feeling better today after sleeping with heating pad on L hip. She requests to repeat whatever you did before because she felt better after that visit. She has grabbing pain in posterior L hip ambulating from wait room into gym. Cardio Equipment Recumbent Stepper (Sci-Fit) Duration (Minutes) 6 Resistance 5 Seat Position 5 Other cues for LE aliingment, push through heels Therapeutic Exercises Supine Exercises strength Supine Exercise Name SLR (not today), Bridges Side bilateral Resistance lvl 3 band Reps/Minutes x5 Comments cues for LE alignment, monitored for pain stretch Supine Exercise Name HEP review 1. modified edgardo st 2. Knee to opp serge Side left Equipment Used hi lo table w/ foot stool for gentle, painfree pull Reps/Minutes 10 breath cycles each Comments cues opp knee to chest to avoid lumbar hyperextension w / Edgardo position Sitting Exercises ball squeeze Sitting Exercise w/ tall sitting posture Name Equipment Used yellow ball Reps/Minutes 10 x2 breath cycles hold Comments initial cues for posture, breath hip ab Equipment Used L2 TB Reps/Minutes x10 w/ breathwork; 1 min hold Manual Therapy Treatment Consent Patient gave verbal Yes consent for manual treatment Soft Tissue Mobilization L hip Body Position Supine Comments gentle STM to B hip flexors during Edgardo stretch. B Iliopsoas release 2x90 sec ea w/ breathwork Physical Therapy Assessment Goals Three Window Shade Ring Coverer Goal (LTG) pt will demo improved IR strength to L hip to 4/5 by DC for improved stability to complete gardening tasks. ( progressing) 06/12/25: Two Usp Goal (LTG) pt will report being able to ambulate 500' without increase in symptoms by DC for improved functional mobility. (progressing) 06/12/25: Pt reports she can walk upto 250' without increase in pain on certain days now. One Short Term Goal (STG pt will be ind with HEP within 2 visits in order to ) progress toward salvage determiner therapy goals outside of therapy visits. (Goal Met) Usp Goal (LTG) Pt will demo improved LEFs score to 44 function or better by DC for improved quality of life. (progressing ) 06/12/25: pt reports improvement in symptoms day to day. Assessment Summary Assessment L>R hip tightness noted today. Pt's painfree hip flexor range of motion improves bilaterally with modified Edgardo stretch by approximately one inch on L and 0.5 on R observing heel to floor contact. Physical Therapy Plan Frequency and Duration Frequency of 2x/Week Treatment Duration of 12 treatment (weeks) Plan of Care Start 05/20/25 Date Plan of Care End 08/12/25 Date Therapeutic Interventions Therapeutic Balance Training,Coordination Training,Gait Training, Interventions Home Exercise Program,Joint Mobilizations,Manual Therapy,Neuromuscular Re-education,Orthotic/Prosthetic Management,Patient/Caregiver Education,Self-Care/Home Management,Sensory Integration,Soft Tissue Mobilization ,Taping,Therapeutic Activities,Therapeutic Exercises Modalities Cold Pack/Ice Massage,Electric Stimulation,Hot Packs, Infrared Therapy,Iontophoresis,Ultrasound Next Visit Focus/Plan Next Note Type Progress Note Next Visit Plan Progression of ther ex as tolerated for strengthening and ROM left hip, stability and balance training as tolerated. Manual therapy for soft tissue mobilization and release, encourage self massage.
--- NOTE | 2025-07-06 17:08 | PT.OPPN ---
Current Diagnoses Unspecified disorder of synovium and tendon, left thigh (07/06/25) Physical Therapy Progress Note PT OP: Lower Back/Lower Extremity Start: 05/20/25 13:46 Freq: Status: Active Protocol: Document 07/06/25 11:32 SAK (Rec: 07/06/25 12:25 SAK Laptop) Out-Patient Physical Therapy Visit Information Visit Information Visit Type Treatment Note Visit Start Time 11:33 Visit Stop Time 12:18 Visit Number (11) 7/10 Number of MEDICAL AFFAIRS SPECIALIST Visits 0 Progress Note Due 09/06/25 Evaluation Information Evaluation Date 05/20/25 OP-PT Subjective Patient Comments Patient Comments Feeling discouraged, hip very sore today, no improvement after last PT session. Has appointment with Dr. Johnson in 3 weeks. Compliant to HEP. Asking questions about how long to hold exercises. Cardio Equipment Recumbent Stepper (Sci-Fit) Duration (Minutes) 8 Resistance 5 Seat Position 5 Other cues for LE aliingment, push through heels Gym Equipment Shuttle Recovery B squat Details w/ green band on B knees to prevent knee valgus Resistance #62 Shuttle Recovery Stable Platform Reps/Time x25, cues for neutral LE's SL squat Details cued lateral knee alignment to neutral Resistance #37R , 25#L Shuttle Recovery Stable Platform Reps/Time 15x Manual Therapy Treatment Soft Tissue Mobilization L hip Body Location quads, hip flex Mobilization Type Myofascial Release,Strumming Intensity/Depth Moderate Body Position Supine Comments reported improved mobility after manual Self-Care/Home Management Treatment Education Patient Education Body Mechanics,Home Exercise Program,Pain Management Other Education reviewed use of tennis ball at home for self massage Physical Therapy Assessment Goals Three Union Steward Goal (LTG) pt will demo improved IR strength to L hip to 4/5 by DC for improved stability to complete gardening tasks. ( progressing) 06/12/25: goal progress 07/07/25:4-/5 Two Correction Goal (LTG) pt will report being able to ambulate 500' without increase in symptoms by DC for improved functional mobility. (progressing) 06/12/25: Pt reports she can walk upto 250' without increase in pain on certain days now. 07/07/25: pain variable, not doing well today One Short Term Goal (STG pt will be ind with HEP within 2 visits in order to ) progress toward shelter therapy goals outside of therapy visits. (Goal Met) STG Duration goal met Correction Goal (LTG) Pt will demo improved LEFs score to 44 function or better by DC for improved quality of life. (progressing ) 06/12/25: pt reports improvement in symptoms day to day. 07/07/25: not done today Assessment Summary Assessment Patient reporting discouraged by persistent pain, did not have good past few days, though reports compliant to HEP. Reviewed self massage with ball verbally, cues for increased gluteal activation when standing and walking. Discussed it takes time to see improvements in strength and function, more challenging at her age and severity of her hip arthritis. Physical Therapy Plan Frequency and Duration Frequency of 2x/Week Treatment Duration of 12 treatment (weeks) Plan of Care Start 05/20/25 Date Plan of Care End 08/12/25 Date Therapeutic Interventions Therapeutic Balance Training,Coordination Training,Gait Training, Interventions Home Exercise Program,Joint Mobilizations,Manual Therapy,Neuromuscular Re-education,Orthotic/Prosthetic Management,Patient/Caregiver Education,Self-Care/Home Management,Sensory Integration,Soft Tissue Mobilization ,Taping,Therapeutic Activities,Therapeutic Exercises Modalities Cold Pack/Ice Massage,Electric Stimulation,Hot Packs, Infrared Therapy,Iontophoresis,Ultrasound Next Visit Focus/Plan Next Note Type Treatment Note Next Visit Plan Progression of ther ex as tolerated for strengthening and ROM left hip, stability and balance training as tolerated. Manual therapy for soft tissue mobilization and release, encourage self massage.
--- NOTE | 2025-07-08 17:17 | PT.OTN ---
Current Diagnoses Unspecified disorder of synovium and tendon, left thigh (07/08/25) Physical Therapy Treatment Note PT OP: Lower Back/Lower Extremity Start: 05/20/25 13:46 Freq: Status: Active Protocol: Document 07/08/25 13:54 NBM (Rec: 07/08/25 14:45 NBM Laptop) Out-Patient Physical Therapy Visit Information Visit Information Visit Type Treatment Note Visit Start Time 13:54 Visit Stop Time 14:43 Visit Number [phone] Number of STAFF RADIOGRAPHER Visits 1 Progress Note Due 09/06/25 Evaluation Information Evaluation Date 05/20/25 OP-PT Subjective Patient Comments Patient Comments Alla reports she did a lot of standing for baking today and came straight here so may have already overdone it. She brings home exercises for instructions for hold time. Some days there's still a grab in her hip, other days it won't happen, and it used to be every day so that's better. She noticed today getting dressed she had a hard time not letting R leg turn in. Cardio Equipment Recumbent Stepper (Sci-Fit) Duration (Minutes) 8 Resistance 5>4.5>4.0 Seat Position 5 Other LEs only Gym Equipment Shuttle Recovery B squat Details w/ green band above knees Resistance #62>50# Shuttle Recovery Stable Platform Reps/Time 50#x25, cues for B LE lat alignment to neutral SL squat Details cued lateral knee alignment to neutral Resistance #37x5>25# R , 25#L Shuttle Recovery Stable Platform Reps/Time 30 ea Therapeutic Exercises Sidelying Exercises hip strength Sidelying Exercise clam and reverse clam Name Equipment Used L2 TB clam/reverse clam Reps/Minutes 10x Comments cues for painfree range, and for hip rot vs knee flex/ ext w/ reverse clam. Manual Therapy Treatment Consent Patient gave verbal Yes consent for manual treatment Soft Tissue Mobilization L hip Body Location quads, hip flex, piriformis, glutes, hamstrings Mobilization Type Myofascial Release,Strumming Intensity/Depth Moderate Body Position Supine, sidelying Comments L hamstrings focus to ischial tuberosity origin due to palpable tension. L hip flexor stretch in sidelying 3 x45 ea - observably improved range and positive feedback response. Self-Care/Home Management Treatment Education Patient Education Home Exercise Program Other Education Reviewed HEP w/ pt and annotated pt's personal HEP ex's for clarification for hold times in seconds or in breaths, and repetitions with breathwork count, confirming pt's understanding. Pt reports standing for baking and feeling fatigued, educated about energy conservation technique to change standing and sitting positions to avoid extended standing when able. Physical Therapy Assessment Goals Three Skilled Nursing Goal (LTG) pt will demo improved IR strength to L hip to 4/5 by DC for improved stability to complete gardening tasks. ( progressing) 06/12/25: goal progress 07/07/25:4-/5 Two Cello Teacher Goal (LTG) pt will report being able to ambulate 500' without increase in symptoms by DC for improved functional mobility. (progressing) 06/12/25: Pt reports she can walk upto 250' without increase in pain on certain days now. 07/07/25: pain variable, not doing well today One Short Term Goal (STG pt will be ind with HEP within 2 visits in order to ) progress toward superintendent terminal therapy goals outside of therapy visits. (Goal Met) STG Duration goal met Cello Teacher Goal (LTG) Pt will demo improved LEFs score to 44 function or better by DC for improved quality of life. (progressing ) 06/12/25: pt reports improvement in symptoms day to day. 07/07/25: not done today Assessment Summary Assessment Pt presents following extended standing for baking today without rest break and fatigues faster today; resistance on Shuttle Recovery is modified from 62# to 50# for bilateral squats, and from 37# to 25# for R LE which is the same as L LE today. educated about energy conservation technique to change standing and sitting positions to avoid extended standing when able. Pt is reminded of self-STM options of tennis ball and rolling pin. She admits to not holding stretches long and is educated to hold stretches 30-60 sec with deep breathing for improved carryover. Physical Therapy Plan Frequency and Duration Frequency of 2x/Week Treatment Duration of 12 treatment (weeks) Plan of Care Start 05/20/25 Date Plan of Care End 08/12/25 Date Therapeutic Interventions Therapeutic Balance Training,Coordination Training,Gait Training, Interventions Home Exercise Program,Joint Mobilizations,Manual Therapy,Neuromuscular Re-education,Orthotic/Prosthetic Management,Patient/Caregiver Education,Self-Care/Home Management,Sensory Integration,Soft Tissue Mobilization ,Taping,Therapeutic Activities,Therapeutic Exercises Modalities Cold Pack/Ice Massage,Electric Stimulation,Hot Packs, Infrared Therapy,Iontophoresis,Ultrasound Next Visit Focus/Plan Next Note Type Treatment Note Next Visit Plan Progression of ther ex as tolerated for strengthening and ROM left hip, stability and balance training as tolerated. Manual therapy for soft tissue mobilization and release, encourage self massage.
--- NOTE | 2025-07-13 11:34 | PT.OTN ---
Current Diagnoses Unspecified disorder of synovium and tendon, left thigh (07/13/25) Physical Therapy Treatment Note PT OP: Lower Back/Lower Extremity Start: 05/20/25 13:46 Freq: Status: Active Protocol: Document 07/13/25 10:45 SAK (Rec: 07/13/25 11:34 SAK Laptop) Out-Patient Physical Therapy Visit Information Visit Information Visit Type Treatment Note Visit Start Time 10:46 Visit Stop Time 11:30 Visit Number [phone] Number of METAL FURNITURE ASSEMBLER Visits 1 Progress Note Due 09/06/25 Evaluation Information Evaluation Date 05/20/25 OP-PT Subjective Patient Comments Patient Comments Reports a little better pain. Frustrated with balance. Cardio Equipment Recumbent Stepper (Sci-Fit) Duration (Minutes) 10 Resistance 4>6>5>4 Seat Position 5 Other UE's and LE's first 5 min, LE's only last 5 min: .31 miles Gym Equipment Cable Column (Body Solid) HS curl Reps/Time next session Shuttle Recovery B squat Details w/ green band above knees Resistance #62>50# Shuttle Recovery Stable Platform Reps/Time 50#x25, cues for B LE lat alignment to neutral SL squat Details cued lateral knee alignment to neutral Resistance #37x5>25# R , 25#L Shuttle Recovery Stable Platform Reps/Time 30 ea Therapeutic Exercises Sitting Exercises KTC Reps/Minutes 2x10 sec ankle circles Reps/Minutes 10x ball squeeze Sitting Exercise w/ tall sitting posture Name Equipment Used yellow ball Reps/Minutes 10 x2 breath cycles hold Comments initial cues for posture, breath hip ab Equipment Used L2 TB Reps/Minutes x10 w/ breathwork; 1 min hold Standing Exercises resisted walking Standing Exercise sidestep Name Resistance L1 TB Reps/Minutes [address] strength Standing Exercise glut set Name Reps/Minutes 5x Manual Therapy Treatment Soft Tissue Mobilization L hip Body Location quads, hip flex, piriformis, glutes, hamstrings Mobilization Type Myofascial Release,Strumming Intensity/Depth Moderate Body Position Supine, sidelying Comments L hamstrings focus to ischial tuberosity origin due to palpable tension. L hip flexor stretch in sidelying 3 x45 ea - observably improved range and positive feedback response. Neuro Re-Education Treatment Balance Activities SLS Reps/Duration tx ea side Comments frequent UE support req tandem stand Reps/Duration 1 min ea Comments occasional UE use on rail foam Details WBOS, NBOS bal, head turns, EO, EC Surface black foam Reps/Duration 12 min Comments occasional UE use on rail Self-Care/Home Management Treatment Education Patient Education Home Exercise Program Physical Therapy Assessment Impairments Impairments Activity Tolerance,Balance,Functional Activities, Functional Mobility,Gait,Pain,Posture,ROM,Soft Tissue Mobility,Strength,Transfers Goals Three Skilled Nursing Goal (LTG) pt will demo improved IR strength to L hip to 4/5 by DC for improved stability to complete gardening tasks. ( progressing) 06/12/25: goal progress 07/07/25:4-/5 LTG Duration 08/12/25 Two Fire Sprinkler Installer Goal (LTG) pt will report being able to ambulate 500' without increase in symptoms by DC for improved functional mobility. (progressing) 06/12/25: Pt reports she can walk upto 250' without increase in pain on certain days now. 07/07/25: pain variable, not doing well today LTG Duration 08/12/25 One Short Term Goal (STG pt will be ind with HEP within 2 visits in order to ) progress toward [facility] therapy goals outside of therapy visits. (Goal Met) STG Duration goal met Fire Sprinkler Installer Goal (LTG) Pt will demo improved LEFs score to 44 function or better by DC for improved quality of life. (progressing ) 06/12/25: pt reports improvement in symptoms day to day. 07/07/25: not done today LTG Duration 08/12/25 Progress Towards Goals Progress Towards Progressing Toward Goals Goals Assessment Summary Assessment Patient reporting slightly less pain. Focus today primarily on balance with patient requiring UE suport from parallel bars. Issued updated HEP HO. Pt. reported feeling very needed. Physical Therapy Plan Frequency and Duration Frequency of 2x/Week Treatment Duration of 12 treatment (weeks) Plan of Care Start 05/20/25 Date Plan of Care End 08/12/25 Date Therapeutic Interventions Therapeutic Balance Training,Coordination Training,Gait Training, Interventions Home Exercise Program,Joint Mobilizations,Manual Therapy,Neuromuscular Re-education,Orthotic/Prosthetic Management,Patient/Caregiver Education,Self-Care/Home Management,Sensory Integration,Soft Tissue Mobilization ,Taping,Therapeutic Activities,Therapeutic Exercises Modalities Cold Pack/Ice Massage,Electric Stimulation,Hot Packs, Infrared Therapy,Iontophoresis,Ultrasound Next Visit Focus/Plan Next Note Type Treatment Note Next Visit Plan Continue to progress ther ex as tolerated for strengthening and ROM left hip, balance and stability training as tolerated. Manual therapy for soft tissue mobilization.
--- NOTE | 2025-07-23 10:45 | PT.OTN ---
Current Diagnoses Unspecified disorder of synovium and tendon, left thigh (07/23/25) Physical Therapy Treatment Note PT OP: Lower Back/Lower Extremity Start: 05/20/25 13:46 Freq: Status: Active Protocol: Document 07/23/25 09:50 SAK (Rec: 07/23/25 10:45 SAK Laptop) Out-Patient Physical Therapy Visit Information Visit Information Visit Type Treatment Note Visit Start Time 09:50 Visit Stop Time 10:31 Visit Number [phone] 06/17 Number of CONVICT GUARD Visits 0 Progress Note Due 09/06/25 Evaluation Information Evaluation Date 05/20/25 OP-PT Subjective Patient Comments Patient Comments Sore today, not sure why. Liked balance work last session. Painful to do SLS on left Cardio Equipment Recumbent Elliptical (NuStep) Duration (Minutes) 10 Resistance 3-6 Seat Position 5 Gym Equipment Shuttle Balance chains red Details bal and wt shift fwd/bck, bal side Reps/Duration 6 min Comments mod UE use Therapeutic Exercises Standing Exercises resisted walking Standing Exercise sidestep Name Resistance L1 TB Reps/Minutes [address] Neuro Re-Education Treatment Balance Activities Hallway Equipment SPC, gait belt Reps/Duration 7 min Comments fast/slow walk, march/bckward walk, sidestepping grace foam walk Surface black squares, blue and black pods Reps/Duration 10 ft x 4 SLS Reps/Duration 5x ea side Comments frequent UE support req cues for use of right foot as kickstand to dec L LE discomfort, challenge with EC, head turns tandem stand Reps/Duration 1 min ea Comments occasional UE use on rail foam Details WBOS, NBOS bal, head turns, EO, EC Surface black foam Reps/Duration 12 min Comments occasional UE use on rail Self-Care/Home Management Treatment Education Patient Education Home Exercise Program Physical Therapy Assessment Goals Three Alf Goal (LTG) pt will demo improved IR strength to L hip to 4/5 by DC for improved stability to complete gardening tasks. ( progressing) 06/12/25: goal progress 07/07/25:4-/5 LTG Duration 08/12/25 Two Alf Goal (LTG) pt will report being able to ambulate 500' without increase in symptoms by DC for improved functional mobility. (progressing) 06/12/25: Pt reports she can walk upto 250' without increase in pain on certain days now. 07/07/25: pain variable, not doing well today LTG Duration 08/12/25 One Short Term Goal (STG pt will be ind with HEP within 2 visits in order to ) progress toward nursing home therapy goals outside of therapy visits. (Goal Met) STG Duration goal met Calker Goal (LTG) Pt will demo improved LEFs score to 44 function or better by DC for improved quality of life. (progressing ) 06/12/25: pt reports improvement in symptoms day to day. 07/07/25: not done today LTG Duration 08/12/25 Assessment Summary Assessment Patient tolerated increase balance challenge today, stating she has become so guarded and careful; much encouragement to perform ther ex safely but challenge herself. Demonstrated good understanding modified SLS. Physical Therapy Plan Frequency and Duration Frequency of 2x/Week Treatment Duration of 12 treatment (weeks) Plan of Care Start 05/20/25 Date Plan of Care End 08/12/25 Date Therapeutic Interventions Therapeutic Balance Training,Coordination Training,Gait Training, Interventions Home Exercise Program,Joint Mobilizations,Manual Therapy,Neuromuscular Re-education,Orthotic/Prosthetic Management,Patient/Caregiver Education,Self-Care/Home Management,Sensory Integration,Soft Tissue Mobilization ,Taping,Therapeutic Activities,Therapeutic Exercises Modalities Cold Pack/Ice Massage,Electric Stimulation,Hot Packs, Infrared Therapy,Iontophoresis,Ultrasound Next Visit Focus/Plan Next Note Type Treatment Note Next Visit Plan Continue to progress ther ex as tolerated for strengthening and ROM left hip, balance and stability training as tolerated. Possible trial hallway ex no cane. Manual therapy for soft tissue mobilization.
--- NOTE | 2025-07-30 17:01 | PT.OPPN ---
Current Diagnoses Unspecified disorder of synovium and tendon, left thigh (07/30/25) Physical Therapy Progress Note PT OP: Lower Back/Lower Extremity Start: 05/20/25 13:46 Freq: Status: Active Protocol: Document 07/30/25 16:48 SAK (Rec: 07/30/25 16:58 SAK Laptop) Out-Patient Physical Therapy Visit Information Visit Information Visit Type Treatment Note Visit Start Time 09:48 Visit Stop Time 10:30 Visit Number 14(07/17) Progress Note Due 09/06/25 OP-PT Subjective Patient Comments Patient Comments Pain persisting, no states she is considering having a hip surgery because it is really affecting her. The modifications made to balance exercises helpful to not put full weight on her left LE. Cardio Equipment Recumbent Elliptical (NuStep) Duration (Minutes) 10 Resistance 3-6 Seat Position 5 Gym Equipment Cable Column (Body Solid) HS curl Reps/Time next session Shuttle Balance chains red Details bal and wt shift fwd/bck, bal side Reps/Duration 7 min Comments mod UE use Therapeutic Exercises Supine Exercises strength Supine Exercise Name ball squeeze, 1 min resisted clam L2 TB Reps/Minutes 10x, 1 min Comments after manual long axis distraction left hip stretch Supine Exercise Name recomend hold due to increase in pain Manual Therapy Treatment Joint Mobilizations L hip Comments long axis distraction with patient reporting decrease in pain, total 5 min, Physical Therapy Assessment Impairments Impairments Activity Tolerance,Balance,Functional Activities, Functional Mobility,Gait,Pain,Posture,ROM,Soft Tissue Mobility,Strength,Transfers Goals Three Coil Binder Goal (LTG) pt will demo improved IR strength to L hip to 4/5 by DC for improved stability to complete gardening tasks. ( progressing) 06/12/25: goal progress 07/07/25:4-/5 07/30/25: 4-/5 LTG Duration 08/12/25 Two Halfway Goal (LTG) pt will report being able to ambulate 500' without increase in symptoms by DC for improved functional mobility. (progressing) 06/12/25: Pt reports she can walk upto 250' without increase in pain on certain days now. 07/07/25: pain variable, not doing well today 07/30/25: pain has again increased, limiting her gait ability LTG Duration 08/12/25 One Short Term Goal (STG pt will be ind with HEP within 2 visits in order to ) progress toward intermediate manager therapy goals outside of therapy visits. (Goal Met) STG Duration goal met Coil Binder Goal (LTG) Pt will demo improved LEFs score to 44 function or better by DC for improved quality of life. (progressing ) 06/12/25: pt reports improvement in symptoms day to day. 07/07/25: not done today 07/30/25: LEFS 31% LTG Duration 08/12/25 Assessment Summary Assessment decompression of left hip most helpful for pain reduction. Patient continues good compliance to HEP though reports increase in pain with figure 4 and piriformis stretch. Patient now considering seing orthopedist due to persistent pain. Is noting improvement in balance and better tolerance for ther ex with modifications. Physical Therapy Plan Frequency and Duration Frequency of 2x/Week Treatment Duration of 12 treatment (weeks) Plan of Care Start 05/20/25 Date Plan of Care End 08/12/25 Date Therapeutic Interventions Therapeutic Balance Training,Coordination Training,Gait Training, Interventions Home Exercise Program,Joint Mobilizations,Manual Therapy,Neuromuscular Re-education,Orthotic/Prosthetic Management,Patient/Caregiver Education,Self-Care/Home Management,Sensory Integration,Soft Tissue Mobilization ,Taping,Therapeutic Activities,Therapeutic Exercises Modalities Cold Pack/Ice Massage,Electric Stimulation,Hot Packs, Infrared Therapy,Iontophoresis,Ultrasound Next Visit Focus/Plan Next Note Type Treatment Note Next Visit Plan Continue gentle progression of strengthening ex as sobeida, caution stretching if irritates hip. Further hip mobilization long axis as well as in flex with hip PROM .
--- NOTE | 2025-08-04 15:16 | PT.OTN ---
Current Diagnoses Unspecified disorder of synovium and tendon, left thigh (08/04/25) Physical Therapy Treatment Note PT OP: Lower Back/Lower Extremity Start: 05/20/25 13:46 Freq: Status: Active Protocol: Document 08/04/25 14:36 SP (Rec: 08/04/25 15:36 SP [id number]) Out-Patient Physical Therapy Visit Information Visit Information Visit Type Treatment Note Visit Start Time 14:36 Visit Stop Time 15:16 Visit Number 15 (07/17) Number of ARMATURE WINDER AUTOMOTIVE Visits 1 Progress Note Due 08/30/25 OP-PT Subjective Patient Comments Patient Comments Pt reports the manual traction single leg pull had to 2 good days after. Yesterday was terrible, had pain in upper and lower area posterolateral L thigh. She thinks standing on L side has been protecting in the past and now able to bear full weight on it. Cardio Equipment Recumbent Elliptical (NuStep) Duration (Minutes) 10 Resistance 3-6 Seat Position 5 Therapeutic Exercises Supine Exercises hooklying clamshell Side bilateral Resistance TB #2>#3 around thighs Reps/Minutes 5s hold x5reps TB #2, 5 reps Tb#3 each resistance ( home 5 SH x10 ) Comments after manual long axis distraction left hip Hip adduction isometric Side bilateral Resistance ball squeeze Reps/Minutes 1 min Comments after manual long axis distraction left hip Standing Exercises Weighted stepping Standing Exercise 1. step taps 2. step up/back down 3. Lateral step up/ Name back down Side bilateral Resistance 4#leg wt Equipment Used 1 UE: 1. rail then SPC, 2. & 3. 1 UE on rail needed Reps/Minutes 10 reps each LE, each activity- good tiring response Comments Mod cues for patterning, TKE and glut drive full stand, eccentric return resisted walking Standing Exercise sidestep Name Resistance L2 TB at shins Equipment Used 1 UE on rail Reps/Minutes 10 ft 2 laps Comments cued slower LE eccentric return Manual Therapy Treatment Consent Patient gave verbal Yes consent for manual treatment Joint Mobilizations L hip Direction inferior distraction (ARMATURE WINDER AUTOMOTIVE hold L ankle) Grade II Body Position Supine Comments long axis distraction with patient reporting decrease in pain, total 1 min x3 reps, Physical Therapy Assessment Goals Three Instrumentation Technologist Goal (LTG) pt will demo improved IR strength to L hip to 4/5 by DC for improved stability to complete gardening tasks. ( progressing) 06/12/25: goal progress 07/07/25:4-/5 07/30/25: 4-/5 LTG Duration 08/12/25 Two Halfway Goal (LTG) pt will report being able to ambulate 500' without increase in symptoms by DC for improved functional mobility. (progressing) 06/12/25: Pt reports she can walk upto 250' without increase in pain on certain days now. 07/07/25: pain variable, not doing well today 07/30/25: pain has again increased, limiting her gait ability LTG Duration 08/12/25 One Short Term Goal (STG pt will be ind with HEP within 2 visits in order to ) progress toward exterminator therapy goals outside of therapy visits. (Goal Met) STG Duration goal met Halfway Goal (LTG) Pt will demo improved LEFs score to 44 function or better by DC for improved quality of life. (progressing ) 06/12/25: pt reports improvement in symptoms day to day. 07/07/25: not done today 07/30/25: LEFS 31% LTG Duration 08/12/25 Assessment Summary Assessment Pt continues to report relief with long axis distraction, unable to assimulate at home self when needed. She demonstrated good effort today and tolerated increased resistance during ther ex, skilled cues for proper patterning. Suggested continue lateral resisted stepping at home, don band in sitting next to counter for safet support. Physical Therapy Plan Frequency and Duration Frequency of 2x/Week Treatment Duration of 12 treatment (weeks) Plan of Care Start 05/20/25 Date Plan of Care End 08/12/25 Date Therapeutic Interventions Therapeutic Balance Training,Coordination Training,Gait Training, Interventions Home Exercise Program,Joint Mobilizations,Manual Therapy,Neuromuscular Re-education,Orthotic/Prosthetic Management,Patient/Caregiver Education,Self-Care/Home Management,Sensory Integration,Soft Tissue Mobilization ,Taping,Therapeutic Activities,Therapeutic Exercises Modalities Cold Pack/Ice Massage,Electric Stimulation,Hot Packs, Infrared Therapy,Iontophoresis,Ultrasound Next Visit Focus/Plan Next Note Type Treatment Note Next Visit Plan Assess response to increased resistance last tx. POC: Continue gentle progression of strengthening ex as sobeida, caution stretching if irritates hip. Further hip mobilization long axis as well as in flex with hip PROM.
--- NOTE | 2025-08-06 10:30 | PT.OTN ---
Current Diagnoses Unspecified disorder of synovium and tendon, left thigh (08/06/25) Physical Therapy Treatment Note PT OP: Lower Back/Lower Extremity Start: 05/20/25 13:46 Freq: Status: Active Protocol: Document 08/06/25 09:48 SAK (Rec: 08/06/25 10:29 SAK Laptop) Out-Patient Physical Therapy Visit Information Visit Information Visit Type Treatment Note Visit Start Time 09:50 Visit Stop Time 10:30 Visit Number 16(07/17) Number of CLIN APPLICATION SPECIALIST Visits 0 Progress Note Due 08/30/25 OP-PT Subjective Patient Comments Patient Comments Sees Dr. Johnson tomorrow, hoping for injections. Sees Dr. Saldaña on 09/10. Pain level 10. Therapeutic Exercises Supine Exercises march Supine Exercise Name lNEXT SESSION bridge Supine Exercise Name grace and unil Reps/Minutes 10x, 4x Comments cues for level pelvis hooklying clamshell Side bilateral Resistance TB #2 around thighs Reps/Minutes 10x 5 sec resistance Comments after manual long axis distraction left hip Hip adduction isometric Side bilateral Resistance ball squeeze Reps/Minutes 1 min Comments after manual long axis distraction left hip Sidelying Exercises hip strength Sidelying Exercise hip ab, clam,, reverse clam Name Equipment Used L2 TB clam/reverse clam, vc technique ab Reps/Minutes 10x Comments cues for technique Manual Therapy Treatment Joint Mobilizations L hip Direction inferior distraction (CLIN APPLICATION SPECIALIST hold L ankle) Grade II Body Position Supine Comments long axis distraction (pull from distal thigh with knee bent about 30 deg) with patient reporting decrease in pain, total 1 min x5 reps, Physical Therapy Assessment Goals Three Longterm Goal (LTG) pt will demo improved IR strength to L hip to 4/5 by DC for improved stability to complete gardening tasks. ( progressing) 06/12/25: goal progress 07/07/25:4-/5 07/30/25: 4-/5 LTG Duration 08/12/25 Two Longterm Goal (LTG) pt will report being able to ambulate 500' without increase in symptoms by DC for improved functional mobility. (progressing) 06/12/25: Pt reports she can walk upto 250' without increase in pain on certain days now. 07/07/25: pain variable, not doing well today 07/30/25: pain has again increased, limiting her gait ability LTG Duration 08/12/25 One Short Term Goal (STG pt will be ind with HEP within 2 visits in order to ) progress toward long term care phlebotomist therapy goals outside of therapy visits. (Goal Met) STG Duration goal met Transportation Aid Goal (LTG) Pt will demo improved LEFs score to 44 function or better by DC for improved quality of life. (progressing ) 06/12/25: pt reports improvement in symptoms day to day. 07/07/25: not done today 07/30/25: LEFS 31% LTG Duration 08/12/25 Assessment Summary Assessment good benefit hip mob (long axis dist), reviewed HEP with vc and tc for technique. Patient demonstrated good understanding Physical Therapy Plan Frequency and Duration Frequency of 2x/Week Treatment Duration of 12 treatment (weeks) Plan of Care Start 05/20/25 Date Plan of Care End 08/12/25 Date Therapeutic Interventions Therapeutic Balance Training,Coordination Training,Gait Training, Interventions Home Exercise Program,Joint Mobilizations,Manual Therapy,Neuromuscular Re-education,Orthotic/Prosthetic Management,Patient/Caregiver Education,Self-Care/Home Management,Sensory Integration,Soft Tissue Mobilization ,Taping,Therapeutic Activities,Therapeutic Exercises Modalities Cold Pack/Ice Massage,Electric Stimulation,Hot Packs, Infrared Therapy,Iontophoresis,Ultrasound Next Visit Focus/Plan Next Note Type Progress Note Next Visit Plan Reassessment. Trial december supine with core stab.
--- NOTE | 2025-08-11 16:11 | PT.OPPOC ---
Physical, Occupational & Speech Therapy At [facility] Current Diagnoses Unspecified disorder of synovium and tendon, left thigh (08/11/25) Visit Care Team Role Provider Type Homer Laureano DO Family Provider Physician Primary Care Provider Specialty: Family Practice Address: [address] [place] [address], [id number] Email: [email or web address] Jenna Gil PA-C Attending Provider Advanced Creative Designer Referring Provider Specialty: Orthopedics Orthopedic Surgery Address: [address] [place] [address], [address] Email: [email or web address] [facility] Plan Of Care PT OP: Lower Back/Lower Extremity Start: 05/20/25 13:46 Freq: Status: Active Protocol: Document 08/11/25 09:45 SAK (Rec: 08/11/25 10:52 SAK Laptop) Out-Patient Physical Therapy Visit Information Visit Information Visit Type Treatment Note Visit Start Time 09:45 Visit Stop Time 10:30 Visit Number 17(11/17) Number of AIRCRAFT INSTRUMENT TESTER Visits 0 Progress Note Due 08/30/25 OP-PT Subjective Patient Comments Patient Comments Yesterday was a bad day, today a little better. Not sure why. Pain 02/14. Saw Dr. Johnson, injection scheduled for 08/20/25. Cardio Equipment Recumbent Elliptical (NuStep) Duration (Minutes) 10 Resistance 3-6 Seat Position 5 Other first 5 min UE's/LE's, second 5 min LE's only Gym Equipment Shuttle Recovery B squat Details w/ green band above knees Resistance #62>50# Shuttle Recovery Stable Platform Reps/Time 50#x25, cues for B LE lat alignment to neutral SL squat Details cued lateral knee alignment to neutral Resistance #37x5>25# R , 25#L Shuttle Recovery Stable Platform Reps/Time 25 ea Therapeutic Exercises Supine Exercises LTR Reps/Minutes 10x Comments cues for pain-free ROM SLR Reps/Minutes 5x2 grace Comments cues march Reps/Minutes 10x Comments cues for level pelvis, core stab bridge Supine Exercise Name grace and unil Reps/Minutes 10x, 5x2 Comments cues for level pelvis hooklying clamshell Supine Exercise Name HEP Hip adduction isometric Side bilateral Resistance ball squeeze Reps/Minutes 1 min Comments after manual long axis distraction left hip Sidelying Exercises hip strength Sidelying Exercise hip ab Name Equipment Used vc technique ab Reps/Minutes 10x Comments cues for technique, lead with heel for ab Manual Therapy Treatment Joint Mobilizations L hip Direction inferior distraction (AIRCRAFT INSTRUMENT TESTER hold L ankle) Grade II Body Position Supine Comments long axis distraction (pull from distal thigh with knee bent about 30 deg) with patient reporting decrease in pain, total 1 min x5 reps, Physical Therapy Assessment Goals Three Care Home Goal (LTG) pt will demo improved IR strength to L hip to 4/5 by DC for improved stability to complete gardening tasks. ( progressing) 06/12/25: goal progress 07/07/25:4-/5 07/30/25: 4-/5 LTG Duration 09/11/25 Two Care Home Goal (LTG) pt will report being able to ambulate 500' without increase in symptoms by DC for improved functional mobility. (progressing) 06/12/25: Pt reports she can walk upto 250' without increase in pain on certain days now. 07/07/25: pain variable, not doing well today 07/30/25: pain has again increased, limiting her gait ability LTG Duration 09/11/25 One Short Term Goal (STG pt will be ind with HEP within 2 visits in order to ) progress toward skilled nursing therapy goals outside of therapy visits. (Goal Met) STG Duration goal met Feed Crusher Operator Goal (LTG) Pt will demo improved LEFs score to 44 function or better by DC for improved quality of life. (progressing ) 06/12/25: pt reports improvement in symptoms day to day. 07/07/25: not done today 07/30/25: LEFS 31% LTG Duration 09/11/25 Assessment Summary Assessment injection scheduled 08/20. Trial supine december for core stab and SLR tolerated well. Reviewed single leg bridge with patient demonstrating improved ability and reports feels able to do at home now. Physical Therapy Plan Frequency and Duration Frequency of 2x/Week Treatment Duration of 4 treatment (weeks) Plan of Care Start 08/11/25 Date Plan of Care End 09/11/25 Date Therapeutic Interventions Therapeutic Balance Training,Coordination Training,Gait Training, Interventions Home Exercise Program,Joint Mobilizations,Manual Therapy,Neuromuscular Re-education,Orthotic/Prosthetic Management,Patient/Caregiver Education,Self-Care/Home Management,Sensory Integration,Soft Tissue Mobilization ,Taping,Therapeutic Activities,Therapeutic Exercises Modalities Cold Pack/Ice Massage,Electric Stimulation,Hot Packs, Infrared Therapy,Iontophoresis,Ultrasound Next Visit Focus/Plan Next Note Type Treatment Note Next Visit Plan Continue LE strengthening, manual treatment , modalities as needed. Closed chain as tolerated. Plan of Care Dates Plan of Care Start Date 08/11/25 Plan of Care End Date 09/11/25 Electronically Signed by: Mere Mosqueda, PT 08/11/25 3904 If you are in agreement with this Plan of Care, please return a signed and dated copy. I have reviewed this Plan of Care and certify that the skilled therapy services above are required to meet the patient?s needs. Physician Signature Date Printed Name and Credentials Clinical Instructor Signature Printed Name and Credentials
--- NOTE | 2025-08-18 09:01 | PT.OTN ---
Current Diagnoses Unspecified disorder of synovium and tendon, left thigh (08/18/25) Physical Therapy Treatment Note PT OP: Lower Back/Lower Extremity Start: 05/20/25 13:46 Freq: Status: Active Protocol: Document 08/18/25 08:16 SAK (Rec: 08/18/25 09:00 SAK Laptop) Out-Patient Physical Therapy Visit Information Visit Information Visit Type Treatment Note Visit Start Time 08:17 Visit Stop Time 09:00 Visit Number 18(3) Number of METEOROLOGIST IN CHARGE Visits 0 Progress Note Due 08/30/25 Evaluation Information Evaluation Date 05/20/25 OP-PT Subjective Patient Comments Patient Comments Looking forward to injection in 2 days. Leaving for [place] on flight 08/26/25. [place] better for 1 1/2 days after last session, attributes to manual pulling on my leg. Cardio Equipment Recumbent Elliptical (NuStep) Duration (Minutes) 10 Resistance 3-6 Seat Position 5 Other first 5 min UE's/LE's, second 5 min LE's only Gym Equipment Cable Column (Body Solid) HS curl Details grace, unil Resistance 30, 15 Reps/Time 10x2 Shuttle Recovery B squat Details w/ green band above knees Resistance 50# Shuttle Recovery Stable Platform Reps/Time 25x SL squat Details cued lateral knee alignment to neutral Resistance 25# Shuttle Recovery Stable Platform Reps/Time 10x2 Therapeutic Exercises Supine Exercises SLR Reps/Minutes 5x2 grace Comments cues march Reps/Minutes 10x Comments cues for level pelvis, core stab Hip adduction isometric Side bilateral Resistance ball squeeze Reps/Minutes 1 min Comments after manual long axis distraction left hip Sidelying Exercises clam Reps/Minutes 10x hip strength Sidelying Exercise hip ab Name Equipment Used vc technique ab Reps/Minutes 10x Comments cues for technique, lead with heel for ab Manual Therapy Treatment Joint Mobilizations L hip Direction inferior distraction (METEOROLOGIST IN CHARGE hold L ankle) Grade II Body Position Supine Comments long axis distraction (pull from distal thigh with knee bent about 30 deg) with patient reporting decrease in pain, total 1 min x5 reps, Physical Therapy Assessment Goals Three Longterm Goal (LTG) pt will demo improved IR strength to L hip to 4/5 by DC for improved stability to complete gardening tasks. ( progressing) 06/12/25: goal progress 07/07/25:4-/5 07/30/25: 4-/5 LTG Duration 09/11/25 Two Longterm Goal (LTG) pt will report being able to ambulate 500' without increase in symptoms by DC for improved functional mobility. (progressing) 06/12/25: Pt reports she can walk upto 250' without increase in pain on certain days now. 07/07/25: pain variable, not doing well today 07/30/25: pain has again increased, limiting her gait ability LTG Duration 09/11/25 One Short Term Goal (STG pt will be ind with HEP within 2 visits in order to ) progress toward terminal make up operator therapy goals outside of therapy visits. (Goal Met) STG Duration goal met Longterm Goal (LTG) Pt will demo improved LEFs score to 44 function or better by DC for improved quality of life. (progressing ) 06/12/25: pt reports improvement in symptoms day to day. 07/07/25: not done today 07/30/25: LEFS 31% LTG Duration 09/11/25 Assessment Summary Assessment injection scheduled 08/20. Added HS curl grace and unil on Body Solid with good tolerance. Mod cues for technique hip ab Physical Therapy Plan Frequency and Duration Frequency of 2x/Week Treatment Duration of 4 treatment (weeks) Plan of Care Start 08/11/25 Date Plan of Care End 09/11/25 Date Therapeutic Interventions Therapeutic Balance Training,Coordination Training,Gait Training, Interventions Home Exercise Program,Joint Mobilizations,Manual Therapy,Neuromuscular Re-education,Orthotic/Prosthetic Management,Patient/Caregiver Education,Self-Care/Home Management,Sensory Integration,Soft Tissue Mobilization ,Taping,Therapeutic Activities,Therapeutic Exercises Modalities Cold Pack/Ice Massage,Electric Stimulation,Hot Packs, Infrared Therapy,Iontophoresis,Ultrasound Next Visit Focus/Plan Next Note Type Treatment Note Next Visit Plan Continue LE strengthening, manual treatment , modalities as needed. Closed chain as tolerated.
--- NOTE | 2025-08-25 17:02 | PT.OPDS ---
Current Diagnoses Unspecified disorder of synovium and tendon, left thigh (08/25/25) Visit Care Team Role Provider Type Homer Laureano DO Family Provider Physician Primary Care Provider Specialty: Family Practice Address: [address] [place] [address], [id number] Email: [email or web address] Attending Provider [employer] Custodian Referring Provider Specialty: Orthopedics Orthopedic Surgery Address: [address] [place] [address], [id number] Email: [email or web address] Visit Number Visit Number 18(01/15) Discharge Summary PT OP: Lower Back/Lower Extremity Start: 05/20/25 13:46 Freq: Status: Active Protocol: Document 08/25/25 15:18 SAK (Rec: 08/25/25 16:20 SAK Laptop) Out-Patient Physical Therapy Visit Information Visit Information Visit Type Treatment Note Visit Start Time 15:18 Visit Stop Time 16:03 Visit Number 18(01/15) Number of LANDMAN Visits 0 Progress Note Due 08/30/25 Therapeutic Exercises Supine Exercises bug Reps/Minutes 10x Comments cues for core stab leg lowering Reps/Minutes 10x Comments cues for core stab SLR Reps/Minutes 5x2 grace Comments cues march Reps/Minutes 10x Comments cues for level pelvis, core stab Sidelying Exercises clam Reps/Minutes 10x hip strength Sidelying Exercise hip ab Name Equipment Used vc technique ab Reps/Minutes 10x Comments cues for technique, lead with heel for ab Physical Therapy Assessment Goals Three Custodial Goal (LTG) pt will demo improved IR strength to L hip to 4/5 by DC for improved stability to complete gardening tasks. ( progressing) 06/12/25: goal progress 07/07/25:4-/5 07/30/25: 4-/5 LTG Duration goal met Two Custodial Goal (LTG) pt will report being able to ambulate 500' without increase in symptoms by DC for improved functional mobility. (progressing) 06/12/25: Pt reports she can walk upto 250' without increase in pain on certain days now. 07/07/25: pain variable, not doing well today 07/30/25: pain has again increased, limiting her gait ability LTG Duration goal met One Short Term Goal (STG pt will be ind with HEP within 2 visits in order to ) progress toward intermediate manager therapy goals outside of therapy visits. (Goal Met) STG Duration goal met Custodial Goal (LTG) Pt will demo improved LEFs score to 44 function or better by DC for improved quality of life. (progressing ) 06/12/25: pt reports improvement in symptoms day to day. 07/07/25: not done today 07/30/25: LEFS 31% LTG Duration goal met Assessment Summary Assessment Patient reporting much improved pain after injection. Provided patient instruction regarding back and hip protection, body mechanics for kitchen and other usual activities; patient demonstrated good understanding after instruction, reporting twisting is the thing she likely does the most that could be irritating her back and hip. Updated HEP per patient request abdominal strengthening with updated written HO; patient demonstrated good understanding and denied pain. At this time patient has no further PT needs. She may seek out PT referral to work specifically on balance if her pain relief from injection persists. Physical Therapy Plan Discharge Physical Therapy Discharge Reasons Goals Met
== END 2025-08-26 08:02 | disposition home or self-care (01) ==
LOC: PHYS 15:15
PROVIDERS: Family Provider Family Medicine; PCP Family Medicine; Referring Provider Physician Assistant Surgical; Visit Provider Physician Assistant Surgical
DX: M67.952 Unspecified disorder of synovium and tendon, left thigh (principal)
CPT/HCPCS: 97110; 97112; 97140; 97162; 97535